=== PATIENT | female | born 1995 | race Caucasian/White ===

== ENCOUNTER 2017-09-14 10:58 | Emergency (ER) | payer MEDICAID ==
[~2017-09-14] VITALS: Ht 170.2 cm; Wt 99.8 kg
[~2017-09-14 10:58] MED LIST: ADHD MED; ANTIBIOTIC FOR UTI; BIPOLAR MED; BUPR150T6; BUPR300T; CEPH-38 PO; DEPO PROVERA; LORA10TA2; LRT10T; MELA1TAB11; NAPR-243 PO; PALI6TAB2; ZPR80C
--- OUTSIDE RECORDS SUMMARY | 2017-09-14 11:06 | XMS REPORT ---
Author Author KIERSTEN Pinto [facility] Address [address] [place] [address] Care Team Providers Care Etl Application Developer Name Role Phone KIERSTEN Pinto Unavailable PROBLEMS Type Condition ICD9-CM Code HGH16-QG Code Onset Dates Condition Status SNOMED Code Problem Borderline personality disorder F60.3 Active 72351620 Problem Acute nasopharyngitis J00 Active 57191170 Problem Post traumatic stress disorder (PTSD) F43.10 Active 32249848 Problem Positive test Z32.01 Active 167000313 Problem Unspecified mood [affective] disorder F39 Active 589077363 Problem Cigarette nicotine dependence without complication F17.210 Active 50391067 Problem Dysuria R30.0 Active 51739453 Problem Gynecologic exam normal Z01.419 Active 696729888 ALLERGIES Substance Reaction Event Type Date Status Codeine Sulfate anger Drug Allergy Mar, Active Latex Unknown Non Drug Allergy Mar, Active ENCOUNTERS Encounter Location Date Diagnosis [address] [id number], [place] [id number] 15 Apr, 2017 Dental examination Z01.20 [facility] [address] [facility] [id number] [place] [address] 14 Apr, 2017 Borderline personality disorder F60.3 ; Unspecified mood [ affective] disorder F39 and Post traumatic stress disorder (PTSD) F43.10 [facility] [address] [facility] [id number], [place] [id number] Mar, Dental caries K02.9 [facility] [address] [facility] [id number] [place] [address] 10 Feb, 2017 Borderline personality disorder F60.3 ; Unspecified mood [ affective] disorder F39 and Post traumatic stress disorder (PTSD) F43.[address] [id number], [place] [id number] Feb, Dental examination Z01.20 [facility] [address] [facility] [id number] [place] [address]1492313[address] Feb, [facility] [address] [facility] [id number] [place] 62384618[place] [address] Jan, Borderline personality disorder F60.[address] [facility] [id number], [place] [id number] Jan, [facility] [address] [id number], [place] [phone] Jan, [facility] [address] [facility] [id number] [place] 27632115- [address] Jan, [facility] [address] [facility] [id number] [place] [address] Dec, Borderline personality disorder F60.3 and Unspecified mood [ affective] disorder F39 [facility] [place] [address] [id number], [place] [id number] Dec, [facility] [place] [id number] [place] [address] [id number] Dec, [facility] [place] [id number] [place] [address] [phone] Dec, [facility] [place] [address] [id number], [place] [id number] Nov, [facility] [place] [address] [id number], [place] [phone] Nov, [facility] [place] [address] [id number], [place] [phone] Nov, [facility] [place] [address] [id number], [place] [id number] Nov, [facility] [place] [address] [id number], [place] [phone] Nov, [facility] [address] [facility] [id number] [place] 89727174- [address] Nov, [facility] [place] [address] [id number] [place] [id number] Nov, [facility] [place] [address] [id number] [place] [phone] Nov, [facility] [place] [address] [id number] [place] [id number] Nov, [facility] [place] [address] [id number] [place] [phone] Nov, [facility] [place] [address] [id number] [place] [id number] Nov, [facility] [place] [address] [id number] [place] [phone] Oct, [facility] [place] [address] [id number] [place] [phone] Oct, [facility] [place] [address] [id number] [place] [phone] Oct, [facility] [place] [address] [id number] [place] [phone] Oct, [facility] [place] [address] [id number] [place] [id number] Oct, [facility] [place] [address] [id number] [place] [phone] Oct, [facility] [place] [address] [id number] [place] [phone] Oct, [facility] [place] [address] [id number] [place] [id number] Oct, [facility] [place] [address] [id number] [place] [id number] Sep, [facility] [place] [address] [id number] [place] [id number] Sep, [facility] [place] [address] [id number] [place] [id number] Sep, [facility] [address] [id number] [id number] Sep, Dental examination Z01.20 [facility] [place] [address] [id number] [place] [id number] Sep, [facility] [place] [address] [id number], [place] [id number] Sep, [facility] [place] [address] [id number], [place] [id number] Sep, [facility] [place] [address] [id number], [place] [phone] Sep, [facility] [place] [address] [id number], [place] [phone] Sep, [facility] [place] [address] [id number], [place] [phone] Sep, [facility] [place] [address] [id number], [place] [phone] Sep, [facility] [address] [id number], [place] [id number] Sep, Dental examination Z01.20 [facility] [id number], [place] [id number] Aug, [facility] [address] [id number], [place] [phone] Apr, Positive test Z32.01 [place] [id number] [place] [address]- [address] Apr, Dysuria R30.0 [facility] [address] [id number], [place] [id number] Apr, [facility] [address] [id number], [place] [id number] Apr, [facility] [address] [id number], [place] [id number] Apr, [facility] [address] [id number], [place] [id number] Mar, Gynecologic exam normal Z01.419 [place] [id number] [place] [address]- 6[address] Mar, Borderline personality disorder F60.3 ; Unspecified mood [ affective] disorder F39 and Cigarette nicotine dependence without complication F17.210 [place] [id number] [place] [address]73- 6120 Feb, Borderline personality disorder F60.3 ; Unspecified mood [ affective] disorder F39 and Cigarette nicotine dependence without complication F17.210 [facility] [address]65100[place] [address] Jan, Borderline personality disorder F60.[address] [id number], [place] [id number] Jan, Strep throat J02.0 and Sore throat J02.[address] [id number], [place] [phone] Oct, Acute nasopharyngitis J00 [facility] [address] [place] [address] 17806- 4383 Aug, [facility] [address] [place] [address] 70081- 4972 Jul, [facility] [id number] [place] [address] 37214- 4265 Jul, [facility] [address] [place] [address] 16119- 6184 Nov, Mood disorder F39 [facility] [address] [place] [address] 36410- 8363 Jul, Mood disorder 296.90 [facility] [id number], [place] [id number] June, Bipolar 1 disorder, depressed 296.50 and Attention deficit disorder 314.00 [facility] [address] [address] Jan, [facility] [id number] [place] [address] 06112- 7302 Nov, [facility] [address] [address] Aug, IMMUNIZATIONS No Known Immunizations SOCIAL HISTORY Never Assessed REASON FOR VISIT TE PLAN OF CARE Activity Details Follow Up prn Reason:restorative 1 hour VITAL SIGNS Height 67.50 in 2017-03-25 Blood pressure systolic 113 mmHg 2017-03-25 Blood pressure diastolic 54 mmHg 2017-03-25 MEDICATIONS Medication Instructions Dosage Frequency Start Date End Date Duration Status Not-Taking Nicoderm CQ 7 MG/24HR Transdermal Once a day 1 patch to skin 24h Not-Taking Folic Acid Not-Taking Clindamycin HCl 150 MG Orally every 8 hrs 2 capsules 8h 5 day(s) Not -Taking Lamotrigine 25 MG Orally Twice a day 1 tablet 12h Active Bactrim Active Zoloft 50 mg Orally Once a day 1 tablet 24h 27 Jan, 2017 30 days Not- Taking Motrin IB 800 Orally every 6 hrs 1 tablet as needed 6h 5 days Not- Taking Latuda 40 mg Orally Once a day 1 tablet with food 24h Not-Taking RESULTS No Results PROCEDURES Procedure Date Ordered Result Body Site INTRAORL-PERIAPICAL 1 FILM 60754 Mar 25, 2017 EXTRAC ERUPTED TOOTH/EXPOSED ROOT Mar 25, 2017 INSTRUCTIONS MEDICATIONS ADMINISTERED No Known Medications MEDICAL (GENERAL) HISTORY Type Description Date Medical History attention deficit hyperactivity disorder Medical History bipolar disorder Medical History Tourette's syndrome Medical History personality disorder Surgical History tonsillectomy Surgical History wisdom teeth extraction Surgical History Tubal ligation 02/2017 Hospitalization History Voluntary in patient behavior health admission [facility] Hospitalization History childbirth for three days 12/2016
--- OUTSIDE RECORDS SUMMARY | 2017-09-14 11:06 | XMS REPORT ---
Author Author JHONY PARRA Organization [facility] [address] Address [address] [place] [address] Care Team Providers Care Bracelet And Brooch Maker Name Role Phone JHONY PARRA Unavailable PROBLEMS Type Condition ICD9-CM Code [id number] Code Onset Dates Condition Status SNOMED Code Problem Borderline personality disorder F60.3 Active 20574080 Problem Acute nasopharyngitis J00 Active 70742620 Problem Post traumatic stress disorder (PTSD) F43.10 Active 68190840 Problem Positive test Z32.01 Active 593475113 Problem Unspecified mood [affective] disorder F39 Active 830908069 Problem Cigarette nicotine dependence without complication F17.210 Active 37285986 Problem Dysuria R30.0 Active 33930453 Problem Gynecologic exam normal Z01.419 Active 233604135 ALLERGIES Substance Reaction Event Type Date Status Codeine Sulfate anger Drug Allergy Apr, Active Latex Unknown Non Drug Allergy Apr, Active ENCOUNTERS Encounter Location Date Diagnosis [address] [id number], [place] [id number] 15 Apr, 2017 Dental examination Z01.20 [facility] [address] [id number] [address] 14 Apr, 2017 Borderline personality disorder F60.3 ; Unspecified mood [ affective] disorder F39 and Post traumatic stress disorder (PTSD) F43.[address] [id number], [place] [id number] 07 Mar, 2017 Dental caries K02.9 [facility] [address] [facility] [id number], [place] [address] 10 Feb, 2017 Borderline personality disorder F60.3 ; Unspecified mood [ affective] disorder F39 and Post traumatic stress disorder (PTSD) F43.10 [place] [address] [id number], [place] [id number] Feb, Dental examination Z01.20 [facility] [address] [facility] [id number], [place] 03627845- [address] Feb, [facility] [address] [facility] [id number], [place] 765031- [address] Jan, Borderline personality disorder F60.[address] [facility] [address] [id number], [place] [id number] Jan, [facility] [address] [id number], [place] [phone] Jan, [facility] [address]65100[place], [place] 37865548- [address] Jan, [facility] [address] [id number], [place] [address]- [address]90 Dec, Borderline personality disorder F60.3 and Unspecified mood [ affective] disorder F39 [facility] [place] [address] [id number], [place] [phone] Dec, [facility] [place] [address] [id number] [place] [address] [id number] Dec, [facility] [place] [address] [id number] [place] [address] [id number] Dec, [facility] [place] [address] [id number] [place] [address] [id number] Nov, [facility] [place] [address] [id number] [place] [address] [phone] Nov, [facility] [place] [address] [id number] [place] [address] [phone] Nov, [facility] [place] [address] [id number] [place] [address] [id number] Nov, [facility] [place] [address] [id number] [place] [address] [phone] Nov, [facility] [address] [facility] [id number], [place] 54358763- [address] Nov, [facility] [place] [address] [id number] [place] [address] [id number] Nov, [facility] [place] [address] [id number] [place] [phone] Nov, [facility] [place] [address] [id number] [place] [phone] Nov, [facility] [place] [address] [id number] [place] [phone] Nov, [facility] [place] [address] [id number] [place] [id number] Nov, [facility] [place] [address] [id number] [place] [id number] Oct, [facility] [place] [address] [id number] [place] [phone] Oct, [facility] [place] [address] [id number] [place] [id number] Oct, [facility] [place] [address] [id number] [place] [id number] Oct, [facility] [place] [address] [id number] [place] [id number] Oct, [facility] [place] [address] [id number] [place] [id number] Oct, [facility] [place] [address] [id number] [place] [id number] Oct, [facility] [place] [address] [id number] [place] [id number] Oct, [facility] [place] [address] [id number] [place] [id number] Sep, [facility] [place] [address] [id number] [place] [id number] Sep, [facility] [place] [address] [id number] [place] [id number] Sep, [facility] [id number] [facility] [place] [id number] Sep, Dental examination Z01.20 [facility] [place] [address] [id number] [place] [id number] Sep, [facility] [place] [address] [id number] [place] [phone] Sep, [facility] [place] [address] [id number], [place] [phone] Sep, [facility] [place] [address] [id number], [place] [id number] Sep, [facility] [place] [address] [id number], [place] [phone] Sep, [facility] [place] [address] [facility] [id number], [place] [phone] Sep, [facility] [place] [address] [id number], [place] [phone] Sep, [facility] [address] [id number], [place] [phone] Sep, Dental examination Z01.20 [facility] [place] [address] [id number], [place] [phone] Aug, [facility] [address] [id number], [place] [id number] Apr, Positive test Z32.01 [place] [address] [place] [address] 69705- 2919 Apr, Dysuria R30.0 [facility] [address] [id number], [place] [id number] Apr, [facility] [address] [id number], [place] [phone] Apr, [facility] [address] [id number], [place] [phone] Apr, [facility] [address] [id number], [place] [id number] Mar, Gynecologic exam normal Z01.419 [place] [address] [address]- [address] Mar, Borderline personality disorder F60.3 ; Unspecified mood [ affective] disorder F39 and Cigarette nicotine dependence without complication F17.210 [place] [id number] [place] [address] 30197- 6304 Feb, Borderline personality disorder F60.3 ; Unspecified mood [ affective] disorder F39 and Cigarette nicotine dependence without complication F17.210 [facility] [address] [place] [address] 91216- 5317 Jan, Borderline personality disorder F60.[address] [id number], [place] [id number] Jan, Strep throat J02.0 and Sore throat J02.[address] [id number], [place] [phone] Oct, Acute nasopharyngitis J00 [place] [id number] [place] [address] 38108- 7535 Aug, [facility] [id number] [place] [address] 42301- 9073 Jul, [facility] [id number] [place] [address] 20326- 8318 Jul, [facility] [address] [place] [address] 18957- 3914 Nov, Mood disorder F39 [facility] [id number] [place] [address] 02907- 8415 Jul, Mood disorder 296.90 [facility] [id number], [place] 024397529 June, Bipolar 1 disorder, depressed 296.50 and Attention deficit disorder 314.00 [facility] [address]00565100[place], [place] [address]- 1697 Jan, [facility] [id number] [place] [address] 41342- 6636 Nov, [facility] [id number] [place] [address] 89199- 5070 Aug, IMMUNIZATIONS No Known Immunizations SOCIAL HISTORY Never Assessed REASON FOR VISIT f/u PLAN OF CARE Activity Details Follow Up 2 Months Reason: VITAL SIGNS Height 67.50 in 2017-04-29 Weight 207.5 lbs 2017-04-29 Heart Rate 72 bpm 2017-04-29 Respiratory Rate 20 2017-04-29 BMI 32.02 kg/m2 2017-04-29 Blood pressure systolic 112 mmHg 2017-04-29 Blood pressure diastolic 74 mmHg 2017-04-29 MEDICATIONS Medication Instructions Dosage Frequency Start Date End Date Duration Status Folic Acid Not-Taking Nicoderm CQ 7 MG/24HR Transdermal Once a day 1 patch to skin 24h Not-Taking Bactrim Not-Taking Clindamycin HCl 150 MG Orally every 8 hrs 2 capsules 8h 5 day(s) Not -Taking Abilify 5 mg Orally Once a day 1 tablet 24h Apr, 30 day(s) Active Sertraline HCl 25 MG Orally Once a day 1 tablet 24h Active Zoloft 100 MG Orally Once a day 1 tablet 24h 30 days Active Latuda 40 mg Orally Once a day 1 tablet with food 24h Not-Taking Lamotrigine 25 MG Orally Twice a day 1 tablet 12h Not-Taking Not-Taking Motrin IB 800 Orally every 6 hrs 1 tablet as needed 6h 5 days Not- Taking RESULTS No Results PROCEDURES No Known procedures INSTRUCTIONS MEDICATIONS ADMINISTERED No Known Medications MEDICAL (GENERAL) HISTORY Type Description Date Medical History attention deficit hyperactivity disorder Medical History bipolar disorder Medical History Tourette's syndrome Medical History personality disorder Surgical History tonsillectomy Surgical History wisdom teeth extraction Surgical History Tubal ligation 02/2017 Hospitalization History Voluntary in patient behavior health admission [facility] unit Hospitalization History childbirth for three days 12/2016
--- OUTSIDE RECORDS SUMMARY | 2017-09-14 11:06 | XMS REPORT ---
Author Author YUSEF NORWOOD [facility] Address [address] [place] [address] Care Team Providers Care Ticker Wirer Name Role Phone OZIEL NORWOODO Unavailable PROBLEMS Type Condition ICD9-CM Code [id number] Code Onset Dates Condition Status SNOMED Code Problem Borderline personality disorder F60.3 Active 81433067 Problem Acute nasopharyngitis J00 Active 49589057 Problem Post traumatic stress disorder (PTSD) F43.10 Active 82478689 Problem Positive test Z32.01 Active 907730549 Problem Unspecified mood [affective] disorder F39 Active 656384069 Problem Cigarette nicotine dependence without complication F17.210 Active 61908563 Problem Dysuria R30.0 Active 29255666 Problem Gynecologic exam normal Z01.419 Active 777523263 ALLERGIES No Information ENCOUNTERS Encounter Location Date Diagnosis [address] [id number][place] [id number] 14 Jul, 2017 [address] [id number] [address] 30 Jun, [address] [id number][place] [id number] 15 Apr, 2017 Dental examination Z01.20 [address] [place] [address]24- [address]578 14 Apr, 2017 Borderline personality disorder F60.3 ; Unspecified mood [ affective] disorder F39 and Post traumatic stress disorder (PTSD) F43.[address] [id number][place] [id number] 07 Mar, 2017 Dental caries K02.9 [address] [place] [address] [facility] [id number] [place] [address] 24834- 1706 10 Feb, 2017 Borderline personality disorder F60.3 ; Unspecified mood [ affective] disorder F39 and Post traumatic stress disorder (PTSD) F43.10 [facility] [address] [id number], [place] [id number] Feb, Dental examination Z01.20 [facility] [address] [facility] [id number] [place] [address] Feb, [facility] [address] [id number] [address] Jan, Borderline personality disorder F60.3 [facility] [address] [id number], [place] [id number] Jan, [facility] [place] [address] [facility] [address] [id number], [place] [id number] Jan, [facility] [address]100[place] [address] Jan, [facility] [address] [address] Dec, Borderline personality disorder F60.3 and Unspecified mood [ affective] disorder F39 [facility] [place] [id number] [place] [address] [id number] Dec, [facility] [place] [address] [id number] [place] [address] [id number] Dec, [facility] [place] [address] [id number] [place] [address] [id number] Dec, [facility] [place] [id number] [place] [address] [id number] Nov, [facility] [place] [address] [id number], [place] 1716900[place] Nov, [facility] [place] [address] [id number] [place] [address] [id number] Nov, [facility] [place] [address] [id number] [place] [address] [id number] Nov, [facility] [place] [address] [id number] [place] [address] [phone] Nov, [facility] [address] [facility] [id number] [place] [address] Nov, [facility] [place] [address] [id number] [place] [id number] Nov, [facility] [place] [address] [id number] [id number] Nov, [facility] [place] [address] [id number] [place] [phone] Nov, [facility] [place] [address] [id number] [place] [id number] Nov, [facility] [place] [address] [id number] [place] [id number] Nov, [facility] [place] [address] [id number] [place] [phone] Oct, [facility] [place] [address] [id number] [place] [id number] Oct, [facility] [place] [address] [id number] [place] [id number] Oct, [facility] [place] [address] [id number] [place] [id number] Oct, [facility] [place] [address] [id number] [place] [phone] Oct, [facility] [place] [address] [id number] [place] [id number] Oct, [facility] [place] [address] [id number] [place] [id number] Oct, [facility] [place] [address] [id number] [place] [phone] Oct, [facility] [place] [address] [id number] [place] [id number] Sep, [facility] [place] [address] [id number] [place] [id number] Sep, [facility] [place] [address] [id number] [place] [id number] Sep, [facility] [place] [address] [facility] [id number] [facility] [place] [id number] Sep, Dental examination Z01.20 [facility] [place] [address] [id number], [place] [id number] Sep, [facility] [place] [address] [id number], [place] [id number] Sep, [facility] [place] [address] [id number], [place] [phone] Sep, [facility] [place] [address] [id number], [place] [id number] Sep, [facility] [place] [address] [id number], [place] [id number] Sep, [facility] [place] [address] [id number], [place] [id number] Sep, [facility] [place] [address] [id number], [place] [phone] Sep, [facility] [address] [id number], [place] [address]83[address] Sep, Dental examination Z01.20 [facility] [place] [address] [id number], [place] [phone] Aug, [facility] [address] [id number], [place] [id number] Apr, Positive test Z32.01 [facility] [address] [address] Apr, Dysuria R30.0 [facility] [address] [id number], [place] [id number] Apr, [facility] [address] [id number], [place] [id number] Apr, [facility] [address] [id number], [place] [id number] Apr, [facility] [address] [id number], [place] [id number] Mar, Gynecologic exam normal Z01.419 [facility] [id number] [place] [address] 928885- 8414 Mar, Borderline personality disorder F60.3 ; Unspecified mood [ affective] disorder F39 and Cigarette nicotine dependence without complication F17.210 [facility] [address] [place] [address] 95769- 0684 20 Feb, 2017 Borderline personality disorder F60.3 ; Unspecified mood [ affective] disorder F39 and Cigarette nicotine dependence without complication F17.210 [facility] [address]100[place] [address] 23 Jan, 2016 Borderline personality disorder F60.3 [address]100[place] [id number] 08 Jan, 2016 Strep throat J02.0 and Sore throat J02.[address] [place] [address] [id number] Oct, Acute nasopharyngitis J00 [facility] [id number] [place] [address] 23628- 5011 Aug, [facility] [id number] [place] [address] 70038- 8113 Jul, [facility] [address] [place] [address] 72920- 1830 Jul, [facility] [address] [place] [address] 37160- 7370 Nov, Mood disorder F39 [facility] [address] [place] [address] 58169- 1403 Jul, Mood disorder 296.90 [facility] [id number], [place] 460268164 June, Bipolar 1 disorder, depressed 296.50 and Attention deficit disorder 314.00 [facility] [id number] [place] [address] 30518- 1277 Jan, [facility] [id number] [place] [address] 85308- 2564 Nov, [facility] [id number] [place] [address] 84268- 4425 Aug, IMMUNIZATIONS No Known Immunizations SOCIAL HISTORY Never Assessed REASON FOR VISIT appt PLAN OF CARE VITAL SIGNS MEDICATIONS Unknown Medications RESULTS No Results PROCEDURES No Known procedures INSTRUCTIONS MEDICATIONS ADMINISTERED No Known Medications MEDICAL (GENERAL) HISTORY Type Description Date Medical History attention deficit hyperactivity disorder Medical History bipolar disorder Medical History Tourette's syndrome Medical History personality disorder Surgical History tonsillectomy Surgical History wisdom teeth extraction Surgical History Tubal ligation 02/2017 Hospitalization History Voluntary in patient [facility] health admission [facility] unit Hospitalization History childbirth for three days 12/2016
--- OUTSIDE RECORDS SUMMARY | 2017-09-14 11:06 | XMS REPORT ---
Author Author STAR LARA [facility] Address [address] [place] [address] Care Team Providers Care Map Plotter Name Role Phone STAR LARA Unavailable PROBLEMS Type Condition ICD9-CM Code IZF84-GA Code Onset Dates Condition Status SNOMED Code Problem Borderline personality disorder F60.3 Active 24824745 Problem Acute nasopharyngitis J00 Active 95738344 Problem Post traumatic stress disorder (PTSD) F43.10 Active 61512483 Problem Positive test Z32.01 Active 210920037 Problem Unspecified mood [affective] disorder F39 Active 146738292 Problem Cigarette nicotine dependence without complication F17.210 Active 19051404 Problem Dysuria R30.0 Active 80452616 Problem Gynecologic exam normal Z01.419 Active 994713931 ALLERGIES No Information ENCOUNTERS Encounter Location Date Diagnosis [address] [id number] [place] [id number] 14 Jul, 2017 [address] [id number] [address] 30 Jun, [address] [id number] [place] [id number] 15 Apr, 2017 Dental examination Z01.20 [id number] [place] [address] 75743- [address] 14 Apr, 2017 Borderline personality disorder F60.3 ; Unspecified mood [ affective] disorder F39 and Post traumatic stress disorder (PTSD) F43.[address] [id number] [place] [id number] 07 Mar, 2017 Dental caries K02.9 [address] [id number] [address]- 17[address] 10 Feb, 2017 Borderline personality disorder F60.3 ; Unspecified mood [ affective] disorder F39 and Post traumatic stress disorder (PTSD) F43.10 [facility] [address] [id number] [place] [id number] Feb, Dental examination Z01.20 [facility] [address] [facility] [id number], [place] 92630081- [address]262 Feb, [facility] [address] [facility] [id number], [place] 80434725- 6679 Jan, Borderline personality disorder F60.3 [facility] [address] [id number] [place] [id number] Jan, [facility] [address] [id number] [place] [id number] Jan, [facility] [address]00565100[place], [place] [address]- 0259 Jan, [facility] [address]00565100[place], [place] [address]- 7362 Dec, Borderline personality disorder F60.3 and Unspecified mood [ affective] disorder F39 [facility] [place] [address] [id number] [place] [id number] Dec, [facility] [place] [address] [id number] [place] [id number] Dec, [facility] [place] [address] [id number] [place] [id number] Dec, [facility] [place] [id number] [place] [address] [id number] Nov, [facility] [place] [address] [id number] [place] 266634007 Nov, [facility] [place] [address] [id number] [place] [address] [id number] Nov, [facility] [place] [address] [id number] [place] [id number] Nov, [facility] [place] [address] [id number] [place], [place] [id number] Nov, [facility] [address] [id number] [address]- 1693 Nov, [facility] [place] [address] [id number] [place] [id number] Nov, [facility] [place] [address] [id number] [place] [id number] Nov, [facility] [place] [address] [id number] [place] [id number] Nov, [facility] [place] [address] [id number] [place] [id number] Nov, [facility] [place] [address] [id number] [place] [id number] Nov, [facility] [place] [address] [id number] [place] [id number] Oct, [facility] [place] [address] [id number] [place] [id number] Oct, [facility] [place] [address] [id number] [place] [id number] Oct, [facility] [place] [address] [id number] [place] [id number] Oct, [facility] [place] [address] [id number] [place] [phone] Oct, [facility] [place] [address] [id number] [place] [phone] Oct, [facility] [place] [address] [id number] [place] [id number] Oct, [facility] [place] [address] [id number] [place] [id number] Oct, [facility] [place] [address] [id number] [place] [phone] Sep, [facility] [place] [address] [id number] [place] [id number] Sep, [facility] [place] [address] [id number] [place] [phone] Sep, [facility] [place] [address] [facility] [address] [id number] [id number] Sep, Dental examination Z01.20 [facility] [place] [address] [id number] [place] 725113551 Sep, [facility] [place] [address] [id number] [place] [id number] Sep, [facility] [place] [address] [id number] [place] 635179022 Sep, [facility] [place] [address] [id number] [place] 803120600 Sep, [facility] [place] [address] [id number] [place] [id number] Sep, [facility] [place] [address] [id number] [place] 684327517 Sep, [facility] [place] [address] [id number] [place], [place] [id number] Sep, [facility] [address] [id number] [place] 489411279 Sep, Dental examination Z01.20 [facility] [place] [address] [id number] [place], [place] [id number] Aug, [facility] [address] [id number] [place] [id number] Apr, Positive test Z32.01 [facility] [address]005[address]100[place], [place] [address]- 63[address] Apr, Dysuria R30.0 [facility] [address] [id number] [place] [id number] Apr, [facility] [address] [id number] [place] [id number] Apr, [facility] [address] [id number] [place] [id number] Apr, [facility] [address] [id number] [place] [id number] Mar, Gynecologic exam normal Z01.419 [facility] [address]- 7[address] Mar, Borderline personality disorder F60.3 ; Unspecified mood [ affective] disorder F39 and Cigarette nicotine dependence without complication F17.210 [facility] [address], [place] [address]- 9363 20 Feb, 2017 Borderline personality disorder F60.3 ; Unspecified mood [ affective] disorder F39 and Cigarette nicotine dependence without complication F17.210 [facility] [address] [address]- 5038 23 Jan, 2016 Borderline personality disorder F60.[address] [id number] [place] [id number] 08 Jan, 2016 Strep throat J02.0 and Sore throat J02.[address] [id number] [place] [id number] 07 Oct, 2015 Acute nasopharyngitis J00 [facility] [address]00565100[place], [place] [address]- 05[address] Aug, [facility] [address] [place] [address] 27532- 0732 Jul, [facility] [address]00565100[place], [place] [address]- 3344 Jul, [facility] [address] [place] [address] 27742- 5895 Nov, Mood disorder F39 [facility] [address]005[address], [place] [address]- 3852 Jul, Mood disorder 296.90 [facility] [id number] [place], [place] [id number] June, Bipolar 1 disorder, depressed 296.50 and Attention deficit disorder 314.00 [facility] [address]00565[address] 7790[place]- 2815 Jan, [facility] [address], [place] 43093182- 6018 Nov, [facility] [address]100[place], [place] [address]- 6804 Aug, IMMUNIZATIONS No Known Immunizations SOCIAL HISTORY Never Assessed REASON FOR VISIT PLAN OF CARE VITAL SIGNS MEDICATIONS Unknown [...] History Voluntary in patient behavior health admission [facility] unit Hospitalization History childbirth for three days 12/2016
--- OUTSIDE RECORDS SUMMARY | 2017-09-14 11:07 | XMS REPORT ---
Author Author STAR LARA [facility] Address [address] [place] [address] Care Team Providers Care Lung Splitter Name Role Phone STAR LARA Unavailable PROBLEMS Type Condition ICD9-CM Code KKN05-NH Code Onset Dates Condition Status SNOMED Code Problem Borderline personality disorder F60.3 Active 67502292 Problem Acute nasopharyngitis J00 Active 44693658 Problem Post traumatic stress disorder (PTSD) F43.10 Active 83046678 Problem Positive test Z32.01 Active 261045355 Problem Unspecified mood [affective] disorder F39 Active 029148677 Problem Cigarette nicotine dependence without complication F17.210 Active 75624108 Problem Dysuria R30.0 Active 58238525 Problem Gynecologic exam normal Z01.419 Active 457638028 ALLERGIES No Information ENCOUNTERS Encounter Location Date Diagnosis [address] [id number], [place] [id number] 14 Jul, 2017 [address] [id number] [address] 30 Jun, [address] [id number], [place] 750738508 15 Apr, 2017 Dental examination Z01.20 [id number] [place] [address]- [address] 14 Apr, 2017 Borderline personality disorder F60.3 ; Unspecified mood [ affective] disorder F39 and Post traumatic stress disorder (PTSD) F43.[address] [id number], [place] [address]85742844 07 Mar, 2017 Dental caries K02.9 [address] [id number] [address] 10 Feb, 2017 Borderline personality disorder F60.3 ; Unspecified mood [ affective] disorder F39 and Post traumatic stress disorder (PTSD) F43.10 [facility] [address] [id number], [place] [address] Feb, Dental examination Z01.20 [facility] [address] [facility] [id number] [place] 002268[place] [address] Feb, [facility] [address] [facility] [id number] [place] 2946[address] [address] Jan, Borderline personality disorder F60.3 [facility] [address] [id number], [place] [address]14074154 Jan, [facility] [address] [id number], [place] [id number] Jan, [facility] [address]005[address] [address] Jan, [facility] [address] [address] Dec, Borderline personality disorder F60.3 and Unspecified mood [ affective] disorder F39 [facility] [place] [address] [id number], [place] [id number] Dec, [facility] [place] [address] [id number], [place] [id number] Dec, [facility] [place] [address] [id number], [place] 953773616 Dec, [facility] [place] [address] [id number] [place] [address] [id number] Nov, [facility] [place] [address] [id number], [place] [id number] Nov, [facility] [place] [address] [id number] [place] [address] [id number] Nov, [facility] [place] [address] [id number], [place] [id number] Nov, [facility] [place] [address] [id number], [place] 478069453 Nov, [facility] [address] [id number] [address]- [address] Nov, [facility] [place] [address] [id number] [place] [id number] Nov, [facility] [place] [address] [id number] [place] [id number] Nov, [facility] [place] [address] [id number] [place] 412735755 Nov, [facility] [place] [address] [id number] [place] 071107186 Nov, [facility] [place] [address] [id number] [place] 847341483 Nov, [facility] [place] [address] [id number] [place] [id number] Oct, [facility] [place] [address] [id number] [place] [id number] Oct, [facility] [place] [address] [id number] [place] [id number] Oct, [facility] [place] [address] [id number] [place] [phone] Oct, [facility] [place] [address] [id number] [place] 822149726 Oct, [facility] [place] [address] [id number] [place] 7176[place]697 Oct, [facility] [place] [address] [id number] [place] [phone] Oct, [facility] [place] [address] [id number] [place] 437296785 Oct, [facility] [place] [address] [id number] [place] [id number] Sep, [facility] [place] [address] [id number] [place] [id number] Sep, [facility] [place] [address] [id number] [place] 1570[place] Sep, [facility] [address] [facility] [address] [id number] [facility] [place] [address] Sep, Dental examination Z01.20 [facility] [place] [address] [id number], [place] 188532047 Sep, [facility] [place] [address] [id number] [place] [id number] Sep, [facility] [place] [address] [id number] [place] 696587770 Sep, [facility] [place] [address] [id number], [place] 368715215 Sep, [facility] [place] [address] [id number], [place] 951437605 Sep, [facility] [place] [address] [id number], [place] 100202627 Sep, [facility] [place] [address] [id number], [place] 858890260 Sep, [facility] [address] [id number], [place] 660977262 Sep, Dental examination Z01.20 [facility] [place] [address] [id number], [place] 322942336 Aug, [facility] [address] [id number], [place] 464888884 Apr, Positive test Z32.01 [facility] [address]00565100[place] [address]- 8[address] Apr, Dysuria R30.0 [facility] [address] [id number], [place] [phone] Apr, [facility] [address] [id number], [place] 532187985 Apr, [facility] [address] [id number], [place] [id number] Apr, [facility] [address] [id number], [place] 789619760 Mar, Gynecologic exam normal Z01.419 [facility] [address]00565100[place] [address] Mar, Borderline personality disorder F60.3 ; Unspecified mood [ affective] disorder F39 and Cigarette nicotine dependence without complication F17.210 [facility] [address]65100[place] [address]- [address] 20 Feb, 2017 Borderline personality disorder F60.3 ; Unspecified mood [ affective] disorder F39 and Cigarette nicotine dependence without complication F17.210 [facility] [address]00565100[place] [address] 23 Jan, 2016 Borderline personality disorder F60.[address] [id number], [place] 9200[address]152 08 Jan, 2016 Strep throat J02.0 and Sore throat J02.[address] [id number], [place] 444661815 07 Oct, 2015 Acute nasopharyngitis J00 [facility] [address]00565100[place] [address]- 34[address] Aug, [facility] [address] [place] [address]80- 5090 Jul, [facility] [address]00565100[place] [address]- 56[address] Jul, [facility] [address] [place] [address] 57[address]- 5719 Nov, Mood disorder F39 [facility] [address]00565100[place] [address]- [address] Jul, Mood disorder 296.90 [facility] [id number], [place] 288521427 June, Bipolar 1 disorder, depressed 296.50 and Attention deficit disorder 314.00 [facility] [address]65100[place] 487[place]- 15[address] Jan, [facility] [address]65100[place] 29452930- 1193 Nov, [facility] [address]65100[place] [address]- [address] Aug, IMMUNIZATIONS No Known Immunizations SOCIAL HISTORY [...] History Voluntary in patient behavior health admission [facility] unit Hospitalization History childbirth for three days 12/2016
--- OUTSIDE RECORDS SUMMARY | 2017-09-14 11:07 | XMS REPORT ---
Author Author STAR LARA [facility] Address [address] [place] [address] Care Team Providers Care Dietetic Tech Name Role Phone STAR LARA Unavailable PROBLEMS Type Condition ICD9-CM Code BHW78-KS Code Onset Dates Condition Status SNOMED Code Problem Borderline personality disorder F60.3 Active 47336784 Problem Acute nasopharyngitis J00 Active 19126049 Problem Post traumatic stress disorder (PTSD) F43.10 Active 70447138 Problem Positive test Z32.01 Active 331530102 Problem Unspecified mood [affective] disorder F39 Active 193357017 Problem Cigarette nicotine dependence without complication F17.210 Active 27163102 Problem Dysuria R30.0 Active 28265287 Problem Gynecologic exam normal Z01.419 Active 448764903 ALLERGIES No Information ENCOUNTERS Encounter Location Date Diagnosis [address] [id number] [place] [id number] 14 Jul, 2017 [address] [id number] [address]- [address] 30 Jun, [address] [id number] [place] 662751046 15 Apr, 2017 Dental examination Z01.20 [address] [id number] [place] [address]25- [address]60 14 Apr, 2017 Borderline personality disorder F60.3 ; Unspecified mood [ affective] disorder F39 and Post traumatic stress disorder (PTSD) F43.[address] [id number] POINT[place] 483992314 07 Mar, 2017 Dental caries K02.9 [address] [id number] [address]- [address]243 10 Feb, 2017 Borderline personality disorder F60.3 ; Unspecified mood [ affective] disorder F39 and Post traumatic stress disorder (PTSD) F43.10 [facility] [address] [id number] POINT, [place] 053621741 Feb, Dental examination Z01.20 [facility] [address] [facility] [id number], [place] 75436777- 8890 Feb, [facility] [address] [facility] [id number], [place] 10721016- 4975 Jan, Borderline personality disorder F60.3 [facility] [address] [id number] [place] 948660891 Jan, [facility] [address] [id number] [place]INT[place] 957856966 Jan, [facility] [address]00565100[place], [place] [address]- [address] Jan, [facility] [address]00565100[place] [address]- 7349 Dec, Borderline personality disorder F60.3 and Unspecified mood [ affective] disorder F39 [facility] [place] [address] [id number] [place], [place] [id number] Dec, [facility] [place] [address] [id number] [place], [place] [id number] Dec, [facility] [place] [address] [id number] [place] 956273066 Dec, [facility] [place] [address] [id number] [place] [address] [id number] Nov, [facility] [place] [address] [id number] [place] 111795853 Nov, [facility] [place] [address] [id number] [place] [address] [id number] Nov, [facility] [place] [address] [id number] [place], [place] 345189380 Nov, [facility] [place] [address] [id number] [place], [place] 418418123 Nov, [facility] [address] [id number] [address]- 0208 Nov, [facility] [place] [address] [id number] [place] 718577530 Nov, [facility] [place] [address] [id number] [place] 664736320 Nov, [facility] [place] [address] [id number] [place] 470456465 Nov, [facility] [place] [address] [id number] [place] 337869794 Nov, [facility] [place] [address] [id number] [place] 882366704 Nov, [facility] [place] [address] [id number] [place] [id number] Oct, [facility] [place] [address] [id number] [place] 813509936 Oct, [facility] [place] [address] [id number] [place] 090739532 Oct, [facility] [place] [address] [id number] [place] 610810160 Oct, [facility] [place] [address] [id number] [place] [id number] Oct, [facility] [place] [address] [id number] [place] 9[place]20[address] Oct, [facility] [place] [address] [id number] [place] 693574933 Oct, [facility] [place] [address] [id number] [place] 492878502 Oct, [facility] [place] [address] [id number] [place] 150468445 Sep, [facility] [place] [address] [id number] [place] 071020185 Sep, [facility] [place] [address] [id number] [place] 448408887 Sep, [facility] [place] [facility] [address] [id number] [facility] 142513380 Sep, Dental examination Z01.20 [facility] [place] [address] [id number] CITY, [place] 492905914 Sep, [facility] [place] [address] [id number] [place] 333566997 Sep, [facility] [place] [address] [id number] [place] 049674006 Sep, [facility] [place] [address] [id number] [place], [place] 258240498 Sep, [facility] [place] [address] [id number] [place], [place] 687011346 Sep, [facility] [place] [address] [id number] [place], [place] 462362616 Sep, [facility] [place] [address] [id number] [place], [place] [id number] Sep, [facility] [address] [id number] [place] 181103914 Sep, Dental examination Z01.20 [facility] [place] [address] [id number] [place], [place] [id number] Aug, [facility] [address] [id number] [place]INT, [place] 933786625 Apr, Positive test Z32.01 [facility] [address]00565100[place] [address]- 1148 Apr, Dysuria R30.0 [facility] [address] [id number] [place] 317952964 Apr, [facility] [address] [id number] [place], [place] 662152406 Apr, [facility] [address] [id number] [place], [place] 123497743 Apr, [facility] [address] [id number] [place]INT, [place] [id number] Mar, Gynecologic exam normal Z01.419 [facility] [address]00565100[place] [address]235[place]- 3675 Mar, Borderline personality disorder F60.3 ; Unspecified mood [ affective] disorder F39 and Cigarette nicotine dependence without complication F17.210 [facility] [address]00565100[place] [address]- 6219 20 Feb, 2017 Borderline personality disorder F60.3 ; Unspecified mood [ affective] disorder F39 and Cigarette nicotine dependence without complication F17.210 [facility] [address]00565100[place] 4810[place]- [address] 23 Jan, 2016 Borderline personality disorder F60.[address] [id number] [place] 625243598 08 Jan, 2016 Strep throat J02.0 and Sore throat J02.[address] [id number] [place]INT[place] 425266075 07 Oct, 2015 Acute nasopharyngitis J00 [facility] [address]00565100[place], [place] [address]- 5749 Aug, [facility] [address] [place] [address] 15794- 7705 Jul, [facility] [address]00565100[place] [address]- 6707 Jul, [facility] [address] [place] [address] 78708- 2565 Nov, Mood disorder F39 [facility] [address]00565100[place] [address]- 0873 Jul, Mood disorder 296.90 [facility] [id number] [place], [place] 493926787 June, Bipolar 1 disorder, depressed 296.50 and Attention deficit disorder 314.00 [facility] [address]00565100[place] 6105[place]- 8238 Jan, [facility] [address]00565100[place], [place] 95572815- 9038 Nov, [facility] [address]00565100[place], [place] [address]- 2216 Aug, IMMUNIZATIONS No Known Immunizations SOCIAL HISTORY [...] History Voluntary in patient behavior health admission [facility] unit Hospitalization History childbirth for three days 12/2016
--- OUTSIDE RECORDS SUMMARY | 2017-09-14 11:07 | XMS REPORT ---
Author Author STAR LARA [facility] Address [address] [place] [address] Care Team Providers Care Assistant Community Director Name Role Phone STAR LARA Unavailable PROBLEMS Type Condition ICD9-CM Code KXX39-EX Code Onset Dates Condition Status SNOMED Code Problem Borderline personality disorder F60.3 Active 80304959 Problem Acute nasopharyngitis J00 Active 91935936 Problem Post traumatic stress disorder (PTSD) F43.10 Active 38693864 Problem Positive test Z32.01 Active 191628022 Problem Unspecified mood [affective] disorder F39 Active 679277863 Problem Cigarette nicotine dependence without complication F17.210 Active 31772134 Problem Dysuria R30.0 Active 15628863 Problem Gynecologic exam normal Z01.419 Active 035910902 ALLERGIES No Information ENCOUNTERS Encounter Location Date Diagnosis [address] [id number], [place] 909227755 14 Jul, 2017 [address] [id number], [place] [address]- [address] 30 Jun, [address] [id number], [place] 492790864 15 Apr, 2017 Dental examination Z01.20 [address] [id number] [place] [address] 66525- 2340 14 Apr, 2017 Borderline personality disorder F60.3 ; Unspecified mood [ affective] disorder F39 and Post traumatic stress disorder (PTSD) F43.[address] [id number], [place] 935590422 07 Mar, 2017 Dental caries K02.9 [address] [id number] [address]- 4636 10 Feb, 2017 Borderline personality disorder F60.3 ; Unspecified mood [ affective] disorder F39 and Post traumatic stress disorder (PTSD) F43.10 [facility] [address] [id number], [place] 988032552 Feb, Dental examination Z01.20 [facility] [address] [facility] [id number], [place] 61359081- 6319 Feb, [facility] [address] [facility] [id number], [place] 34799715- 5227 Jan, Borderline personality disorder F60.3 [facility] [address] [id number], [place] 326165903 Jan, [facility] [address] [id number], [place] 082703849 Jan, [facility] [address]00565100[place], [place] [address]- 7360 Jan, [facility] [address]00565100[place], [place] [address]- 9451 Dec, Borderline personality disorder F60.3 and Unspecified mood [ affective] disorder F39 [facility] [place] [address] [id number], [place] 335097217 Dec, [facility] [place] [address] [id number], [place] 750391419 Dec, [facility] [place] [address] [id number], [place] 668176902 Dec, [facility] [place] [id number] [place] [address] [id number] Nov, [facility] [place] [address] [id number], [place] 483554363 Nov, [facility] [place] [address] [id number] [place] [address] [id number] Nov, [facility] [place] [address] [id number], [place] 511172815 Nov, [facility] [place] [address] [id number], [place] 349645791 Nov, [facility] [address] [id number] [address]- 3921 Nov, [facility] [place] [address] [id number] [place] 523479905 Nov, [facility] [place] [address] [id number] [place] 312055369 Nov, [facility] [place] [address] [id number] [place] 888743131 Nov, [facility] [place] [address] [id number] [place] [id number] Nov, [facility] [place] [address] [id number] [place] 679054156 Nov, [facility] [place] [address] [id number] [place] 936643525 Oct, [facility] [place] [address] [id number] [place] [id number] Oct, [facility] [place] [address] [id number] [place] 769806550 Oct, [facility] [place] [address] [id number] [place] 747246163 Oct, [facility] [place] [address] [id number] [place] 625779137 Oct, [facility] [place] [address] [id number] [place] 633465579 Oct, [facility] [place] [address] [id number] [place] 849326842 Oct, [facility] [place] [address] [id number] [place] 087914223 Oct, [facility] [place] [address] [id number] [place] 621085531 Sep, [facility] [place] [address] [id number] [place] [id number] Sep, [facility] [place] [address] [id number] [place] 918402355 Sep, [facility] [place] [address] [facility] [address] [id number] [id number] Sep, Dental examination Z01.20 [facility] [place] [address] [id number], [place] 323735861 Sep, [facility] [place] [address] [id number] [place] 972971062 Sep, [facility] [address] [id number] [place] 868383093 Sep, [facility] [place] [address] [id number], [place] 122100591 Sep, [facility] [place] [address] [id number], [place] 772899663 Sep, [facility] [place] [address] [id number], [place] 768028372 Sep, [facility] [place] [address] [id number], [place] 625947454 Sep, [facility] [address] [id number], [place] 795200015 Sep, Dental examination Z01.20 [facility] [place] [address] [id number], [place] 284047888 Aug, [facility] [address] [id number], [place] [id number] Apr, Positive test Z32.01 [facility] [address]00565100[place], [place] [address]- 4714 Apr, Dysuria R30.0 [facility] [address] [id number], [place] [id number] Apr, [facility] [address] [id number][place] [id number] Apr, [facility] [address] [id number][place] [id number] Apr, [facility] [address] [id number][place] [id number] Mar, Gynecologic exam normal Z01.419 [facility] [address] [address] Mar, Borderline personality disorder F60.3 ; Unspecified mood [ affective] disorder F39 and Cigarette nicotine dependence without complication F17.210 [facility] [address], [place] [address] 20 Feb, 2017 Borderline personality disorder F60.3 ; Unspecified mood [ affective] disorder F39 and Cigarette nicotine dependence without complication F17.210 [facility] [address] [address] 23 Jan, 2016 Borderline personality disorder F60.[address] [id number] [id number] 08 Jan, 2016 Strep throat J02.0 and Sore throat J02.[address] [id number][place] [id number] 07 Oct, 2015 Acute nasopharyngitis J00 [facility] [address], [place] [address] Aug, [facility] [id number] [place] [address] Jul, [facility] [address], [place] [address] Jul, [facility] [id number] [place] [address] Nov, Mood disorder F39 [facility] [address], [place] [address] Jul, Mood disorder 296.90 [facility] [id number] [id number] June, Bipolar 1 disorder, depressed 296.50 and Attention deficit disorder 314.00 [facility] [address] [address] Jan, [facility] [address] [id number] Nov, [facility] [address], [place] [address] Aug, IMMUNIZATIONS No Known Immunizations SOCIAL HISTORY [...] History Voluntary in patient behavior health admission [facility] unit Hospitalization History childbirth for three days 12/2016
--- OUTSIDE RECORDS SUMMARY | 2017-09-14 11:07 | XMS REPORT ---
Author Author STAR LARA [facility] Address [address] [place] [address] Care Team Providers Care Correctional Corporal Name Role Phone JANE STAR Unavailable PROBLEMS Type Condition ICD9-CM Code [id number] Code Onset Dates Condition Status SNOMED Code Problem Borderline personality disorder F60.3 Active 64961810 Problem Acute nasopharyngitis J00 Active 25718220 Problem Post traumatic stress disorder (PTSD) F43.10 Active 19267820 Problem Positive test Z32.01 Active 265353169 Problem Unspecified mood [affective] disorder F39 Active 823582284 Problem Cigarette nicotine dependence without complication F17.210 Active 65493953 Problem Dysuria R30.0 Active 39033601 Problem Gynecologic exam normal Z01.419 Active 286019476 ALLERGIES No Information ENCOUNTERS Encounter Location Date Diagnosis [address] [id number], [place] [address] 16 Jun, [address] [id number], [place] [id number] 15 Apr, 2017 Dental examination Z01.20 [address] [id number], [place] [address] 14 Apr, 2017 Borderline personality disorder F60.3 ; Unspecified mood [ affective] disorder F39 and Post traumatic stress disorder (PTSD) F43.10 [facility] [address] [id number], [place] [id number] 07 Mar, 2017 Dental caries K02.9 [id number], [place] [address] 10 Feb, 2017 Borderline personality disorder F60.3 ; Unspecified mood [ affective] disorder F39 and Post traumatic stress disorder (PTSD) F43.[address] [facility] [id number], [place] [id number] Feb, Dental examination Z01.20 [facility] [address] [facility] [id number], [place] [address]27- [address] Feb, [facility] [address] [facility] [id number], [place] 52068339[address] Jan, Borderline personality disorder F60.[address] [facility] [address] [id number], [place] 608[address] Jan, [facility] [address] [id number], [place] 680773873 Jan, [facility] [address] [facility] [id number], [place] [address] Jan, [facility] [address] [facility] [id number], [place] [address] Dec, Borderline personality disorder F60.3 and Unspecified mood [ affective] disorder F39 [facility] [place] [address] [id number] [place] [id number] Dec, [facility] [place] [address] [id number] [place] [address] [id number] Dec, [facility] [place] [address] [id number] [place] [address] [id number] Dec, [facility] [place] [address] [id number] [place] [phone] Nov, [facility] [place] [address] [id number] [place] [phone] Nov, [facility] [place] [address] [id number] [place] 876704839 Nov, [facility] [place] [address] [id number] [place] [id number] Nov, [facility] [place] [address] [id number] [place] [address] [id number] Nov, [facility] [address] [facility] [id number], [place] [address]7445[address] Nov, [facility] [place] [address] [id number] [place] [phone] Nov, [facility] [place] [address] [id number] [place] [id number] Nov, [facility] [place] [address] [id number] [place] [id number] Nov, [facility] [place] [address] [id number] [place] [id number] Nov, [facility] [place] [address] [id number] [place] [id number] Nov, [facility] [place] [address] [id number] [place] [id number] Oct, [facility] [place] [address] [id number] [place] [id number] Oct, [facility] [place] [address] [id number] [place] [id number] Oct, [facility] [place] [address] [id number] [place] [id number] Oct, [facility] [place] [address] [id number] [place] [phone] Oct, [facility] [place] [address] [id number] [place] [phone] Oct, [facility] [place] [address] [id number] [place] [id number] Oct, [facility] [place] [address] [id number] [place] [phone] Oct, [facility] [place] [address] [id number] [place] [id number] Sep, [facility] [place] [address] [id number] [place] [phone] Sep, [facility] [place] [address] [id number] [place] [phone] Sep, [facility] [address] [facility] [address] [id number] [place] [phone] Sep, Dental examination Z01.20 [facility] [place] [address] [id number] [place] [phone] Sep, [facility] [place] [address] [id number] [place] [phone] Sep, [facility] [place] [address] [id number] [place] 189027892 Sep, [facility] [place] [address] [id number] [place] [id number] Sep, [facility] [place] [address] [id number] [place] [phone] Sep, [facility] [place] [address] [id number] [place] [phone] Sep, [facility] [place] [address] [id number] [place] [phone] Sep, [facility] [address] [id number], [place] [phone] Sep, Dental examination Z01.20 [facility] [address] [id number] [place] [phone] Aug, [facility] [address] [id number], [place] [id number] Apr, Positive test Z32.01 [address] [address], [place] [address] Apr, Dysuria R30.[address] [facility] [address] [id number], [place] [id number] Apr, [facility] [address] [id number], [place] [phone] Apr, [facility] [address] [id number], [place] [id number] Apr, [facility] [address] [id number], [place] [id number] Mar, Gynecologic exam normal Z01.419 [id number] [place] [address] Mar, Borderline personality disorder F60.3 ; Unspecified mood [ affective] disorder F39 and Cigarette nicotine dependence without complication F17.210 [address] [id number] [place] [address] Feb, Borderline personality disorder F60.3 ; Unspecified mood [ affective] disorder F39 and Cigarette nicotine dependence without complication F17.210 [facility] [place] [address], [place] [address] Jan, Borderline personality disorder F60.[address] [id number], [place] [id number] Jan, Strep throat J02.0 and Sore throat J02.[address] [id number], [place] [id number] Oct, Acute nasopharyngitis J00 [facility] [place] [address], [place] [address] Aug, [facility] [place] [address] [place] [address] Jul, [facility] [place] [address] [place] [address] Jul, [facility] [place] [address], [place] [address] Nov, Mood disorder F39 [facility] [place] [address] [place] [address]- [address]99 Jul, Mood disorder 296.90 [facility] [id number] [place] 925[address] June, Bipolar 1 disorder, depressed 296.50 and Attention deficit disorder 314.00 [facility] [place] [address], [place] [address] Jan, [facility] [place] [address] [place] [address]- [address] Nov, [facility] [place] [address], [place] [address] Aug, IMMUNIZATIONS No Known Immunizations SOCIAL HISTORY [...] ligation 02/2017 Hospitalization History Voluntary in patient [facility] health admission [facility] unit Hospitalization History childbirth for three days 12/2016
--- OUTSIDE RECORDS SUMMARY | 2017-09-14 11:07 | XMS REPORT ---
Author Author YUSEF NORWOOD [facility] Address [address] [place] [address] Care Team Providers Care Cone Examiner Name Role Phone OZIEL NORWOODO Unavailable PROBLEMS Type Condition ICD9-CM Code [id number] Code Onset Dates Condition Status SNOMED Code Problem Borderline personality disorder F60.3 Active 67922779 Problem Acute nasopharyngitis J00 Active 48684030 Problem Post traumatic stress disorder (PTSD) F43.10 Active 38142902 Problem Positive test Z32.01 Active 957785880 Problem Unspecified mood [affective] disorder F39 Active 417663313 Problem Cigarette nicotine dependence without complication F17.210 Active 46534820 Problem Dysuria R30.0 Active 04336912 Problem Gynecologic exam normal Z01.419 Active 187060242 ALLERGIES No Information ENCOUNTERS Encounter Location Date Diagnosis [address] [id number], [place] [id number] 15 Apr, 2017 Dental examination Z01.20 [facility] [address] [id number], [place] [address] 14 Apr, 2017 Borderline personality disorder F60.3 ; Unspecified mood [ affective] disorder F39 and Post traumatic stress disorder (PTSD) F43.[address] [id number], [place] [id number] 07 Mar, 2017 Dental caries K02.9 [facility] [id number] [place] [address] 10 Feb, 2017 Borderline personality disorder F60.3 ; Unspecified mood [ affective] disorder F39 and Post traumatic stress disorder (PTSD) F43.[address] [id number], [place] [id number] 09 Feb, 2017 Dental examination Z01.20 [facility] [address] [facility] [id number], [place] [address] Feb, [facility] [address] [facility] [id number], [place] [address] Jan, Borderline personality disorder F60.[address] [facility] [address] [id number], [place] [id number] Jan, [facility] [address] [id number], [place] [id number] Jan, [facility] [address] [facility] [id number], [place] [address] Jan, [facility] [address] [facility] [id number], [place] [address] Dec, Borderline personality disorder F60.3 and Unspecified mood [ affective] disorder F39 [facility] [place] [id number] [place] [address] [id number] Dec, [facility] [place] [address] [id number] [place] [address] [id number] Dec, [facility] [place] [address] [id number] [place] [address] [id number] Dec, [facility] [place] [id number] [place] [address] [id number] Nov, [facility] [place] [address] [id number] [place] [address] [id number] Nov, [facility] [address] [id number] [place] [address] [id number] Nov, [facility] [place] [address] [id number], [place] [id number] Nov, [facility] [place] [address] [id number] [place] [address] [id number] Nov, [facility] [place] [address] [facility] [id number], [place] 07304931- [address] Nov, [facility] [place] [address] [id number], [place] [id number] Nov, [facility] [place] [address] [id number] [place] [id number] Nov, [facility] [place] [address] [id number] [place] [id number] Nov, [facility] [place] [address] [id number] [place] [id number] Nov, [facility] [place] [address] [id number] [place] [id number] Nov, [facility] [place] [address] [id number] [place] [id number] Oct, [facility] [place] [address] [id number] [place] [id number] Oct, [facility] [place] [address] [id number] [place] [id number] Oct, [facility] [place] [address] [id number] [place] [id number] Oct, [facility] [place] [address] [id number] [place] 13756[address] Oct, [facility] [place] [address] [id number] [place] [phone] Oct, [facility] [place] [address] [id number] [place] [id number] Oct, [facility] [place] [address] [id number] [place] [phone] Oct, [facility] [place] [address] [id number] [place] [phone] Sep, [facility] [place] [address] [id number] [place] [id number] Sep, [facility] [place] [address] [id number] [place] [phone] Sep, [facility] [address] [facility] [id number]. [facility] [place] [id number] Sep, Dental examination Z01.20 [facility] [place] [address] [id number] [place] [phone] Sep, [facility] [place] [address] [id number] [place] [phone] Sep, [facility] [place] [address] [id number], [place] [phone] Sep, [facility] [place] [address] [id number], [place] [id number] Sep, [facility] [place] [address] [id number], [place] [phone] Sep, [facility] [place] [address] [id number], [place] [id number] Sep, [facility] [place] [address] [id number], [place] 055843951 Sep, [facility] [id number], [place] [id number] Sep, Dental examination Z01.20 [facility] [place] [address] [id number], [place] [phone] Aug, [facility] [id number], [place] [phone] Apr, Positive test Z32.01 [facility] [address]00565100[place], [place] [address] Apr, Dysuria R30.0 [facility] [address] [id number], [place] [phone] Apr, [facility] [address] [id number], [place] [id number] Apr, [facility] [address] [id number], [place] [id number] Apr, [facility] [address] [id number], [place] [id number] Mar, Gynecologic exam normal Z01.419 [facility] [address]00565100[place], [place] [address] Mar, Borderline personality disorder F60.3 ; Unspecified mood [ affective] disorder F39 and Cigarette nicotine dependence without complication F17.210 [facility] [address], [place] [address] Feb, Borderline personality disorder F60.3 ; Unspecified mood [ affective] disorder F39 and Cigarette nicotine dependence without complication F17.210 [facility] [address]100[place], [place] [address]- [address] Jan, Borderline personality disorder F60.[address] [facility] [address] [facility] [address] [id number], [place] [id number] Jan, Strep throat J02.0 and Sore throat J02.9 [facility] [address] [place], [place] [address] [id number], [place] [id number] Oct, Acute nasopharyngitis J00 [facility] [address]005[address]100[place], [place] [address]- [address] Aug, [facility] [address] [place] [address]- [address]267 Jul, [facility] [address] [place] [address] 37289- 2945 Jul, [facility] [address] [place] [address] 16870- 9026 Nov, Mood disorder F39 [facility] [address]00565100[place], [place] [address]- 9890 Jul, Mood disorder 296.90 [facility] [id number], [place] [address]164 June, Bipolar 1 disorder, depressed 296.50 and Attention deficit disorder 314.00 [facility] [address]00565100[place], [place] [address]- [address] Jan, [facility] [address]00565100[place], [place] [address]- [address] Nov, [facility] [address]65100[place], [place] [address]- [address] Aug, IMMUNIZATIONS No Known Immunizations SOCIAL HISTORY Never Assessed REASON FOR VISIT Requests return call PLAN OF CARE VITAL SIGNS MEDICATIONS No Known Medications RESULTS No Results PROCEDURES No Known procedures INSTRUCTIONS MEDICATIONS ADMINISTERED No Known Medications MEDICAL (GENERAL) HISTORY Type Description Date Medical History attention deficit hyperactivity disorder Medical History bipolar disorder Medical History Tourette's syndrome Medical History personality disorder Surgical History tonsillectomy Surgical History wisdom teeth extraction Surgical History Tubal ligation 02/2017 Hospitalization History Voluntary in patient [facility] health admission [facility] unit Hospitalization History childbirth for three days 12/2016
--- OUTSIDE RECORDS SUMMARY | 2017-09-14 11:07 | XMS REPORT ---
Author Author OBIE NISHI Organization [facility] Address [address] [place] [address] Care Team Providers Care Enamel Pulverizer Name Role Phone NISHI RAGLAND Unavailable PROBLEMS Type Condition ICD9-CM Code RSK99-ZO Code Onset Dates Condition Status SNOMED Code Problem Acute nasopharyngitis J00 Active 61338672 Problem Positive test Z32.01 Active 035017421 Problem Dysuria R30.0 Active 47329042 Problem Cigarette nicotine dependence without complication F17.210 Active 50628355 Problem Borderline personality disorder F60.3 Active 64092350 Problem Gynecologic exam normal Z01.419 Active 666238279 Problem Unspecified mood [affective] disorder F39 Active 004079758 ALLERGIES No Information SOCIAL HISTORY Never Assessed PLAN OF CARE VITAL SIGNS MEDICATIONS Medication Instructions Dosage Frequency Start Date End Date Duration Status Macrobid 100 mg Orally every 12 hrs 1 capsule with food 12h Apr, Apr, 7 day(s) Active RESULTS No Results PROCEDURES No Known procedures IMMUNIZATIONS No Known Immunizations MEDICAL (GENERAL) HISTORY Type Description Date Medical History attention deficit hyperactivity disorder Medical History bipolar disorder Medical History Tourette's syndrome Medical History personality disorder Medical History - 7 months- due date 12/2016 Surgical History tonsillectomy Surgical History wisdom teeth extraction Hospitalization History Voluntary in patient behavior health admission [facility]
--- OUTSIDE RECORDS SUMMARY | 2017-09-14 11:08 | XMS REPORT ---
Author Author SHUKRI GARCIA [facility] Address [address] [place] [address] Care Team Providers Care Roofer Helper Name Role Phone SHUKRI GARCIA Unavailable PROBLEMS Type Condition ICD9-CM Code PTF07-DN Code Onset Dates Condition Status SNOMED Code Problem Borderline personality disorder F60.3 Active 42061595 Problem Acute nasopharyngitis J00 Active 37395002 Problem Post traumatic stress disorder (PTSD) F43.10 Active 86181789 Problem Positive test Z32.01 Active 583998537 Problem Unspecified mood [affective] disorder F39 Active 317677068 Problem Cigarette nicotine dependence without complication F17.210 Active 30215546 Problem Dysuria R30.0 Active 78434967 Problem Gynecologic exam normal Z01.419 Active 517476726 ALLERGIES Substance Reaction Event Type Date Status Codeine Sulfate anger Drug Allergy Sep, Active Latex Unknown Non Drug Allergy Sep, Active ENCOUNTERS Encounter Location Date Diagnosis [place] [address] [place] [address]2055- [address]329 16 Jun, [address] [id number][place] [id number] 15 Apr, 2017 Dental examination Z01.20 [place] [address] [place] [id number] [place] [address] 15654- 7476 14 Apr, 2017 Borderline personality disorder F60.3 ; Unspecified mood [ affective] disorder F39 and Post traumatic stress disorder (PTSD) F43.[address] [id number], [place] [id number] 07 Mar, 2017 Dental caries K02.9 [place] [address] [place] [address] 06931- 9810 10 Feb, 2017 Borderline personality disorder F60.3 ; Unspecified mood [ affective] disorder F39 and Post traumatic stress disorder (PTSD) F43.10 [facility] [address] [id number], [place] 154814022 Feb, Dental examination Z01.20 [facility] [address] [facility] [id number], [place] 34805245- [address]659 Feb, [facility] [address] [place] [address] [id number], [place] [address] Jan, Borderline personality disorder F60.3 [facility] [address] [id number], [place] [id number] Jan, [facility] [address] [id number], [place] 750985590 Jan, [facility] [address], [place] [address] Jan, [facility] [address] [place] [address] 21450- 7057 Dec, Borderline personality disorder F60.3 and Unspecified mood [ affective] disorder F39 [facility] [place] [id number] [place] [address] [id number] Dec, [facility] [place] [id number] [place] [address] [phone] Dec, [facility] [place] [address] [id number] [place] [address] [id number] Dec, [facility] [place] [address] [id number] [place] [address] [id number] Nov, [facility] [place] [address] [id number] [place] [address] [id number] Nov, [facility] [place] [address] [id number] [place] [address] [phone] Nov, [facility] [place] [address] [id number] [place] [address] [phone] Nov, [facility] [place] [address] [id number] [place] [address] [phone] Nov, [facility] [address] [place] [id number] [place] [address] 30717- 4515 Nov, [facility] [place] [address] [id number] [place] [phone] Nov, [facility] [place] [address] [id number] [place] [phone] Nov, [facility] [place] [address] [id number] [place] [phone] Nov, [facility] [place] [address] [id number] [place] [phone] Nov, [facility] [place] [address] [id number] [place] [phone] Nov, [facility] [place] [address] [id number] [place] [phone] Oct, [facility] [place] [address] [id number] [place] [phone] Oct, [facility] [place] [address] [id number] [place] [phone] Oct, [facility] [place] [address] [id number] [place] [phone] Oct, [facility] [place] [address] [id number] [place] [phone] Oct, [facility] [place] [address] [id number] [place] [phone] Oct, [facility] [place] [address] [id number] [place] [phone] Oct, [facility] [place] [address] [id number] [place] [phone] Oct, [facility] [place] [address] [id number] [place] [id number] Sep, [facility] [place] [address] [id number] [place] [phone] Sep, [facility] [place] [address] [id number] [place] [phone] Sep, [facility] [place] [address] [facility] [address] [id number] [facility]ARK [facility] [phone] Sep, Dental examination Z01.20 [facility] [place] [address] [id number] [place] [phone] Sep, [facility] [place] [address] [id number] [place] [phone] Sep, [facility] [place] [address] [id number][place] [phone] Sep, [facility] [place] [address] [id number], [place] [phone] Sep, [facility] [place] [address] [id number], [place] [phone] Sep, [facility] [place] [address] [id number][place] [phone] Sep, [facility] [place] [address] [id number], [place] [phone] Sep, [facility] [address] [id number], [place] [phone] Sep, Dental examination Z01.20 [facility] [place] [address] [place] [id number] 115753899 Aug, [facility] [address] [id number], [place] [phone] Apr, Positive test Z32.01 [facility] [address]100[place], [place] [address]9085947- 2733 Apr, Dysuria R30.0 [facility] [address] [id number], [place] [phone] Apr, [facility] [address] [id number], [place] [phone] Apr, [facility] [address] [id number], [place] [phone] Apr, [facility] [address] [id number], [place] [phone] Mar, Gynecologic exam normal Z01.419 [facility] [address]100[place] 213[address]- [address] Mar, Borderline personality disorder F60.3 ; Unspecified mood [ affective] disorder F39 and Cigarette nicotine dependence without complication F17.210 [facility] [address]100[place], [place] [address] 59[address] Feb, 2017 Borderline personality disorder F60.3 ; Unspecified mood [ affective] disorder F39 and Cigarette nicotine dependence without complication F17.210 [facility] [address]100[place] [address]87[address] 23 Jan, 2016 Borderline personality disorder F60.[address] [id number], [place] [id number] 08 Jan, 2016 Strep throat J02.0 and Sore throat J02.[address] [id number], [place] [phone] Oct, Acute nasopharyngitis J00 [facility] [address], [place] [address] 285[address] Aug, [facility] [address] [place] [id number] [place] [address] 38861- 3817 Jul, [facility] [address] [place] [address] 05567- 7022 Jul, [facility] [address] [place] [address] 74206- 9278 Nov, Mood disorder F39 [facility] [address] [place] [address] 77141- 4469 Jul, Mood disorder 296.90 [facility] [id number], [place] [id number] June, Bipolar 1 disorder, depressed 296.50 and Attention deficit disorder 314.00 [facility] [address]100[place], [place] [address]- 7680 Jan, [facility] [address] [place] [address] 64162- 6969 Nov, [facility] [address], [place] [address]- 7449 Aug, IMMUNIZATIONS No Known Immunizations SOCIAL HISTORY Never Assessed REASON FOR VISIT prophy PLAN OF CARE Activity Details Follow Up DONNA Reason: VITAL SIGNS Blood pressure systolic 109 mmHg 2016-10-01 Blood pressure diastolic 68 mmHg 2016-10-01 MEDICATIONS Medication Instructions Dosage Frequency Start Date End Date Duration Status Folic Acid Active Active RESULTS No Results PROCEDURES Procedure Date Ordered Result Body Site BITEWINGS - FOUR FILMS Oct 01, 2016 PROPHYLAXIS - ADULT Oct 01, 2016 INSTRUCTIONS MEDICATIONS ADMINISTERED No Known Medications MEDICAL (GENERAL) HISTORY Type Description Date Medical History attention deficit hyperactivity disorder Medical History bipolar disorder Medical History Tourette's syndrome Medical History personality disorder Surgical History tonsillectomy Surgical History wisdom teeth extraction Surgical History Tubal ligation 02/2017 Hospitalization History Voluntary in patient behavior health admission [place] [facility] Hospitalization History childbirth for three days 12/2016
--- OUTSIDE RECORDS SUMMARY | 2017-09-14 11:08 | XMS REPORT ---
Author Author STAR LARA [facility] Address [address] [place] [address] Care Team Providers Care Customs Port Director Name Role Phone STAR LARA Unavailable PROBLEMS Type Condition ICD9-CM Code [id number] Code Onset Dates Condition Status SNOMED Code Problem Borderline personality disorder F60.3 Active 93928001 Problem Acute nasopharyngitis J00 Active 49196487 Problem Post traumatic stress disorder (PTSD) F43.10 Active 20080707 Problem Positive test Z32.01 Active 441498967 Problem Unspecified mood [affective] disorder F39 Active 091087472 Problem Cigarette nicotine dependence without complication F17.210 Active 16849584 Problem Dysuria R30.0 Active 76322352 Problem Gynecologic exam normal Z01.419 Active 027704871 ALLERGIES No Information ENCOUNTERS Encounter Location Date Diagnosis [address] [id number], [place] [id number] 14 Jul, 2017 [place] [address] [place] [id number], [place] [address] 30 Jun, [address] [id number], [place] [id number] 15 Apr, 2017 Dental examination Z01.20 [place] [address] [place] [id number] [place] [address] 44427- 7624 14 Apr, 2017 Borderline personality disorder F60.3 ; Unspecified mood [ affective] disorder F39 and Post traumatic stress disorder (PTSD) F43.[address] [id number], [place] 408236485 07 Mar, 2017 Dental caries K02.9 [place] [address] [place] [id number] [address]- 6028 10 Feb, 2017 Borderline personality disorder F60.3 ; Unspecified mood [ affective] disorder F39 and Post traumatic stress disorder (PTSD) F43.10 [facility] [address] [id number], [place] [phone] Feb, Dental examination Z01.20 [facility] [address] [facility] [id number], [place] 94331036- 7711 Feb, [facility] [address] [facility] [id number], [place] 41658798- 3626 Jan, Borderline personality disorder F60.3 [facility] [address] [id number], [place] [phone] Jan, [facility] [address] [id number], [place] [phone] Jan, [facility] [place] [address]00565100[place], [place] [address]- 2680 Jan, [facility] [place] [address]00565100[place], [place] [address]- 1672 Dec, Borderline personality disorder F60.3 and Unspecified mood [ affective] disorder F39 [facility] [place] [address] [id number] [place] [phone] Dec, [facility] [place] [address] [id number] [place] [phone] Dec, [facility] [place] [address] [id number] [place] [phone] Dec, [facility] [place] [id number] [place] [address] [id number] Nov, [facility] [place] [address] [id number] [place] [phone] Nov, [facility] [place] [address] [id number] [place] [address] [id number] Nov, [facility] [place] [address] [id number] [place] [phone] Nov, [facility] [place] [address] [id number] [place] 112346581 Nov, [facility] [place] [address] [place] [id number] [address]- 7645 Nov, [facility] [place] [address] [id number] [place] [phone] Nov, [facility] [place] [address] [id number] [place] [phone] Nov, [facility] [place] [address] [id number] [place] 118841381 Nov, [facility] [place] [address] [id number] [place] [phone] Nov, [facility] [place] [address] [id number] [place] [phone] Nov, [facility] [place] [address] [id number] [place] 868354062 Oct, [facility] [place] [address] [id number] [place] [id number] Oct, [facility] [place] [address] [id number] [place] 409497074 Oct, [facility] [place] [address] [id number] [place] [id number] Oct, [facility] [place] [address] [id number] [place] [id number] Oct, [facility] [place] [address] [id number] [place] [phone] Oct, [facility] [place] [address] [id number] [place] [id number] Oct, [facility] [place] [address] [id number] [place] [phone] Oct, [facility] [place] [address] [id number] [place] 788308762 Sep, [facility] [place] [address] [id number] [place] [id number] Sep, [facility] [place] [address] [id number] [place] [phone] Sep, [facility] [place] [address] [facility] [id number] [facility] [address]265 Sep, Dental examination Z01.20 [facility] [place] [address] [id number] [place] 439577320 Sep, [facility] [place] [address] [id number] [place] 38[address] Sep, [facility] [place] [address] [id number] [place] 885957733 Sep, [facility] [place] [address] [id number] [place] [phone] Sep, [facility] [place] [address] [id number] [place] 509068054 Sep, [facility] [place] [address] [id number] [place] [phone] Sep, [facility] [place] [address] [id number] [place] [phone] Sep, [facility] [address] [id number], [place] [id number] Sep, Dental examination Z01.20 [facility] [place] [address] [id number] [place] [phone] Aug, [facility] [address] [id number], [place] [phone] Apr, Positive test Z32.01 [facility] [address]100[place], [place] [address]- 3746 Apr, Dysuria R30.0 [facility] [address] [id number], [place] [id number] Apr, [facility] [address] [id number], [place] 788435080 Apr, [facility] [address] [id number], [place] [id number] Apr, [facility] [address] [id number], [place] [phone] Mar, Gynecologic exam normal Z01.419 [facility] [address]100[place], [place] [address]- 6136 Mar, Borderline personality disorder F60.3 ; Unspecified mood [ affective] disorder F39 and Cigarette nicotine dependence without complication F17.210 [facility] [address]00565100[place], [place] [address]- 5053 20 Feb, 2017 Borderline personality disorder F60.3 ; Unspecified mood [ affective] disorder F39 and Cigarette nicotine dependence without complication F17.210 [facility] [address]00565100[place], [place] 7980[place]- 8423 23 Jan, 2016 Borderline personality disorder F60.[address] [id number], [place] [id number] 08 Jan, 2016 Strep throat J02.0 and Sore throat J02.[address] [id number], [place] [id number] 07 Oct, 2015 Acute nasopharyngitis J00 [facility] [address]00565100[place], [place] [address]- 0790 Aug, [facility] [address] [place] [address] 41436- 8797 Jul, [facility] [address]100[place], [place] [address]- 9040 Jul, [facility] [address] [place] [address] 31897- 3462 Nov, Mood disorder F39 [facility] [address]100[place], [place] [address]- 5650 Jul, Mood disorder 296.90 [facility] [id number] [place] 798643434 June, Bipolar 1 disorder, depressed 296.50 and Attention deficit disorder 314.00 [facility] [address]100[place] 3387[place]- 5260 Jan, [facility] [address]00565100[place], [place] 90276442- 5689 Nov, [facility] [address]100[place], [place] [address]- 8550 Aug, IMMUNIZATIONS No Known Immunizations SOCIAL HISTORY [...] History Voluntary in patient behavior health admission [facility] unit Hospitalization History childbirth for three days 12/2016
--- OUTSIDE RECORDS SUMMARY | 2017-09-14 11:08 | XMS REPORT ---
Author Author [facility] [place] Address [address] [place] [address] Care Team Providers Care Office Specialist Name Role Phone RITU MARR Unavailable PROBLEMS Type Condition ICD9-CM Code OQW70-ND Code Onset Dates Condition Status SNOMED Code Problem Acute nasopharyngitis J00 Active 90540534 Problem Positive test Z32.01 Active 831235431 Problem Dysuria R30.0 Active 93608942 Problem Cigarette nicotine dependence without complication F17.210 Active 97982662 Problem Borderline personality disorder F60.3 Active 64539168 Problem Gynecologic exam normal Z01.419 Active 087599016 Problem Unspecified mood [affective] disorder F39 Active 446690143 ALLERGIES No Information SOCIAL HISTORY Never Assessed PLAN OF CARE VITAL SIGNS MEDICATIONS Unknown Medications RESULTS Name Result Date Reference Range TEST, URINE (IN HOUSE) 2016-04-26 RESULTS positive Lot # [id number] Control + Exp date 06/2017 PROCEDURES Procedure Date Ordered Result Body Site URINE TEST April 26, 2016 IMMUNIZATIONS No Known Immunizations MEDICAL (GENERAL) HISTORY Type Description Date Medical History attention deficit hyperactivity disorder Medical History bipolar disorder Medical History Tourette's syndrome Medical History personality disorder Medical History - 7 months- due date 12/2016 Surgical History tonsillectomy Surgical History wisdom teeth extraction Hospitalization History Voluntary in patient behavior health admission [place] [facility]
--- OUTSIDE RECORDS SUMMARY | 2017-09-14 11:08 | XMS REPORT ---
Author Author NISHI RAGLAND [facility] Address [address] [place] [address] Care Team Providers Care Animal Ecologist Name Role Phone NISHI RAGLAND Unavailable PROBLEMS Type Condition ICD9-CM Code IJN09-MI Code Onset Dates Condition Status SNOMED Code Problem Borderline personality disorder F60.3 Active 28527152 Problem Acute nasopharyngitis J00 Active 52626633 Problem Post traumatic stress disorder (PTSD) F43.10 Active 42047276 Problem Positive test Z32.01 Active 367352808 Problem Unspecified mood [affective] disorder F39 Active 366931420 Problem Cigarette nicotine dependence without complication F17.210 Active 05588167 Problem Dysuria R30.0 Active 41506521 Problem Gynecologic exam normal Z01.419 Active 549318072 ALLERGIES No Information ENCOUNTERS Encounter Location Date Diagnosis [address] [id number], [place] [id number] 14 Jul, [address] [id number], [place] 626900041 15 Apr, 2017 Dental examination Z01.20 [facility] [address] [facility] [id number], [place] [address] 14 Apr, 2017 Borderline personality disorder F60.3 ; Unspecified mood [ affective] disorder F39 and Post traumatic stress disorder (PTSD) F43.[address] [id number], [place] [id number] 07 Mar, 2017 Dental caries K02.9 [facility] [address] [facility] [id number], [place] [address] 10 Feb, 2017 Borderline personality disorder F60.3 ; Unspecified mood [ affective] disorder F39 and Post traumatic stress disorder (PTSD) F43.[address] [id number], [place] [id number] Feb, Dental examination Z01.20 [facility] [address] [facility] [id number], [place] 13615170[address] Feb, [facility] [address] [facility] [id number], [place] 93622170[place] 2013 Jan, Borderline personality disorder F60.[address] [facility] [address] [id number], [place] [id number] Jan, [facility] [address] [id number], [place] 706109875 Jan, [facility] [address] [facility] [id number], [place] [address] Jan, [facility] [address] [facility] [id number], [place] [address] Dec, Borderline personality disorder F60.3 and Unspecified mood [ affective] disorder F39 [facility] [place] [address] [id number] [place] [id number] Dec, [facility] [place] [id number] [place] [address] [id number] Dec, [facility] [place] [address] [id number] [place] [address] [id number] Dec, [facility] [place] [address] [id number] [place] [id number] Nov, [facility] [place] [address] [id number] [place] [id number] Nov, [facility] [place] [address] [id number] [place] 495868636 Nov, [facility] [place] [address] [id number] [place] [phone] Nov, [facility] [place] [address] [id number] [place] [address] [id number] Nov, [facility] [address] [facility] [id number], [place] 43814451- [address] Nov, [facility] [place] [address] [id number] [place] 670981534 Nov, [facility] [place] [address] [id number] [place] [id number] Nov, [facility] [place] [address] [id number] [place] [id number] Nov, [facility] [place] [address] [id number] [place] [id number] Nov, [facility] [place] [address] [id number] [place] [id number] Nov, [facility] [place] [address] [id number] [place] [id number] Oct, [facility] [place] [address] [id number] [place] 610174882 Oct, [facility] [place] [address] [id number] [place] [id number] Oct, [facility] [place] [address] [id number] [place] [id number] Oct, [facility] [place] [address] [id number] [place] [id number] Oct, [facility] [place] [address] [id number] [place] 408078929 Oct, [facility] [place] [address] [id number] [place] [id number] Oct, [facility] [place] [address] [id number] [place] [phone] Oct, [facility] [place] [address] [id number] [place] [id number] Sep, [facility] [place] [address] [id number] [place] [id number] Sep, [facility] [place] [address] [id number] [place] [id number] Sep, [facility] [address] [facility] [address] [id number] [place] [id number] Sep, Dental examination Z01.20 [facility] [place] [address] [id number] [place] [id number] Sep, [facility] [place] [address] [id number] [place] 195985788 Sep, [facility] [place] [address] [id number] [place] [phone] Sep, [facility] [place] [address] [id number] [place] [phone] Sep, [facility] [place] [address] [id number] [place] [id number] Sep, [facility] [place] [address] [id number] [place] [phone] Sep, [facility] [address] [id number], [place] 857019519 Sep, Dental examination Z01.20 [facility] [place] [address] [id number] [place] [id number] Sep, [facility] [place] [id number] [place] [phone] Aug, [facility] [address] [id number], [place] [id number] Apr, Positive test Z32.01 [place] [address] [place] [address] Apr, Dysuria R30.0 [facility] [address] [id number], [place] [phone] Apr, [facility] [address] [id number], [place] [id number] Apr, [facility] [address] [id number], [place] 200660284 Apr, [facility] [address] [id number], [place] [id number] Mar, Gynecologic exam normal Z01.419 [place] [address] [place] [id number] [place] [address] Mar, Borderline personality disorder F60.3 ; Unspecified mood [ affective] disorder F39 and Cigarette nicotine dependence without complication F17.210 [place] [address] [place] [id number] [place] [address] 2965 Feb, Borderline personality disorder F60.3 ; Unspecified mood [ affective] disorder F39 and Cigarette nicotine dependence without complication F17.210 [facility] [address]00565100[place] [address] Jan, Borderline personality disorder F60.[address] [id number], [place] [phone] Jan, Strep throat J02.0 and Sore throat J02.[address] [id number], [place] 175857022 Oct, Acute nasopharyngitis J00 [facility] [address]00565100[place], [place] [address] Aug, [facility] [address] [place] [address]- 0847 Jul, [facility] [address] [place] [address]- 9137 Jul, [facility] [address]00565100[place], [place] [address] Nov, Mood disorder F39 [facility] [address] [place] [address]- 1163 Jul, Mood disorder 296.90 [facility] [id number] [place] 4337[address]472 June, Bipolar 1 disorder, depressed 296.50 and Attention deficit disorder 314.00 [facility] [address]00565100[place], [place] [address] Jan, [facility] [address] [place] [address]- [address] Nov, [facility] [address]00565100[place], [place] [address] Aug, IMMUNIZATIONS No Known Immunizations SOCIAL HISTORY Never Assessed REASON FOR VISIT After Hours Clinical Advice PLAN OF CARE VITAL SIGNS MEDICATIONS Unknown Medications RESULTS No Results PROCEDURES No Known procedures INSTRUCTIONS MEDICATIONS ADMINISTERED No Known Medications MEDICAL (GENERAL) HISTORY Type Description Date Medical History attention deficit hyperactivity disorder Medical History bipolar disorder Medical History Tourette's syndrome Medical History personality disorder Surgical History tonsillectomy Surgical History wisdom teeth extraction Surgical History Tubal ligation 02/2017 Hospitalization History Voluntary in patient [facility] unit Hospitalization History childbirth for three days 12/2016
--- OUTSIDE RECORDS SUMMARY | 2017-09-14 11:08 | XMS REPORT ---
Author Author JHONY PARRA Organization [facility] Address [address] [place] [address] Care Team Providers Care Air Bag Builder Name Role Phone JHONY PARRA Unavailable PROBLEMS Type Condition ICD9-CM Code [id number] Code Onset Dates Condition Status SNOMED Code Problem Acute nasopharyngitis J00 Active 23180776 Problem Positive test Z32.01 Active 200618203 Problem Dysuria R30.0 Active 20441811 Problem Cigarette nicotine dependence without complication F17.210 Active 44614648 Problem Borderline personality disorder F60.3 Active 66115955 Problem Gynecologic exam normal Z01.419 Active 225366643 Problem Unspecified mood [affective] disorder F39 Active 784084048 ALLERGIES Unknown Allergies SOCIAL HISTORY No smoking Hx information available PLAN OF CARE Activity Details Follow Up 4 Weeks Reason: VITAL SIGNS Height 67.50 in 2016-03-07 Weight 222 lbs 2016-03-07 Heart Rate 78 bpm 2016-03-07 Respiratory Rate 18 2016-03-07 BMI 34.25 kg/m2 2016-03-07 Blood pressure systolic 120 mmHg 2016-03-07 Blood pressure diastolic 60 mmHg 2016-03-07 MEDICATIONS Medication Instructions Dosage Frequency Start Date End Date Duration Status Lamotrigine 25 MG Orally Twice a day 1 tablet 12h Active Nicoderm CQ 7 MG/24HR Transdermal Once a day 1 patch to skin 24h Feb, Active Latuda 40 mg Orally Once a day 1 tablet with food 24h Active RESULTS Name Result Date Reference Range TEST, URINE (IN HOUSE) 2016-03-07 RESULTS Negative Lot # [id number] Control + Exp date 05/2017 PROCEDURES Procedure Date Ordered Related Diagnosis Body Site URINE TEST Mar 07, 2016 Office Visit, Est Pt., Level 2 Mar 07, 2016 IMMUNIZATIONS No Known Immunizations
--- OUTSIDE RECORDS SUMMARY | 2017-09-14 11:08 | XMS REPORT ---
Author Author STAR LARA [facility] Address [address] [place] [address] Care Team Providers Care Sap Sd Analyst Name Role Phone STAR LARA Unavailable PROBLEMS Type Condition ICD9-CM Code WLM97-DI Code Onset Dates Condition Status SNOMED Code Problem Borderline personality disorder F60.3 Active 44829341 Problem Acute nasopharyngitis J00 Active 03967256 Problem Post traumatic stress disorder (PTSD) F43.10 Active 33243972 Problem Positive test Z32.01 Active 002195131 Problem Unspecified mood [affective] disorder F39 Active 667069231 Problem Cigarette nicotine dependence without complication F17.210 Active 36260220 Problem Dysuria R30.0 Active 07217124 Problem Gynecologic exam normal Z01.419 Active 056551103 ALLERGIES No Information ENCOUNTERS Encounter Location Date Diagnosis [address] [id number], [place] [id number] 14 Jul, 2017 [place] [address] [id number] [address] 30 Jun, [address] [id number], [place] 869761813 15 Apr, 2017 Dental examination Z01.20 [place] [id number] [place] [address]- [address]68 14 Apr, 2017 Borderline personality disorder F60.3 ; Unspecified mood [ affective] disorder F39 and Post traumatic stress disorder (PTSD) F43.[address] [id number], [place] 598388034 07 Mar, 2017 Dental caries K02.9 [place] [address] [id number] [address] 10 Feb, 2017 Borderline personality disorder F60.3 ; Unspecified mood [ affective] disorder F39 and Post traumatic stress disorder (PTSD) F43.10 [facility] [address] [id number], [place] 609374835 Feb, Dental examination Z01.20 [facility] [address] [facility] [id number] [place] 02051653- [address] Feb, [facility] [address] [facility] [id number] [place] 23958193- [address] Jan, Borderline personality disorder F60.3 [facility] [address] [id number], [place] [id number] Jan, [facility] [address] [id number], [place] [id number] Jan, [facility] [address]00565100[place] [address]- [address] Jan, [facility] [address]00565100[place] [address]- [address] Dec, Borderline personality disorder F60.3 and Unspecified mood [ affective] disorder F39 [facility] [place] [address] [id number], [place] [id number] Dec, [facility] [place] [address] [id number], [place] [id number] Dec, [facility] [place] [address] [id number], [place] 536372482 Dec, [facility] [place] [id number] [place] [address] [id number] Nov, [facility] [place] [address] [id number], [place] 602777013 Nov, [facility] [place] [address] [id number] [place] [address] [id number] Nov, [facility] [place] [address] [id number], [place] [phone] Nov, [facility] [place] [address] [id number], [place] [id number] Nov, [facility] [address] [place] [id number] [place] [address]- [address] Nov, [facility] [place] [address] [id number] [place] [id number] Nov, [facility] [place] [address] [id number] [place] [id number] Nov, [facility] [place] [address] [id number] [place] [phone] Nov, [facility] [place] [address] [id number] [place] [id number] Nov, [facility] [place] [address] [id number] [place] 101451198 Nov, [facility] [place] [address] [id number] [place] 906608948 Oct, [facility] [place] [address] [id number] [place] [id number] Oct, [facility] [place] [address] [id number] [place] [id number] Oct, [facility] [place] [address] [id number] [place] [id number] Oct, [facility] [place] [address] [id number] [place] 857069375 Oct, [facility] [place] [address] [id number] [place] 424944199 Oct, [facility] [place] [address] [id number] [place] 812430084 Oct, [facility] [place] [address] [id number] [place] [id number] Oct, [facility] [place] [address] [id number] [place] 224341422 Sep, [facility] [place] [address] [id number] [place] [id number] Sep, [facility] [place] [address] [id number] [place] [id number] Sep, [facility] [address] [facility] [address] [id number] [facility] [place] [id number] Sep, Dental examination Z01.20 [facility] [place] [address] [id number], [place] 584170359 Sep, [facility] [place] [address] [id number] [place] 483004227 Sep, [facility] [place] [address] [id number] [place] [id number] Sep, [facility] [place] [address] [id number], [place] [phone] Sep, [facility] [place] [address] [id number], [place] 985403376 Sep, [facility] [place] [address] [id number], [place] [id number] Sep, [facility] [place] [address] [id number], [place] 610761416 Sep, [facility] [address] [id number], [place] [id number] Sep, Dental examination Z01.20 [facility] [place] [address] [id number], [place] [id number] Aug, [facility] [address] [id number], [place] 132870522 Apr, Positive test Z32.01 [facility] [address]00565100[place] [address]- [address] Apr, Dysuria R30.0 [facility] [address] [id number], [place] [id number] Apr, [facility] [address] [id number], [place] [id number] Apr, [facility] [address] [id number], [place] 438672488 Apr, [facility] [address] [id number], [place] 335429868 Mar, Gynecologic exam normal Z01.419 [facility] [address]00565100[place] 513[place]- [address] Mar, Borderline personality disorder F60.3 ; Unspecified mood [ affective] disorder F39 and Cigarette nicotine dependence without complication F17.210 [facility] [address]00565100[place] [address]- [address] 20 Feb, 2017 Borderline personality disorder F60.3 ; Unspecified mood [ affective] disorder F39 and Cigarette nicotine dependence without complication F17.210 [facility] [address]00565100[place] [address]259[place]- [address] 23 Jan, 2016 Borderline personality disorder F60.[address] [id number], [place] [id number] 08 Jan, 2016 Strep throat J02.0 and Sore throat J02.[address] [id number], [place] [id number] 07 Oct, 2015 Acute nasopharyngitis J00 [facility] [address]00565100[place] [address]- [address] Aug, [facility] [address] [place] [address] 28789- 1586 Jul, [facility] [address]00565100[place] [address]- 0711 Jul, [facility] [address] [place] [address] 15301- 1802 Nov, Mood disorder F39 [facility] [address]00565100[place] [address]- 8132 Jul, Mood disorder 296.90 [facility] [id number], [place] 402505168 June, Bipolar 1 disorder, depressed 296.50 and Attention deficit disorder 314.00 [facility] [address]00565100[place] 1027[place]- 8[address] Jan, [facility] [address]00565100[place], [place] 53897272- 9048 Nov, [facility] [address]00565100[place] [address]- 0935 Aug, IMMUNIZATIONS No Known Immunizations SOCIAL HISTORY [...] History Voluntary in patient behavior health admission [facility] unit Hospitalization History childbirth for three days 12/2016
--- OUTSIDE RECORDS SUMMARY | 2017-09-14 11:08 | XMS REPORT ---
Author Author STAR LARA [facility] Address [address] [place] [address] Care Team Providers Care Naphthalene Operator Helper Name Role Phone JANE STAR Unavailable PROBLEMS Type Condition ICD9-CM Code [id number] Code Onset Dates Condition Status SNOMED Code Problem Borderline personality disorder F60.3 Active 49744635 Problem Acute nasopharyngitis J00 Active 36796081 Problem Post traumatic stress disorder (PTSD) F43.10 Active 09626158 Problem Positive test Z32.01 Active 845242434 Problem Unspecified mood [affective] disorder F39 Active 002661962 Problem Cigarette nicotine dependence without complication F17.210 Active 10338568 Problem Dysuria R30.0 Active 92586195 Problem Gynecologic exam normal Z01.419 Active 066568700 ALLERGIES No Information ENCOUNTERS Encounter Location Date Diagnosis [address] [id number] [address] 16 Jun, [address] [id number] [place] [id number] 15 Apr, 2017 Dental examination Z01.20 [id number] [place] [address]58 14 Apr, 2017 Borderline personality disorder F60.3 ; Unspecified mood [ affective] disorder F39 and Post traumatic stress disorder (PTSD) F43.[address] [id number] [place] [address] 07 Mar, 2017 Dental caries K02.9 [address] [id number] [address] 10 Feb, 2017 Borderline personality disorder F60.3 ; Unspecified mood [ affective] disorder F39 and Post traumatic stress disorder (PTSD) F43.[address] [facility] [address] [id number] [place] [id number] Feb, Dental examination Z01.20 [facility] [address] [facility] [id number] [place] [address] Feb, [facility] [address] [facility] [id number] [place] [address] Jan, Borderline personality disorder F60.[address] [facility] [address] [id number] [place] [id number] Jan, [facility] [address] [id number] RUN[place] 132968534 Jan, [facility] [address] [facility] [id number] [address] Jan, [facility] [address] [facility] [id number] [address] Dec, Borderline personality disorder F60.3 and Unspecified mood [ affective] disorder F39 [facility] [place] [address] [id number] [id number] Dec, [facility] [place] [address] [id number] [place] [id number] Dec, [facility] [place] [address] [id number] [place] [address] [id number] Dec, [facility] [place] [address] [id number], [place] 035796808 Nov, [facility] [place] [address] [id number], [place] [id number] Nov, [facility] [place] [address] [id number], [place] [id number] Nov, [facility] [place] [address] [id number], [place] 544865843 Nov, [facility] [place] [address] [id number] [place] [address] [id number] Nov, [facility] [address] [facility] [id number] [place] [address] Nov, [facility] [place] [address] [id number] [place] [id number] Nov, [facility] [place] [address] [id number] [place] [id number] Nov, [facility] [place] [address] [id number] [place] [id number] Nov, [facility] [place] [address] [id number] [place] [id number] Nov, [facility] [place] [address] [id number] [place] 820[address]2339 Nov, [facility] [place] [address] [id number] [place] [id number] Oct, [facility] [place] [address] [id number] [place] [id number] Oct, [facility] [place] [address] [id number] [place] [id number] Oct, [facility] [place] [address] [id number] [place] [id number] Oct, [facility] [place] [address] [id number] [place] [id number] Oct, [facility] [place] [address] [id number] [place] [id number] Oct, [facility] [place] [address] [id number] [place] [id number] Oct, [facility] [place] [address] [id number] [place] [id number] Oct, [facility] [place] [address] [id number] [place] [id number] Sep, [facility] [place] [address] [id number] [place] [id number] Sep, [facility] [place] [address] [id number] [place] [id number] Sep, [facility] [address] [facility] [address] [id number]/[facility] [id number] Sep, Dental examination Z01.20 [facility] [place] [address] [id number] [place] [id number] Sep, [facility] [place] [address] [id number], [place] [id number] Sep, [facility] [place] [address] [id number], [place] [id number] Sep, [facility] [place] [address] [id number], [place] [id number] Sep, [facility] [place] [address] [id number], [place] [phone] Sep, [facility] [place] [address] [id number], [place] [id number] Sep, [facility] [address] [id number] [place] [id number] Sep, Dental examination Z01.20 [facility] [place] [address] [id number], [place] [id number] Sep, [facility] [place] [id number], [place] 639[address] Aug, [facility] [address] [id number] RUN[place] [id number] Apr, Positive test Z32.01 [address] [place] [address] Apr, Dysuria R30.0 [facility] [address] [id number] [place] [id number] Apr, [facility] [address] [id number] [place], [place] [id number] Apr, [facility] [address] [id number] [place], [place] 807887711 Apr, [facility] [address] [id number] [place], [place] 510542570 Mar, Gynecologic exam normal Z01.419 [id number] [place] [address]- [address] Mar, Borderline personality disorder F60.3 ; Unspecified mood [ affective] disorder F39 and Cigarette nicotine dependence without complication F17.210 [id number] [place] [address] Feb, Borderline personality disorder F60.3 ; Unspecified mood [ affective] disorder F39 and Cigarette nicotine dependence without complication F17.210 [facility] [address]00565100[place] [address] Jan, Borderline personality disorder F60.[address] [id number] RUN, [place] 74[address] Jan, Strep throat J02.0 and Sore throat J02.[address] [id number] RUN, [place] 035403550 Oct, Acute nasopharyngitis J00 [facility] [address]00565100[place] [address] Aug, [facility] [address] [place] [address] Jul, [facility] [address] [place] [address] Jul, [facility] [address]00565100[place] [address] Nov, Mood disorder F39 [facility] [address] [place] [address]- [address] Jul, Mood disorder 296.90 [facility] [id number], [place] [id number] June, Bipolar 1 disorder, depressed 296.50 and Attention deficit disorder 314.00 [facility] [address]00565100[place] [address] Jan, [facility] [address] [place] [address] Nov, [facility] [address]100[place] [address] Aug, IMMUNIZATIONS No Known Immunizations SOCIAL HISTORY [...] ligation 02/2017 Hospitalization History Voluntary in patient [facility] health admission [facility] Hospitalization History childbirth for three days 12/2016
--- OUTSIDE RECORDS SUMMARY | 2017-09-14 11:09 | XMS REPORT ---
Author Author OBIE NISHI [facility] Address [address] [place] [address] Care Team Providers Care Brazing Machine Operator Name Role Phone NISHI RAGLAND Unavailable PROBLEMS Type Condition ICD9-CM Code [id number] Code Onset Dates Condition Status SNOMED Code Problem Acute nasopharyngitis J00 Active 06365704 Assessment Acute nasopharyngitis J00 Oct, Active 69373995 ALLERGIES Substance Reaction Event Type Date Status Codeine Sulfate anger Drug Allergy Oct, Active SOCIAL HISTORY No smoking Hx information available PLAN OF CARE VITAL SIGNS Height 67.50 in 2015-10-24 Weight 224.0 lbs 2015-10-24 Heart Rate 89 bpm 2015-10-24 Respiratory Rate 17 2015-10-24 Oximetry 98 % 2015-10-24 BMI 34.56 kg/m2 2015-10-24 Blood pressure systolic 112 mmHg 2015-10-24 Blood pressure diastolic 78 mmHg 2015-10-24 MEDICATIONS Medication Instructions Dosage Frequency Start Date End Date Duration Status NyQuil Cold & Flu Active Cheratussin AC 100-10 MG/5ML Orally every 4-6 hrs for cough 5-10 mls ml Oct, Active RESULTS No Results PROCEDURES Procedure Date Ordered Related Diagnosis Body Site MEASURE BLOOD OXYGEN LEVEL Oct 24, 2015 Office Visit, Est Pt., Level 3 Oct 24, 2015 IMMUNIZATIONS No Known Immunizations
--- OUTSIDE RECORDS SUMMARY | 2017-09-14 11:09 | XMS REPORT ---
Author Author CARMEN JOEL Organization [employer] Address Unknown Phone Unavailable Care Team Providers Care Warehouse Packaging Supervisor Name Role Phone CARMEN JOEL CP Unavailable Allergies No Known Allergies Problems No Known Problems Medications No Known Medications Results No Known Results Summary Purpose [employer] Submission
--- OUTSIDE RECORDS SUMMARY | 2017-09-14 11:09 | XMS REPORT ---
Author Author STAR LARA [facility] Address [address] [place] [address] Care Team Providers Care Nuclear Physics Professor Name Role Phone STAR LARA Unavailable PROBLEMS Type Condition ICD9-CM Code RXL15-YR Code Onset Dates Condition Status SNOMED Code Problem Borderline personality disorder F60.3 Active 69341488 Problem Acute nasopharyngitis J00 Active 82748951 Problem Post traumatic stress disorder (PTSD) F43.10 Active 89112583 Problem Positive test Z32.01 Active 127352349 Problem Unspecified mood [affective] disorder F39 Active 355589822 Problem Cigarette nicotine dependence without complication F17.210 Active 13331409 Problem Dysuria R30.0 Active 70922349 Problem Gynecologic exam normal Z01.419 Active 581301507 ALLERGIES No Information ENCOUNTERS Encounter Location Date Diagnosis [address] [id number] [id number] 14 Jul, 2017 [address] [id number] [address] 30 Jun, [address] [id number][place] [id number] 15 Apr, 2017 Dental examination Z01.20 [id number] [place] [address]- [address] 14 Apr, 2017 Borderline personality disorder F60.3 ; Unspecified mood [ affective] disorder F39 and Post traumatic stress disorder (PTSD) F43.[address] [id number], [place] [id number] 07 Mar, 2017 Dental caries K02.9 [place] [id number] [address] 10 Feb, 2017 Borderline personality disorder F60.3 ; Unspecified mood [ affective] disorder F39 and Post traumatic stress disorder (PTSD) F43.10 [facility] [address] [id number], [place] [id number] Feb, Dental examination Z01.20 [facility] [place] [address] [facility] [id number], [place] [address]8723874[address] [address] Feb, [facility] [address] [facility] [id number], [place] 24565133- [address] Jan, Borderline personality disorder F60.3 [facility] [address] [id number], [place] [id number] Jan, [facility] [address] [id number], [place] [address] Jan, [facility] [address]00565100[place], [place] [address] Jan, [facility] [address]00565100[place], [place] [address] Dec, Borderline personality disorder F60.3 and Unspecified mood [ affective] disorder F39 [facility] [place] [address] [id number], [place] [id number] Dec, [facility] [place] [address] [id number], [place] [address]18759787 Dec, [facility] [place] [address] [id number], [place] 77[address] Dec, [facility] [place] [id number] [place] [id number] Nov, [facility] [place] [address] [id number], [place] [id number] Nov, [facility] [place] [address] [id number] [place] [address] [id number] Nov, [facility] [place] [address] [id number], [place] [id number] Nov, [facility] [place] [address] [id number], [place] [id number] Nov, [facility] [address] [id number] [address] Nov, [facility] [place] [address] [id number] [place] 645578949 Nov, [facility] [place] [address] [id number] [place] [id number] Nov, [facility] [place] [address] [id number] [place] [id number] Nov, [facility] [place] [address] [id number] [place] [id number] Nov, [facility] [place] [address] [id number] [place] [id number] Nov, [facility] [place] [address] [id number] [place] [id number] Oct, [facility] [place] [address] [id number] [place] [id number] Oct, [facility] [place] [address] [id number] [place] [id number] Oct, [facility] [place] [address] [id number] [place] [id number] Oct, [facility] [place] [address] [id number] [place] [id number] Oct, [facility] [place] [address] [id number] [place] [id number] Oct, [facility] [place] [address] [id number] [place] 895957049 Oct, [facility] [place] [address] [id number] [place] [id number] Oct, [facility] [place] [address] [id number] [place] [id number] Sep, [facility] [place] [address] [id number] [place] [id number] Sep, [facility] [place] [address] [id number] [place] [id number] Sep, [facility] [address] [facility] [address] [id number][facility] [address] Sep, Dental examination Z01.20 [facility] [place] [address] [id number], [place] [id number] Sep, [facility] [place] [address] [id number] [place] [address]23874037 Sep, [facility] [place] [address] [id number] [place] [address]6969 Sep, [facility] [place] [address] [id number], [place] 484752376 Sep, [facility] [place] [address] [id number], [place] [id number] Sep, [facility] [place] [address] [id number], [place] 780232303 Sep, [facility] [place] [address] [id number], [place] 460882190 Sep, [facility] [address] [id number], [place] [id number] Sep, Dental examination Z01.20 [facility] [place] [address] [id number], [place] [address]39[address]26[address] Aug, [facility] [address] [id number], [place] [address] Apr, Positive test Z32.01 [facility] [address]00565100[place], [place] [address] Apr, Dysuria R30.0 [facility] [address] [id number], [place] [id number] Apr, [facility] [address] [id number], [place] [id number] Apr, [facility] [address] [id number], [place] [id number] Apr, [facility] [address] [id number], [place] 527[address]54 Mar, Gynecologic exam normal Z01.419 [facility] [address]005[address]100[place], [place] [address]- [address] Mar, Borderline personality disorder F60.3 ; Unspecified mood [ affective] disorder F39 and Cigarette nicotine dependence without complication F17.210 [facility] [address]00565100[place], [place] [address] 20 Feb, 2017 Borderline personality disorder F60.3 ; Unspecified mood [ affective] disorder F39 and Cigarette nicotine dependence without complication F17.210 [facility] [address]00565100[place] 1601[place]- [address] 23 Jan, 2016 Borderline personality disorder F60.[address] [id number], [place] [id number] 08 Jan, 2016 Strep throat J02.0 and Sore throat J02.[address] [id number], [place] [address] 07 Oct, 2015 Acute nasopharyngitis J00 [facility] [address]00565100[place], [place] [address]- [address] Aug, [facility] [address] [place] [address]- [address]397 Jul, [facility] [address]00565100[place], [place] [address]- 8760 Jul, [facility] [address] [place] [address]- 2003 Nov, Mood disorder F39 [facility] [address]00565100[place], [place] [address]- [address] Jul, Mood disorder 296.90 [facility] [id number], [place] [id number] June, Bipolar 1 disorder, depressed 296.50 and Attention deficit disorder 314.00 [facility] [address]00565100[place], [place] 8239[place]- [address] Jan, [facility] [address]00565100[place], [place] 36265815- [address] Nov, [facility] [address]00565100[place], [place] [address]- [address] Aug, IMMUNIZATIONS No Known Immunizations SOCIAL HISTORY [...] History Voluntary in patient behavior health admission [facility] unit Hospitalization History childbirth for three days 12/2016
--- OUTSIDE RECORDS SUMMARY | 2017-09-14 11:09 | XMS REPORT ---
Author Author DARRELL TREVINO Organization [employer] Address Unknown Phone Unavailable Care Team Providers Care Dimension Mill Worker Name Role Phone DARRELL TREVINO CP Unavailable Allergies, Adverse Reactions, Alerts Substance Reaction Event Type Codeine Sulfate anger Drug Allergy Problems Problem Type Condition Code Onset Dates Condition Status Assessment Mood disorder F39 Active Medications Medication Code System Code Instructions Start Date End Date Status Dosage Latuda [facility] [address]-96 80 MG Orally Once a day 0.5 tablet with food Lamotrigine [facility] [address]-52 200 MG Orally Once a day 1 tablet Zoloft [facility] [address]-94 100 MG Orally Once a day - take 1/2 tab at bedtime X 7 days, then increase to 1 tab at bedtime July 27, 2014 1 tablet Amitriptyline HCl [facility] [address]-47 10 MG Orally Once a day Dec 14, 2014 1 tablet Procedures Procedure Coding System Code Date Office Visit, Est Pt., Level 3 CPT-4 53489 Dec 14, 2014 Vital Signs Date/Time: Dec 14, 2014 Cardiac Monitoring Heart Rate 80 bpm Weight 220.0 lbs Height 67.50 in Wt Percentile 98.64 % BMI 33.94 Index Blood Pressure Diastolic 80 mmHg Blood Pressure Systolic 110 mmHg BMIPercentile 96.57 % Results No Known Results Summary Purpose eClinicalWorks Submission
--- OUTSIDE RECORDS SUMMARY | 2017-09-14 11:09 | XMS REPORT ---
Author Author STAR LARA [facility] Address [address] [place] [address] Care Team Providers Care Industrial Nurse Name Role Phone JANE STAR Unavailable PROBLEMS Type Condition ICD9-CM Code [id number] Code Onset Dates Condition Status SNOMED Code Problem Borderline personality disorder F60.3 Active 51803838 Problem Acute nasopharyngitis J00 Active 69402635 Problem Post traumatic stress disorder (PTSD) F43.10 Active 38678456 Problem Positive test Z32.01 Active 267866905 Problem Unspecified mood [affective] disorder F39 Active 814487980 Problem Cigarette nicotine dependence without complication F17.210 Active 94973543 Problem Dysuria R30.0 Active 34384145 Problem Gynecologic exam normal Z01.419 Active 707041784 ALLERGIES No Information ENCOUNTERS Encounter Location Date Diagnosis [address] [address] [id number] [address] 16 Jun, [address] [id number], [place] 614546501 15 Apr, 2017 Dental examination Z01.20 [place] [address] [address] [id number] [address] 14 Apr, 2017 Borderline personality disorder F60.3 ; Unspecified mood [ affective] disorder F39 and Post traumatic stress disorder (PTSD) F43.[address] [facility] [address] [id number], [place] 914832763 07 Mar, 2017 Dental caries K02.9 [place] [address] [id number] [address] 10 Feb, 2017 Borderline personality disorder F60.3 ; Unspecified mood [ affective] disorder F39 and Post traumatic stress disorder (PTSD) F43.[address] [facility] [address] [id number], [place] 452832934 Feb, Dental examination Z01.20 [facility] [address] [facility] [id number] LAKE[place] 70328043- [address] Feb, [facility] [address] [facility] [id number] LAKE[place] 87518408- [address]82 Jan, Borderline personality disorder F60.[address] [facility] [address] [id number], [place] 820095746 Jan, [facility] [address] [id number], [place] 812697120 Jan, [facility] [address] [facility] [id number] [address]- [address] Jan, [facility] [address] [facility] [id number] [place] [address]- 2011 Dec, Borderline personality disorder F60.3 and Unspecified mood [ affective] disorder F39 [facility] [place] [address] [id number], [place] [id number] Dec, [facility] [place] [id number] [place] [address] [id number] Dec, [facility] [place] [address] [id number] [place] [address] [id number] Dec, [facility] [place] [address] [id number], [place] 560724823 Nov, [facility] [place] [address] [id number], [place] 585149133 Nov, [facility] [place] [address] [id number], [place] 746871595 Nov, [facility] [place] [address] [id number], [place] 688507626 Nov, [facility] [place] [address] [id number] [place] [address] [id number] Nov, [facility] [address] [facility] [id number] LAKE, [place] 21286856- 7586 Nov, [facility] [place] [address] [id number] [place] 464985349 Nov, [facility] [place] [address] [id number] [place] 828713941 Nov, [facility] [place] [address] [id number] [place] 686507480 Nov, [facility] [place] [address] [id number] [place] 916288575 Nov, [facility] [place] [address] [id number] [place] 649291557 Nov, [facility] [place] [address] [id number] [place] 048293422 Oct, [facility] [place] [address] [id number] [place] [id number] Oct, [facility] [place] [address] [id number] [place] [id number] Oct, [facility] [place] [address] [id number] [place] [id number] Oct, [facility] [place] [address] [id number] [place] [id number] Oct, [facility] [place] [address] [id number] [place] 280578411 Oct, [facility] [place] [address] [id number] [place] [phone] Oct, [facility] [place] [address] [id number] [place] [id number] Oct, [facility] [place] [address] [id number] [place] 087661536 Sep, [facility] [place] [address] [id number] [place] 614448883 Sep, [facility] [place] [address] [id number] [place] 717043168 Sep, [facility] [address] [facility] [address] [id number] 5300[address]690 Sep, Dental examination Z01.20 [facility] [place] [address] [id number] [place] [id number] Sep, [facility] [place] [address] [id number], [place] 235061071 Sep, [facility] [place] [address] [id number], [place] 505782421 Sep, [facility] [place] [address] [id number], [place] [phone] Sep, [facility] [place] [address] [id number], [place] 333914794 Sep, [facility] [place] [address] [id number], [place] [id number] Sep, [facility] [place] [address] [id number], [place] 027545142 Sep, [facility] [address] [id number], [place] 537452288 Sep, Dental examination Z01.20 [facility] [address] [id number], [place] [phone] Aug, [facility] [address] [id number], [place] [id number] Apr, Positive test Z32.01 [place] [address] [address]00565100[place] [address] Apr, [facility]30.[address] [facility] [address] [id number], [place] [phone] Apr, [facility] [address] [id number], [place] [id number] Apr, [facility] [address] [id number], [place] [phone] Apr, [facility] [address] [id number], [place] 135991726 Mar, Gynecologic exam normal Z01.419 [place] [address] [id number] [place] [address]- 2116 Mar, Borderline personality disorder F60.3 ; Unspecified mood [ affective] disorder F39 and Cigarette nicotine dependence without complication F17.210 [place] [id number] [place] [address]- [address] Feb, Borderline personality disorder F60.3 ; Unspecified mood [ affective] disorder F39 and Cigarette nicotine dependence without complication F17.210 [facility] [address]00565100[place] [address] Jan, Borderline personality disorder F60.[address] [id number], [place] 165968264 Jan, Strep throat J02.0 and Sore throat J02.[address] [id number], [place] 803802821 Oct, Acute nasopharyngitis J00 [facility] [address]00565100[place] [address]- [address] Aug, [facility] [address] [place] [address]- 4099 Jul, [facility] [address] [place] [address]95- 9484 Jul, [facility] [address]00565100[place] [address]- 8[address] Nov, Mood disorder F39 [facility] [address] [place] [address] 65792- 8150 Jul, Mood disorder 296.90 [facility] [id number], [place] 729470925 June, Bipolar 1 disorder, depressed 296.50 and Attention deficit disorder 314.00 [facility] [address]00565100[place] [address]- 8[address] Jan, [facility] [address] [place] [address] 79595- 6056 Nov, [facility] [address]00565100[place] [address] Aug, IMMUNIZATIONS No Known Immunizations SOCIAL HISTORY [...] ligation 02/2017 Hospitalization History Voluntary in patient [facility] health admission [facility] unit Hospitalization History childbirth for three days 12/2016
--- OUTSIDE RECORDS SUMMARY | 2017-09-14 11:09 | XMS REPORT ---
Author Author STAR LARA [facility] Address [address] [place] [address] Care Team Providers Care Telephone Lineworker Name Role Phone JANE STAR Unavailable PROBLEMS Type Condition ICD9-CM Code TMO59-QU Code Onset Dates Condition Status SNOMED Code Problem Borderline personality disorder F60.3 Active 64159835 Problem Acute nasopharyngitis J00 Active 79265458 Problem Post traumatic stress disorder (PTSD) F43.10 Active 21855672 Problem Positive test Z32.01 Active 122341591 Problem Unspecified mood [affective] disorder F39 Active 480217778 Problem Cigarette nicotine dependence without complication F17.210 Active 49837852 Problem Dysuria R30.0 Active 41257574 Problem Gynecologic exam normal Z01.419 Active 729616658 ALLERGIES No Information ENCOUNTERS Encounter Location Date Diagnosis [place] [address] [id number] [address] 16 Jun, [address] [id number], [place] [id number] 15 Apr, 2017 Dental examination Z01.20 [place] [address] [id number] [place] [address]9909- 3867 14 Apr, 2017 Borderline personality disorder F60.3 ; Unspecified mood [ affective] disorder F39 and Post traumatic stress disorder (PTSD) F43.[address] [id number] 917731417 07 Mar, 2017 Dental caries K02.9 [place] [address] [id number] [address]- 92[address] 10 Feb, 2017 Borderline personality disorder F60.3 ; Unspecified mood [ affective] disorder F39 and Post traumatic stress disorder (PTSD) F43.[address] [facility] [address] [id number], [place] 574254299 Feb, Dental examination Z01.20 [facility] [address] [facility] [id number] [place] 08123309- 8992 Feb, [facility] [address] [facility] [id number] [place] 55918969- 0525 Jan, Borderline personality disorder F60.[address] [facility] [address] [id number], [place] 452406233 Jan, [facility] [address] [id number], [place] 957517124 Jan, [facility] [address] [facility] [id number] [address]- 7728 Jan, [facility] [address] [facility] [id number] [place] [address]- 3995 Dec, Borderline personality disorder F60.3 and Unspecified mood [ affective] disorder F39 [facility] [place] [address] [id number], [place] 840632993 Dec, [facility] [place] [address] [id number] [place] [address] [id number] Dec, [facility] [place] [address] [id number] [place] [address] [id number] Dec, [facility] [place] [address] [id number], [place] [id number] Nov, [facility] [place] [address] [id number], [place] 297937894 Nov, [facility] [place] [address] [id number], [place] [id number] Nov, [facility] [place] [address] [id number], [place] 175305515 Nov, [facility] [place] [address] [id number] [place] [address] [id number] Nov, [facility] [address] [facility] [id number] [place] 64627608- 7500 Nov, [facility] [place] [address] [id number] [place] 107686965 Nov, [facility] [place] [address] [id number] [place] [id number] Nov, [facility] [place] [address] [id number] [place] 306133643 Nov, [facility] [place] [address] [id number] [place] [id number] Nov, [facility] [place] [address] [id number] [place] 587946346 Nov, [facility] [place] [address] [id number] [place] [id number] Oct, [facility] [place] [address] [id number] [place] 238265613 Oct, [facility] [place] [address] [id number] [place] 2471365[place] Oct, [facility] [place] [address] [id number] [place] [id number] Oct, [facility] [place] [address] [id number] [place] [id number] Oct, [facility] [place] [address] [id number] [place] 405643722 Oct, [facility] [place] [address] [id number] [place] 013235161 Oct, [facility] [place] [address] [id number] [place] 697458423 Oct, [facility] [place] [address] [id number] [place] [id number] Sep, [facility] [place] [address] [id number] [place] 127857697 Sep, [facility] [place] [address] [id number] [place] 808402835 Sep, [facility] [address] [facility] [address] [id number] [facility] [address]78691451 Sep, Dental examination Z01.20 [facility] [place] [address] [id number] [place] 478884192 Sep, [facility] [place] [address] [id number], [place] 338918481 Sep, [facility] [place] [address] [id number], [place] 226392462 Sep, [facility] [place] [address] [id number], [place] 109951886 Sep, [facility] [place] [address] [id number], [place] 426495695 Sep, [facility] [place] [address] [id number], [place] 159537723 Sep, [facility] [place] [address] [id number], [place] 965343369 Sep, [facility] [address] [id number], [place] 800348286 Sep, Dental examination Z01.20 [facility] [address] [id number], [place] 496420236 Aug, [facility] [address] [id number], [place] 111340291 Apr, Positive test Z32.01 [place] [address]00565100[place] [address]- 9[address] Apr, Dysuria R30.0 [facility] [address] [id number], [place] 732812316 Apr, [facility] [address] [id number], [place] [id number] Apr, [facility] [address] [id number], [place] 635209773 Apr, [facility] [address] [id number], [place] 489409142 Mar, Gynecologic exam normal Z01.419 [place] [id number] [place] [address] 70349- 5448 Mar, Borderline personality disorder F60.3 ; Unspecified mood [ affective] disorder F39 and Cigarette nicotine dependence without complication F17.210 [place] [id number] [place] [address] 39343- 0148 Feb, Borderline personality disorder F60.3 ; Unspecified mood [ affective] disorder F39 and Cigarette nicotine dependence without complication F17.210 [facility] [address]00565100[place] [address]- 8591 Jan, Borderline personality disorder F60.[address] [id number], [place] 201349120 Jan, Strep throat J02.0 and Sore throat J02.[address] [id number], [place] 733978201 Oct, Acute nasopharyngitis J00 [facility] [address]00565100[place] [address]- 1191 Aug, [facility] [address] [place] [address] 25901- 9647 Jul, [facility] [address] [place] [address] 71981- 4030 Jul, [facility] [address]00565100[place] [address]- 2044 Nov, Mood disorder F39 [facility] [address] [place] [address] 25261- 3705 Jul, Mood disorder 296.90 [facility] [id number], [place] 585076917 June, Bipolar 1 disorder, depressed 296.50 and Attention deficit disorder 314.00 [facility] [address]00565100[place] [address]- 7583 Jan, [facility] [address] [place] [address] 61721- 9669 Nov, [facility] [address]00565100[place] [address]- 8448 Aug, IMMUNIZATIONS No Known Immunizations SOCIAL HISTORY [...] ligation 02/2017 Hospitalization History Voluntary in patient [facility] health admission [facility] unit Hospitalization History childbirth for three days 12/2016
--- OUTSIDE RECORDS SUMMARY | 2017-09-14 11:09 | XMS REPORT ---
Author Author STAR LARA [facility] Address [address] [place] [address] Care Team Providers Care Commission Specialist Name Role Phone STAR LARA Unavailable PROBLEMS Type Condition ICD9-CM Code USV45-KH Code Onset Dates Condition Status SNOMED Code Problem Borderline personality disorder F60.3 Active 44309141 Problem Acute nasopharyngitis J00 Active 83383643 Problem Post traumatic stress disorder (PTSD) F43.10 Active 79511708 Problem Positive test Z32.01 Active 982199644 Problem Unspecified mood [affective] disorder F39 Active 425388404 Problem Cigarette nicotine dependence without complication F17.210 Active 44407505 Problem Dysuria R30.0 Active 10380885 Problem Gynecologic exam normal Z01.419 Active 624622335 ALLERGIES No Information ENCOUNTERS Encounter Location Date Diagnosis [address] [id number], [place] 086841918 14 Jul, 2017 [address] [id number] [address]- [address] 30 Jun, [address] [id number], [place] 418402536 15 Apr, 2017 Dental examination Z01.20 [id number] [place] [address] 12665- 6912 14 Apr, 2017 Borderline personality disorder F60.3 ; Unspecified mood [ affective] disorder F39 and Post traumatic stress disorder (PTSD) F43.[address] [id number], [place] 924014982 07 Mar, 2017 Dental caries K02.9 [address] [id number] [address]- 2661 10 Feb, 2017 Borderline personality disorder F60.3 ; Unspecified mood [ affective] disorder F39 and Post traumatic stress disorder (PTSD) F43.10 [facility] [address] [id number], [place] 684886529 Feb, Dental examination Z01.20 [facility] [address] [facility] [id number] [place], [place] 85040815- 5939 Feb, [facility] [address] [facility] [id number] [place] 97871947- 2005 Jan, Borderline personality disorder F60.3 [facility] [address] [id number], [place] 629659344 Jan, [facility] [address] [id number], [place] 922464321 Jan, [facility] [address]00565100[place] [address]- 1041 Jan, [facility] [address]00565100[place] [address]- 8850 Dec, Borderline personality disorder F60.3 and Unspecified mood [ affective] disorder F39 [facility] [place] [address] [id number], [place] 062641879 Dec, [facility] [place] [address] [id number], [place] [id number] Dec, [facility] [place] [address] [id number], [place] 680859817 Dec, [facility] [place] [address] [id number] [place] [address] [id number] Nov, [facility] [place] [address] [id number], [place] 702927496 Nov, [facility] [place] [address] [id number] [place] [address] [id number] Nov, [facility] [place] [address] [id number], [place] 918124148 Nov, [facility] [place] [address] [id number], [place] 444407341 Nov, [facility] [address] [id number] [address]- 9100 Nov, [facility] [place] [address] [id number] [place] [id number] Nov, [facility] [place] [address] [id number] [place] 850320087 Nov, [facility] [place] [address] [id number] [place] 097709562 Nov, [facility] [place] [address] [id number] [place] 514138424 Nov, [facility] [place] [address] [id number] [place] 575545830 Nov, [facility] [place] [address] [id number] [place] 843179738 Oct, [facility] [place] [address] [id number] [place] [id number] Oct, [facility] [place] [address] [id number] [place] 627627498 Oct, [facility] [place] [address] [id number] [place] 615570601 Oct, [facility] [place] [address] [id number] [place] 430534201 Oct, [facility] [place] [address] [id number] [place] [id number] Oct, [facility] [place] [address] [id number] [place] [id number] Oct, [facility] [place] [address] [id number] [place] [id number] Oct, [facility] [place] [address] [id number] [place] 830538850 Sep, [facility] [place] [address] [id number] [place] [id number] Sep, [facility] [place] [address] [id number] [place] 746198598 Sep, [facility] [address] [facility] [address] [id number] [facility] 838263643 Sep, Dental examination Z01.20 [facility] [place] [address] [id number], [place] 680951286 Sep, [facility] [place] [address] [id number] [place] 714462863 Sep, [facility] [place] [address] [id number] [place] 562719367 Sep, [facility] [place] [address] [id number], [place] 206658641 Sep, [facility] [place] [address] [id number], [place] 920427859 Sep, [facility] [place] [address] [id number], [place] 792741755 Sep, [facility] [place] [address] [id number], [place] [id number] Sep, [facility] [address] [id number], [place] 797651523 Sep, Dental examination Z01.20 [facility] [place] [address] [id number], [place] 807726328 Aug, [facility] [address] [id number], [place] 035571759 Apr, Positive test Z32.01 [facility] [address]00565100[place] [address]- 4287 Apr, Dysuria R30.0 [facility] [address] [id number][place] [id number] Apr, [facility] [address] [id number] [id number] Apr, [facility] [address] [id number][place] [id number] Apr, [facility] [address] [id number][place] [id number] Mar, Gynecologic exam normal Z01.419 [facility] [address] [address] Mar, Borderline personality disorder F60.3 ; Unspecified mood [ affective] disorder F39 and Cigarette nicotine dependence without complication F17.210 [facility] [address] [address] 20 Feb, 2017 Borderline personality disorder F60.3 ; Unspecified mood [ affective] disorder F39 and Cigarette nicotine dependence without complication F17.210 [facility] [address] [address] 23 Jan, 2016 Borderline personality disorder F60.[address] [id number][place] [id number] 08 Jan, 2016 Strep throat J02.0 and Sore throat J02.[address] [id number][place] [id number] 07 Oct, 2015 Acute nasopharyngitis J00 [facility] [address] [address] Aug, [facility] [id number] [place] [address] Jul, [facility] [address] [address] Jul, [facility] [address] [place] [address] Nov, Mood disorder F39 [facility] [address] [address] Jul, Mood disorder 296.90 [facility] [id number] [id number] June, Bipolar 1 disorder, depressed 296.50 and Attention deficit disorder 314.00 [facility] [address] [address] Jan, [facility] [address] [id number] Nov, [facility] [address] [address] Aug, IMMUNIZATIONS No Known Immunizations SOCIAL HISTORY [...] History Voluntary in patient behavior health admission [facility] unit Hospitalization History childbirth for three days 12/2016
--- OUTSIDE RECORDS SUMMARY | 2017-09-14 11:09 | XMS REPORT ---
Author Author JHONY PARRA [facility] Address [address] [place] [address] Care Team Providers Care Costume Specialist Name Role Phone STEVE PARRAELVIE Unavailable PROBLEMS Type Condition ICD9-CM Code ULL49-XD Code Onset Dates Condition Status SNOMED Code Problem Borderline personality disorder F60.3 Active 51479908 Problem Acute nasopharyngitis J00 Active 77730638 Problem Post traumatic stress disorder (PTSD) F43.10 Active 12105605 Problem Positive test Z32.01 Active 924767322 Problem Unspecified mood [affective] disorder F39 Active 077552746 Problem Cigarette nicotine dependence without complication F17.210 Active 79314205 Problem Dysuria R30.0 Active 80185303 Problem Gynecologic exam normal Z01.419 Active 633501191 ALLERGIES No Information ENCOUNTERS Encounter Location Date Diagnosis [facility] [employer] [facility] [id number] [id number] 14 Jul, [address] [id number], [place] [id number] 15 Apr, 2017 Dental examination Z01.20 [facility] [address] [facility] [id number] [address] 14 Apr, 2017 Borderline personality disorder F60.3 ; Unspecified mood [ affective] disorder F39 and Post traumatic stress disorder (PTSD) F43.[address] [id number], [place] [id number] 07 Mar, 2017 Dental caries K02.9 [facility] [address] [facility] [id number], [place] [address] 10 Feb, 2017 Borderline personality disorder F60.3 ; Unspecified mood [ affective] disorder F39 and Post traumatic stress disorder (PTSD) F43.[address] [id number][place] [id number] Feb, Dental examination Z01.20 [facility] [address] [facility] [id number][place] [address] Feb, [facility] [address] [facility] [id number][place] [address]26[address]76[address] Jan, Borderline personality disorder F60.[address] [facility] [address] [id number], [place] [id number] Jan, [facility] [address] [id number], [place] [id number] Jan, [facility] [address]00565100[place], [place] [address] Jan, [facility] [address] [id number], [place] [address] Dec, Borderline personality disorder F60.3 and Unspecified mood [ affective] disorder F39 [facility] [place] [address] [id number] [place] [id number] Dec, [facility] [place] [address] [id number] [place] [address] [id number] Dec, [facility] [place] [address] [id number] [place] [address] [id number] Dec, [facility] [place] [address] [id number] [place] [address] [id number] Nov, [facility] [place] [address] [id number] [place] [address] [phone] Nov, [facility] [place] [address] [id number] [place] [id number] Nov, [facility] [place] [address] [id number] [place] [address] [id number] Nov, [facility] [place] [address] [id number] [place] [address] [id number] Nov, [facility] [address] [facility] [id number][place] [address] Nov, [facility] [place] [address] [id number] [place] [id number] Nov, [facility] [place] [address] [id number] [place] [id number] Nov, [facility] [place] [address] [id number] [place] [id number] Nov, [facility] [place] [address] [id number] [place] [id number] Nov, [facility] [place] [address] [id number] [place] [id number] Nov, [facility] [place] [address] [id number] [place] [id number] Oct, [facility] [place] [address] [id number] [place] [id number] Oct, [facility] [place] [address] [id number] [place] [id number] Oct, [facility] [place] [address] [id number] [place] [phone] Oct, [facility] [place] [address] [id number] [place] [phone] Oct, [facility] [place] [address] [id number] [place] [phone] Oct, [facility] [place] [address] [id number] [place] [id number] Oct, [facility] [place] [address] [id number] [place] [phone] Oct, [facility] [place] [address] [id number] [place] [phone] Sep, [facility] [place] [address] [id number] [place] [phone] Sep, [facility] [place] [address] [id number] [place] [phone] Sep, [facility] [address] [id number] [place] [phone] Sep, Dental examination Z01.20 [facility] [place] [address] [id number] [place] [phone] Sep, [facility] [place] [address] [id number] [place] [phone] Sep, [facility] [place] [address] [id number] [place] [id number] Sep, [facility] [place] [address] [id number] [place] [phone] Sep, [facility] [place] [address] [id number] [place] [id number] Sep, [facility] [place] [address] [id number] [place] [phone] Sep, [facility] [place] [address] [id number] [place] [id number] Sep, [facility] [address] [id number], [place] [phone] Sep, Dental examination Z01.20 [facility] [place] [address] [id number] [place] [id number] Aug, [facility] [address] [id number], [place] [id number] Apr, Positive test Z32.01 [place] [address]00565100[place], [place] [address] Apr, Dysuria R30.0 [facility] [address] [id number], [place] [id number] Apr, [facility] [address] [id number], [place] [id number] Apr, [facility] [address] [id number], [place] [id number] Apr, [facility] [address] [id number], [place] [id number] Mar, Gynecologic exam normal Z01.419 [place] [id number] [place] [address] Mar, Borderline personality disorder F60.3 ; Unspecified mood [ affective] disorder F39 and Cigarette nicotine dependence without complication F17.210 [place] [address] [address] Feb, Borderline personality disorder F60.3 ; Unspecified mood [ affective] disorder F39 and Cigarette nicotine dependence without complication F17.210 [facility] [address]00565100[place], [place] [address] Jan, Borderline personality disorder F60.3 [address]00565100[place] [id number] Jan, Strep throat J02.0 and Sore throat J02.[address] [id number], [place] [id number] Oct, Acute nasopharyngitis J00 [facility] [id number] [place] [address] Aug, [facility] [id number] [place] [address] 68[address]- 9181 Jul, [facility] [id number] [place] [address]- 8412 Jul, [facility] [address] [place] [address]- 0052 Nov, Mood disorder F39 [facility] [address] [place] [address]- 0234 Jul, Mood disorder 296.90 [facility] [id number] [place] [id number] June, Bipolar 1 disorder, depressed 296.50 and Attention deficit disorder 314.00 [facility] [address]00565100[place], [place] [address] Jan, [facility] [id number] [place] [address] 85[address] Nov, [facility] [address]00565100[place], [place] [address] Aug, IMMUNIZATIONS No Known Immunizations SOCIAL HISTORY Never Assessed REASON FOR VISIT depression PLAN OF CARE VITAL SIGNS MEDICATIONS Unknown Medications RESULTS No Results PROCEDURES No Known procedures INSTRUCTIONS MEDICATIONS ADMINISTERED No Known Medications MEDICAL (GENERAL) HISTORY Type Description Date Medical History attention deficit hyperactivity disorder Medical History bipolar disorder Medical History Tourette's syndrome Medical History personality disorder Surgical History tonsillectomy Surgical History wisdom teeth extraction Surgical History Tubal ligation 02/2017 Hospitalization History Voluntary in patient [facility] health admission [facility] Hospitalization History childbirth for three days 12/2016
--- OUTSIDE RECORDS SUMMARY | 2017-09-14 11:10 | XMS REPORT ---
Author Author JHONY PARRA [facility] Address [address] [place] [address] Care Team Providers Care Manager Strategy & Account Name Role Phone AIDA, DAWELVIE Unavailable PROBLEMS Type Condition ICD9-CM Code RTT73-DM Code Onset Dates Condition Status SNOMED Code Problem Borderline personality disorder F60.3 Active 65083682 Problem Acute nasopharyngitis J00 Active 48867637 Problem Post traumatic stress disorder (PTSD) F43.10 Active 37355293 Problem Positive test Z32.01 Active 567463598 Problem Unspecified mood [affective] disorder F39 Active 052639358 Problem Cigarette nicotine dependence without complication F17.210 Active 01461381 Problem Dysuria R30.0 Active 93195446 Problem Gynecologic exam normal Z01.419 Active 605502365 ALLERGIES No Information ENCOUNTERS Encounter Location Date Diagnosis [address] [id number], [place] [id number] 15 Apr, 2017 Dental examination Z01.20 [place] [address] 14 Apr, 2017 Borderline personality disorder F60.3 ; Unspecified mood [ affective] disorder F39 and Post traumatic stress disorder (PTSD) F43.[address] [id number], [place] [id number] 07 Mar, 2017 Dental caries K02.9 [id number] [place] [address]- [address] 10 Feb, 2017 Borderline personality disorder F60.3 ; Unspecified mood [ affective] disorder F39 and Post traumatic stress disorder (PTSD) F43.[address] [id number], [place] [id number] 09 Feb, 2017 Dental examination Z01.20 [place] [address] [facility] [id number] [address] Feb, [facility] [address] [facility] [id number] [address] Jan, Borderline personality disorder F60.[address] [facility] [address] [id number], [place] [id number] Jan, [facility] [address] [id number], [place] [id number] Jan, [facility] [address] [facility] [id number], [place] [address] Jan, [facility] [address] [facility] [id number] [address] Dec, Borderline personality disorder F60.3 and Unspecified mood [ affective] disorder F39 [facility] [address] [id number], [place] [id number] Dec, [facility] [address] [id number], [place] [id number] Dec, [facility] [address] [id number], [place] [id number] Dec, [facility] [place] [id number] [address] [id number] Nov, [facility] [place] [address] [id number], [place] [id number] Nov, [facility] [place] [address] [id number], [place] [id number] Nov, [facility] [place] [address] [id number], [place] [id number] Nov, [facility] [place] [address] [id number], [place] [id number] Nov, [facility] [address] [facility] [id number], [place] 79[address]3470- [address] Nov, [facility] [place] [address] [id number], [place] [id number] Nov, [facility] [place] [address] [id number], [place] 085186447 Nov, [facility] [place] [address] [id number] [place] 807696682 Nov, [facility] [place] [address] [id number] [place] [id number] Nov, [facility] [place] [address] [id number] [place] 047677443 Nov, [facility] [place] [address] [id number] [place] 515427010 Oct, [facility] [place] [address] [id number] [place] [id number] Oct, [facility] [place] [address] [id number] [place] 079360077 Oct, [facility] [place] [address] [id number] [place] [id number] Oct, [facility] [place] [address] [id number] [place] [id number] Oct, [facility] [place] [address] [id number] [place] [id number] Oct, [facility] [place] [address] [id number] [place] [id number] Oct, [facility] [place] [address] [id number] [place] [id number] Oct, [facility] [place] [address] [id number] [place] [id number] Sep, [facility] [place] [address] [id number] [place] [id number] Sep, [facility] [place] [address] [id number] [place] 412063723 Sep, [facility] [facility] [address] [id number] [facility] [id number] Sep, Dental examination Z01.20 [facility] [place] [address] [id number] [place] [id number] Sep, [facility] [place] [address] [id number] [place] [id number] Sep, [facility] [place] [address] [id number] [place] [id number] Sep, [facility] [place] [address] [id number], [place] 530652885 Sep, [facility] [place] [address] [id number], [place] [id number] Sep, [facility] [place] [address] [id number], [place] [id number] Sep, [facility] [place] [address] [id number], [place] 143225140 Sep, [facility] [address] [id number], [place] [id number] Sep, Dental examination Z01.20 [facility] [place] [address] [id number], [place] [id number] Aug, [facility] [address] [address] [id number], [place] [id number] Apr, Positive test Z32.01 [place] [address] [place] [address]- 5023 Apr, Dysuria R30.0 [facility] [address] [id number], [place] [id number] Apr, [facility] [address] [id number], [place] [id number] Apr, [facility] [address] [id number], [place] [id number] Apr, [facility] [address] [id number], [place] [id number] Mar, Gynecologic exam normal Z01.419 [place] [address] [place] [address]66- 0692 Mar, Borderline personality disorder F60.3 ; Unspecified mood [ affective] disorder F39 and Cigarette nicotine dependence without complication F17.210 [facility] [address]65100[place] [address]- [address] Feb, Borderline personality disorder F60.3 ; Unspecified mood [ affective] disorder F39 and Cigarette nicotine dependence without complication F17.210 [facility] [address]100[place], [place] 11737651- 4702 Jan, Borderline personality disorder F60.3 [facility] [address] [facility] [address] [id number], [place] [id number] Jan, Strep throat J02.0 and Sore throat J02.9 [facility] [address] [facility] [address] [id number], [place] 939484850 Oct, Acute nasopharyngitis J00 [facility] [address]00565100[place] [address] Aug, [facility] [id number] [place] [address] 19015- 1810 Jul, [place] [address] [place] [address] 42667- 4148 Jul, [facility] [address] [place] [address] 90364- 4826 Nov, Mood disorder F39 [facility] [address] [place] [address] 98539- 7909 Jul, Mood disorder 296.90 [facility] [id number], [place] [id number] June, Bipolar 1 disorder, depressed 296.50 and Attention deficit disorder 314.00 [facility] [address]00565100[place] [address]- [address] Jan, [facility] [address]00565100[place], [place] [address]- 0658 Nov, [place] [address] [place] [address]85- 8771 Aug, IMMUNIZATIONS No Known Immunizations SOCIAL HISTORY Never Assessed REASON FOR VISIT requesting return call PLAN OF CARE VITAL SIGNS MEDICATIONS Medication Instructions Dosage Frequency Start Date End Date Duration Status Zoloft 50 MG Orally Once a day 1 tablet 24h Jan, 30 day(s) Active Latuda 40 mg Orally Once a day 1 tablet with food 24h Active RESULTS No Results PROCEDURES No Known procedures INSTRUCTIONS MEDICATIONS ADMINISTERED No Known Medications MEDICAL (GENERAL) HISTORY Type Description Date Medical History attention deficit hyperactivity disorder Medical History bipolar disorder Medical History Tourette's syndrome Medical History personality disorder Surgical History tonsillectomy Surgical History wisdom teeth extraction Surgical History Tubal ligation 02/2017 Hospitalization History Voluntary in patient behavior health admission [facility] Hospitalization History childbirth for three days 12/2016
--- OUTSIDE RECORDS SUMMARY | 2017-09-14 11:10 | XMS REPORT ---
Author Author STAR LARA [facility] Address [address] [place] [address] Care Team Providers Care Bunghole Borer Name Role Phone JANE STAR Unavailable PROBLEMS Type Condition ICD9-CM Code KFP99-LF Code Onset Dates Condition Status SNOMED Code Problem Borderline personality disorder F60.3 Active 86586180 Problem Acute nasopharyngitis J00 Active 88177619 Problem Post traumatic stress disorder (PTSD) F43.10 Active 28877400 Problem Positive test Z32.01 Active 159050121 Problem Unspecified mood [affective] disorder F39 Active 691832368 Problem Cigarette nicotine dependence without complication F17.210 Active 95900865 Problem Dysuria R30.0 Active 89150173 Problem Gynecologic exam normal Z01.419 Active 344029547 ALLERGIES No Information ENCOUNTERS Encounter Location Date Diagnosis [place] [address] [id number] [address] 16 Jun, [address] [id number], [place] [id number] 15 Apr, 2017 Dental examination Z01.20 [place] [id number] [place] [address] 14 Apr, 2017 Borderline personality disorder F60.3 ; Unspecified mood [ affective] disorder F39 and Post traumatic stress disorder (PTSD) F43.[address] [id number], [place] [id number] 07 Mar, 2017 Dental caries K02.9 [place] [address] [id number] [address] 10 Feb, 2017 Borderline personality disorder F60.3 ; Unspecified mood [ affective] disorder F39 and Post traumatic stress disorder (PTSD) F43.[address] [facility] [address] [id number], [place] [id number] Feb, Dental examination Z01.20 [facility] [address] [facility] [id number], [place] 48410884- [address] Feb, [facility] [address] [facility] [id number], [place] 21938539- [address] Jan, Borderline personality disorder F60.[address] [facility] [address] [id number], [place] [id number] Jan, [facility] [address] [id number], [place] [id number] Jan, [facility] [address] [facility] [id number], [place] [address] Jan, [facility] [address] [facility] [id number], [place] [address] Dec, Borderline personality disorder F60.3 and Unspecified mood [ affective] disorder F39 [facility] [place] [address] [id number], [place] [id number] Dec, [facility] [place] [id number] [place] [address] [id number] Dec, [facility] [place] [address] [id number] [place] [address] [id number] Dec, [facility] [place] [address] [id number], [place] [id number] Nov, [facility] [place] [address] [id number], [place] [id number] Nov, [facility] [place] [address] [id number], [place] [id number] Nov, [facility] [place] [address] [id number], [place] [id number] Nov, [facility] [place] [id number] [place] [address] [id number] Nov, [facility] [address] [facility] [id number], [place] 65872501- [address] Nov, [facility] [place] [address] [id number] [place] [id number] Nov, [facility] [place] [address] [id number] [place] [id number] Nov, [facility] [place] [address] [id number] [place] [phone] Nov, [facility] [place] [address] [id number] [place] [id number] Nov, [facility] [place] [address] [id number] [place] [id number] Nov, [facility] [place] [address] [id number] [place] [id number] Oct, [facility] [place] [address] [id number] [place] [id number] Oct, [facility] [place] [address] [id number] [place] [id number] Oct, [facility] [place] [address] [id number] [place] [phone] Oct, [facility] [place] [address] [id number] [place] [id number] Oct, [facility] [place] [address] [id number] [place] [phone] Oct, [facility] [place] [address] [id number] [place] [id number] Oct, [facility] [place] [address] [id number] [place] [id number] Oct, [facility] [place] [address] [id number] [place] [phone] Sep, [facility] [place] [address] [id number] [place] [id number] Sep, [facility] [place] [address] [id number] [place] [id number] Sep, [facility] [address] [facility] [address] [id number] [place] [id number] Sep, Dental examination Z01.20 [facility] [place] [address] [id number] [place] [id number] Sep, [facility] [place] [address] [id number], [place] [id number] Sep, [facility] [place] [address] [id number], [place] [phone] Sep, [facility] [place] [address] [id number], [place] [phone] Sep, [facility] [place] [address] [id number], [place] [phone] Sep, [facility] [place] [address] [id number], [place] [phone] Sep, [facility] [place] [address] [id number], [place] [id number] Sep, [facility] [address] [id number], [place] [id number] Sep, Dental examination Z01.20 [facility] [address] [id number], [place] [id number] Aug, [facility] [address] [id number], [place] [id number] Apr, Positive test Z32.01 [place] [address], [place] [address] Apr, Dysuria R30.0 [facility] [address] [id number], [place] [id number] Apr, [facility] [address] [id number], [place] [id number] Apr, [facility] [address] [id number], [place] [id number] Apr, [facility] [address] [id number], [place] [phone] Mar, Gynecologic exam normal Z01.419 [place] [id number] [place] [address] Mar, Borderline personality disorder F60.3 ; Unspecified mood [ affective] disorder F39 and Cigarette nicotine dependence without complication F17.210 [place] [id number] [place] [address]- [address] Feb, Borderline personality disorder F60.3 ; Unspecified mood [ affective] disorder F39 and Cigarette nicotine dependence without complication F17.210 [facility] [address], [place] [address] Jan, Borderline personality disorder F60.[address] [id number], [place] [id number] Jan, Strep throat J02.0 and Sore throat J02.[address] [id number], [place] [id number] Oct, Acute nasopharyngitis J00 [facility] [address], [place] [address] Aug, [facility] [address] [place] [address]- 7681 Jul, [facility] [address] [place] [address]- 5[address] Jul, [facility] [address], [place] [address] Nov, Mood disorder F39 [facility] [address] [place] [address] 97542- 3671 Jul, Mood disorder 296.90 [facility] [id number], [place] 837466979 June, Bipolar 1 disorder, depressed 296.50 and Attention deficit disorder 314.00 [facility] [address], [place] [address] Jan, [facility] [address] [place] [address] 10851- 6003 Nov, [facility] [address], [place] [address] Aug, IMMUNIZATIONS No Known Immunizations SOCIAL HISTORY [...] ligation 02/2017 Hospitalization History Voluntary in patient [facility] health admission [facility] unit Hospitalization History childbirth for three days 12/2016
--- OUTSIDE RECORDS SUMMARY | 2017-09-14 11:10 | XMS REPORT ---
Author Author JHONY PARRA [facility] Address [address] [place] [address] Care Team Providers Care Floral Arranger Name Role Phone STEVE PARRAELVIE Unavailable PROBLEMS Type Condition ICD9-CM Code NJS00-HO Code Onset Dates Condition Status SNOMED Code Problem Borderline personality disorder F60.3 Active 24688184 Problem Acute nasopharyngitis J00 Active 51823248 Problem Post traumatic stress disorder (PTSD) F43.10 Active 39113931 Problem Positive test Z32.01 Active 582943117 Problem Unspecified mood [affective] disorder F39 Active 073557450 Problem Cigarette nicotine dependence without complication F17.210 Active 04004953 Problem Dysuria R30.0 Active 37709036 Problem Gynecologic exam normal Z01.419 Active 348524770 ALLERGIES Substance Reaction Event Type Date Status Codeine Sulfate anger Drug Allergy Dec, Active Latex Unknown Non Drug Allergy Dec, Active ENCOUNTERS Encounter Location Date Diagnosis [facility] [address] [facility] [id number][place] [id number] 14 Jul, [address] [id number], [place] [id number] 15 Apr, 2017 Dental examination Z01.20 [facility] [address] [id number] [address] 14 Apr, 2017 Borderline personality disorder F60.3 ; Unspecified mood [ affective] disorder F39 and Post traumatic stress disorder (PTSD) F43.10 [place] [address] [employer] [facility] [id number] [place] [address] [id number] 07 Mar, 2017 Dental caries K02.9 [facility] [address] [facility] [id number] [address] 10 Feb, 2017 Borderline personality disorder F60.3 ; Unspecified mood [ affective] disorder F39 and Post traumatic stress disorder (PTSD) F43.10 [facility] [address] [id number], [place] [phone] Feb, Dental examination Z01.20 [facility] [address] [facility] [id number] [place] [address]9070[address] Feb, [facility] [address] [facility] [id number] [address]- 7[address] Jan, Borderline personality disorder F60.3 [facility] [address] [id number], [place] [id number] Jan, [facility] [address] [id number], [place] [phone] Jan, [facility] [address] 28234[address]- [address] Jan, [facility] [address]65[address] [address]- 8[address] Dec, Borderline personality disorder F60.3 and Unspecified mood [ affective] disorder F39 [facility] [place] [id number] [place] [address] [id number] Dec, [facility] [place] [id number] [place] [address] [id number] Dec, [facility] [place] [address] [id number] [place] [address] [id number] Dec, [facility] [place] [address] [id number] [place] [address] [id number] Nov, [facility] [place] [address] [id number] [place] [id number] Nov, [facility] [place] [id number] [place] [address] [id number] Nov, [facility] [place] [address] [id number] [place] [address] [id number] Nov, [facility] [place] [address] [id number] [place] [id number] Nov, [facility] [address] [place] [address]- 8416 Nov, [facility] [place] [address] [id number] [place] [phone] Nov, [facility] [place] [address] [id number] [place] [id number] Nov, [facility] [place] [address] [id number] [place] [id number] Nov, [facility] [place] [address] [id number] [place] [id number] Nov, [facility] [place] [address] [id number] [place] [phone] Nov, [facility] [place] [address] [id number] [place] [phone] Oct, [facility] [place] [address] [id number] [place] [id number] Oct, [facility] [place] [address] [id number] [place] [id number] Oct, [facility] [place] [address] [id number] [place] [id number] Oct, [facility] [place] [address] [id number] [place] [id number] Oct, [facility] [place] [address] [id number] [place] [id number] Oct, [facility] [place] [address] [id number] [place] [id number] Oct, [facility] [place] [address] [id number] [place] [id number] Oct, [facility] [place] [address] [id number] [place] [id number] Sep, [facility] [place] [address] [id number] [place] [id number] Sep, [facility] [place] [address] [id number] [place] [id number] Sep, [facility] [address] [facility] [address] [id number]. [facility] [id number] Sep, Dental examination Z01.20 [facility] [place] [address] [id number] [place] [id number] Sep, [facility] [place] [address] [id number] [place] [id number] Sep, [facility] [place] [address] [id number] [place] [id number] Sep, [facility] [place] [address] [id number] [place] [id number] Sep, [facility] [place] [address] [id number] [place] [id number] Sep, [facility] [place] [address] [id number] [place] [id number] Sep, [facility] [place] [address] [id number] [place] [id number] Sep, [facility] [address] [id number], [place] [phone] Sep, Dental examination Z01.20 [facility] [place] [address] [id number] [place] [id number] Aug, [facility] [address] [id number], [place] [id number] Apr, Positive test Z32.01 [facility] [address] [address]326[address]- [address] Apr, Dysuria R30.0 [facility] [address] [id number], [place] [id number] Apr, [facility] [address] [id number], [place] [id number] Apr, [facility] [address] [id number], [place] [id number] Apr, [facility] [address] [id number], [place] [id number] Mar, Gynecologic exam normal Z01.419 [facility] [address] Mar, Borderline personality disorder F60.3 ; Unspecified mood [ affective] disorder F39 and Cigarette nicotine dependence without complication F17.210 [facility] [address] [address]- 4[address] Feb, 2017 Borderline personality disorder F60.3 ; Unspecified mood [ affective] disorder F39 and Cigarette nicotine dependence without complication F17.210 [facility] [address]250[place]- [address] 23 Jan, 2016 Borderline personality disorder F60.[address] [id number], [place] [id number] 08 Jan, 2016 Strep throat J02.0 and Sore throat J02.[address] [id number], [place] 268101582 Oct, Acute nasopharyngitis J00 [facility] [address] [address]- 9596 Aug, [facility] [address] [place] [address] 48143- 4734 Jul, [facility] [address] [place] [address] 18021- 1557 Jul, [facility] [address] [place] [address] 68310- 9884 Nov, Mood disorder F39 [facility] [address] [address]- 3546 Jul, Mood disorder 296.90 [facility] [id number] [place] [phone] June, Bipolar 1 disorder, depressed 296.50 and Attention deficit disorder 314.00 [facility] [address]100[place] [address]- 0687 Jan, [facility] [address] [address]- 8927 Nov, [facility] [address] [id number] [address]- 2721 Aug, IMMUNIZATIONS No Known Immunizations SOCIAL HISTORY Never Assessed REASON FOR VISIT f/u--Franko Reeves MA PLAN OF CARE Activity Details Follow Up 4 Weeks Reason: VITAL SIGNS Height 67.50 in 2017-01-14 Weight 209.8 lbs 2017-01-14 Heart Rate 88 bpm 2017-01-14 Respiratory Rate 20 2017-01-14 BMI 32.37 kg/m2 2017-01-14 Blood pressure systolic 116 mmHg 2017-01-14 Blood pressure diastolic 86 mmHg 2017-01-14 MEDICATIONS Medication Instructions Dosage Frequency Start Date End Date Duration Status Folic Acid Not-Taking Active Prozac 20 mg Orally Once a day 1 capsule in the morning 24h Dec, 30 day(s) Active Latuda 40 mg Orally Once a day 1 tablet with food 24h Not-Taking Lamotrigine 25 MG Orally Twice a day 1 tablet 12h Not-Taking Nicoderm CQ 7 MG/24HR Transdermal Once a day 1 patch to skin 24h Not-Taking RESULTS No Results PROCEDURES No Known procedures INSTRUCTIONS MEDICATIONS ADMINISTERED No Known Medications MEDICAL (GENERAL) HISTORY Type Description Date Medical History attention deficit hyperactivity disorder Medical History bipolar disorder Medical History Tourette's syndrome Medical History personality disorder Surgical History tonsillectomy Surgical History wisdom teeth extraction Surgical History Tubal ligation 02/2017 Hospitalization History Voluntary in patient behavior health admission [facility] Hospitalization History childbirth for three days 12/2016
--- OUTSIDE RECORDS SUMMARY | 2017-09-14 11:10 | XMS REPORT ---
Author Author NISHI RAGLAND Organization [facility] Address [address] [place] [address] Care Team Providers Care Director Product Safety Name Role Phone NISHI RAGLAND Unavailable PROBLEMS Type Condition ICD9-CM Code WTO42-ML Code Onset Dates Condition Status SNOMED Code Problem Acute nasopharyngitis J00 Active 49136302 Problem Positive test Z32.01 Active 490665006 Problem Dysuria R30.0 Active 24524007 Problem Cigarette nicotine dependence without complication F17.210 Active 85501084 Problem Borderline personality disorder F60.3 Active 88943649 Problem Gynecologic exam normal Z01.419 Active 468198566 Problem Unspecified mood [affective] disorder F39 Active 742555133 ALLERGIES Substance Reaction Event Type Date Status Codeine Sulfate anger Drug Allergy Mar, Active SOCIAL HISTORY Never Assessed PLAN OF CARE Activity Details Follow Up 1 Year Reason:WW exam VITAL SIGNS Height 67.50 in 2016-04-15 Weight 219 lbs 2016-04-15 Temperature 96.7 degrees Fahrenheit 2016-04-15 Heart Rate 76 bpm 2016-04-15 Respiratory Rate 20 2016-04-15 BMI 33.79 kg/m2 2016-04-15 Blood pressure systolic 122 mmHg 2016-04-15 Blood pressure diastolic 72 mmHg 2016-04-15 MEDICATIONS Medication Instructions Dosage Frequency Start Date End Date Duration Status Latuda 40 mg Orally Once a day 1 tablet with food 24h Active RESULTS Name Result Date Reference Range TEST, URINE (IN HOUSE) 2016-04-15 RESULTS negative Lot # [id number] Control + Exp date 06/2017 TRICHOMONAS (IN HOUSE) 2016-04-15 TRICHOMONAS Neg Control + Lot # [id number] Exp date 04/05 BACTERIAL VAGINOSIS (IN HOUSE) 2016-04-15 RESULTS neg Control + Lot # [id number] Exp date 11/04 CULTURE, GENITAL 2016-04-15 Genital Culture, Routine Final report Result 1 GC/CHLAMYDIA (SWAB OR URINE)-RAPID 2016-04-15 Chlamydia trachomatis, YESSICA Negative Negative Neisseria gonorrhoeae, YESSICA Negative Negative PAP TEST, HPV IF ASCUS 2016-04-15 DIAGNOSIS: Specimen adequacy: Clinician provided ICD10: Performed by: Electronically signed by: . . Pathologist provided ICD10: Note: . PDF Report 2016-04-15 PDF Report1 LCLS PROCEDURES Procedure Date Ordered Result Body Site SPECIMEN HANDLING Apr 15, 2016 TRICHOMONAS ASSAY W/OPTIC Apr 15, 2016 CULTURE, BACTERIA, OTHER Apr 15, 2016 URINE TEST Apr 15, 2016 GONAZLEZ VAG, DNA, DIR PROBE Apr 15, 2016 N.GONORRHOEAE, DNA, AMP PROB Apr 15, 2016 CHYLMD TRACH, DNA, AMP PROBE Apr 15, 2016 IMMUNIZATIONS No Known Immunizations MEDICAL (GENERAL) HISTORY Type Description Date Medical History attention deficit hyperactivity disorder Medical History bipolar disorder Medical History Tourette's syndrome Medical History personality disorder Medical History - 7 months- due date 12/2016 Surgical History tonsillectomy Surgical History wisdom teeth extraction Hospitalization History Voluntary [facility] patient [facility] unit
--- OUTSIDE RECORDS SUMMARY | 2017-09-14 11:10 | XMS REPORT ---
Author Author STAR LARA [facility] Address [address] [place] [address] Care Team Providers Care Motor Vehicle Examiner Name Role Phone JANE STAR Unavailable PROBLEMS Type Condition ICD9-CM Code JIU40-OH Code Onset Dates Condition Status SNOMED Code Problem Borderline personality disorder F60.3 Active 01210807 Problem Acute nasopharyngitis J00 Active 03499313 Problem Post traumatic stress disorder (PTSD) F43.10 Active 40372799 Problem Positive test Z32.01 Active 060011810 Problem Unspecified mood [affective] disorder F39 Active 709186048 Problem Cigarette nicotine dependence without complication F17.210 Active 43548830 Problem Dysuria R30.0 Active 26694331 Problem Gynecologic exam normal Z01.419 Active 905676723 ALLERGIES No Information ENCOUNTERS Encounter Location Date Diagnosis [address] [address] [id number], [place] [address] 16 Jun, [address] [id number] [id number] 15 Apr, 2017 Dental examination Z01.20 [place] [id number] [place] [address] 14 Apr, 2017 Borderline personality disorder F60.3 ; Unspecified mood [ affective] disorder F39 and Post traumatic stress disorder (PTSD) F43.[address] [id number][place] [id number] 07 Mar, 2017 Dental caries K02.9 [place] [address] [address] [id number], [place] [address] 10 Feb, 2017 Borderline personality disorder F60.3 ; Unspecified mood [ affective] disorder F39 and Post traumatic stress disorder (PTSD) F43.[address] [facility] [address] [id number], [place] [id number] Feb, Dental examination Z01.20 [facility] [address] [facility] [id number], [place] [address] Feb, [facility] [place] [facility] [address] [facility] [id number], [place]4728[address] Jan, Borderline personality disorder F60.[address] [facility] [address] [id number], [place] [id number] Jan, [facility] [address] [id number], [place] [id number] Jan, [facility] [address] [facility] [id number], [place] [address] Jan, [facility] [address] [facility] [id number], [place] [address] Dec, Borderline personality disorder F60.3 and Unspecified mood [ affective] disorder F39 [facility] [place] [address] [id number], [place] [id number] Dec, [facility] [place] [address] [id number] [place] [address] [id number] Dec, [facility] [place] [address] [id number] [place] [id number] Dec, [facility] [place] [address] [id number], [place] [address] Nov, [facility] [place] [address] [id number], [place] [id number] Nov, [facility] [place] [address] [id number], [place] [id number] Nov, [facility] [place] [address] [id number], [place] [id number] Nov, [facility] [place] [address] [id number] [place] [address] [id number] Nov, [facility] [address] [facility] [id number], [place] 15480335- [address] Nov, [facility] [place] [address] [id number] [place] [id number] Nov, [facility] [place] [address] [id number] [place] 115579918 Nov, [facility] [place] [address] [id number] [place] [id number] Nov, [facility] [place] [address] [id number] [place] [id number] Nov, [facility] [place] [address] [id number] [place] [id number] Nov, [facility] [place] [address] [id number] [place] [id number] Oct, [facility] [place] [address] [id number] [place] [address]220[address] Oct, [facility] [place] [address] [id number] [place] [phone] Oct, [facility] [place] [address] [id number] [place] [id number] Oct, [facility] [place] [address] [id number] [place] [id number] Oct, [facility] [place] [address] [id number] [place] [id number] Oct, [facility] [place] [address] [id number] [place] [id number] Oct, [facility] [place] [address] [id number] [place] [phone] Oct, [facility] [place] [address] [id number] [place] [phone] Sep, [facility] [place] [address] [id number] [place] [id number] Sep, [facility] [place] [address] [id number] [place] [id number] Sep, [facility] [address] [id number] [id number] Sep, Dental examination Z01.20 [facility] [place] [address] [id number] [place] [address] Sep, [facility] [place] [address] [id number], [place] [phone] Sep, [facility] [place] [address] [id number], [place] 836261917 Sep, [facility] [place] [address] [id number], [place] [id number] Sep, [facility] [place] [address] [id number], [place] [id number] Sep, [facility] [place] [address] [id number], [place] [id number] Sep, [facility] [place] [address] [id number], [place] [id number] Sep, [facility] [address] [id number], [place] [address]1217 Sep, Dental examination Z01.20 [facility] [address] [id number], [place] [id number] Aug, [facility] [address] [id number], [place] [id number] Apr, Positive test Z32.01 [place] [address] [address], [place] [address] Apr, Dysuria R30.0 [facility] [address] [id number], [place] [id number] Apr, [facility] [address] [id number], [place] 136895846 Apr, [facility] [address] [id number], [place] [id number] Apr, [facility] [address] [id number], [place] [address]39224[address] Mar, Gynecologic exam normal Z01.419 [id number] [place] [address] Mar, Borderline personality disorder F60.3 ; Unspecified mood [ affective] disorder F39 and Cigarette nicotine dependence without complication F17.210 [place] [id number] [place] [address]- [address] Feb, Borderline personality disorder F60.3 ; Unspecified mood [ affective] disorder F39 and Cigarette nicotine dependence without complication F17.210 [facility] [address], [place] [address] Jan, Borderline personality disorder F60.[address] [id number], [place] [address] Jan, Strep throat J02.0 and Sore throat J02.[address] [id number], [place] [id number] Oct, Acute nasopharyngitis J00 [facility] [address], [place] [address] Aug, [facility] [address] [place] [address]- [address] Jul, [facility] [address] [place] [address]- [address] Jul, [facility] [address]100[place], [place] [address] Nov, Mood disorder F39 [facility] [address] [place] [address]- 4791 Jul, Mood disorder 296.90 [facility] [id number], [place] [address] June, Bipolar 1 disorder, depressed 296.50 and Attention deficit disorder 314.00 [facility] [address], [place] [address] Jan, [facility] [address] [place] [address] 9[address]- 08[address] Nov, [facility] [address], [place] [address] Aug, IMMUNIZATIONS No Known Immunizations SOCIAL HISTORY [...] patient [facility] health admission [facility] unit Hospitalization History childbirth for three days 12/2016
--- OUTSIDE RECORDS SUMMARY | 2017-09-14 11:10 | XMS REPORT ---
Author Author JHONY PARRA [facility] Address [address] [place] [address] Care Team Providers Care Health Record Technician Name Role Phone STEVE PARRAELVIE Unavailable PROBLEMS Type Condition ICD9-CM Code KYN62-YC Code Onset Dates Condition Status SNOMED Code Problem Borderline personality disorder F60.3 Active 48774794 Problem Acute nasopharyngitis J00 Active 22394414 Problem Post traumatic stress disorder (PTSD) F43.10 Active 40839114 Problem Positive test Z32.01 Active 400196754 Problem Unspecified mood [affective] disorder F39 Active 101531339 Problem Cigarette nicotine dependence without complication F17.210 Active 55522167 Problem Dysuria R30.0 Active 21821144 Problem Gynecologic exam normal Z01.419 Active 720834074 ALLERGIES No Information ENCOUNTERS Encounter Location Date Diagnosis [facility] [employer] [facility] [id number] [place] [id number] 14 Jul, [address] [id number] [place] [id number] 15 Apr, 2017 Dental examination Z01.20 [facility] [place] [address] [facility] [id number], [place] [address] 14 Apr, 2017 Borderline personality disorder F60.3 ; Unspecified mood [ affective] disorder F39 and Post traumatic stress disorder (PTSD) F43.[address] [id number] [place] [address] 07 Mar, 2017 Dental caries K02.9 [facility] [place] [address] [facility] [id number], [place] [address] 10 Feb, 2017 Borderline personality disorder F60.3 ; Unspecified mood [ affective] disorder F39 and Post traumatic stress disorder (PTSD) F43.[address] [id number] [place] [id number] Feb, Dental examination Z01.20 [facility] [place] [address] [facility] [id number], [place] [address] Feb, [facility] [place] [address] [facility] [id number], [place] [address]0320434- [address] Jan, Borderline personality disorder F60.[address] [facility] [address] [id number] [place] [id number] Jan, [facility] [address] [id number] [place] 913693932 Jan, [facility] [place] [address]00565100[place], [place] [address] Jan, [facility] [place] [address] [id number], [place] [address]- [address] Dec, Borderline personality disorder F60.3 and Unspecified mood [ affective] disorder F39 [facility] [place] [address] [id number], [place] [id number] Dec, [facility] [place] [id number] [place] [address] [id number] Dec, [facility] [place] [address] [id number] [place] [address] [id number] Dec, [facility] [place] [address] [id number] [place] [address] [id number] Nov, [facility] [place] [address] [id number] [place] [address] [id number] Nov, [facility] [place] [address] [id number][place] [id number] Nov, [facility] [place] [address] [id number] [place] [address] [id number] Nov, [facility] [place] [address] [id number] [place] [address] [id number] Nov, [facility] [place] [address] [facility] [id number], [place] [address]- [address] Nov, [facility] [place] [address] [id number] [place] [address]77[address]40 Nov, [facility] [place] [address] [id number] [place] [phone] Nov, [facility] [place] [address] [id number] [place] [id number] Nov, [facility] [place] [address] [id number] [place] [id number] Nov, [facility] [place] [address] [id number] [place] [id number] Nov, [facility] [place] [address] [id number] [place] [id number] Oct, [facility] [place] [address] [id number] [place] [id number] Oct, [facility] [place] [address] [id number] [place] [id number] Oct, [facility] [place] [address] [id number] [place] [id number] Oct, [facility] [place] [address] [id number] [place] [id number] Oct, [facility] [place] [address] [id number] [place] [id number] Oct, [facility] [place] [address] [id number] [place] [id number] Oct, [facility] [place] [address] [id number] [place] [id number] Oct, [facility] [place] [address] [id number] [place] 8942348[address] Sep, [facility] [place] [address] [id number] [place] [phone] Sep, [facility] [place] [address] [id number] [place] [id number] Sep, [facility] [address] [id number] [id number] Sep, Dental examination Z01.20 [facility] [place] [address] [id number] [place] [id number] Sep, [facility] [place] [address] [id number], [place] [id number] Sep, [facility] [place] [address] [id number], [place] [id number] Sep, [facility] [place] [address] [id number], [place] [phone] Sep, [facility] [place] [address] [id number], [place] [phone] Sep, [facility] [place] [address] [id number], [place] [id number] Sep, [facility] [place] [address] [id number], [place] 793135541 Sep, [facility] [address] [id number] [place] 928782766 Sep, Dental examination Z01.20 [facility] [place] [address] [id number], [place] [id number] Aug, [facility] [address] [id number] [place] [address] Apr, Positive test Z32.01 [address] [address]00565100[place], [place] [address] Apr, Dysuria R30.0 [facility] [address] [id number] [place] [id number] Apr, [facility] [address] [id number] [place] [id number] Apr, [facility] [address] [id number] [place] [id number] Apr, [facility] [address] [id number] [place] [id number] Mar, Gynecologic exam normal Z01.419 [id number] [place] [address]- 4424 Mar, Borderline personality disorder F60.3 ; Unspecified mood [ affective] disorder F39 and Cigarette nicotine dependence without complication F17.210 [address] [address] Feb, Borderline personality disorder F60.3 ; Unspecified mood [ affective] disorder F39 and Cigarette nicotine dependence without complication F17.210 [facility] [place] [address]00565100[place], [place] [address] Jan, Borderline personality disorder F60.3 [place] [address] [id number] [address] Jan, Strep throat J02.0 and Sore throat J02.[address] [id number] [place] [id number] Oct, Acute nasopharyngitis J00 [facility] [place] [id number] [place] [address] 91959- 6616 Aug, [facility] [place] [address] [place] [address] 10924- 0341 Jul, [facility] [place] [id number] [place] [address] 93268- 3045 Jul, [facility] [place] [address] [place] [address] 87850- 3021 Nov, Mood disorder F39 [facility] [place] [address] [place] [address] 04626- 9153 Jul, Mood disorder 296.90 [facility] [id number], [place] [id number] June, Bipolar 1 disorder, depressed 296.50 and Attention deficit disorder 314.00 [facility] [place] [address]00565100[place], [place] [address]- [address]241 Jan, [facility] [place] [address] [place] [address] 08756- 2126 Nov, [facility] [place] [address]00565100[place], [place] [address]- 6[address] Aug, IMMUNIZATIONS No Known Immunizations SOCIAL HISTORY [...] History Voluntary in patient behavior health admission [facility] unit Hospitalization History childbirth for three days 12/2016
--- OUTSIDE RECORDS SUMMARY | 2017-09-14 11:11 | XMS REPORT ---
Author Author NISHI RAGLAND [facility] Address [address] [place] [address] Care Team Providers Care Body Masker Name Role Phone OBIE NISHI Unavailable PROBLEMS Type Condition ICD9-CM Code VMJ49-MX Code Onset Dates Condition Status SNOMED Code Problem Acute nasopharyngitis J00 Active 75281566 Problem Positive test Z32.01 Active 216595052 Problem Dysuria R30.0 Active 09449175 Problem Cigarette nicotine dependence without complication F17.210 Active 42705700 Problem Borderline personality disorder F60.3 Active 74120412 Problem Gynecologic exam normal Z01.419 Active 047164243 Problem Unspecified mood [affective] disorder F39 Active 288807720 ALLERGIES No Information SOCIAL HISTORY Never Assessed [...] teeth extraction Hospitalization History [facility] patient [facility] unit
--- OUTSIDE RECORDS SUMMARY | 2017-09-14 11:11 | XMS REPORT ---
Author Author JHONY PARRA Organization [facility] Address [address] [place] [address] Care Team Providers Care Special Police Officer Name Role Phone AIDA, DAWELVIE Unavailable PROBLEMS Type Condition ICD9-CM Code CNO60-NP Code Onset Dates Condition Status SNOMED Code Problem Acute nasopharyngitis J00 Active 70274290 Problem Positive test Z32.01 Active 473094826 Problem Dysuria R30.0 Active 32313467 Problem Cigarette nicotine dependence without complication F17.210 Active 22728469 Problem Borderline personality disorder F60.3 Active 90376566 Problem Gynecologic exam normal Z01.419 Active 485135576 Problem Unspecified mood [affective] disorder F39 Active 265891098 ALLERGIES Substance Reaction Event Type Date Status Codeine Sulfate anger Drug Allergy Jan, Active SOCIAL HISTORY No smoking Hx information available PLAN OF CARE Activity Details Follow Up 4 Weeks Reason: VITAL SIGNS Height 67.50 in 2016-02-08 Weight 223.2 lbs 2016-02-08 Heart Rate 80 bpm 2016-02-08 Respiratory Rate 20 2016-02-08 BMI 34.44 kg/m2 2016-02-08 Blood pressure systolic 111 mmHg 2016-02-08 Blood pressure diastolic 73 mmHg 2016-02-08 MEDICATIONS Medication Instructions Dosage Frequency Start Date End Date Duration Status Lamotrigine 25 MG Orally Twice a day 1 tablet 12h Active Latuda 40 mg Orally Once a day 1 tablet with food 24h Active RESULTS Name Result Date Reference Range TSH 2016-02-08 TSH 2.080 0.450-4.500 CBC 2016-02-08 WBC 14.8 3.4-10.8 RBC 4.51 3.77-5.28 Hemoglobin 13.5 11.1-15.9 Hematocrit 40.1 34.0-46.6 MCV 89 79-97 MCH 29.9 26.6-33.0 MCHC 33.7 31.5-35.7 RDW 12.9 12.3-15.4 Platelets 332 150-379 Neutrophils 72 Lymphs 19 Monocytes 7 Eos 2 Basos 0 Immature Cells Neutrophils (Absolute) 10.7 1.4-7.0 Lymphs (Absolute) 2.8 0.7-3.1 Monocytes(Absolute) 1.0 0.1-0.9 Eos (Absolute) 0.2 0.0-0.4 Baso (Absolute) 0.0 0.0-0.2 Immature Granulocytes 0 Immature Grans (Abs) 0.0 0.0-0.1 NRBC Hematology Comments: LIPID PANEL 2016-02-08 Cholesterol, Total 160 100-199 Triglycerides 106 0-149 HDL Cholesterol 46 >39 VLDL Cholesterol Raúl 21 5-40 LDL Cholesterol Calc 93 0-99 Comment: CMP 2016-02-08 Glucose, Serum 85 65-99 BUN 13 6-20 Creatinine, Serum 0.74 0.57-1.00 eGFR If NonAfricn Am 117 >59 eGFR If Africn Am 135 >59 BUN/Creatinine Ratio 18 8-20 Sodium, Serum 138 134-144 Potassium, Serum 4.5 3.5-5.2 Chloride, Serum 101 96-106 Carbon Dioxide, Total 26 18-29 Calcium, Serum 9.7 8.7-10.2 Protein, Total, Serum 6.9 6.0-8.5 Albumin, Serum 4.2 3.5-5.5 Globulin, Total 2.7 1.5-4.5 A/G Ratio 1.6 1.1-2.5 Bilirubin, Total 0.2 0.0-1.2 Alkaline Phosphatase, S 83 39-117 AST (SGOT) 15 0-40 ALT (SGPT) 14 0-32 TEST, URINE (IN HOUSE) 2016-02-08 RESULTS Negative Lot # [id number] Control + Exp date 04/2017 URINE DRUG SCREEN (IN HOUSE) 2016-02-08 Lot # [id number] Exp date 08/2017 Control + COCAINE NEGATIVE AMPH NEGATIVE MTD NEGATIVE THC NEGATIVE OPIATE NEGATIVE BENZO NEGATIVE PCP NEGATIVE BAR NEGATIVE OXY NEGATIVE MAMP NEGATIVE TCA BUP NEGATIVE MDMA NEGATIVE PROCEDURES Procedure Date Ordered Related Diagnosis Body Site MH Office Visit, Est Pt., Level 3 Feb 08, 2016 URINE TEST Feb 08, 2016 LAB NOT BILLED BY [facility] Feb 08, 2016 DRUG SCREEN NON TLC DEVICES Feb 08, 2016 VENIPUNCT, ROUTINE* Feb 08, 2016 IMMUNIZATIONS No Known Immunizations
--- OUTSIDE RECORDS SUMMARY | 2017-09-14 11:11 | XMS REPORT ---
Author Author STAR LARA [facility] Address [address] [place] [address] Care Team Providers Care Video Engineer Name Role Phone STAR LARA Unavailable PROBLEMS Type Condition ICD9-CM Code LCR37-TY Code Onset Dates Condition Status SNOMED Code Problem Borderline personality disorder F60.3 Active 21865809 Problem Acute nasopharyngitis J00 Active 68641045 Problem Post traumatic stress disorder (PTSD) F43.10 Active 65629622 Problem Positive test Z32.01 Active 878477225 Problem Unspecified mood [affective] disorder F39 Active 021373357 Problem Cigarette nicotine dependence without complication F17.210 Active 52497067 Problem Dysuria R30.0 Active 30117644 Problem Gynecologic exam normal Z01.419 Active 494975675 ALLERGIES No Information ENCOUNTERS Encounter Location Date Diagnosis [address] [id number][place] [id number] 14 Jul, 2017 [address] [id number] [address] 30 Jun, [address] [id number], [place] [id number] 15 Apr, 2017 Dental examination Z01.20 [id number] [place] [address]327- 5515 14 Apr, 2017 Borderline personality disorder F60.3 ; Unspecified mood [ affective] disorder F39 and Post traumatic stress disorder (PTSD) F43.[address] [id number], [place] 653519705 07 Mar, 2017 Dental caries K02.9 [address] [id number] [address] 10 Feb, 2017 Borderline personality disorder F60.3 ; Unspecified mood [ affective] disorder F39 and Post traumatic stress disorder (PTSD) F43.10 [facility] [address] [id number], [place] 591763601 Feb, Dental examination Z01.20 [facility] [address] [facility] [id number] [place] 34066879- 5254 Feb, [facility] [address] [facility] [id number] [place] 21658841[place] [address]21 Jan, Borderline personality disorder F60.3 [facility] [address] [id number], [place] [id number] Jan, [facility] [address] [id number], [place] [id number] Jan, [facility] [address]00565100[place] [address] Jan, [facility] [address]00565100[place] [address] 9[address] Dec, Borderline personality disorder F60.3 and Unspecified mood [ affective] disorder F39 [facility] [place] [address] [id number], [place] [id number] Dec, [facility] [place] [address] [id number], [place] [id number] Dec, [facility] [place] [address] [id number], [place] [id number] Dec, [facility] [place] [address] [id number] [place] [address] [id number] Nov, [facility] [place] [address] [id number], [place] 019054561 Nov, [facility] [place] [id number] [place] [address] [id number] Nov, [facility] [place] [address] [id number], [place] [id number] Nov, [facility] [place] [address] [id number], [place] [id number] Nov, [facility] [address] [id number] [address] Nov, [facility] [place] [address] [id number] [place] [id number] Nov, [facility] [place] [address] [id number] [place] 755343972 Nov, [facility] [place] [address] [id number] [place] [id number] Nov, [facility] [place] [address] [id number] [place] [id number] Nov, [facility] [place] [address] [id number] [place] [id number] Nov, [facility] [place] [address] [id number] [place] [id number] Oct, [facility] [place] [address] [id number] [place] [id number] Oct, [facility] [place] [address] [id number] [place] [id number] Oct, [facility] [place] [address] [id number] [place] [id number] Oct, [facility] [place] [address] [id number] [place] [id number] Oct, [facility] [place] [address] [id number] [place] [id number] Oct, [facility] [place] [address] [id number] [place] [id number] Oct, [facility] [place] [address] [id number] [place] [id number] Oct, [facility] [place] [address] [id number] [place] [id number] Sep, [facility] [place] [address] [id number] [place] [id number] Sep, [facility] [place] [address] [id number] [place] [id number] Sep, [facility] [place] [facility] [address] [id number] [facility] [id number] Sep, Dental examination Z01.20 [facility] [place] [address] [id number], [place] 928341364 Sep, [facility] [place] [address] [id number] [place] 826554752 Sep, [facility] [place] [address] [id number] [place] [id number] Sep, [facility] [place] [address] [id number], [place] 247756578 Sep, [facility] [place] [address] [id number], [place] [id number] Sep, [facility] [place] [address] [id number], [place] [phone] Sep, [facility] [place] [address] [id number], [place] [id number] Sep, [facility] [address] [id number], [place] [phone] Sep, Dental examination Z01.20 [facility] [place] [address] [id number], [place] 816667341 Aug, [facility] [address] [id number], [place] [id number] Apr, Positive test Z32.01 [facility] [address]00565100[place] [address] Apr, Dysuria R30.0 [facility] [address] [id number], [place] [phone] Apr, [facility] [address] [id number], [place] [id number] Apr, [facility] [address] [id number], [place] [id number] Apr, [facility] [address] [id number], [place] 787113460 Mar, Gynecologic exam normal Z01.419 [facility] [address]00565100[place] [address]2456[address] Mar, Borderline personality disorder F60.3 ; Unspecified mood [ affective] disorder F39 and Cigarette nicotine dependence without complication F17.210 [facility] [address]00565100[place] [address] 20 Feb, 2017 Borderline personality disorder F60.3 ; Unspecified mood [ affective] disorder F39 and Cigarette nicotine dependence without complication F17.210 [facility] [address]00565100[place] 300722- [address] 23 Jan, 2016 Borderline personality disorder F60.[address] [id number], [place] [id number] 08 Jan, 2016 Strep throat J02.0 and Sore throat J02.[address] [id number], [place] [id number] 07 Oct, 2015 Acute nasopharyngitis J00 [facility] [address]00565100[place] [address]- 6[address] Aug, [facility] [address] [place] [address] 87288- 6363 Jul, [facility] [address]00565100[place] [address]- 8585 Jul, [facility] [address] [place] [address] 88744- 9003 Nov, Mood disorder F39 [facility] [address]00565100[place] [address]- 1059 Jul, Mood disorder 296.90 [facility] [id number], [place] 137417739 June, Bipolar 1 disorder, depressed 296.50 and Attention deficit disorder 314.00 [facility] [address]00565100[place] 534[place]- 8142 Jan, [facility] [address]00565100[place] 86610083- 5803 Nov, [facility] [address]00565100[place] [address]- 3409 Aug, IMMUNIZATIONS No Known Immunizations SOCIAL HISTORY [...] History Voluntary in patient behavior health admission [facility] unit Hospitalization History childbirth for three days 12/2016
--- OUTSIDE RECORDS SUMMARY | 2017-09-14 11:11 | XMS REPORT ---
Author Author STAR LARA [facility] Address [address] [place] [address] Care Team Providers Care Engine Boss Name Role Phone JANE STAR Unavailable PROBLEMS Type Condition ICD9-CM Code LGH60-WN Code Onset Dates Condition Status SNOMED Code Problem Borderline personality disorder F60.3 Active 69754845 Problem Acute nasopharyngitis J00 Active 12703516 Problem Post traumatic stress disorder (PTSD) F43.10 Active 48743474 Problem Positive test Z32.01 Active 634044636 Problem Unspecified mood [affective] disorder F39 Active 457787098 Problem Cigarette nicotine dependence without complication F17.210 Active 01766417 Problem Dysuria R30.0 Active 69509761 Problem Gynecologic exam normal Z01.419 Active 874856276 ALLERGIES No Information ENCOUNTERS Encounter Location Date Diagnosis [address] [id number] [address] 16 Jun, [address] [id number] [place] [id number] 15 Apr, 2017 Dental examination Z01.20 [id number] [place] [address] 99463- 5633 14 Apr, 2017 Borderline personality disorder F60.3 ; Unspecified mood [ affective] disorder F39 and Post traumatic stress disorder (PTSD) F43.[address] [id number] [place], [place] 478658495 07 Mar, 2017 Dental caries K02.9 [address] [id number], [place] [address]- [address] 10 Feb, 2017 Borderline personality disorder F60.3 ; Unspecified mood [ affective] disorder F39 and Post traumatic stress disorder (PTSD) F43.[address] [facility] [address] [id number] [place] 863336377 Feb, Dental examination Z01.20 [facility] [address] [facility] [id number], [place] 22737779- 6257 Feb, [facility] [address] [facility] [id number], [place] 42462652- 8207 Jan, Borderline personality disorder F60.[address] [facility] [address] [id number] [place] 858402659 Jan, [facility] [address] [id number] [place] 218429267 Jan, [facility] [address] [facility] [id number][place] [address]- 9265 Jan, [facility] [address] [facility] [id number] [address]- 2737 Dec, Borderline personality disorder F60.3 and Unspecified mood [ affective] disorder F39 [facility] [place] [address] [id number], [place] 955290066 Dec, [facility] [place] [id number] [place] [address] [id number] Dec, [facility] [place] [address] [id number] [place] [address] [id number] Dec, [facility] [place] [address] [id number], [place] [id number] Nov, [facility] [place] [address] [id number], [place] [id number] Nov, [facility] [place] [address] [id number], [place] [id number] Nov, [facility] [place] [address] [id number], [place] [id number] Nov, [facility] [place] [address] [id number] [place] [address] [id number] Nov, [facility] [address] [facility] [id number], [place] 78099371- 2304 Nov, [facility] [place] [address] [id number] [place] [id number] Nov, [facility] [place] [address] [id number] [place] [id number] Nov, [facility] [place] [address] [id number] [place] [id number] Nov, [facility] [place] [address] [id number] [place] 467193301 Nov, [facility] [place] [address] [id number] [place] 925704928 Nov, [facility] [place] [address] [id number] [place] 765153562 Oct, [facility] [place] [address] [id number] [place] [id number] Oct, [facility] [place] [address] [id number] [place] [id number] Oct, [facility] [place] [address] [id number] [place] 575994713 Oct, [facility] [place] [address] [id number] [place] [id number] Oct, [facility] [place] [address] [id number] [place] [id number] Oct, [facility] [place] [address] [id number] [place] [id number] Oct, [facility] [place] [address] [id number] [place] [id number] Oct, [facility] [place] [address] [id number] [place] [id number] Sep, [facility] [place] [address] [id number] [place] [id number] Sep, [facility] [place] [address] [id number] [place] [id number] Sep, [facility] [place] [facility] [address] [id number] [facility] [id number] Sep, Dental examination Z01.20 [facility] [place] [address] [id number] [place] [id number] Sep, [facility] [place] [address] [id number], [place] [id number] Sep, [facility] [place] [address] [id number], [place] [phone] Sep, [facility] [place] [address] [id number], [place] [id number] Sep, [facility] [place] [address] [id number], [place] 510562321 Sep, [facility] [place] [address] [id number], [place] [id number] Sep, [facility] [place] [address] [id number], [place] 790687049 Sep, [facility] [address] [id number] [place], [place] 527421885 Sep, Dental examination Z01.20 [facility] [address] [id number], [place] 396317474 Aug, [facility] [address] [id number] [place] 837129313 Apr, Positive test Z32.01 [address] [address]00565100[place], [place] [address]- [address] Apr, Dysuria R30.0 [facility] [address] [id number] [place] [id number] Apr, [facility] [address] [id number] [place], [place] [id number] Apr, [facility] [address] [id number] [place] 848263476 Apr, [facility] [address] [id number] [place], [place] 439731619 Mar, Gynecologic exam normal Z01.419 [address] [id number] [place] [address] 96543- 0049 Mar, Borderline personality disorder F60.3 ; Unspecified mood [ affective] disorder F39 and Cigarette nicotine dependence without complication F17.210 [place] [id number] [place] [address] 80909- 8535 Feb, Borderline personality disorder F60.3 ; Unspecified mood [ affective] disorder F39 and Cigarette nicotine dependence without complication F17.210 [facility] [address]00565100[place], [place] [address]- 4773 Jan, Borderline personality disorder F60.[address] [id number] [place], [place] 994863268 Jan, Strep throat J02.0 and Sore throat J02.[address] [id number] [place], [place] [id number] Oct, Acute nasopharyngitis J00 [facility] [address]00565100[place], [place] [address]- 36[address] Aug, [facility] [address] [place] [address] 80322- 3107 Jul, [facility] [address] [place] [address] 49698- 7511 Jul, [facility] [address]00565100[place], [place] [address]- 3027 Nov, Mood disorder F39 [facility] [address] [place] [address] 88385- 5489 Jul, Mood disorder 296.90 [facility] [id number], [place] 789502527 June, Bipolar 1 disorder, depressed 296.50 and Attention deficit disorder 314.00 [facility] [address]00565100[place], [place] [address]- 7234 Jan, [facility] [address] [place] [address] 51063- 4718 Nov, [facility] [address]100[place], [place] [address]- 5[address] Aug, IMMUNIZATIONS No Known Immunizations SOCIAL HISTORY [...] ligation 02/2017 Hospitalization History Voluntary in patient [facility] health admission [facility] unit Hospitalization History childbirth for three days 12/2016
--- OUTSIDE RECORDS SUMMARY | 2017-09-14 11:11 | XMS REPORT ---
Author Author STAR LARA [facility] Address [address] [place] [address] Care Team Providers Care Pharmacovigilance Safety Expert Name Role Phone JANE STAR Unavailable PROBLEMS Type Condition ICD9-CM Code OXN09-TV Code Onset Dates Condition Status SNOMED Code Problem Borderline personality disorder F60.3 Active 22603932 Problem Acute nasopharyngitis J00 Active 40407674 Problem Post traumatic stress disorder (PTSD) F43.10 Active 69513122 Problem Positive test Z32.01 Active 695239614 Problem Unspecified mood [affective] disorder F39 Active 865154103 Problem Cigarette nicotine dependence without complication F17.210 Active 78798601 Problem Dysuria R30.0 Active 20310751 Problem Gynecologic exam normal Z01.419 Active 831816629 ALLERGIES No Information ENCOUNTERS Encounter Location Date Diagnosis [address] [id number], [place] [address]- [address] 16 Jun, [address] [id number], [place] 356636170 15 Apr, 2017 Dental examination Z01.20 [address] [id number] [place] [address] 19069- 4814 14 Apr, 2017 Borderline personality disorder F60.3 ; Unspecified mood [ affective] disorder F39 and Post traumatic stress disorder (PTSD) F43.[address] [id number], [place] 161936444 07 Mar, 2017 Dental caries K02.9 [place] [address] [address] [id number], [place] [address]- 8783 10 Feb, 2017 Borderline personality disorder F60.3 ; Unspecified mood [ affective] disorder F39 and Post traumatic stress disorder (PTSD) F43.[address] [facility] [address] [id number], [place] 307041397 Feb, Dental examination Z01.20 [facility] [address] [facility] [address] [id number], [place] 37528452- 6773 Feb, [facility] [address] [facility] [address] [id number], [place] 25054173- 6552 Jan, Borderline personality disorder F60.[address] [facility] [address] [id number], [place] 645854598 Jan, [facility] [address] [id number], [place] 205121386 Jan, [facility] [address] [facility] [address] [id number], [place] [address]- 9342 Jan, [facility] [address] [facility] [address] [id number], [place] [address]- 4831 Dec, Borderline personality disorder F60.3 and Unspecified mood [ affective] disorder F39 [facility] [place] [address] [id number], [place] 758635274 Dec, [facility] [place] [address] [id number] [place] [address] [id number] Dec, [facility] [place] [address] [id number] [place] [address] [id number] Dec, [facility] [place] [address] [id number], [place] 484500620 Nov, [facility] [place] [address] [id number], [place] [id number] Nov, [facility] [place] [address] [id number], [place] [id number] Nov, [facility] [place] [address] [id number], [place] [id number] Nov, [facility] [place] [address] [id number] [place] [address] [id number] Nov, [facility] [address] [facility] [address] [id number], [place] 70630246- 4704 Nov, [facility] [place] [address] [id number] [place] 536548047 Nov, [facility] [place] [address] [id number] [place] [id number] Nov, [facility] [place] [address] [id number] [place] [id number] Nov, [facility] [place] [address] [id number] [place] [id number] Nov, [facility] [place] [address] [id number] [place] [id number] Nov, [facility] [place] [address] [id number] [place] [id number] Oct, [facility] [place] [address] [id number] [place] [id number] Oct, [facility] [place] [address] [id number] [place] [id number] Oct, [facility] [place] [address] [id number] [place] [id number] Oct, [facility] [place] [address] [id number] [place] [id number] Oct, [facility] [place] [address] [id number] [place] [id number] Oct, [facility] [place] [address] [id number] [place] [id number] Oct, [facility] [place] [address] [id number] [place] [id number] Oct, [facility] [place] [address] [id number] [place] [id number] Sep, [facility] [place] [address] [id number] [place] [id number] Sep, [facility] [place] [address] [id number] [place] [id number] Sep, [facility] [address] [facility] [address] [id number]. [facility] [place] [id number] Sep, Dental examination Z01.20 [facility] [place] [address] [id number] [place] [id number] Sep, [facility] [place] [address] [id number], [place] [id number] Sep, [facility] [place] [address] [id number], [place] [id number] Sep, [facility] [place] [address] [id number], [place] [id number] Sep, [facility] [place] [address] [id number], [place] [id number] Sep, [facility] [place] [address] [id number], [place] [id number] Sep, [facility] [place] [address] [id number], [place] [id number] Sep, [facility] [address] [id number], [place] [id number] Sep, Dental examination Z01.20 [facility] [address] [id number][place] [id number] Aug, [facility] [address] [id number][place] [id number] Apr, Positive test Z32.01 [place] [address] [address] Apr, Dysuria R30.0 [facility] [address] [id number], [place] [id number] Apr, [facility] [address] [id number], [place] [id number] Apr, [facility] [address] [id number][place] [id number] Apr, [facility] [address] [id number][place] [id number] Mar, Gynecologic exam normal Z01.419 [place] [id number] [place] [address] Mar, Borderline personality disorder F60.3 ; Unspecified mood [ affective] disorder F39 and Cigarette nicotine dependence without complication F17.210 [place] [id number] [place] [address] Feb, Borderline personality disorder F60.3 ; Unspecified mood [ affective] disorder F39 and Cigarette nicotine dependence without complication F17.210 [facility] [address]65[address] [address] Jan, Borderline personality disorder F60.[address] [id number][place] [id number] Jan, Strep throat J02.0 and Sore throat J02.[address] [id number], [place] [id number] Oct, Acute nasopharyngitis J00 [facility] [id number], [place] [address] Aug, [facility] [id number] [place] [address] Jul, [facility] [id number] [place] [address] Jul, [facility] [id number], [place] [address] Nov, Mood disorder F39 [facility] [id number] [place] [address] Jul, Mood disorder 296.90 [facility] [id number][place] [id number] June, Bipolar 1 disorder, depressed 296.50 and Attention deficit disorder 314.00 [facility] [address], [place] [address] Jan, [facility] [id number] [place] [address] Nov, [facility] [id number], [place] [address] Aug, IMMUNIZATIONS No Known Immunizations SOCIAL HISTORY [...] ligation 02/2017 Hospitalization History Voluntary in patient [facility] health admission [facility] Hospitalization History childbirth for three days 12/2016
--- OUTSIDE RECORDS SUMMARY | 2017-09-14 11:11 | XMS REPORT ---
Author Author JHONY PARRA Organization [facility] Address [address] [place] [address] Care Team Providers Care Catshovel Driver Name Role Phone STEVE PARRAELVIE Unavailable PROBLEMS Type Condition ICD9-CM Code [id number] Code Onset Dates Condition Status SNOMED Code Problem Acute nasopharyngitis J00 Active 94907192 Problem Positive test Z32.01 Active 648849712 Problem Dysuria R30.0 Active 90785156 Problem Cigarette nicotine dependence without complication F17.210 Active 59756137 Problem Borderline personality disorder F60.3 Active 59133300 Problem Gynecologic exam normal Z01.419 Active 843774537 Problem Unspecified mood [affective] disorder F39 Active 019188241 ALLERGIES Substance Reaction Event Type Date Status Codeine Sulfate anger Drug Allergy Mar, Active SOCIAL HISTORY Never Assessed PLAN OF CARE Activity Details Follow Up 4 Weeks Reason: VITAL SIGNS Height 67.50 in 2016-04-08 Weight 218.3 lbs 2016-04-08 Heart Rate 108 bpm 2016-04-08 Respiratory Rate 20 2016-04-08 BMI 33.68 kg/m2 2016-04-08 Blood pressure systolic 128 mmHg 2016-04-08 Blood pressure diastolic 77 mmHg 2016-04-08 MEDICATIONS Medication Instructions Dosage Frequency Start Date End Date Duration Status Latuda 40 mg Orally Once a day 1 tablet with food 24h Active Nicoderm CQ 7 MG/24HR Transdermal Once a day 1 patch to skin 24h Active Lamotrigine 25 MG Orally Twice a day 1 tablet 12h Active RESULTS No Results PROCEDURES No Known procedures IMMUNIZATIONS No Known Immunizations MEDICAL (GENERAL) HISTORY Type Description Date Medical History attention deficit hyperactivity disorder Medical History bipolar disorder Medical History Tourette's syndrome Medical History personality disorder Medical History - 7 months- due date 12/2016 Surgical History tonsillectomy Surgical History wisdom teeth extraction Hospitalization History Voluntary in patient behavior health admission [facility]
--- OUTSIDE RECORDS SUMMARY | 2017-09-14 11:12 | XMS REPORT ---
Author Author STAR LARA [facility] Address [address] [place] [address] Care Team Providers Care Clinical Documentation Developer Name Role Phone JANE STAR Unavailable PROBLEMS Type Condition ICD9-CM Code UAW15-MB Code Onset Dates Condition Status SNOMED Code Problem Borderline personality disorder F60.3 Active 26660855 Problem Acute nasopharyngitis J00 Active 96732729 Problem Post traumatic stress disorder (PTSD) F43.10 Active 43834472 Problem Positive test Z32.01 Active 494441724 Problem Unspecified mood [affective] disorder F39 Active 423950545 Problem Cigarette nicotine dependence without complication F17.210 Active 61756838 Problem Dysuria R30.0 Active 65664204 Problem Gynecologic exam normal Z01.419 Active 467462821 ALLERGIES No Information ENCOUNTERS Encounter Location Date Diagnosis [place] [address] [id number], [place] [address] 16 Jun, [address] [id number] [id number] 15 Apr, 2017 Dental examination Z01.20 [place] [id number] [place] [address] 14 Apr, 2017 Borderline personality disorder F60.3 ; Unspecified mood [ affective] disorder F39 and Post traumatic stress disorder (PTSD) F43.[address] [id number] [address] 07 Mar, 2017 Dental caries K02.9 [place] [address] [id number], [place] [address] 10 Feb, 2017 Borderline personality disorder F60.3 ; Unspecified mood [ affective] disorder F39 and Post traumatic stress disorder (PTSD) F43.[address] [facility] [address] [id number], [place] [id number] Feb, Dental examination Z01.20 [facility] [address] [facility] [id number][place] [address] [address] Feb, [facility] [place] [address] [facility] [id number], [place] [address]3081688[address] Jan, Borderline personality disorder F60.[address] [facility] [address] [id number], [place] [id number] Jan, [facility] [address] [id number], [place] [id number] Jan, [facility] [address] [facility] [id number], [place] [address] Jan, [facility] [address] [facility] [id number], [place] [address] Dec, Borderline personality disorder F60.3 and Unspecified mood [ affective] disorder F39 [facility] [place] [address] [id number] [place] [id number] Dec, [facility] [place] [address] [id number] [place] [address] [id number] Dec, [facility] [place] [address] [id number] [place] [address] [id number] Dec, [facility] [place] [address] [id number] SPRINGS[place] [id number] Nov, [facility] [place] [address] [id number] [place] [id number] Nov, [facility] [place] [address] [id number] [place] [id number] Nov, [facility] [place] [address] [id number] [place] [id number] Nov, [facility] [place] [id number] [place] [address] [id number] Nov, [facility] [address] [facility] [id number], [place] 88[address]368- [address] Nov, [facility] [place] [address] [id number] [place] [id number] Nov, [facility] [place] [address] [id number] [id number] Nov, [facility] [place] [address] [id number] [place] [id number] Nov, [facility] [place] [address] [id number] [place] [id number] Nov, [facility] [place] [address] [id number] [place] [id number] Nov, [facility] [place] [address] [id number] [place] [id number] Oct, [facility] [place] [address] [id number] [place] [id number] Oct, [facility] [place] [address] [id number] [place] [id number] Oct, [facility] [place] [address] [id number] [place] [id number] Oct, [facility] [place] [address] [id number] [place] [id number] Oct, [facility] [place] [address] [id number] [place] [id number] Oct, [facility] [place] [address] [id number] [place] [id number] Oct, [facility] [place] [address] [id number] [place] [id number] Oct, [facility] [place] [address] [id number] [place] [id number] Sep, [facility] [place] [address] [id number] [place] [id number] Sep, [facility] [place] [address] [id number] [place] [id number] Sep, [facility] [address] [facility] [address] [id number] [place] [id number] Sep, Dental examination Z01.20 [facility] [place] [address] [id number] [place] [id number] Sep, [facility] [place] [address] [id number] [place] [id number] Sep, [facility] [place] [address] [id number] [place] [id number] Sep, [facility] [place] [address] [id number] [place] [id number] Sep, [facility] [place] [address] [id number] [place] [id number] Sep, [facility] [place] [address] [id number] [place] [id number] Sep, [facility] [place] [address] [id number] [place] [phone] Sep, [facility] [address] [id number], [place] [id number] Sep, Dental examination Z01.20 [facility] [address] [id number] [place] [phone] Aug, [facility] [address] [id number], [place] [phone] Apr, Positive test Z32.01 [place] [address]100[place], [place] [address] Apr, Dysuria R30.0 [facility] [address] [id number], [place] [id number] Apr, [facility] [address] [id number], [place] [id number] Apr, [facility] [address] [id number], [place] [id number] Apr, [facility] [address] [id number], [place] [id number] Mar, Gynecologic exam normal Z01.419 [place] [id number] [place] [address]- [address] Mar, Borderline personality disorder F60.3 ; Unspecified mood [ affective] disorder F39 and Cigarette nicotine dependence without complication F17.210 [place] [id number] [place] [address]- [address]017 Feb, Borderline personality disorder F60.3 ; Unspecified mood [ affective] disorder F39 and Cigarette nicotine dependence without complication F17.210 [facility] [address]00565100[place], [place] [address] Jan, Borderline personality disorder F60.[address] [id number], [place] [id number] Jan, Strep throat J02.0 and Sore throat J02.[address] [id number], [place] [id number] Oct, Acute nasopharyngitis J00 [facility] [address]00565100[place], [place] [address] Aug, [facility] [address] [place] [address]- 6863 Jul, [facility] [address] [place] [address] 12060- 8612 Jul, [facility] [address]100[place], [place] [address] Nov, Mood disorder F39 [facility] [address] [place] [address]- 2234 Jul, Mood disorder 296.90 [facility] [id number] [place] [address] June, Bipolar 1 disorder, depressed 296.50 and Attention deficit disorder 314.00 [facility] [address]100[place], [place] [address] Jan, [facility] [address] [place] [address] 9[address]- 4019 Nov, [facility] [address], [place] [address] Aug, IMMUNIZATIONS No Known Immunizations SOCIAL HISTORY [...] ligation 02/2017 Hospitalization History Voluntary in patient [facility] health admission [facility] unit Hospitalization History childbirth for three days 12/2016
--- OUTSIDE RECORDS SUMMARY | 2017-09-14 11:12 | XMS REPORT ---
Author Author [facility]AR LARA [facility] Address [address] [place] [address] Care Team Providers Care Lease Attendant Name Role Phone JANE STAR Unavailable PROBLEMS Type Condition ICD9-CM Code AZF19-MO Code Onset Dates Condition Status SNOMED Code Problem Borderline personality disorder F60.3 Active 39770782 Problem Acute nasopharyngitis J00 Active 14829580 Problem Post traumatic stress disorder (PTSD) F43.10 Active 59399542 Problem Positive test Z32.01 Active 730746968 Problem Unspecified mood [affective] disorder F39 Active 084569918 Problem Cigarette nicotine dependence without complication F17.210 Active 62258711 Problem Dysuria R30.0 Active 83287845 Problem Gynecologic exam normal Z01.419 Active 239452169 ALLERGIES No Information ENCOUNTERS Encounter Location Date Diagnosis [place] [id number], [place] [address] 16 Jun, [address] [id number], [place] [id number] 15 Apr, 2017 Dental examination Z01.20 [place] [id number] [place] [address]- 5463 14 Apr, 2017 Borderline personality disorder F60.3 ; Unspecified mood [ affective] disorder F39 and Post traumatic stress disorder (PTSD) F43.[address] [id number][place] 8754325[place] 07 Mar, 2017 Dental caries K02.9 [place] [id number], [place] [address] 10 Feb, 2017 Borderline personality disorder F60.3 ; Unspecified mood [ affective] disorder F39 and Post traumatic stress disorder (PTSD) F43.[address] [facility] [address] [id number], [place] 984623004 Feb, Dental examination Z01.20 [facility] [address] [facility] [id number], [place] [address]99[address] Feb, [facility] [address] [facility] [id number][place] [address] Jan, Borderline personality disorder F60.[address] [facility] [address] [id number], [place] [id number] Jan, [facility] [address] [id number], [place] [id number] Jan, [facility] [address] [facility] [id number], [place] [address] Jan, [facility] [address] [facility] [id number], [place] [address] Dec, Borderline personality disorder F60.3 and Unspecified mood [ affective] disorder F39 [facility] [place] [address] [id number], [place] [id number] Dec, [facility] [place] [id number] [place] [address] [id number] Dec, [facility] [place] [address] [id number] [place] [address] [id number] Dec, [facility] [place] [address] [id number], [place] [id number] Nov, [facility] [place] [address] [id number], [place] [id number] Nov, [facility] [place] [address] [id number], [place] [id number] Nov, [facility] [place] [address] [id number], [place] [id number] Nov, [facility] [place] [address] [id number] [place] [address] [id number] Nov, [facility] [address] [facility] [id number], [place] 99849461- [address] Nov, [facility] [place] [address] [id number] [place] [id number] Nov, [facility] [place] [address] [id number] [place] [id number] Nov, [facility] [place] [address] [id number] [place] [id number] Nov, [facility] [place] [address] [id number] [place] [id number] Nov, [facility] [place] [address] [id number] [place] [id number] Nov, [facility] [place] [address] [id number] [place] [id number] Oct, [facility] [place] [address] [id number] [place] [id number] Oct, [facility] [place] [address] [id number] [place] [id number] Oct, [facility] [place] [address] [id number] [place] [id number] Oct, [facility] [place] [address] [id number] [place] [id number] Oct, [facility] [place] [address] [id number] [place] [id number] Oct, [facility] [place] [address] [id number] [place] [id number] Oct, [facility] [place] [address] [id number] [place] [id number] Oct, [facility] [place] [address] [id number] [place] [id number] Sep, [facility] [place] [address] [id number] [place] [id number] Sep, [facility] [place] [address] [id number] [place] [id number] Sep, [facility] [address] [facility] [address] [id number] [place] [id number] Sep, Dental examination Z01.20 [facility] [place] [address] [id number] [place] [id number] Sep, [facility] [place] [address] [id number], [place] [id number] Sep, [facility] [place] [address] [id number], [place] [id number] Sep, [facility] [place] [address] [id number], [place] [id number] Sep, [facility] [place] [address] [id number], [place] [id number] Sep, [facility] [place] [address] [id number], [place] [id number] Sep, [facility] [place] [address] [id number], [place] 086238085 Sep, [facility] [address] [id number], [place] [id number] Sep, Dental examination Z01.20 [facility] [address] [id number], [place] 819992650 Aug, [facility] [address] [id number], [place] [id number] Apr, Positive test Z32.01 [place] [address], [place] [address] Apr, [address] [facility] [address] [id number], [place] [id number] Apr, [facility] [address] [id number], [place] [id number] Apr, [facility] [address] [id number], [place] [id number] Apr, [facility] [address] [id number], [place] [id number] Mar, Gynecologic exam normal Z01.419 [place] [id number] [place] [address] 21291- 9798 Mar, Borderline personality disorder F60.3 ; Unspecified mood [ affective] disorder F39 and Cigarette nicotine dependence without complication F17.210 [place] [id number] [place] [address] 07687- 5809 Feb, Borderline personality disorder F60.3 ; Unspecified mood [ affective] disorder F39 and Cigarette nicotine dependence without complication F17.210 [facility] [address], [place] [address]- [address] Jan, Borderline personality disorder F60.[address] [id number], [place] [id number] Jan, Strep throat J02.0 and Sore throat J02.[address] [id number], [place] [id number] Oct, Acute nasopharyngitis J00 [facility] [address]00565100[place], [place] [address]- [address] Aug, [facility] [address] [place] [address] 94714- 1528 Jul, [facility] [address] [place] [address] 64242- 4412 Jul, [facility] [address]00565100[place], [place] [address]- 2904 Nov, Mood disorder F39 [facility] [address] [place] [address] 43748- 7759 Jul, Mood disorder 296.90 [facility] [id number], [place] [id number] June, Bipolar 1 disorder, depressed 296.50 and Attention deficit disorder 314.00 [facility] [address]00565100[place], [place] [address]- 0[address] Jan, [facility] [address] [place] [address] 01814- 9248 Nov, [facility] [address]65100[place], [place] [address]- 0118 Aug, IMMUNIZATIONS No Known Immunizations SOCIAL HISTORY [...] ligation 02/2017 Hospitalization History Voluntary in patient [facility] health admission [facility] unit Hospitalization History childbirth for three days 12/2016
--- OUTSIDE RECORDS SUMMARY | 2017-09-14 11:12 | XMS REPORT ---
Author Author STAR LARA [facility] Address [address] [place] [address] Care Team Providers Care Time Study Statistician Name Role Phone JANE STAR Unavailable PROBLEMS Type Condition ICD9-CM Code ULK19-EB Code Onset Dates Condition Status SNOMED Code Problem Borderline personality disorder F60.3 Active 62222041 Problem Acute nasopharyngitis J00 Active 75935981 Problem Post traumatic stress disorder (PTSD) F43.10 Active 61410157 Problem Positive test Z32.01 Active 091748882 Problem Unspecified mood [affective] disorder F39 Active 181398246 Problem Cigarette nicotine dependence without complication F17.210 Active 01079635 Problem Dysuria R30.0 Active 99926960 Problem Gynecologic exam normal Z01.419 Active 220439632 ALLERGIES No Information ENCOUNTERS Encounter Location Date Diagnosis [place] [id number] [address] 16 Jun, [address] [id number], [place] [id number] 15 Apr, 2017 Dental examination Z01.20 [address] [place] [id number] [place] [address]- 6[address] 14 Apr, 2017 Borderline personality disorder F60.3 ; Unspecified mood [ affective] disorder F39 and Post traumatic stress disorder (PTSD) F43.[address] [id number][place] [id number] 07 Mar, 2017 Dental caries K02.9 [place] [address] [id number], [place] [address] 10 Feb, 2017 Borderline personality disorder F60.3 ; Unspecified mood [ affective] disorder F39 and Post traumatic stress disorder (PTSD) F43.[address] [facility] [address] [id number], [place] [id number] Feb, Dental examination Z01.20 [facility] [address] [facility] [id number] [address]36[address] Feb, [facility] [address] [facility] [id number], [place] 63434408[address] Jan, Borderline personality disorder F60.[address] [facility] [address] [id number], [place] [id number] Jan, [facility] [address] [id number], [place] [id number] Jan, [facility] [address] [facility] [id number], [place] [address] Jan, [facility] [address] [facility] [id number], [place] [address] Dec, Borderline personality disorder F60.3 and Unspecified mood [ affective] disorder F39 [facility] [place] [address] [id number], [place] [phone] Dec, [facility] [place] [id number] [place] [address] [id number] Dec, [facility] [place] [address] [id number] [place] [address] [id number] Dec, [facility] [place] [address] [id number], [place] [id number] Nov, [facility] [place] [address] [id number], [place] [id number] Nov, [facility] [place] [address] [id number], [place] 636003814 Nov, [facility] [place] [address] [id number], [place] [phone] Nov, [facility] [place] [address] [id number] [place] [address] [id number] Nov, [facility] [address] [facility] [id number], [place] 41594911- [address] Nov, [facility] [place] [address] [id number] [place] [id number] Nov, [facility] [place] [address] [id number] [place] [id number] Nov, [facility] [place] [address] [id number] [place] [id number] Nov, [facility] [place] [address] [id number] [place] [phone] Nov, [facility] [place] [address] [id number] [place] [id number] Nov, [facility] [place] [address] [id number] [place] [id number] Oct, [facility] [place] [address] [id number] [place] [id number] Oct, [facility] [place] [address] [id number] [place] [id number] Oct, [facility] [place] [address] [id number] [place] [phone] Oct, [facility] [place] [address] [id number] [place] [id number] Oct, [facility] [place] [address] [id number] [place] [id number] Oct, [facility] [place] [address] [id number] [place] [phone] Oct, [facility] [place] [address] [id number] [place] [id number] Oct, [facility] [place] [address] [id number] [place] [phone] Sep, [facility] [place] [address] [id number] [place] [id number] Sep, [facility] [place] [address] [id number] [place] [phone] Sep, [facility] [address] [facility] [address] [id number] [phone] Sep, Dental examination Z01.20 [facility] [place] [address] [id number] [place] [id number] Sep, [facility] [place] [address] [id number], [place] [phone] Sep, [facility] [place] [address] [id number], [place] [phone] Sep, [facility] [place] [address] [id number], [place] [phone] Sep, [facility] [place] [address] [id number], [place] [phone] Sep, [facility] [place] [address] [id number], [place] [phone] Sep, [facility] [place] [address] [id number], [place] [phone] Sep, [facility] [address] [id number], [place] 580[address]4942 Sep, Dental examination Z01.20 [facility] [address] [id number], [place] [phone] Aug, [facility] [address] [id number], [place] [id number] Apr, Positive test Z32.01 [place] [address], [place] [address] Apr, Dysuria R30.0 [facility] [address] [id number], [place] [phone] Apr, [facility] [address] [id number], [place] [id number] Apr, [facility] [address] [id number], [place] [id number] Apr, [facility] [address] [id number], [place] [id number] Mar, Gynecologic exam normal Z01.419 [place] [address] [id number] [place] [address]- [address] Mar, Borderline personality disorder F60.3 ; Unspecified mood [ affective] disorder F39 and Cigarette nicotine dependence without complication F17.210 [place] [id number] [place] [address] 85921- 4414 Feb, Borderline personality disorder F60.3 ; Unspecified mood [ affective] disorder F39 and Cigarette nicotine dependence without complication F17.210 [facility] [address], [place] [address] Jan, Borderline personality disorder F60.[address] [id number], [place] [id number] Jan, Strep throat J02.0 and Sore throat J02.[address] [id number], [place] [id number] Oct, Acute nasopharyngitis J00 [facility] [address], [place] [address] Aug, [facility] [address] [place] [address] 64809- 4576 Jul, [facility] [address] [place] [address] 53585- 8625 Jul, [facility] [address], [place] [address] Nov, Mood disorder F39 [facility] [address] [place] [address] 89111- 0109 Jul, Mood disorder 296.90 [facility] [id number], [place] [address] June, Bipolar 1 disorder, depressed 296.50 and Attention deficit disorder 314.00 [facility] [address], [place] [address] Jan, [facility] [address] [place] [address] 45651- 3077 Nov, [facility] [address], [place] [address] Aug, IMMUNIZATIONS No Known Immunizations SOCIAL HISTORY [...] ligation 02/2017 Hospitalization History Voluntary in patient [facility] health admission [facility] unit Hospitalization History childbirth for three days 12/2016
--- OUTSIDE RECORDS SUMMARY | 2017-09-14 11:12 | XMS REPORT ---
Author Author YUSEF NORWOOD [facility] Address [address] [place] [address] Care Team Providers Care Derrick Hand Name Role Phone OZIEL NORWOODO Unavailable PROBLEMS Type Condition ICD9-CM Code VQD71-XC Code Onset Dates Condition Status SNOMED Code Problem Borderline personality disorder F60.3 Active 93810108 Problem Acute nasopharyngitis J00 Active 06418990 Problem Post traumatic stress disorder (PTSD) F43.10 Active 27976328 Problem Positive test Z32.01 Active 666907590 Problem Unspecified mood [affective] disorder F39 Active 489346752 Problem Cigarette nicotine dependence without complication F17.210 Active 50308377 Problem Dysuria R30.0 Active 82508234 Problem Gynecologic exam normal Z01.419 Active 978801317 ALLERGIES Substance Reaction Event Type Date Status Codeine Sulfate anger Drug Allergy Sep, Active Latex Unknown Non Drug Allergy Sep, Active ENCOUNTERS Encounter Location Date Diagnosis [place] [address] [id number] [address] 16 Jun, [address] [id number], [place] [id number] 15 Apr, 2017 Dental examination Z01.20 [address] [address] [place] [address]- [address]24 14 Apr, 2017 Borderline personality disorder F60.3 ; Unspecified mood [ affective] disorder F39 and Post traumatic stress disorder (PTSD) F43.[address] [id number], [place] [id number] 07 Mar, 2017 Dental caries K02.9 [place] [address] [address] [place] [address]11- 5419 10 Feb, 2017 Borderline personality disorder F60.3 ; Unspecified mood [ affective] disorder F39 and Post traumatic stress disorder (PTSD) F43.10 [facility] [address] [id number], [place] 410535643 Feb, Dental examination Z01.20 [facility] [address] [facility] [id number] [address]- [address] Feb, [facility] [address] [address]- [address] Jan, Borderline personality disorder F60.3 [facility] [address] [id number], [place] [phone] Jan, [facility] [address] [id number], [place] 624680169 Jan, [facility] [address] [address]- 0[address] Jan, [facility] [address]00565[address] [address]- 9[address] Dec, Borderline personality disorder F60.3 and Unspecified mood [ affective] disorder F39 [facility] [place] [id number] [place] [address] [id number] Dec, [facility] [place] [id number] [place] [address] [id number] Dec, [facility] [place] [address] [id number], [place] [phone] Dec, [facility] [place] [address] [id number] [place] [address] [id number] Nov, [facility] [place] [address] [id number], [place] [id number] Nov, [facility] [place] [address] [id number] [place] [address] [id number] Nov, [facility] [place] [address] [id number] [place] [address] [id number] Nov, [facility] [place] [address] [id number], [place] [id number] Nov, [facility] [address] [id number] [place] [address]- [address] Nov, [facility] [place] [address] [id number] [place] [id number] Nov, [facility] [place] [address] [id number] [place] [id number] Nov, [facility] [place] [address] [id number] [place] 6359770[place] Nov, [facility] [place] [address] [id number] [place] [id number] Nov, [facility] [place] [address] [id number] [place] [id number] Nov, [facility] [place] [address] [id number] [place] [id number] Oct, [facility] [place] [address] [id number] [place] [id number] Oct, [facility] [place] [address] [id number] [place] [id number] Oct, [facility] [place] [address] [id number] [place] [id number] Oct, [facility] [place] [address] [id number] [place] [id number] Oct, [facility] [place] [address] [id number] [place] [id number] Oct, [facility] [place] [address] [id number] [place] [id number] Oct, [facility] [place] [address] [id number] [place] [id number] Oct, [facility] [place] [address] [id number] [place] [id number] Sep, [facility] [place] [address] [id number] [place] [id number] Sep, [facility] [place] [address] [id number] [place] [id number] Sep, [facility] [address] [facility] [address] [id number] [facility] [id number] Sep, Dental examination Z01.20 [facility] [place] [address] [id number], [place] [id number] Sep, [facility] [place] [address] [id number] [place] [phone] Sep, [facility] [place] [address] [id number], [place] [id number] Sep, [facility] [place] [address] [id number], [place] 503194511 Sep, [facility] [place] [address] [id number], [place] [id number] Sep, [facility] [place] [address] [id number], [place] [id number] Sep, [facility] [place] [address] [id number], [place] [phone] Sep, [facility] [address] [id number], [place] 107807047 Sep, Dental examination Z01.20 [facility] [place] [address] [id number], [place] [id number] Aug, [facility] [address] [id number], [place] 459150026 Apr, Positive test Z32.01 [place] [address]- [address] Apr, Dysuria R30.0 [facility] [address] [id number], [place] [id number] Apr, [facility] [address] [id number], [place] [id number] Apr, [facility] [address] [id number], [place] [id number] Apr, [facility] [address] [id number], [place] [id number] Mar, Gynecologic exam normal Z01.419 [facility] [address] [address]- 395[address] Mar, Borderline personality disorder F60.3 ; Unspecified mood [ affective] disorder F39 and Cigarette nicotine dependence without complication F17.210 [facility] [address] [address]- 69[address] 20 Feb, 2017 Borderline personality disorder F60.3 ; Unspecified mood [ affective] disorder F39 and Cigarette nicotine dependence without complication F17.210 [facility] [address] [address]- [address] 23 Jan, 2016 Borderline personality disorder F60.[address] [id number], [place] [id number] 08 Jan, 2016 Strep throat J02.0 and Sore throat J02.[id number] [place] [address] [id number] 07 Oct, 2015 Acute nasopharyngitis J00 [facility] [address] [place] [address] 25957- 4556 Aug, [facility] [id number] [place] [address] 75729- 7405 Jul, [facility] [address] [place] [address] 11875- 5402 Jul, [facility] [address] [place] [address] 01732- 4514 Nov, Mood disorder F39 [facility] [address]100[place] [address]- 5649 Jul, Mood disorder 296.90 [facility] [id number], [place] [address] June, Bipolar 1 disorder, depressed 296.50 and Attention deficit disorder 314.00 [facility] [address] [place] [address] 86544- 3399 Jan, [facility] [id number] [place] [address] 35513- 0947 Nov, [facility] [address]100[place] [address]- 7924 Aug, IMMUNIZATIONS No Known Immunizations SOCIAL HISTORY Never Assessed REASON FOR VISIT christo PLAN OF CARE Activity Details Follow Up prn Reason:FIllings VITAL SIGNS Blood pressure systolic 112 mmHg 2016-10-14 Blood pressure diastolic 57 mmHg 2016-10-14 MEDICATIONS Medication Instructions Dosage Frequency Start Date End Date Duration Status Folic Acid Active Active RESULTS No Results PROCEDURES Procedure Date Ordered Result Body Site COMP ORAL EVALUATION - NEW/EST PT Oct 14, 2016 INSTRUCTIONS MEDICATIONS ADMINISTERED No Known Medications MEDICAL (GENERAL) HISTORY Type Description Date Medical History attention deficit hyperactivity disorder Medical History bipolar disorder Medical History Tourette's syndrome Medical History personality disorder Surgical History tonsillectomy Surgical History wisdom teeth extraction Surgical History Tubal ligation 02/2017 Hospitalization History Voluntary in patient behavior health admission [facility] Hospitalization History childbirth for three days 12/2016
--- OUTSIDE RECORDS SUMMARY | 2017-09-14 11:13 | XMS REPORT | Clinical Summary ---
Author Author Admin, MONICA Organization [facility] Address Unknown Phone Unavailable Allergies, Adverse Reactions, Alerts Allergy Name Reaction Description Start Date Severity Status Provider CODEINE hives and psych issues Critical Active Josephine Cruz MD Conditions or Problems Problem Name Problem Code Onset Date Status Entry Date Provider Comment Standard Description Annotate FAMILY HISTORY OF CORONARY HEART DISEASE V17.3 Active Estrellita Tenorio MD Family history of ischemic heart disease FAMILY HISTORY OF DIABETES V18.0 Active Estrellita Tenorio MD Family history of diabetes mellitus WELL CHILD EXAM V20.2 Inactive Estrellita Tenorio MD Routine or child health check CEPHALGIA 784.0 Resolved Estrellita Tenorio MD Headache WELL CHILD EXAM V20.2 Inactive Estrellita Tenorio MD Routine or child health check ABDOMINAL PAIN 789.00 Resolved Estrellita Tenorio MD Abdominal pain, unspecified site KNEE PAIN, LEFT 719.46 Active Estrellita Tenorio MD Pain in joint involving lower leg CONTRACEPTIVE MANAGEMENT V25.09 Active Edward Moody APRN Encounter for other general counseling and advice on contraceptive management Well child examination V20.2 Active Christy Brown APRN Routine or child health check Wart, left hand 078.10 Active Christy Brown APRN Viral warts, unspecified Vaginal discharge 623.5 Active Josephine Cruz MD Leukorrhea, not specified as infective DYSURIA 788.1 Active Edward Moody APRN Dysuria WELL CHILD EXAM ICD-V20.2 Inactive Estrellita Tenorio MD WELL CHILD EXAM ICD-V20.2 Inactive Estrellita Tenorio MD ABDOMINAL PAIN ICD-789.00 Inactive Estrellita Tenorio MD CEPHALGIA ICD-784.0 Inactive Estrellita Tenorio MD Medication List Medication Instructions Start Date Stop Date Generic Name NDC Status Provider Patient Instruction SPRINTEC 28 0.25-35 MG-MCG TABS 1 pill by mouth daily NORGESTIMATE-ETH ESTRADIOL 99525518478 Active Josephine Cruz MD Active LAMOTRIGINE 150 MG TABS 1 daily LAMOTRIGINE 84802123076 No Longer Active Josephine Cruz MD Active BUSPIRONE HCL 10 MG TABS 1/2 bid BUSPIRONE HCL 74092653550 No Longer Active Josephine Cruz MD Active WELLBUTRIN 100 MG TABS take 4&1/2 tabs daily BUPROPION HCL 20025190619 No Longer Active Josephine Cruz MD Active STRATTERA 80 MG CAPS 1 tablet daily ATOMOXETINE HCL 87084696683 No Longer Active Josephine Cruz MD Active SPRINTEC 28 0.25-35 MG-MCG TABS Take one by mouth daily NORGESTIMATE-ETH ESTRADIOL 86989786246 No Longer Active Josephine Cruz MD Active BUPROPION HCL ER (XL) 300 MG [id number] BUPROPION HCL 44112282706 No Longer Active Josephine Cruz MD Active DOXEPIN HCL 150 MG CAPS Take 1 to 2 caplets as needed at bedtime for sleep DOXEPIN HCL 68224591092 No Longer Active Josephine Cruz MD Active BACTRIM DS 800-160 MG TABS Take one (1) by mouth twice a day 2015 SULFAMETHOXAZOLE-TRIMETHOPRIM 98979508566 No Longer Active Josephine Cruz MD Active VYVANSE 30 MG CAPS 1 daily LISDEXAMFETAMINE DIMESYLATE 45831100505 No Longer Active Josephine Cruz MD Active TRAZODONE HCL 100 MG TAB 1 tab at bedtime TRAZODONE HCL 41888861982 No Longer Active Christy Brown APRN Active TRAZODONE HCL 50 MG TABS 1 q hs TRAZODONE HCL 37055135116 No Longer Active Estrellita Tenorio MD Active TRAZODONE HCL 50 MG TABS 1 q hs TRAZODONE HCL 50 MG TABS 028623 TRAZODONE HCL Inactive TRAZODONE HCL 100 MG TAB 1 tab at bedtime TRAZODONE HCL 100 MG TAB 272026 TRAZODONE HCL Inactive VYVANSE 30 MG CAPS 1 daily VYVANSE 30 MG CAPS LISDEXAMFETAMINE DIMESYLATE Inactive BACTRIM DS 800-160 MG TABS Take one (1) by mouth twice a day 2015 BACTRIM DS 800-160 MG TABS 712284 SULFAMETHOXAZOLE-TRIMETHOPRIM Inactive DOXEPIN HCL 150 MG CAPS Take 1 to 2 caplets as needed at bedtime for sleep DOXEPIN HCL 150 MG CAPS 1190006 DOXEPIN HCL Inactive BUPROPION HCL ER (XL) 300 MG [id number] BUPROPION HCL ER (XL) 300 MG [id number]-JBU BUPROPION HCL Inactive SPRINTEC 28 0.25-35 MG-MCG TABS Take one by mouth daily SPRINTEC 28 0.25-35 MG-MCG TABS 063853 NORGESTIMATE-ETH ESTRADIOL Inactive STRATTERA 80 MG CAPS 1 tablet daily STRATTERA 80 MG CAPS ATOMOXETINE HCL Inactive WELLBUTRIN 100 MG TABS take 4&1/2 tabs daily WELLBUTRIN 100 MG TABS BUPROPION HCL Inactive BUSPIRONE HCL 10 MG TABS 1/2 bid BUSPIRONE HCL 10 MG TABS 872512 BUSPIRONE HCL Inactive LAMOTRIGINE 150 MG TABS 1 daily LAMOTRIGINE 150 MG TABS 551036 LAMOTRIGINE Inactive Advance Directives Directive Description Start Date HOME PLACEMENT AGREEMENT CONSENT TO MEDICAL CARE CHILD IN NEED OF CARE ORDER PERMISSION TO SHARE Immunizations Vaccine Administration Date Value Standard Description TB-PPD (tuberculin purified protein derivative), intradermal administration Tubersol Human Papillomavirus vaccine (Gardasil) #3, (HPV #3) Gardasil human papilloma virus vaccine, quadrivalent MPSV4 (meningococcal polysaccharide vaccination) Historical meningococcal polysaccharide vaccine (MPSV4) hepatitis A immunization #2 Historical hepatitis A vaccine, unspecified formulation Human Papillomavirus vaccine (Gardasil) #2, (HPV #2) Gardasil human papilloma virus vaccine, quadrivalent dT (Diphtheria and Tetanus) booster given Historical Td(adult) unspecified formulation Adacel (Tetanus, reduced Diphtheria, and acellular Pertussis Immunization) Adacel [[id number]] tetanus toxoid, reduced diphtheria toxoid, and acellular pertussis vaccine, adsorbed hepatitis A immunization #1 Historical hepatitis A vaccine, unspecified formulation Adacel (Tetanus, reduced Diphtheria, and acellular Pertussis Immunization) Adacel [[id number]] tetanus toxoid, reduced diphtheria toxoid, and acellular pertussis vaccine, adsorbed chicken pox immunization #2 Historical varicella virus vaccine DPT immunization #5 Historical oral polio vaccine (OPV) #4 Historical poliovirus vaccine, unspecified formulation MMR (measles, mumps, rubella) virus immunization #2 Historical chicken pox immunization #1 Historical varicella virus vaccine DPT immunization #4 Historical oral polio vaccine (OPV) #3 Historical poliovirus vaccine, unspecified formulation DPT immunization #3 Historical Hemophilus influenza B immunization #2 Historical Haemophilus influenzae type b vaccine, conjugate unspecified formulation oral polio vaccine (OPV) #2 Historical poliovirus vaccine, unspecified formulation MMR (measles, mumps, rubella) virus immunization #1 Historical DPT immunization #2 Historical hepatitis B vaccine #3 Historical hepatitis B vaccine, unspecified formulation Hemophilus influenza B immunization #1 Historical Haemophilus influenzae type b vaccine, conjugate unspecified formulation oral polio vaccine (OPV) #1 Historical poliovirus vaccine, unspecified formulation DPT immunization #1 Historical hepatitis B vaccine #2 given Historical hepatitis B vaccine, unspecified formulation hepatitis B vaccine #1 given Historical hepatitis B vaccine, unspecified formulation Vital Signs Date Name Value Unit Range Description blood pressure, diastolic - 8462-4 74 mm[Hg] BP snowden blood pressure, systolic - 8480-6 128 mm[Hg] BP sys pulse rate E&M - 8867-4 86 /min Heart rate temperature E&M 99.1 [degF] Body temperature weight E&M - 3141-9 223 [lb_av] Weight Measured Encounters Code Encounter Date Provider Facility CPT-80169 Level 3 Est. Patient 11:17:42 COILER OPERATOR Christy Brown APRN [facility] CPT-09279 Level 3 Est. Patient 11:06:57 CDT Estrellita Tenorio MD [facility] CPT-11872 Level 3 Est. Patient 14:47:06 COILER OPERATOR Estrellita Tenorio MD [facility] CPT-38249 Level 3 Est. Patient 12:33:15 COILER OPERATOR Estrellita Tenorio MD [facility] Procedures Code Procedure Name Date Entry Date Standard Description CPT-98880 Nexplanon Removal 15:02:55 COILER OPERATOR CPT-OV Office Visit 15:44:02 CDT CPT-09385 Nexplanon Placement 14:14:42 CDT CPT-J7307 Nexplanon (Implant) 14:14:42 CDT CPT-19130 UHCG (floor use only) 14:14:42 CDT CPT-OV Office Visit 14:06:57 CDT CPT-OV Office Visit 17:01:36 COILER OPERATOR CPT-Cryo Cryotherapy 11:17:42 COILER OPERATOR CPT-24104 Gardasil 11:39:29 CDT CPT-OV Office Visit 11:39:29 CDT CPT-PV Prev. Care Visit 16:07:43 COILER OPERATOR CPT-19045 TB Tubersol 13:10:17 COILER OPERATOR
--- OUTSIDE RECORDS SUMMARY | 2017-09-14 11:13 | XMS REPORT ---
Author Author STAR LARA [facility] Address [address] [place] [address] Care Team Providers Care Precision Crop Manager Name Role Phone JANE STAR Unavailable PROBLEMS Type Condition ICD9-CM Code [id number] Code Onset Dates Condition Status SNOMED Code Problem Borderline personality disorder F60.3 Active 96245186 Problem Acute nasopharyngitis J00 Active 27580701 Problem Post traumatic stress disorder (PTSD) F43.10 Active 94037851 Problem Positive test Z32.01 Active 554635907 Problem Unspecified mood [affective] disorder F39 Active 070643024 Problem Cigarette nicotine dependence without complication F17.210 Active 93251316 Problem Dysuria R30.0 Active 66713165 Problem Gynecologic exam normal Z01.419 Active 647728238 ALLERGIES No Information ENCOUNTERS Encounter Location Date Diagnosis [address] [place] [address] [id number] [address] 16 Jun, [address] [id number] [id number] 15 Apr, 2017 Dental examination Z01.20 [address] [id number] [place] [address] 14 Apr, 2017 Borderline personality disorder F60.3 ; Unspecified mood [ affective] disorder F39 and Post traumatic stress disorder (PTSD) F43.[address] [id number] [address] 07 Mar, 2017 Dental caries K02.9 [address] [place] [address] [id number], [place] [address] 10 Feb, 2017 Borderline personality disorder F60.3 ; Unspecified mood [ affective] disorder F39 and Post traumatic stress disorder (PTSD) F43.[address] [facility] [address] [id number] [address] Feb, Dental examination Z01.20 [facility] [address] [facility] [id number], [place] [address]2272578[address] Feb, [facility] [address] [facility] [id number], [place] [address]67[address] Jan, Borderline personality disorder F60.[address] [facility] [address] [id number], [place] [address] Jan, [facility] [address] [id number] [address] Jan, [facility] [address] [facility] [id number], [place] [address] Jan, [facility] [address] [facility] [id number], [place] [address] Dec, Borderline personality disorder F60.3 and Unspecified mood [ affective] disorder F39 [facility] [place] [address] [id number][place] [id number] Dec, [facility] [place] [address] [id number] [place] [address] [id number] Dec, [facility] [place] [address] [id number] [place] [address] [id number] Dec, [facility] [place] [address] [id number], [place] [id number] Nov, [facility] [place] [address] [id number][place] 486886048 Nov, [facility] [place] [address] [id number], [place] 85[address]206 Nov, [facility] [place] [address] [id number], [place] [address]84231027 Nov, [facility] [place] [address] [id number] [place] [id number] Nov, [facility] [address] [facility] [id number], [place] [address]66[address] Nov, [facility] [place] [address] [id number] [place] [id number] Nov, [facility] [place] [address] [id number] [place] [address] Nov, [facility] [place] [address] [id number] [place] [id number] Nov, [facility] [place] [address] [id number] [place] [id number] Nov, [facility] [place] [address] [id number] [place] [address]78225[place] Nov, [facility] [place] [address] [id number] [place] [address]59471446 Oct, [facility] [place] [address] [id number] [place] [id number] Oct, [facility] [place] [address] [id number] [place] [id number] Oct, [facility] [place] [address] [id number] [place] [id number] Oct, [facility] [place] [address] [id number] [place] [id number] Oct, [facility] [place] [address] [id number] [phone] Oct, [facility] [place] [address] [id number] [place] [id number] Oct, [facility] [place] [address] [id number] [place] [id number] Oct, [facility] [place] [address] [id number] [place] [id number] Sep, [facility] [place] [address] [id number] [place] [id number] Sep, [facility] [place] [address] [id number] [place] [id number] Sep, [facility] [address] [facility] [address] [id number] [facility] [id number] Sep, Dental examination Z01.20 [facility] [place] [address] [id number] [place] [id number] Sep, [facility] [place] [address] [id number], [place] [id number] Sep, [facility] [place] [address] [id number], [place] [id number] Sep, [facility] [place] [address] [id number], [place] [id number] Sep, [facility] [place] [address] [id number], [place] [id number] Sep, [facility] [place] [address] [id number], [place] [id number] Sep, [facility] [place] [address] [id number], [place] [id number] Sep, [facility] [address] [id number] [id number] Sep, Dental examination Z01.20 [facility] [address] [id number], [place] [phone] Aug, [facility] [address] [id number], [place] [address]45[address]1485 Apr, Positive test Z32.01 [address], [place] [address] Apr, Dysuria R30.0 [facility] [address] [id number], [place] 686123612 Apr, [facility] [address] [id number], [place] [id number] Apr, [facility] [address] [id number], [place] [id number] Apr, [facility] [address] [id number], [place] 959383047 Mar, Gynecologic exam normal Z01.419 [id number] [place] [address] Mar, Borderline personality disorder F60.3 ; Unspecified mood [ affective] disorder F39 and Cigarette nicotine dependence without complication F17.210 [id number] [place] [address] Feb, Borderline personality disorder F60.3 ; Unspecified mood [ affective] disorder F39 and Cigarette nicotine dependence without complication F17.210 [facility] [address] [address] Jan, Borderline personality disorder F60.[address] [id number], [place] [id number] Jan, Strep throat J02.0 and Sore throat J02.[address] [id number], [place] [id number] Oct, Acute nasopharyngitis J00 [facility] [address]65[address], [place] [address] Aug, [facility] [address] [place] [address]- [address]097 Jul, [facility] [address] [place] [address] Jul, [facility] [address], [place] [address] Nov, Mood disorder F39 [facility] [address] [place] [address] Jul, Mood disorder 296.90 [facility] [id number], [place] [id number] June, Bipolar 1 disorder, depressed 296.50 and Attention deficit disorder 314.00 [facility] [address], [place] [address] Jan, [facility] [address] [place] [address]- [address]196 Nov, [facility] [address], [place] [address] Aug, IMMUNIZATIONS No Known Immunizations SOCIAL HISTORY [...] Hospitalization History Voluntary in patient [facility] admission [facility] Hospitalization History childbirth for three days 12/2016
--- OUTSIDE RECORDS SUMMARY | 2017-09-14 11:13 | XMS REPORT ---
Author Author STAR LARA [facility] Address [address] [place] [address] Care Team Providers Care Software Tools Build Engineer Name Role Phone STAR LARA Unavailable PROBLEMS Type Condition ICD9-CM Code [id number] Code Onset Dates Condition Status SNOMED Code Problem Borderline personality disorder F60.3 Active 72739387 Problem Acute nasopharyngitis J00 Active 18802545 Problem Post traumatic stress disorder (PTSD) F43.10 Active 25156768 Problem Positive test Z32.01 Active 617826611 Problem Unspecified mood [affective] disorder F39 Active 204711121 Problem Cigarette nicotine dependence without complication F17.210 Active 59126083 Problem Dysuria R30.0 Active 52546236 Problem Gynecologic exam normal Z01.419 Active 443322211 ALLERGIES No Information ENCOUNTERS Encounter Location Date Diagnosis [address] [id number][place] [id number] 14 Jul, 2017 [address] [address] [id number] [address] 30 Jun, [address] [id number], [place] 159574050 15 Apr, 2017 Dental examination Z01.20 [id number] [place] [address]- [address] 14 Apr, 2017 Borderline personality disorder F60.3 ; Unspecified mood [ affective] disorder F39 and Post traumatic stress disorder (PTSD) F43.[address] [id number], [place] 779139758 07 Mar, 2017 Dental caries K02.9 [address] [id number] [address] 10 Feb, 2017 Borderline personality disorder F60.3 ; Unspecified mood [ affective] disorder F39 and Post traumatic stress disorder (PTSD) F43.10 [facility] [address] [id number], [place] [id number] Feb, Dental examination Z01.20 [facility] [address] [facility] [id number], [place] 01552091- [address] Feb, [facility] [address] [facility] [id number], [place] 60922425- [address] Jan, Borderline personality disorder F60.3 [facility] [address] [id number], [place] [id number] Jan, [facility] [address] [id number], [place] [id number] Jan, [facility] [address]00565100[place] [address] Jan, [facility] [address]00565100[place] [address]- [address] Dec, Borderline personality disorder F60.3 and Unspecified mood [ affective] disorder F39 [facility] [place] [address] [id number] [place] [id number] Dec, [facility] [place] [address] [id number] [place] [id number] Dec, [facility] [place] [address] [id number] [place] [id number] Dec, [facility] [place] [id number] [place] [address] [id number] Nov, [facility] [place] [address] [id number] [place] [id number] Nov, [facility] [place] [address] [id number] [place] [address] [id number] Nov, [facility] [place] [address] [id number] [place] [id number] Nov, [facility] [place] [address] [id number] [place] [id number] Nov, [facility] [address] [id number] [address] Nov, [facility] [place] [address] [id number] [place] [id number] Nov, [facility] [place] [address] [id number] [place] [address] Nov, [facility] [place] [address] [id number] [place] [id number] Nov, [facility] [place] [address] [id number] [place] [id number] Nov, [facility] [place] [address] [id number] [place] [id number] Nov, [facility] [place] [address] [id number] [place] [id number] Oct, [facility] [place] [address] [id number] [place] [id number] Oct, [facility] [place] [address] [id number] [place] [id number] Oct, [facility] [place] [address] [id number] [place] [id number] Oct, [facility] [place] [address] [id number] [place] [id number] Oct, [facility] [place] [address] [id number] [place] [id number] Oct, [facility] [place] [address] [id number] [place] [id number] Oct, [facility] [place] [address] [id number] [place] [id number] Oct, [facility] [place] [address] [id number] [place] [id number] Sep, [facility] [place] [address] [id number] [place] [id number] Sep, [facility] [place] [address] [id number] [place] 925248571 Sep, [facility] [address] [facility] [address] [id number]. [facility] 193823279 Sep, Dental examination Z01.20 [facility] [place] [address] [id number] [place] [id number] Sep, [facility] [place] [address] [id number] [place] 415121468 Sep, [facility] [place] [address] [id number] [place] [id number] Sep, [facility] [place] [address] [id number] [place] 636188305 Sep, [facility] [address] [id number] [place] [id number] Sep, [facility] [place] [address] [id number] [place] [id number] Sep, [facility] [place] [address] [id number] [place] [id number] Sep, [facility] [address] [id number], [place] 589491768 Sep, Dental examination Z01.20 [facility] [place] [address] [id number] [place] 906978[address] Aug, [facility] [address] [id number], [place] 247136585 Apr, Positive test Z32.01 [facility] [address]65100[place] [address] Apr, Dysuria R30.0 [facility] [address] [id number], [place] [id number] Apr, [facility] [address] [id number], [place] [id number] Apr, [facility] [address] [id number], [place] 815883217 Apr, [facility] [address] [id number], [place] 130228611 Mar, Gynecologic exam normal Z01.419 [facility] [address]100[place] [address] Mar, Borderline personality disorder F60.3 ; Unspecified mood [ affective] disorder F39 and Cigarette nicotine dependence without complication F17.210 [facility] [address]65100[place] [address] 20 Feb, 2017 Borderline personality disorder F60.3 ; Unspecified mood [ affective] disorder F39 and Cigarette nicotine dependence without complication F17.210 [facility] [address]65100[place] 3858[place]- [address] 23 Jan, 2016 Borderline personality disorder F60.[address] [id number], [place] [id number] 08 Jan, 2016 Strep throat J02.0 and Sore throat J02.[address] [id number], [place] 905908534 07 Oct, 2015 Acute nasopharyngitis J00 [facility] [address]00565100[place] [address]- [address] Aug, [facility] [address] [place] [address]99- 2882 Jul, [facility] [address]00565100[place] [address]- [address] Jul, [facility] [id number] [place] [id number] Nov, Mood disorder F39 [facility] [id number] [address] Jul, Mood disorder 296.90 [facility] [id number] [id number] June, Bipolar 1 disorder, depressed 296.50 and Attention deficit disorder 314.00 [facility] [id number] [address] Jan, [facility] [id number] [id number] Nov, [facility] [id number] [address] Aug, IMMUNIZATIONS No Known Immunizations SOCIAL HISTORY [...]
--- OUTSIDE RECORDS SUMMARY | 2017-09-14 11:13 | XMS REPORT ---
Author Author NISHI RAGLAND [facility] Address [address] [place] [address] Care Team Providers Care Detective Homicide Squad Name Role Phone OBIE NISHI Unavailable PROBLEMS Type Condition ICD9-CM Code [id number] Code Onset Dates Condition Status SNOMED Code Problem Acute nasopharyngitis J00 Active 02176577 Problem Positive test Z32.01 Active 677349435 Problem Dysuria R30.0 Active 11949833 Problem Cigarette nicotine dependence without complication F17.210 Active 48434117 Problem Borderline personality disorder F60.3 Active 11448383 Problem Gynecologic exam normal Z01.419 Active 475469274 Problem Unspecified mood [affective] disorder F39 Active 736398586 ALLERGIES No Information SOCIAL HISTORY Never Assessed [...] teeth extraction Hospitalization [facility] unit
--- OUTSIDE RECORDS SUMMARY | 2017-09-14 11:13 | XMS REPORT ---
Author Author NISHI RAGLAND Organization [facility] Address [address] [place] [address] Care Team Providers Care Wildlife Protector Name Role Phone NISHI RAGLAND Unavailable PROBLEMS Type Condition ICD9-CM Code [id number] Code Onset Dates Condition Status SNOMED Code Problem Acute nasopharyngitis J00 Active 77823817 Problem Positive test Z32.01 Active 753649703 Problem Dysuria R30.0 Active 38904843 Problem Cigarette nicotine dependence without complication F17.210 Active 71811142 Problem Borderline personality disorder F60.3 Active 74224285 Problem Gynecologic exam normal Z01.419 Active 605992027 Problem Unspecified mood [affective] disorder F39 Active 933524418 ALLERGIES No Information SOCIAL HISTORY Never Assessed PLAN OF CARE VITAL SIGNS MEDICATIONS Medication Instructions Dosage Frequency Start Date End Date Duration Status Flagyl 500 mg Orally 2 times a day 1 tablet 12h Apr, Apr, 07 days Active RESULTS No Results PROCEDURES No Known procedures IMMUNIZATIONS No Known Immunizations MEDICAL (GENERAL) HISTORY Type Description Date Medical History attention deficit hyperactivity disorder Medical History bipolar disorder Medical History Tourette's syndrome Medical History personality disorder Medical History - 7 months- due date 12/2016 Surgical History tonsillectomy Surgical History wisdom teeth extraction Hospitalization History Voluntary in patient behavior health admission [facility]
--- OUTSIDE RECORDS SUMMARY | 2017-09-14 11:13 | XMS REPORT ---
Author Author STAR LARA [facility] Address [address] [place] [address] Care Team Providers Care Kennel Helper Name Role Phone JANE STAR Unavailable PROBLEMS Type Condition ICD9-CM Code [id number] Code Onset Dates Condition Status SNOMED Code Problem Borderline personality disorder F60.3 Active 59887819 Problem Acute nasopharyngitis J00 Active 96899023 Problem Post traumatic stress disorder (PTSD) F43.10 Active 70416326 Problem Positive test Z32.01 Active 006183366 Problem Unspecified mood [affective] disorder F39 Active 862077484 Problem Cigarette nicotine dependence without complication F17.210 Active 11016270 Problem Dysuria R30.0 Active 07124898 Problem Gynecologic exam normal Z01.419 Active 998909652 ALLERGIES No Information ENCOUNTERS Encounter Location Date Diagnosis [place] [id number] [address] 16 Jun, [address] [id number] [place]ILL[place] [id number] 15 Apr, 2017 Dental examination Z01.20 [place] [id number] [place] [address] 14 Apr, 2017 Borderline personality disorder F60.3 ; Unspecified mood [ affective] disorder F39 and Post traumatic stress disorder (PTSD) F43.[address] [id number] [id number] 07 Mar, 2017 Dental caries K02.9 [place] [id number] [address] 10 Feb, 2017 Borderline personality disorder F60.3 ; Unspecified mood [ affective] disorder F39 and Post traumatic stress disorder (PTSD) F43.[address] [facility] [address] [id number] [place]ILL[place] [phone] Feb, Dental examination Z01.20 [facility] [address] [facility] [id number] [place]AK[place] [id number] Feb, [facility] [address] [facility] [id number] [place]AK[place] [id number] Jan, Borderline personality disorder F60.[address] [facility] [address] [id number] [place] [id number] Jan, [facility] [address] [id number] [place] [id number] Jan, [facility] [address] [facility] [id number] [place] [address] Jan, [facility] [address] [facility] [id number] [place] [address] Dec, Borderline personality disorder F60.3 and Unspecified mood [ affective] disorder F39 [facility] [address] [id number][place] [id number] Dec, [facility] [id number] [place] [id number] Dec, [facility] [address] [id number] [place] [id number] Dec, [facility] [address] [id number][place] [id number] Nov, [facility] [address] [id number][place] [phone] Nov, [facility] [address] [id number], [place] [id number] Nov, [facility] [address] [id number][place] [phone] Nov, [facility] [place] [address] [id number] [place] [id number] Nov, [facility] [address] [facility] [id number] [place] [address] Nov, [facility] [address] [id number] [place] [phone] Nov, [facility] [place] [address] [id number] [place] [phone] Nov, [facility] [place] [address] [id number] [place] [id number] Nov, [facility] [place] [address] [id number] [place] [id number] Nov, [facility] [place] [address] [id number] [place] [id number] Nov, [facility] [place] [address] [id number] [place] [id number] Oct, [facility] [place] [address] [id number] [place] [id number] Oct, [facility] [place] [address] [id number] [place] [id number] Oct, [facility] [place] [address] [id number] [place] [phone] Oct, [facility] [place] [address] [id number] [place] [id number] Oct, [facility] [place] [address] [id number] [place] [id number] Oct, [facility] [address] [id number] [place] [id number] Oct, [facility] [address] [id number] [place] [id number] Oct, [facility] [place] [address] [id number] [place] [id number] Sep, [facility] [place] [address] [id number] [place] [id number] Sep, [facility] [place] [address] [id number] [place] [id number] Sep, [facility] [address] [facility] [address] [id number] [facility] [id number] Sep, Dental examination Z01.20 [facility] [address] [id number] [place] [id number] Sep, [facility] [address] [id number], [place] [phone] Sep, [facility] [place] [address] [id number], [place] [phone] Sep, [facility] [place] [address] [id number], [place] [phone] Sep, [facility] [place] [address] [id number], [place] [id number] Sep, [facility] [place] [address] [id number], [place] [id number] Sep, [facility] [place] [address] [id number], [place] [id number] Sep, [facility] [address] [id number] [place]ILL[place] [phone] Sep, Dental examination Z01.20 [facility] [address] [id number], [place] [id number] Aug, [facility] [address] [id number] [place] [id number] Apr, Positive test Z32.01 [place] [address] [address] Apr, [facility] R30.0 [facility] [address] [id number] [place]ILL[place] [phone] Apr, [facility] [address] [id number] [place] [phone] Apr, [facility] [address] [id number] [place] [id number] Apr, [facility] [address] [id number] [place]ILL[place] [id number] Mar, Gynecologic exam normal Z01.419 [place] [id number] [place] [address] Mar, Borderline personality disorder F60.3 ; Unspecified mood [ affective] disorder F39 and Cigarette nicotine dependence without complication F17.210 [place] [id number] [place] [address] Feb, Borderline personality disorder F60.3 ; Unspecified mood [ affective] disorder F39 and Cigarette nicotine dependence without complication F17.210 [facility] [address] [address] Jan, Borderline personality disorder F60.[address] [id number] [place]ILL[place] [id number] Jan, Strep throat J02.0 and Sore throat J02.[address] [id number] [place] [id number] Oct, Acute nasopharyngitis J00 [facility] [address] [address] Aug, [facility] [address] [place] [address] Jul, [facility] [address] [place] [address] Jul, [facility] [address] [address] Nov, Mood disorder F39 [facility] [address] [place] [address] Jul, Mood disorder 296.90 [facility] [id number], [place] [phone] June, Bipolar 1 disorder, depressed 296.50 and Attention deficit disorder 314.00 [facility] [address] [address] Jan, [facility] [address] [place] [address] Nov, [facility] [address] [address] Aug, IMMUNIZATIONS No Known Immunizations SOCIAL HISTORY [...] in patient [facility] admission [facility] unit Hospitalization History childbirth for three days 12/2016
--- OUTSIDE RECORDS SUMMARY | 2017-09-14 11:14 | XMS REPORT | Clinical Summary ---
Author Author Admin, MONICA Organization [facility] Address Unknown Phone Unavailable Allergies, Adverse Reactions, [...] EXAM V20.2 Inactive Estrellita Tenorio MD Routine infant or child health check ABDOMINAL PAIN 789.00 [...] CHILD EXAM ICD-V20.2 Inactive Estrellita Tenorio MD CEPHALGIA ICD-784.0 Inactive Estrellita Tenorio MD WELL CHILD EXAM ICD-V20.2 Inactive Estrellita Tenorio MD ABDOMINAL PAIN ICD-789.00 Inactive Estrellita Tenorio MD Medication List Medication Instructions Start Date Stop Date Generic Name NDC Status Provider Patient Instruction SPRINTEC 28 0.25-35 MG-MCG TABS 1 pill by mouth daily NORGESTIMATE-ETH ESTRADIOL 56867198520 Active Josephine Cruz MD Active LAMOTRIGINE 150 MG TABS 1 daily LAMOTRIGINE 68607407450 No Longer Active Josephine Cruz MD Active BUSPIRONE HCL 10 MG TABS 1/2 bid BUSPIRONE HCL 06081837448 No Longer Active Josephine Cruz MD Active WELLBUTRIN 100 MG TABS take 4&1/2 tabs daily BUPROPION HCL 75390303875 No Longer Active Josephine Cruz MD Active STRATTERA 80 MG CAPS 1 tablet daily ATOMOXETINE HCL 71798631681 No Longer Active Josephine Cruz MD Active SPRINTEC 28 0.25-35 MG-MCG TABS Take one by mouth daily NORGESTIMATE-ETH ESTRADIOL 10363043064 No Longer Active Josephine Cruz MD Active BUPROPION HCL ER (XL) 300 MG [id number] BUPROPION HCL 74736211680 No Longer Active Josephine Cruz MD Active DOXEPIN HCL 150 MG CAPS Take 1 to 2 caplets as needed at bedtime for sleep DOXEPIN HCL 90847129962 No Longer Active Josephine Cruz MD Active BACTRIM DS 800-160 MG TABS Take one (1) by mouth twice a day 2015 SULFAMETHOXAZOLE-TRIMETHOPRIM 38410568329 No Longer Active Josephine Cruz MD Active VYVANSE 30 MG CAPS 1 daily LISDEXAMFETAMINE DIMESYLATE 74705835678 No Longer Active Josephine Cruz MD Active TRAZODONE HCL 100 MG TAB 1 tab at bedtime TRAZODONE HCL 62132030115 No Longer Active Christy Brown APRN Active TRAZODONE HCL 50 MG TABS 1 q hs TRAZODONE HCL 55808927280 No Longer Active Estrellita Tenorio MD Active TRAZODONE HCL 50 MG TABS 1 q hs TRAZODONE HCL 50 MG TABS 551655 TRAZODONE HCL Inactive TRAZODONE HCL 100 MG TAB 1 tab at bedtime TRAZODONE HCL 100 MG TAB 288432 TRAZODONE HCL Inactive VYVANSE 30 MG CAPS 1 daily VYVANSE 30 MG CAPS LISDEXAMFETAMINE DIMESYLATE Inactive BACTRIM DS 800-160 MG TABS Take one (1) by mouth twice a day 2015 BACTRIM DS 800-160 MG TABS 540708 SULFAMETHOXAZOLE-TRIMETHOPRIM Inactive DOXEPIN HCL 150 MG CAPS Take 1 to 2 caplets as needed at bedtime for sleep DOXEPIN HCL 150 MG CAPS 7031067 DOXEPIN HCL Inactive BUPROPION HCL ER (XL) 300 MG [id number] BUPROPION HCL ER (XL) 300 MG [id number] BUPROPION HCL Inactive SPRINTEC 28 0.25-35 MG-MCG TABS Take one by mouth daily SPRINTEC 28 0.25-35 MG-MCG TABS 747450 NORGESTIMATE-ETH ESTRADIOL Inactive STRATTERA 80 MG CAPS 1 tablet daily STRATTERA 80 MG CAPS ATOMOXETINE HCL Inactive WELLBUTRIN 100 MG TABS take 4&1/2 tabs daily WELLBUTRIN 100 MG TABS BUPROPION HCL Inactive BUSPIRONE HCL 10 MG TABS 1/2 bid BUSPIRONE HCL 10 MG TABS 944149 BUSPIRONE HCL Inactive LAMOTRIGINE 150 MG TABS 1 daily LAMOTRIGINE 150 MG TABS 404113 LAMOTRIGINE Inactive Advance Directives Directive Description Start [...] reduced Diphtheria, and acellular Pertussis Immunization) Adacel [[id number]] tetanus toxoid, reduced diphtheria toxoid, and acellular pertussis vaccine, adsorbed hepatitis A immunization #1 Historical hepatitis A vaccine, unspecified formulation Adacel (Tetanus, reduced Diphtheria, and acellular Pertussis Immunization) Adacel [[id number]] tetanus toxoid, reduced diphtheria toxoid, and acellular pertussis vaccine, adsorbed chicken pox immunization #2 Historical varicella virus vaccine DPT immunization #5 Historical oral polio vaccine (OPV) #4 Historical poliovirus vaccine, unspecified formulation MMR (measles, mumps, rubella) virus immunization #2 Historical chicken pox immunization #1 Historical varicella virus vaccine DPT immunization #4 Historical DPT immunization #3 Historical oral polio vaccine (OPV) #3 Historical poliovirus vaccine, unspecified formulation hepatitis B vaccine #3 Historical hepatitis B vaccine, unspecified formulation DPT immunization #2 Historical Hemophilus influenza B immunization #2 Historical Haemophilus influenzae type b vaccine, conjugate unspecified formulation oral polio vaccine (OPV) #2 Historical poliovirus vaccine, unspecified formulation MMR (measles, mumps, rubella) virus immunization #1 Historical hepatitis B vaccine #2 given Historical hepatitis B vaccine, unspecified formulation DPT immunization #1 Historical Hemophilus influenza B immunization #1 Historical Haemophilus influenzae type b vaccine, conjugate unspecified formulation oral polio vaccine (OPV) #1 Historical poliovirus vaccine, unspecified formulation hepatitis B vaccine #1 [...] Measured Encounters Code Encounter Date Provider Facility CPT-82854 Level 3 Est. Patient 11:17:[address]INTENANCE WORKER Christy Brown APRN [facility] CPT-51121 Level 3 Est. Patient 11:06:57 CDT Estrellita Tenorio MD [facility] CPT-44874 Level 3 Est. Patient 14:47:[address] MAINTENANCE WORKER Estrellita Tenorio MD [facility] CPT-46973 Level 3 Est. Patient 12:33:[address] MAINTENANCE WORKER Estrellita Tenorio MD [facility] Procedures Code Procedure Name Date Entry Date Standard Description CPT-81374 Nexplanon Removal 15:02:[address] MAINTENANCE WORKER CPT-OV Office Visit 15:44:02 CDT CPT-51204 Nexplanon Placement 14:14:42 CDT CPT-J7307 Nexplanon (Implant) 14:14:42 CDT CPT-28192 UHCG (floor use only) 14:14:42 CDT CPT-OV Office Visit 14:06:57 CDT CPT-OV Office Visit 17:01:[address] MAINTENANCE WORKER CPT-Cryo Cryotherapy 11:17:[address] MAINTENANCE WORKER CPT-18503 Gardasil 11:39:29 CDT CPT-OV Office Visit 11:39:29 CDT CPT-PV Prev. Care Visit 16:07:[address] MAINTENANCE WORKER CPT-17993 TB Tubersol 13:10:[address] MAINTENANCE WORKER
--- OUTSIDE RECORDS SUMMARY | 2017-09-14 11:14 | XMS REPORT | Clinical Summary ---
Author Author Admin, MONICA Organization [facility] Address Unknown Phone Unavailable Allergies, Adverse Reactions, [...] 1 pill by mouth daily NORGESTIMATE-ETH ESTRADIOL 68704901539 Active Josephine Cruz MD Active LAMOTRIGINE 150 MG TABS 1 daily LAMOTRIGINE 60623924297 No Longer Active Josephine Cruz MD Active BUSPIRONE HCL 10 MG TABS 1/2 bid BUSPIRONE HCL 26733033376 No Longer Active Josephine Cruz MD Active WELLBUTRIN 100 MG TABS take 4&1/2 tabs daily BUPROPION HCL 18302056882 No Longer Active Josephine Cruz MD Active STRATTERA 80 MG CAPS 1 tablet daily ATOMOXETINE HCL 76769961842 No Longer Active Josephine Cruz MD Active SPRINTEC 28 0.25-35 MG-MCG TABS Take one by mouth daily NORGESTIMATE-ETH ESTRADIOL 03471261383 No Longer Active Josephine Cruz MD Active BUPROPION HCL ER (XL) 300 MG [id number] BUPROPION HCL 56296342161 No Longer Active Josephine Cruz MD Active DOXEPIN HCL 150 MG CAPS Take 1 to 2 caplets as needed at bedtime for sleep DOXEPIN HCL 95667348916 No Longer Active Josephine Cruz MD Active BACTRIM DS 800-160 MG TABS Take one (1) by mouth twice a day 2015 SULFAMETHOXAZOLE-TRIMETHOPRIM 16213788304 No Longer Active Josephine Cruz MD Active VYVANSE 30 MG CAPS 1 daily LISDEXAMFETAMINE DIMESYLATE 06797986613 No Longer Active Josephine Cruz MD Active TRAZODONE HCL 100 MG TAB 1 tab at bedtime TRAZODONE HCL 03881257158 No Longer Active Christy Brown APRN Active TRAZODONE HCL 50 MG TABS 1 q hs TRAZODONE HCL 35346474350 No Longer Active Estrellita Tenorio MD Active TRAZODONE HCL 50 MG TABS 1 q hs TRAZODONE HCL 50 MG TABS 667670 TRAZODONE HCL Inactive TRAZODONE HCL 100 MG TAB 1 tab at bedtime TRAZODONE HCL 100 MG TAB 290051 TRAZODONE HCL Inactive VYVANSE 30 MG CAPS 1 daily VYVANSE 30 MG CAPS LISDEXAMFETAMINE DIMESYLATE Inactive BACTRIM DS 800-160 MG TABS Take one (1) by mouth twice a day 2015 BACTRIM DS 800-160 MG TABS 099065 SULFAMETHOXAZOLE-TRIMETHOPRIM Inactive DOXEPIN HCL 150 MG CAPS Take 1 to 2 caplets as needed at bedtime for sleep DOXEPIN HCL 150 MG CAPS 3567076 DOXEPIN HCL Inactive BUPROPION HCL ER (XL) 300 MG [id number] BUPROPION HCL ER (XL) 300 MG [id number] BUPROPION HCL Inactive SPRINTEC 28 0.25-35 MG-MCG TABS Take one by mouth daily SPRINTEC 28 0.25-35 MG-MCG TABS 786487 NORGESTIMATE-ETH ESTRADIOL Inactive STRATTERA 80 MG CAPS 1 tablet daily STRATTERA 80 MG CAPS ATOMOXETINE HCL Inactive WELLBUTRIN 100 MG TABS take 4&1/2 tabs daily WELLBUTRIN 100 MG TABS BUPROPION HCL Inactive BUSPIRONE HCL 10 MG TABS 1/2 bid BUSPIRONE HCL 10 MG TABS 527672 BUSPIRONE HCL Inactive LAMOTRIGINE 150 MG TABS 1 daily LAMOTRIGINE 150 MG TABS 645708 LAMOTRIGINE Inactive Advance Directives Directive Description Start [...] reduced Diphtheria, and acellular Pertussis Immunization) Adacel [[id number]] tetanus toxoid, reduced diphtheria toxoid, and acellular pertussis vaccine, adsorbed hepatitis A immunization #1 Historical hepatitis A vaccine, unspecified formulation Adacel (Tetanus, reduced Diphtheria, and acellular Pertussis Immunization) Adacel [[id number]] tetanus toxoid, reduced diphtheria toxoid, and acellular [...] Measured Encounters Code Encounter Date Provider Facility CPT-59697 Level 3 Est. Patient 11:17:42 NURSE TECH Christy Brown APRN [facility] CPT-48292 Level 3 Est. Patient 11:06:57 CDT Estrellita Tenorio MD [facility] CPT-62085 Level 3 Est. Patient 14:47:06 NURSE TECH Estrellita Tenorio MD [facility] CPT-87618 Level 3 Est. Patient 12:33:15 NURSE TECH Estrellita Tenorio MD [facility] Procedures Code Procedure Name Date Entry Date Standard Description CPT-99071 Nexplanon Removal 15:02:55 NURSE TECH CPT-OV Office Visit 15:44:02 CDT CPT-90652 Nexplanon Placement 14:14:42 CDT CPT-J7307 Nexplanon (Implant) 14:14:42 CDT CPT-63118 UHCG (floor use only) 14:14:42 CDT CPT-OV Office Visit 14:06:57 CDT CPT-OV Office Visit 17:01:36 NURSE TECH CPT-Cryo Cryotherapy 11:17:42 NURSE TECH CPT-84997 Gardasil 11:39:29 CDT CPT-OV Office Visit 11:39:29 CDT CPT-PV Prev. Care Visit 16:07:43 NURSE TECH CPT-15851 TB Tubersol 13:10:17 NURSE TECH
--- OUTSIDE RECORDS SUMMARY | 2017-09-14 11:15 | XMS REPORT | Clinical Summary ---
Author Author Admin, MONICA Organization [facility] Address Unknown Phone Unavailable Allergies, Adverse Reactions, [...] 1 pill by mouth daily NORGESTIMATE-ETH ESTRADIOL 67781928668 Active Josephine Cruz MD Active LAMOTRIGINE 150 MG TABS 1 daily LAMOTRIGINE 25915043748 No Longer Active Josephine Cruz MD Active BUSPIRONE HCL 10 MG TABS 1/2 bid BUSPIRONE HCL 61085504118 No Longer Active Josephine Cruz MD Active WELLBUTRIN 100 MG TABS take 4&1/2 tabs daily BUPROPION HCL 32848047238 No Longer Active Josephine Cruz MD Active STRATTERA 80 MG CAPS 1 tablet daily ATOMOXETINE HCL 81757616420 No Longer Active Josephine Cruz MD Active SPRINTEC 28 0.25-35 MG-MCG TABS Take one by mouth daily NORGESTIMATE-ETH ESTRADIOL 36815570057 No Longer Active Josephine Cruz MD Active BUPROPION HCL ER (XL) 300 MG [id number] BUPROPION HCL 45321712999 No Longer Active Josephine Cruz MD Active DOXEPIN HCL 150 MG CAPS Take 1 to 2 caplets as needed at bedtime for sleep DOXEPIN HCL 63041410067 No Longer Active Josephine Cruz MD Active BACTRIM DS 800-160 MG TABS Take one (1) by mouth twice a day 2015 SULFAMETHOXAZOLE-TRIMETHOPRIM 78500673800 No Longer Active Josephine Cruz MD Active VYVANSE 30 MG CAPS 1 daily LISDEXAMFETAMINE DIMESYLATE 07553074358 No Longer Active Josephine Cruz MD Active TRAZODONE HCL 100 MG TAB 1 tab at bedtime TRAZODONE HCL 94088537386 No Longer Active Christy Brown APRN Active TRAZODONE HCL 50 MG TABS 1 q hs TRAZODONE HCL 59034553967 No Longer Active Estrellita Tenorio MD Active TRAZODONE HCL 50 MG TABS 1 q hs TRAZODONE HCL 50 MG TABS 008091 TRAZODONE HCL Inactive TRAZODONE HCL 100 MG TAB 1 tab at bedtime TRAZODONE HCL 100 MG TAB 078625 TRAZODONE HCL Inactive VYVANSE 30 MG CAPS 1 daily VYVANSE 30 MG CAPS LISDEXAMFETAMINE DIMESYLATE Inactive BACTRIM DS 800-160 MG TABS Take one (1) by mouth twice a day 2015 BACTRIM DS 800-160 MG TABS 035996 SULFAMETHOXAZOLE-TRIMETHOPRIM Inactive DOXEPIN HCL 150 MG CAPS Take 1 to 2 caplets as needed at bedtime for sleep DOXEPIN HCL 150 MG CAPS 3667287 DOXEPIN HCL Inactive BUPROPION HCL ER (XL) 300 MG [id number] BUPROPION HCL ER (XL) 300 MG [id number] BUPROPION HCL Inactive SPRINTEC 28 0.25-35 MG-MCG TABS Take one by mouth daily SPRINTEC 28 0.25-35 MG-MCG TABS 900715 NORGESTIMATE-ETH ESTRADIOL Inactive STRATTERA 80 MG CAPS 1 tablet daily STRATTERA 80 MG CAPS ATOMOXETINE HCL Inactive WELLBUTRIN 100 MG TABS take 4&1/2 tabs daily WELLBUTRIN 100 MG TABS BUPROPION HCL Inactive BUSPIRONE HCL 10 MG TABS 1/2 bid BUSPIRONE HCL 10 MG TABS 959070 BUSPIRONE HCL Inactive LAMOTRIGINE 150 MG TABS 1 daily LAMOTRIGINE 150 MG TABS 716807 LAMOTRIGINE Inactive Advance Directives Directive Description Start [...] reduced Diphtheria, and acellular Pertussis Immunization) Adacel [[id number]] tetanus toxoid, reduced diphtheria toxoid, and acellular pertussis vaccine, adsorbed hepatitis A immunization #1 Historical hepatitis A vaccine, unspecified formulation Adacel (Tetanus, reduced Diphtheria, and acellular Pertussis Immunization) Adacel [[id number]] tetanus toxoid, reduced diphtheria toxoid, and acellular [...] Measured Encounters Code Encounter Date Provider Facility CPT-64021 Level 3 Est. Patient 11:17:42 ROASTERMAN Christy Brown APRN [facility] CPT-95141 Level 3 Est. Patient 11:06:57 CDT Estrellita Tenorio MD [facility] CPT-93776 Level 3 Est. Patient 14:47:06 ROASTERMAN Estrellita Tenorio MD [facility] CPT-53729 Level 3 Est. Patient 12:33:15 ROASTERMAN Estrellita Tenorio MD [facility] Procedures Code Procedure Name Date Entry Date Standard Description CPT-23953 Nexplanon Removal 15:02:55 ROASTERMAN CPT-OV Office Visit 15:44:02 CDT CPT-61817 Nexplanon Placement 14:14:42 CDT CPT-J7307 Nexplanon (Implant) 14:14:42 CDT CPT-55315 UHCG (floor use only) 14:14:42 CDT CPT-OV Office Visit 14:06:57 CDT CPT-OV Office Visit 17:01:36 ROASTERMAN CPT-Cryo Cryotherapy 11:17:42 ROASTERMAN CPT-09214 Gardasil 11:39:29 CDT CPT-OV Office Visit 11:39:29 CDT CPT-PV Prev. Care Visit 16:07:43 ROASTERMAN CPT-49034 TB Tubersol 13:10:17 ROASTERMAN
--- OUTSIDE RECORDS SUMMARY | 2017-09-14 11:16 | XMS REPORT | Clinical Summary ---
Author Author Admin, MONICA Organization [facility] Address Unknown Phone Unavailable Allergies, Adverse Reactions, [...] 1 pill by mouth daily NORGESTIMATE-ETH ESTRADIOL 15749093576 Active Josephine Cruz MD Active LAMOTRIGINE 150 MG TABS 1 daily LAMOTRIGINE 98917637246 No Longer Active Josephine Cruz MD Active BUSPIRONE HCL 10 MG TABS 1/2 bid BUSPIRONE HCL 73725744583 No Longer Active Josephine Cruz MD Active WELLBUTRIN 100 MG TABS take 4&1/2 tabs daily BUPROPION HCL 39606039086 No Longer Active Josephine Cruz MD Active STRATTERA 80 MG CAPS 1 tablet daily ATOMOXETINE HCL 93780898426 No Longer Active Josephine Cruz MD Active SPRINTEC 28 0.25-35 MG-MCG TABS Take one by mouth daily NORGESTIMATE-ETH ESTRADIOL 76352656173 No Longer Active Josephine Cruz MD Active BUPROPION HCL ER (XL) 300 MG [id number] BUPROPION HCL 59263443497 No Longer Active Josephine Cruz MD Active DOXEPIN HCL 150 MG CAPS Take 1 to 2 caplets as needed at bedtime for sleep DOXEPIN HCL 65927816741 No Longer Active Josephine Cruz MD Active BACTRIM DS 800-160 MG TABS Take one (1) by mouth twice a day 2015 SULFAMETHOXAZOLE-TRIMETHOPRIM 28176952347 No Longer Active Josephine Cruz MD Active VYVANSE 30 MG CAPS 1 daily LISDEXAMFETAMINE DIMESYLATE 08275375066 No Longer Active Josephine Cruz MD Active TRAZODONE HCL 100 MG TAB 1 tab at bedtime TRAZODONE HCL 18150691813 No Longer Active Christy Brown APRN Active TRAZODONE HCL 50 MG TABS 1 q hs TRAZODONE HCL 89214096300 No Longer Active Estrellita Tenorio MD Active TRAZODONE HCL 50 MG TABS 1 q hs TRAZODONE HCL 50 MG TABS 312471 TRAZODONE HCL Inactive TRAZODONE HCL 100 MG TAB 1 tab at bedtime TRAZODONE HCL 100 MG TAB 023713 TRAZODONE HCL Inactive VYVANSE 30 MG CAPS 1 daily VYVANSE 30 MG CAPS LISDEXAMFETAMINE DIMESYLATE Inactive BACTRIM DS 800-160 MG TABS Take one (1) by mouth twice a day 2015 BACTRIM DS 800-160 MG TABS 432558 SULFAMETHOXAZOLE-TRIMETHOPRIM Inactive DOXEPIN HCL 150 MG CAPS Take 1 to 2 caplets as needed at bedtime for sleep DOXEPIN HCL 150 MG CAPS 8929595 DOXEPIN HCL Inactive BUPROPION HCL ER (XL) 300 MG [id number] BUPROPION HCL ER (XL) 300 MG [id number] BUPROPION HCL Inactive SPRINTEC 28 0.25-35 MG-MCG TABS Take one by mouth daily SPRINTEC 28 0.25-35 MG-MCG TABS 044305 NORGESTIMATE-ETH ESTRADIOL Inactive STRATTERA 80 MG CAPS 1 tablet daily STRATTERA 80 MG CAPS ATOMOXETINE HCL Inactive WELLBUTRIN 100 MG TABS take 4&1/2 tabs daily WELLBUTRIN 100 MG TABS BUPROPION HCL Inactive BUSPIRONE HCL 10 MG TABS 1/2 bid BUSPIRONE HCL 10 MG TABS 083017 BUSPIRONE HCL Inactive LAMOTRIGINE 150 MG TABS 1 daily LAMOTRIGINE 150 MG TABS 233175 LAMOTRIGINE Inactive Advance Directives Directive Description Start [...] reduced Diphtheria, and acellular Pertussis Immunization) Adacel [[id number]] tetanus toxoid, reduced diphtheria toxoid, and acellular pertussis vaccine, adsorbed hepatitis A immunization #1 Historical hepatitis A vaccine, unspecified formulation Adacel (Tetanus, reduced Diphtheria, and acellular Pertussis Immunization) Adacel [[id number]] tetanus toxoid, reduced diphtheria toxoid, and acellular [...] Measured Encounters Code Encounter Date Provider Facility CPT-21538 Level 3 Est. Patient 11:17:42 BARGE WORKER Christy Brown APRN [facility] CPT-35902 Level 3 Est. Patient 11:06:57 CDT Estrellita Tenorio MD [facility] CPT-57715 Level 3 Est. Patient 14:47:06 BARGE WORKER Estrellita Tenorio MD [facility] CPT-35091 Level 3 Est. Patient 12:33:15 BARGE WORKER Estrellita Tenorio MD [facility] Procedures Code Procedure Name Date Entry Date Standard Description CPT-05779 Nexplanon Removal 15:02:55 BARGE WORKER CPT-OV Office Visit 15:44:02 CDT CPT-16903 Nexplanon Placement 14:14:42 CDT CPT-J7307 Nexplanon (Implant) 14:14:42 CDT CPT-32331 UHCG (floor use only) 14:14:42 CDT CPT-OV Office Visit 14:06:57 CDT CPT-OV Office Visit 17:01:36 BARGE WORKER CPT-Cryo Cryotherapy 11:17:42 BARGE WORKER CPT-56553 Gardasil 11:39:29 CDT CPT-OV Office Visit 11:39:29 CDT CPT-PV Prev. Care Visit 16:07:43 BARGE WORKER CPT-61903 TB Tubersol 13:10:17 BARGE WORKER
--- OUTSIDE RECORDS SUMMARY | 2017-09-14 11:16 | XMS REPORT | Clinical Summary ---
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 Encounter for other general counseling and advice on contraceptive management Well child examination V20.2 Active Christy Brown APRN Routine or child health check Wart, left hand 078.10 Active Christy Brown APRN Viral warts, unspecified Vaginal discharge 623.5 Active Josephine Cruz MD Leukorrhea, not specified as infective WELL CHILD EXAM ICD-V20.2 Inactive Estrellita Tenorio MD [place] ICD-784.0 Inactive Estrellita Tenorio MD WELL CHILD EXAM ICD-V20.2 Inactive Estrellita Tenorio MD ABDOMINAL PAIN ICD-789.00 Inactive Estrellita Tenorio MD Medication List Medication Instructions Start Date Stop Date Generic Name NDC Status Provider Patient Instruction DOXEPIN HCL 150 MG CAPS Take 1 to 2 caplets as needed at bedtime for sleep DOXEPIN HCL 58953362688 Active Josephine Cruz MD Active BUPROPION HCL ER (XL) 300 MG [id number] BUPROPION HCL 38654601082 Active Josephine Cruz MD Active VYVANSE 30 MG CAPS 1 daily LISDEXAMFETAMINE DIMESYLATE 86606383841 No Longer Active Josephine Cruz MD Active TRAZODONE HCL 100 MG TAB 1 tab at bedtime TRAZODONE HCL 42677230132 No Longer Active Christy Brown APRN Active STRATTERA 80 MG CAPS 1 tablet daily ATOMOXETINE HCL 16077259842 Active Christy Brown APRN Active SPRINTEC 28 0.25-35 MG-MCG TABS Take one by mouth daily NORGESTIMATE-ETH ESTRADIOL 51879988772 Active Josephine Cruz MD Active WELLBUTRIN 100 MG TABS take 4&1/2 tabs daily BUPROPION HCL 80601619967 Active Estrellita Tenorio MD Active TRAZODONE HCL 50 MG TABS 1 q hs TRAZODONE HCL 58776077788 No Longer Active Estrellita Tenorio MD Active LAMOTRIGINE 150 MG TABS 1 daily LAMOTRIGINE 00987870434 Active Jayashree Bragg LPN Active BUSPIRONE HCL 10 MG TABS 1/2 bid BUSPIRONE HCL 26725493980 Active Jayashree Bragg LPN Active TRAZODONE HCL 50 MG TABS 1 q hs TRAZODONE HCL 50 MG TABS 952450 TRAZODONE HCL Inactive TRAZODONE HCL 100 MG TAB 1 tab at bedtime TRAZODONE HCL 100 MG TAB 646662 TRAZODONE HCL Inactive VYVANSE 30 MG CAPS 1 daily VYVANSE 30 MG CAPS LISDEXAMFETAMINE DIMESYLATE Inactive Advance Directives Directive Description Start Date HOME PLACEMENT AGREEMENT CONSENT TO MEDICAL CARE CHILD IN NEED OF CARE ORDER PERMISSION TO SHARE Immunizations Vaccine Administration Date Value Standard Description TB PPD (tuberculin purified protein derivative), intradermal administration Tubersol Human Papillomavirus vaccine (Gardasil) #3, (HPV #3) Gardasil human papilloma virus vaccine, quadrivalent MPSV4 (meningococcal polysaccharide vaccination) Historical meningococcal polysaccharide vaccine (MPSV4) hepatitis A immunization #2 Historical hepatitis A vaccine, unspecified formulation Human Papillomavirus vaccine (Gardasil) #2, (HPV #2) Gardasil human papilloma virus vaccine, quadrivalent dT (Diphtheria and Tetanus) booster Historical Td(adult) unspecified formulation Adacel immunization Adacel [[id number]] tetanus toxoid, reduced diphtheria toxoid, and acellular pertussis vaccine, adsorbed hepatitis A immunization #1 Historical hepatitis A vaccine, unspecified formulation Adacel immunization Adacel [[id number]] tetanus toxoid, reduced diphtheria toxoid, and acellular pertussis vaccine, adsorbed chicken pox immunization #2 Historical varicella virus vaccine DPT immunization #5 Historical oral polio vaccine (OPV) #4 Historical poliovirus vaccine, unspecified formulation MMR virus immunization #2 Historical chicken pox immunization [...] #2 Historical poliovirus vaccine, unspecified formulation MMR virus immunization #1 Historical hepatitis B vaccine #2 Historical hepatitis B vaccine, unspecified formulation DPT immunization #1 Historical Hemophilus influenza B immunization #1 Historical Haemophilus influenzae type b vaccine, conjugate unspecified formulation oral polio vaccine (OPV) #1 Historical poliovirus vaccine, unspecified formulation hepatitis B vaccine #1 Historical hepatitis B vaccine, unspecified formulation Vital Signs Date Name Value Unit Range Description blood pressure, diastolic 81 mm[Hg] BP snowden blood pressure, systolic 120 mm[Hg] BP sys height E&M 67.75 [in_us] Bdy height temperature E&M 98.1 [degF] Body temperature weight E&M 173 [lb_av] Weight Measured blood pressure, diastolic 81 mm[Hg] BP snowden blood pressure, systolic 121 mm[Hg] BP sys height E&M 67.75 [in_us] Bdy height pulse rate E&M 98 /min Heart rate temperature E&M 98.1 [degF] Body temperature weight E&M 167 [lb_av] Weight Measured blood pressure, diastolic 86 mm[Hg] BP snowden blood pressure, systolic 137 mm[Hg] BP sys height E&M 67.75 [in_us] Bdy height pulse rate E&M 92 /min Heart rate temperature E&M 98.1 [degF] Body temperature weight E&M 159.38 [lb_av] Weight Measured blood pressure, diastolic 77 mm[Hg] BP snowden blood pressure, systolic 117 mm[Hg] BP sys height E&M 67.75 [in_us] Bdy height pulse rate E&M 82 /min Heart rate temperature E&M 97.6 [degF] Body temperature weight E&M 144.2 [lb_av] Weight Measured blood pressure, diastolic 70 mm[Hg] BP snowden blood pressure, systolic 110 mm[Hg] BP sys height E&M 67.75 [in_us] Bdy height temperature E&M 99.2 [degF] Body temperature weight E&M 147 [lb_av] Weight Measured Diagnostic Results Date Name Value Unit Range Description Lab Report: CBC W/ DIFF, MYCO, MONO, DRUG SCREEN , UCG - Hematology leukocyte count, blood 6.2 10*3/mm3 hemoglobin, blood 11.5 g/dL platelet count 274 10*3/mm3 Lab Report: Chlamydia/GC APTIMA/[id number] - Lab chlamydia DNA probe NOT DETECTED NOT DETECTED Lab Report: Chlamydia/GC APTIMA/[id number] - Microbiology Neisseria gonorrhoeae DNA probe NOT DETECTED NOT DETECTED Lab Report: Chlamydia/GC DNA, SDA - Lab chlamydia DNA probe NOT DETECTED NOT DETECTED Lab Report: Chlamydia/GC DNA, SDA - Microbiology Neisseria gonorrhoeae DNA probe NOT DETECTED NOT DETECTED Lab Report: UADIP W/MICRO, AUTO - Chemistry RBC, urine, dipstick Negative Negative protein, total urine random Negative mg/dL Negative Lab Report: UADIP W/MICRO, AUTO - Urinalysis glucose, urine, semiquantitative Negative Negative ketones, urine, by test strip Negative Negative bilirubin, urine Negative Negative urine color Yellow Colorless;Lightyellow;Straw;Yellow appearance, urine Clear Clear specific gravity, urine >=1.030 1.000-1.030 pH, urine, semiquantitative 6.0 5.0-8.5 urobilinogen, urine, semiquantitative (dipstick) 0.2 Normal leukocyte esterase, urine, by dipstick Negative Negative nitrite, urine, semiquantitative Negative Negative Office Visit: nexplanon insertion - Chemistry human chorionic gonadotropin, urine, qualitative (urine test) Negative Encounters Code Encounter Date Provider Facility CPT-43310 Level 3 Est. Patient 11:17:42 SPAR MACHINE OPERATOR Christy Brown APRN [facility] CPT-30847 Level 3 Est. Patient 11:06:57 CDT Estrellita Tenorio MD [facility] CPT-70345 Level 3 Est. Patient 14:47:06 SPAR MACHINE OPERATOR Estrellita Tenorio MD [facility] CPT-25227 Level 3 Est. Patient 12:33:15 SPAR MACHINE OPERATOR Estrellita Tenorio MD [facility] Procedures Code Procedure Name Date Entry Date Standard Description CPT-68975 Nexplanon Placement 14:14:42 CDT CPT-J7307 Nexplanon (Implant) 14:14:42 CDT CPT-26864 UHCG (floor use only) 14:14:42 CDT CPT-OV Office Visit 14:06:57 CDT CPT-OV Office Visit 17:01:36 SPAR MACHINE OPERATOR CPT-Cryo Cryotherapy 11:17:42 SPAR MACHINE OPERATOR CPT-96959 Gardasil 11:39:29 CDT CPT-OV Office Visit 11:39:29 CDT CPT-PV Prev. Care Visit 16:07:43 SPAR MACHINE OPERATOR CPT-33973 TB Tubersol 13:10:17 SPAR MACHINE OPERATOR
--- OUTSIDE RECORDS SUMMARY | 2017-09-14 11:16 | XMS REPORT | Clinical Summary ---
Author Author Admin, MONICA Organization [facility] Address Unknown Phone Unavailable Allergies, Adverse [...] Generic Name NDC Status Provider Patient Instruction BACTRIM DS 800-160 MG TABS Take one (1) by mouth twice a day SULFAMETHOXAZOLE-TRIMETHOPRIM 59089186739 Active Edward Moody APRN Active DOXEPIN HCL 150 MG CAPS Take 1 to 2 caplets as needed at bedtime for sleep DOXEPIN HCL 30857617183 Active Josephine Cruz MD Active BUPROPION HCL ER (XL) 300 MG [id number] BUPROPION HCL 63963304400 Active Josephine Cruz MD Active VYVANSE 30 MG CAPS 1 daily LISDEXAMFETAMINE DIMESYLATE 34339273551 No Longer Active Josephine Cruz MD Active TRAZODONE HCL 100 MG TAB 1 tab at bedtime TRAZODONE HCL 39293326290 No Longer Active Christy Brown APRN Active STRATTERA 80 MG CAPS 1 tablet daily ATOMOXETINE HCL 42936797530 Active Christy Brown APRN Active SPRINTEC 28 0.25-35 MG-MCG TABS Take one by mouth daily NORGESTIMATE-ETH ESTRADIOL 00127252720 Active Josephine Cruz MD Active WELLBUTRIN 100 MG TABS take 4&1/2 tabs daily BUPROPION HCL 84284336607 Active Estrellita Tenorio MD Active TRAZODONE HCL 50 MG TABS 1 q hs TRAZODONE HCL 20902117447 No Longer Active Estrellita Tenorio MD Active LAMOTRIGINE 150 MG TABS 1 daily LAMOTRIGINE 51698259496 Active Jayashree Bragg LPN Active BUSPIRONE HCL 10 MG TABS 1/2 bid BUSPIRONE HCL 81463421441 Active Jayashree Bragg CARGO STATION WORKER Active TRAZODONE HCL 50 MG TABS 1 q hs TRAZODONE HCL 50 MG TABS 883622 TRAZODONE HCL Inactive TRAZODONE HCL 100 MG TAB 1 tab at bedtime TRAZODONE HCL 100 MG TAB 056093 TRAZODONE HCL Inactive VYVANSE 30 MG CAPS [...] reduced Diphtheria, and acellular Pertussis Immunization) Adacel [[id number]] tetanus toxoid, reduced diphtheria toxoid, and acellular pertussis vaccine, adsorbed hepatitis A immunization #1 Historical hepatitis A vaccine, unspecified formulation Adacel (Tetanus, reduced Diphtheria, and acellular Pertussis Immunization) Adacel [WGI383] tetanus toxoid, reduced diphtheria toxoid, and acellular [...] Range Description blood pressure, diastolic - 8462-4 88 mm[Hg] BP snowden blood pressure, systolic - 8480-6 160 mm[Hg] BP sys pulse rate E&M - 8867-4 114 /min Heart rate temperature E&M 98.6 [degF] Body temperature weight E&M - 3141-9 178 [lb_av] Weight Measured blood pressure, diastolic - 8462-4 81 mm[Hg] BP snowden blood pressure, systolic - 8480-6 120 mm[Hg] BP sys height E&M - 8302-2 67.75 [in_us] Bdy height temperature E&M 98.1 [degF] Body temperature weight E&M - 3141-9 173 [lb_av] Weight Measured blood pressure, diastolic - 8462-4 81 mm[Hg] BP snowden blood pressure, systolic - 8480-6 121 mm[Hg] BP sys height E&M - 8302-2 67.75 [in_us] Bdy height pulse rate E&M - 8867-4 98 /min Heart rate temperature E&M 98.1 [degF] Body temperature weight E&M - 3141-9 167 [lb_av] Weight Measured blood pressure, diastolic - 8462-4 86 mm[Hg] BP snowden blood pressure, systolic - 8480-6 137 mm[Hg] BP sys height E&M - 8302-2 67.75 [in_us] Bdy height pulse rate E&M - 8867-4 92 /min Heart rate temperature E&M 98.1 [degF] Body temperature weight E&M - 3141-9 159.38 [lb_av] Weight Measured Diagnostic Results Date Name Value Unit Range Description Lab Report: CBC W/ DIFF, MYCO, MONO, DRUG SCREEN , UCG - Hematology leukocyte count, blood 6.2 10*3/mm3 hemoglobin, blood 11.5 g/dL platelet count 274 10*3/mm3 Lab Report: Chlamydia/GC APTIMA/[id number] - Lab chlamydia DNA probe NOT DETECTED NOT DETECTED chlamydia DNA probe NOT DETECTED NOT DETECTED Lab Report: Chlamydia/GC APTIMA/[id number] - Microbiology Neisseria gonorrhoeae DNA probe NOT DETECTED NOT DETECTED Neisseria gonorrhoeae DNA probe NOT DETECTED NOT [...] Negative Encounters Code Encounter Date Provider Facility CPT-86015 Level 3 Est. Patient 11:17:42 PIPE FITTER GAS PIPE Christy Brown APRN [facility] CPT-30423 Level 3 Est. Patient 11:06:57 CDT Estrellita Tenorio MD [facility] CPT-66766 Level 3 Est. Patient 14:47:06 PIPE FITTER GAS PIPE Estrellita Tenorio MD [facility] CPT-40604 Level 3 Est. Patient 12:33:15 JOSE Tenorio MD [facility] Procedures Code Procedure Name Date Entry Date Standard Description CPT-OV Office Visit 15:44:02 CDT CPT-84967 Nexplanon Placement 14:14:42 CDT CPT-J7307 Nexplanon (Implant) 14:14:42 CDT CPT-75610 UHCG (floor use only) 14:14:42 CDT CPT-OV Office Visit 14:06:57 CDT CPT-OV Office Visit 17:01:36 PIPE FITTER GAS PIPE CPT-Cryo Cryotherapy 11:17:42 PIPE FITTER GAS PIPE CPT-40886 Gardasil 11:39:29 CDT CPT-OV Office Visit 11:39:29 CDT CPT-PV Prev. Care Visit 16:07:43 PIPE FITTER GAS PIPE CPT-00383 TB Tubersol 13:10:17 PIPE FITTER GAS PIPE
--- OUTSIDE RECORDS SUMMARY | 2017-09-14 11:17 | XMS REPORT | Clinical Summary ---
Author Author Admin, MONICA Organization [facility] Address Unknown Phone Allergies, Adverse Reactions, [...] MD Routine infant or child health check CEPHALGIA 784.0 Resolved [...] examination V20.2 Active Christy Brown APRN Routine infant or child health check Wart, left hand [...] (1) by mouth twice a day SULFAMETHOXAZOLE-TRIMETHOPRIM 06092400413 Active Edward Moody APRN Active DOXEPIN HCL 150 MG CAPS Take 1 to 2 caplets as needed at bedtime for sleep DOXEPIN HCL 71354936400 Active Josephine Cruz MD Active BUPROPION HCL ER (XL) 300 MG [id number] BUPROPION HCL 12890203635 Active Josephine Cruz MD Active VYVANSE 30 MG CAPS 1 daily LISDEXAMFETAMINE DIMESYLATE 52597130802 No Longer Active Josephine Cruz MD Active TRAZODONE HCL 100 MG TAB 1 tab at bedtime TRAZODONE HCL 07431236009 No Longer Active Christy Brown APRN Active STRATTERA 80 MG CAPS 1 tablet daily ATOMOXETINE HCL 44702131008 Active Christy Brown APRN Active SPRINTEC 28 0.25-35 MG-MCG TABS Take one by mouth daily NORGESTIMATE-ETH ESTRADIOL 79485268723 Active Josephine Cruz MD Active WELLBUTRIN 100 MG TABS take 4&1/2 tabs daily BUPROPION HCL 82379507028 Active Estrellita Tenorio MD Active TRAZODONE HCL 50 MG TABS 1 q hs TRAZODONE HCL 98551347070 No Longer Active Estrellita Tenorio MD Active LAMOTRIGINE 150 MG TABS 1 daily LAMOTRIGINE 05934385431 Active Jayashree Bragg DIAMOND MOUNTER Active BUSPIRONE HCL 10 MG TABS 1/2 bid BUSPIRONE HCL 10010252596 Active Jayashree Bragg DIAMOND MOUNTER Active TRAZODONE HCL 50 MG TABS 1 q hs TRAZODONE HCL 50 MG TABS 122706 TRAZODONE HCL Inactive TRAZODONE HCL 100 MG TAB 1 tab at bedtime TRAZODONE HCL 100 MG TAB 700467 TRAZODONE HCL Inactive VYVANSE 30 MG CAPS [...] reduced Diphtheria, and acellular Pertussis Immunization) Adacel [[id number]] tetanus toxoid, reduced diphtheria toxoid, and acellular pertussis vaccine, adsorbed hepatitis A immunization #1 Historical hepatitis A vaccine, unspecified formulation Adacel (Tetanus, reduced Diphtheria, and acellular Pertussis Immunization) Adacel [[id number]] tetanus toxoid, reduced diphtheria toxoid, and acellular [...] E&M - 3141-9 159.38 [lb_av] Weight Measured blood pressure, diastolic - 8462-4 77 mm[Hg] BP snowden blood pressure, systolic - 8480-6 117 mm[Hg] BP sys height E&M - 8302-2 67.75 [in_us] Bdy height pulse rate E&M - 8867-4 82 /min Heart rate temperature E&M 97.6 [degF] Body temperature weight E&M - 3141-9 144.2 [lb_av] Weight Measured Diagnostic Results Date Name Value Unit Range Description Lab Report: CBC W/ DIFF, MYCO, MONO, DRUG SCREEN , UCG - Hematology leukocyte count, blood 6.2 10*3/mm3 hemoglobin, blood 11.5 g/dL platelet count 274 10*3/mm3 Lab Report: Chlamydia/GC APTIMA/35111 - Lab chlamydia DNA probe NOT DETECTED NOT DETECTED chlamydia DNA probe NOT DETECTED NOT DETECTED Lab Report: Chlamydia/GC APTIMA/56154 - Microbiology Neisseria gonorrhoeae DNA probe NOT [...] Negative Encounters Code Encounter Date Provider Facility CPT-58202 Level 3 Est. Patient 11:17:42 JOSE Brown APRN [facility] CPT-14937 Level 3 Est. Patient 11:06:57 CDT Estrellita Tenorio MD [facility] CPT-12776 Level 3 Est. Patient 14:47:06 TIE INSPECTOR Estrellita Tenorio MD [facility] CPT-95094 Level 3 Est. Patient 12:33:15 TIE INSPECTOR Estrellita Tenorio MD [facility] Procedures Code Procedure Name Date Entry Date Standard Description CPT-OV Office Visit 15:44:02 CDT CPT-50736 Nexplanon Placement 14:14:42 CDT CPT-J7307 Nexplanon (Implant) 14:14:42 CDT CPT-39316 UHCG (floor use only) 14:14:42 CDT CPT-OV Office Visit 14:06:57 CDT CPT-OV Office Visit 17:01:36 TIE INSPECTOR CPT-Cryo Cryotherapy 11:17:42 TIE INSPECTOR CPT-78015 Gardasil 11:39:29 CDT CPT-OV Office Visit 11:39:29 CDT CPT-PV Prev. Care Visit 16:07:43 TIE INSPECTOR CPT-34128 TB Tubersol 13:10:17 TIE INSPECTOR
--- OUTSIDE RECORDS SUMMARY | 2017-09-14 11:17 | XMS REPORT | Clinical Summary ---
Author Author Admin, MONICA Organization [facility] Address Unknown Phone Allergies, Adverse Reactions, Alerts [...] leg CONTRACEPTIVE MANAGEMENT V25.09 Active Edward Moody LAST INSERTER Encounter for other general counseling and advice [...] needed at bedtime for sleep DOXEPIN HCL 99129561048 Active Josephine Cruz MD Active BUPROPION HCL ER (XL) 300 MG [id number] BUPROPION HCL 45565076615 Active Josephine Cruz MD Active VYVANSE 30 MG CAPS 1 daily LISDEXAMFETAMINE DIMESYLATE 67744457399 No Longer Active Josephine Cruz MD Active TRAZODONE HCL 100 MG TAB 1 tab at bedtime TRAZODONE HCL 39247567114 No Longer Active Christy Brown APRN Active STRATTERA 80 MG CAPS 1 tablet daily ATOMOXETINE HCL 71871494520 Active Christy Brown APRN Active SPRINTEC 28 0.25-35 MG-MCG TABS Take one by mouth daily NORGESTIMATE-ETH ESTRADIOL 94289018939 Active Josephine rCuz MD Active WELLBUTRIN 100 MG TABS take 4&1/2 tabs daily BUPROPION HCL 42090415641 Active Estrellita Tenorio MD Active TRAZODONE HCL 50 MG TABS 1 q hs TRAZODONE HCL 32901082409 No Longer Active Estrellita Tenorio MD Active LAMOTRIGINE 150 MG TABS 1 daily LAMOTRIGINE 61769961310 Active Jayashree Bragg LPN Active BUSPIRONE HCL 10 MG TABS 1/2 bid BUSPIRONE HCL 74745907429 Active Jayashree Bragg LPN Active TRAZODONE HCL 50 MG TABS 1 q hs TRAZODONE HCL 50 MG TABS 850733 TRAZODONE HCL Inactive TRAZODONE HCL 100 MG TAB 1 tab at bedtime TRAZODONE HCL 100 MG TAB 569954 TRAZODONE HCL Inactive VYVANSE 30 MG CAPS [...] Historical Td(adult) unspecified formulation Adacel immunization Adacel [WUV312] tetanus toxoid, reduced diphtheria toxoid, and acellular pertussis vaccine, adsorbed hepatitis A immunization #1 Historical hepatitis A vaccine, unspecified formulation Adacel immunization Adacel [LUX161] tetanus toxoid, reduced diphtheria toxoid, and acellular [...] unspecified formulation MMR virus immunization #1 Historical DPT immunization #2 Historical hepatitis B vaccine #3 Historical hepatitis B vaccine, unspecified formulation Hemophilus influenza B immunization #1 Historical Haemophilus influenzae type b vaccine, conjugate unspecified formulation oral polio vaccine (OPV) #1 Historical poliovirus vaccine, unspecified formulation DPT immunization #1 Historical hepatitis B vaccine #2 Historical hepatitis B vaccine, unspecified formulation hepatitis [...] platelet count 274 10*3/mm3 Lab Report: Chlamydia/GC APTIMA/29468 - Lab chlamydia DNA probe NOT DETECTED NOT DETECTED Lab Report: Chlamydia/GC APTIMA/48099 - Microbiology Neisseria gonorrhoeae DNA probe NOT [...] Negative Encounters Code Encounter Date Provider Facility CPT-84745 Level 3 Est. Patient 11:17:42 BRANDING MACHINE OPERATOR Christy Brown APRN [facility] CPT-55118 Level 3 Est. Patient 11:06:57 CDT Estrellita Tenorio MD [facility] CPT-29968 Level 3 Est. Patient 14:47:06 BRANDING MACHINE OPERATOR Estrellita Tenorio MD [facility] CPT-44883 Level 3 Est. Patient 12:33:15 BRANDING MACHINE OPERATOR Estrellita Tenorio MD [facility] Procedures Code Procedure Name Date Entry Date Standard Description CPT-84722 Nexplanon Placement 14:14:42 CDT CPT-J7307 Nexplanon (Implant) 14:14:42 CDT CPT-17320 UHCG (floor use only) 14:14:42 CDT CPT-OV Office Visit 14:06:57 CDT CPT-OV Office Visit 17:01:36 BRANDING MACHINE OPERATOR CPT-Cryo Cryotherapy 11:17:42 BRANDING MACHINE OPERATOR CPT-60977 Gardasil 11:39:29 CDT CPT-OV Office Visit 11:39:29 CDT CPT-PV Prev. Care Visit 16:07:43 BRANDING MACHINE OPERATOR CPT-39202 TB Tubersol 13:10:17 BRANDING MACHINE OPERATOR
--- OUTSIDE RECORDS SUMMARY | 2017-09-14 11:17 | XMS REPORT | Clinical Summary ---
Author Author Admin, MONICA Organization [facility] Address Unknown Phone Allergies, Adverse Reactions, [...] leg CONTRACEPTIVE MANAGEMENT V25.09 Active Edward Moody ENROLLMENT MANAGEMENT COORDINATOR Encounter for other general counseling and advice [...] needed at bedtime for sleep DOXEPIN HCL 24929442089 Active Josephine Cruz MD Active BUPROPION HCL ER (XL) 300 MG [id number] BUPROPION HCL 73995958083 Active Josephine Cruz MD Active VYVANSE 30 MG CAPS 1 daily LISDEXAMFETAMINE DIMESYLATE 74907964605 No Longer Active Josephine rCuz MD Active TRAZODONE HCL 100 MG TAB 1 tab at bedtime TRAZODONE HCL 46414560393 No Longer Active Christy Brown APRN Active STRATTERA 80 MG CAPS 1 tablet daily ATOMOXETINE HCL 19347569486 Active Christy Brown APRN Active SPRINTEC 28 0.25-35 MG-MCG TABS Take one by mouth daily NORGESTIMATE-ETH ESTRADIOL 47837891681 Active Josephine Cruz MD Active WELLBUTRIN 100 MG TABS take 4&1/2 tabs daily BUPROPION HCL 79843358898 Active Estrellita Tenorio MD Active TRAZODONE HCL 50 MG TABS 1 q hs TRAZODONE HCL 18201578289 No Longer Active Estrellita Tenorio MD Active LAMOTRIGINE 150 MG TABS 1 daily LAMOTRIGINE 52940807155 Active Jayashree Bragg LPN Active BUSPIRONE HCL 10 MG TABS 1/2 bid BUSPIRONE HCL 08755821287 Active Jayashree Bragg LPN Active TRAZODONE HCL 50 MG TABS 1 q hs TRAZODONE HCL 50 MG TABS 747417 TRAZODONE HCL Inactive TRAZODONE HCL 100 MG TAB 1 tab at bedtime TRAZODONE HCL 100 MG TAB 340016 TRAZODONE HCL Inactive VYVANSE 30 MG CAPS [...] Historical Td(adult) unspecified formulation Adacel immunization Adacel [[id number]] tetanus toxoid, reduced diphtheria toxoid, and acellular pertussis vaccine, adsorbed hepatitis A immunization #1 Historical hepatitis A vaccine, unspecified formulation Adacel immunization Adacel [HNB047] tetanus toxoid, reduced diphtheria toxoid, and acellular [...] platelet count 274 10*3/mm3 Lab Report: Chlamydia/GC APTIMA/76641 - Lab chlamydia DNA probe NOT DETECTED NOT DETECTED Lab Report: Chlamydia/GC APTIMA/11466 - Microbiology Neisseria gonorrhoeae DNA probe NOT [...] Negative Encounters Code Encounter Date Provider Facility CPT-62119 Level 3 Est. Patient 11:17:42 COOK DINNER Christy Brown APRN [facility] CPT-83433 Level 3 Est. Patient 11:06:57 CDT Estrellita Tenorio MD [facility] CPT-23920 Level 3 Est. Patient 14:47:06 COOK DINNER Estrellita Tenorio MD [facility] CPT-91524 Level 3 Est. Patient 12:33:15 COOK DINNER Estrellita Tenorio MD [facility] Procedures Code Procedure Name Date Entry Date Standard Description CPT-90603 Nexplanon Placement 14:14:42 CDT CPT-J7307 Nexplanon (Implant) 14:14:42 CDT CPT-49509 UHCG (floor use only) 14:14:42 CDT CPT-OV Office Visit 14:06:57 CDT CPT-OV Office Visit 17:01:36 COOK DINNER CPT-Cryo Cryotherapy 11:17:42 COOK DINNER CPT-91922 Gardasil 11:39:29 CDT CPT-OV Office Visit 11:39:29 CDT CPT-PV Prev. Care Visit 16:07:43 COOK DINNER CPT-28460 TB Tubersol 13:10:17 COOK DINNER
--- OUTSIDE RECORDS SUMMARY | 2017-09-14 11:18 | XMS REPORT | Clinical Summary ---
Author Author Admin, MONICA Organization [facility] Address Unknown Phone Allergies, Adverse Reactions, Alerts [...] (1) by mouth twice a day SULFAMETHOXAZOLE-TRIMETHOPRIM 00369900116 Active Edward Moody APRN Active DOXEPIN HCL 150 MG CAPS Take 1 to 2 caplets as needed at bedtime for sleep DOXEPIN HCL 33842335257 Active Josephine Cruz MD Active BUPROPION HCL ER (XL) 300 MG [id number] BUPROPION HCL 43008062551 Active Josephine Cruz MD Active VYVANSE 30 MG CAPS 1 daily LISDEXAMFETAMINE DIMESYLATE 96791991106 No Longer Active Josephine Cruz MD Active TRAZODONE HCL 100 MG TAB 1 tab at bedtime TRAZODONE HCL 73586338986 No Longer Active Christy Brown APRN Active STRATTERA 80 MG CAPS 1 tablet daily ATOMOXETINE HCL 59674184019 Active Christy Brown APRN Active SPRINTEC 28 0.25-35 MG-MCG TABS Take one by mouth daily NORGESTIMATE-ETH ESTRADIOL 29731220524 Active Josephine Cruz MD Active WELLBUTRIN 100 MG TABS take 4&1/2 tabs daily BUPROPION HCL 32234804194 Active Estrellita Tenorio MD Active TRAZODONE HCL 50 MG TABS 1 q hs TRAZODONE HCL 13713855459 No Longer Active Estrellita Tenorio MD Active LAMOTRIGINE 150 MG TABS 1 daily LAMOTRIGINE 83851106728 Active Jayashree Bragg OLDER ADULT SOCIAL WORK SPECIALIST Active BUSPIRONE HCL 10 MG TABS 1/2 bid BUSPIRONE HCL 85685129884 Active Jayashree Yemi LOPEZN Active TRAZODONE HCL 50 MG TABS 1 q hs TRAZODONE HCL 50 MG TABS 222696 TRAZODONE HCL Inactive TRAZODONE HCL 100 MG TAB 1 tab at bedtime TRAZODONE HCL 100 MG TAB 004578 TRAZODONE HCL Inactive VYVANSE 30 MG CAPS [...] reduced Diphtheria, and acellular Pertussis Immunization) Adacel [OUL649] tetanus toxoid, reduced diphtheria toxoid, and acellular pertussis vaccine, adsorbed hepatitis A immunization #1 Historical hepatitis A vaccine, unspecified formulation Adacel (Tetanus, reduced Diphtheria, and acellular Pertussis Immunization) Adacel [LDQ024] tetanus toxoid, reduced diphtheria toxoid, and acellular pertussis vaccine, adsorbed chicken pox immunization #2 Historical varicella virus vaccine MMR (measles, mumps, rubella) virus immunization #2 Historical DPT immunization #5 Historical oral polio vaccine (OPV) #4 Historical poliovirus vaccine, unspecified formulation chicken pox immunization #1 Historical varicella virus vaccine DPT immunization #4 Historical DPT immunization #3 Historical oral polio vaccine (OPV) #3 Historical poliovirus vaccine, unspecified formulation MMR (measles, mumps, rubella) virus immunization #1 Historical hepatitis B vaccine #3 Historical hepatitis B vaccine, unspecified formulation DPT immunization #2 Historical oral polio vaccine (OPV) #2 Historical poliovirus vaccine, unspecified formulation Hemophilus influenza B immunization #2 Historical Haemophilus influenzae type b vaccine, conjugate unspecified formulation hepatitis B vaccine #2 given Historical hepatitis [...] platelet count 274 10*3/mm3 Lab Report: Chlamydia/GC APTIMA/69083 - Lab chlamydia DNA probe NOT DETECTED NOT DETECTED chlamydia DNA probe NOT DETECTED NOT DETECTED Lab Report: Chlamydia/GC APTIMA/96612 - Microbiology Neisseria gonorrhoeae DNA probe NOT [...] Negative Encounters Code Encounter Date Provider Facility CPT-38041 Level 3 Est. Patient 11:17:42 JOSE Brown APRN [facility] CPT-82315 Level 3 Est. Patient 11:06:57 CDT Estrellita Tenorio MD [facility] CPT-22723 Level 3 Est. Patient 14:47:06 BARBED WIRE MACHINE OPERATOR Estrellita Tenorio MD [facility] CPT-37251 Level 3 Est. Patient 12:33:15 BARBED WIRE MACHINE OPERATOR Estrellita Tenorio MD [facility] Procedures Code Procedure Name Date Entry Date Standard Description CPT-OV Office Visit 15:44:02 CDT CPT-04556 Nexplanon Placement 14:14:42 CDT CPT-J7307 Nexplanon (Implant) 14:14:42 CDT CPT-69685 UHCG (floor use only) 14:14:42 CDT CPT-OV Office Visit 14:06:57 CDT CPT-OV Office Visit 17:01:36 BARBED WIRE MACHINE OPERATOR CPT-Cryo Cryotherapy 11:17:42 BARBED WIRE MACHINE OPERATOR CPT-10909 Gardasil 11:39:29 CDT CPT-OV Office Visit 11:39:29 CDT CPT-PV Prev. Care Visit 16:07:43 BARBED WIRE MACHINE OPERATOR CPT-26498 TB Tubersol 13:10:17 BARBED WIRE MACHINE OPERATOR
--- OUTSIDE RECORDS SUMMARY | 2017-09-14 11:18 | XMS REPORT | Clinical Summary ---
Author Author Admin, MONICA Organization [facility] Address Unknown Phone Allergies, Adverse Reactions, [...] leg CONTRACEPTIVE MANAGEMENT V25.09 Active Edward Moody ELEMENTARY READING TUTOR Encounter for other general counseling and advice [...] needed at bedtime for sleep DOXEPIN HCL 35348193579 Active Josephine Cruz MD Active BUPROPION HCL ER (XL) 300 MG [id number] BUPROPION HCL 14076359717 Active Josephine Cruz MD Active VYVANSE 30 MG CAPS 1 daily LISDEXAMFETAMINE DIMESYLATE 13579930595 No Longer Active Josephine Cruz MD Active TRAZODONE HCL 100 MG TAB 1 tab at bedtime TRAZODONE HCL 72171708185 No Longer Active Christy Brown APRN Active STRATTERA 80 MG CAPS 1 tablet daily ATOMOXETINE HCL 68450726990 Active Christy Brown APRN Active SPRINTEC 28 0.25-35 MG-MCG TABS Take one by mouth daily NORGESTIMATE-ETH ESTRADIOL 75120523873 Active Josephine Cruz MD Active WELLBUTRIN 100 MG TABS take 4&1/2 tabs daily BUPROPION HCL 36285002471 Active Estrellita Tenorio MD Active TRAZODONE HCL 50 MG TABS 1 q hs TRAZODONE HCL 89548315885 No Longer Active Estrellita Tenorio MD Active LAMOTRIGINE 150 MG TABS 1 daily LAMOTRIGINE 18151038916 Active Jayashree Bragg LPN Active BUSPIRONE HCL 10 MG TABS 1/2 bid BUSPIRONE HCL 61443865446 Active Jayashree Bragg LPN Active TRAZODONE HCL 100 MG TAB 1 tab at bedtime TRAZODONE HCL 100 MG TAB 909158 TRAZODONE HCL Inactive TRAZODONE HCL 50 MG TABS 1 q hs TRAZODONE HCL 50 MG TABS 384579 TRAZODONE HCL Inactive VYVANSE 30 MG CAPS [...] Historical Td(adult) unspecified formulation Adacel immunization Adacel [GOX749] tetanus toxoid, reduced diphtheria toxoid, and acellular pertussis vaccine, adsorbed hepatitis A immunization #1 Historical hepatitis A vaccine, unspecified formulation Adacel immunization Adacel [UWY096] tetanus toxoid, reduced diphtheria toxoid, and acellular [...] platelet count 274 10*3/mm3 Lab Report: Chlamydia/GC APTIMA/67074 - Lab chlamydia DNA probe NOT DETECTED NOT DETECTED Lab Report: Chlamydia/GC APTIMA/52818 - Microbiology Neisseria gonorrhoeae DNA probe NOT [...] Negative Encounters Code Encounter Date Provider Facility CPT-10420 Level 3 Est. Patient 11:17:42 FURNITURE INSTALLER Christy Brown APRN [facility] CPT-98683 Level 3 Est. Patient 11:06:57 CDT Estrellita Tenorio MD [facility] CPT-42649 Level 3 Est. Patient 14:47:06 FURNITURE INSTALLER Estrellita Tenorio MD [facility] CPT-71748 Level 3 Est. Patient 12:33:15 FURNITURE INSTALLER Estrellita Tenorio MD [facility] Procedures Code Procedure Name Date Entry Date Standard Description CPT-44940 Nexplanon Placement 14:14:42 CDT CPT-J7307 Nexplanon (Implant) 14:14:42 CDT CPT-96314 UHCG (floor use only) 14:14:42 CDT CPT-OV Office Visit 14:06:57 CDT CPT-OV Office Visit 17:01:36 FURNITURE INSTALLER CPT-Cryo Cryotherapy 11:17:42 FURNITURE INSTALLER CPT-99703 Gardasil 11:39:29 CDT CPT-OV Office Visit 11:39:29 CDT CPT-PV Prev. Care Visit 16:07:43 FURNITURE INSTALLER CPT-81493 TB Tubersol 13:10:17 FURNITURE INSTALLER
--- OUTSIDE RECORDS SUMMARY | 2017-09-14 11:19 | XMS REPORT | Clinical Summary ---
Author Author Admin, MONICA Organization [facility] Address Unknown Phone Allergies, Adverse Reactions, [...] leg CONTRACEPTIVE MANAGEMENT V25.09 Active Edward Moody RECORDS ANALYSIS MANAGER Encounter for other general counseling and advice [...] needed at bedtime for sleep DOXEPIN HCL 52102612225 Active Josephine Cruz MD Active BUPROPION HCL ER (XL) 300 MG [id number] BUPROPION HCL 47469511075 Active Josephine Cruz MD Active VYVANSE 30 MG CAPS 1 daily LISDEXAMFETAMINE DIMESYLATE 02774025505 No Longer Active Josephine Cruz MD Active TRAZODONE HCL 100 MG TAB 1 tab at bedtime TRAZODONE HCL 98391424430 No Longer Active Christy Brown APRN Active STRATTERA 80 MG CAPS 1 tablet daily ATOMOXETINE HCL 26135433669 Active Christy Brown APRN Active SPRINTEC 28 0.25-35 MG-MCG TABS Take one by mouth daily NORGESTIMATE-ETH ESTRADIOL 41615322665 Active Josephine Cruz MD Active WELLBUTRIN 100 MG TABS take 4&1/2 tabs daily BUPROPION HCL 20001061668 Active Estrellita Tenorio MD Active TRAZODONE HCL 50 MG TABS 1 q hs TRAZODONE HCL 67373318110 No Longer Active Estrellita Tenorio MD Active LAMOTRIGINE 150 MG TABS 1 daily LAMOTRIGINE 65879588676 Active Jayashree Bragg LPN Active BUSPIRONE HCL 10 MG TABS 1/2 bid BUSPIRONE HCL 62814934904 Active Jayashree Bragg LPN Active TRAZODONE HCL 50 MG TABS 1 q hs TRAZODONE HCL 50 MG TABS 116418 TRAZODONE HCL Inactive TRAZODONE HCL 100 MG TAB 1 tab at bedtime TRAZODONE HCL 100 MG TAB 754978 TRAZODONE HCL Inactive VYVANSE 30 MG CAPS [...] Historical Td(adult) unspecified formulation Adacel immunization Adacel [WBQ152] tetanus toxoid, reduced diphtheria toxoid, and acellular pertussis vaccine, adsorbed hepatitis A immunization #1 Historical hepatitis A vaccine, unspecified formulation Adacel immunization Adacel [SWY830] tetanus toxoid, reduced diphtheria toxoid, and acellular [...] platelet count 274 10*3/mm3 Lab Report: Chlamydia/GC APTIMA/97269 - Lab chlamydia DNA probe NOT DETECTED NOT DETECTED Lab Report: Chlamydia/GC APTIMA/85466 - Microbiology Neisseria gonorrhoeae DNA probe NOT [...] Negative Encounters Code Encounter Date Provider Facility CPT-11309 Level 3 Est. Patient 11:17:42 QUILL WINDER Christy Brown APRN [facility] CPT-26321 Level 3 Est. Patient 11:06:57 CDT Estrellita Tenorio MD [facility] CPT-43570 Level 3 Est. Patient 14:47:06 QUILL WINDER Estrellita Tenorio MD [facility] CPT-33325 Level 3 Est. Patient 12:33:15 QUILL WINDER Estrellita Tenorio MD [facility] Procedures Code Procedure Name Date Entry Date Standard Description CPT-52585 Nexplanon Placement 14:14:42 CDT CPT-J7307 Nexplanon (Implant) 14:14:42 CDT CPT-31896 UHCG (floor use only) 14:14:42 CDT CPT-OV Office Visit 14:06:57 CDT CPT-OV Office Visit 17:01:36 QUILL WINDER CPT-Cryo Cryotherapy 11:17:42 QUILL WINDER CPT-75228 Gardasil 11:39:29 CDT CPT-OV Office Visit 11:39:29 CDT CPT-PV Prev. Care Visit 16:07:43 QUILL WINDER CPT-93652 TB Tubersol 13:10:17 QUILL WINDER
--- OUTSIDE RECORDS SUMMARY | 2017-09-14 11:19 | XMS REPORT | Clinical Summary ---
Author Author Admin, MONICA Organization [facility] Address Unknown Phone Allergies, Adverse Reactions, Alerts [...] mellitus WELL CHILD EXAM V20.2 Inactive Estrellita Tneorio MD Routine infant or child health check [...] (1) by mouth twice a day SULFAMETHOXAZOLE-TRIMETHOPRIM 09239997785 Active Edward Moody APRN Active DOXEPIN HCL 150 MG CAPS Take 1 to 2 caplets as needed at bedtime for sleep DOXEPIN HCL 59326992887 Active Josephine Cruz MD Active BUPROPION HCL ER (XL) 300 MG [id number] BUPROPION HCL 51209313128 Active Josephine Cruz MD Active VYVANSE 30 MG CAPS 1 daily LISDEXAMFETAMINE DIMESYLATE 65776181405 No Longer Active Josephine Cruz MD Active TRAZODONE HCL 100 MG TAB 1 tab at bedtime TRAZODONE HCL 82798877171 No Longer Active Christy Brown APRN Active STRATTERA 80 MG CAPS 1 tablet daily ATOMOXETINE HCL 28325850539 Active Christy Brown APRN Active SPRINTEC 28 0.25-35 MG-MCG TABS Take one by mouth daily NORGESTIMATE-ETH ESTRADIOL 05711982515 Active Josephine Cruz MD Active WELLBUTRIN 100 MG TABS take 4&1/2 tabs daily BUPROPION HCL 09961223364 Active Estrellita Tenorio MD Active TRAZODONE HCL 50 MG TABS 1 q hs TRAZODONE HCL 57803182764 No Longer Active Estrellita Tenorio MD Active LAMOTRIGINE 150 MG TABS 1 daily LAMOTRIGINE 19915774493 Active Jayashree Bragg METAL GAUGE MAKER Active BUSPIRONE HCL 10 MG TABS 1/2 bid BUSPIRONE HCL 65506606604 Active Jayashree Bragg METAL GAUGE MAKER Active TRAZODONE HCL 50 MG TABS 1 q hs TRAZODONE HCL 50 MG TABS 302396 TRAZODONE HCL Inactive TRAZODONE HCL 100 MG TAB 1 tab at bedtime TRAZODONE HCL 100 MG TAB 186969 TRAZODONE HCL Inactive VYVANSE 30 MG CAPS [...] reduced Diphtheria, and acellular Pertussis Immunization) Adacel [[id number]] tetanus toxoid, reduced diphtheria toxoid, and acellular pertussis vaccine, adsorbed hepatitis A immunization #1 Historical hepatitis A vaccine, unspecified formulation Adacel (Tetanus, reduced Diphtheria, and acellular Pertussis Immunization) Adacel [[id number]] tetanus toxoid, reduced diphtheria toxoid, and acellular [...] E&M - 3141-9 144.2 [lb_av] Weight Measured blood pressure, diastolic - 8462-4 70 mm[Hg] BP snowden blood pressure, systolic - 8480-6 110 mm[Hg] BP sys height E&M - 8302-2 67.75 [in_us] Bdy height temperature E&M 99.2 [degF] Body temperature weight E&M - 3141-9 147 [lb_av] Weight Measured Diagnostic Results Date Name Value Unit Range Description Lab Report: CBC W/ DIFF, MYCO, MONO, DRUG SCREEN , UCG - Hematology leukocyte count, blood 6.2 10*3/mm3 hemoglobin, blood 11.5 g/dL platelet count 274 10*3/mm3 Lab Report: Chlamydia/GC APTIMA/01322 - Lab chlamydia DNA probe NOT DETECTED NOT DETECTED chlamydia DNA probe NOT DETECTED NOT DETECTED Lab Report: Chlamydia/GC APTIMA/88833 - Microbiology Neisseria gonorrhoeae DNA probe NOT [...] Negative Encounters Code Encounter Date Provider Facility CPT-34877 Level 3 Est. Patient 11:17:42 JOSE Brown APRN [facility] CPT-43503 Level 3 Est. Patient 11:06:57 CDT Estrellita Tenorio MD [facility] CPT-28899 Level 3 Est. Patient 14:47:06 GLUING MACHINE OPERATOR Estrellita Tenorio MD [facility] CPT-06469 Level 3 Est. Patient 12:33:15 GLUING MACHINE OPERATOR Estrellita Tenorio MD [facility] Procedures Code Procedure Name Date Entry Date Standard Description CPT-OV Office Visit 15:44:02 CDT CPT-56278 Nexplanon Placement 14:14:42 CDT CPT-J7307 Nexplanon (Implant) 14:14:42 CDT CPT-16694 UHCG (floor use only) 14:14:42 CDT CPT-OV Office Visit 14:06:57 CDT CPT-OV Office Visit 17:01:36 GLUING MACHINE OPERATOR CPT-Cryo Cryotherapy 11:17:42 GLUING MACHINE OPERATOR CPT-37689 Gardasil 11:39:29 CDT CPT-OV Office Visit 11:39:29 CDT CPT-PV Prev. Care Visit 16:07:43 GLUING MACHINE OPERATOR CPT-93351 TB Tubersol 13:10:17 GLUING MACHINE OPERATOR
--- OUTSIDE RECORDS SUMMARY | 2017-09-14 11:19 | XMS REPORT | Clinical Summary ---
Author Author Admin, MONICA Organization [facility] Address Unknown Phone Allergies, Adverse Reactions, [...] leg CONTRACEPTIVE MANAGEMENT V25.09 Active Edward Moody RECONCILIATION ANALYST Encounter for other general counseling and advice [...] needed at bedtime for sleep DOXEPIN HCL 75705694859 Active Josephine Cruz MD Active BUPROPION HCL ER (XL) 300 MG [id number] BUPROPION HCL 07721391127 Active Josephine Cruz MD Active VYVANSE 30 MG CAPS 1 daily LISDEXAMFETAMINE DIMESYLATE 81837397207 No Longer Active Josephine Cruz MD Active TRAZODONE HCL 100 MG TAB 1 tab at bedtime TRAZODONE HCL 36432035956 No Longer Active Christy Brown APRN Active STRATTERA 80 MG CAPS 1 tablet daily ATOMOXETINE HCL 16964737488 Active Christy Brown APRN Active SPRINTEC 28 0.25-35 MG-MCG TABS Take one by mouth daily NORGESTIMATE-ETH ESTRADIOL 03802114723 Active Josephine Cruz MD Active WELLBUTRIN 100 MG TABS take 4&1/2 tabs daily BUPROPION HCL 08025045055 Active Estrellita Tenorio MD Active TRAZODONE HCL 50 MG TABS 1 q hs TRAZODONE HCL 24192329406 No Longer Active Estrellita Tenorio MD Active LAMOTRIGINE 150 MG TABS 1 daily LAMOTRIGINE 91803170636 Active Jayashree Bragg LPN Active BUSPIRONE HCL 10 MG TABS 1/2 bid BUSPIRONE HCL 97982202052 Active Jayashree Bragg LPN Active TRAZODONE HCL 50 MG TABS 1 q hs TRAZODONE HCL 50 MG TABS 533403 TRAZODONE HCL Inactive TRAZODONE HCL 100 MG TAB 1 tab at bedtime TRAZODONE HCL 100 MG TAB 418810 TRAZODONE HCL Inactive VYVANSE 30 MG CAPS [...] Historical Td(adult) unspecified formulation Adacel immunization Adacel [[id number]] tetanus toxoid, reduced diphtheria toxoid, and acellular pertussis vaccine, adsorbed hepatitis A immunization #1 Historical hepatitis A vaccine, unspecified formulation Adacel immunization Adacel [KYF316] tetanus toxoid, reduced diphtheria toxoid, and acellular [...] platelet count 274 10*3/mm3 Lab Report: Chlamydia/GC APTIMA/32590 - Lab chlamydia DNA probe NOT DETECTED NOT DETECTED Lab Report: Chlamydia/GC APTIMA/29546 - Microbiology Neisseria gonorrhoeae DNA probe NOT [...] Negative Encounters Code Encounter Date Provider Facility CPT-28860 Level 3 Est. Patient 11:17:42 ALCOHOLISM WORKER Christy Brown APRN [facility] CPT-37151 Level 3 Est. Patient 11:06:57 CDT Estrellita Tenorio MD [facility] CPT-53123 Level 3 Est. Patient 14:47:06 ALCOHOLISM WORKER Estrellita Tenorio MD [facility] CPT-71373 Level 3 Est. Patient 12:33:15 ALCOHOLISM WORKER Estrellita Tenorio MD [facility] Procedures Code Procedure Name Date Entry Date Standard Description CPT-19349 Nexplanon Placement 14:14:42 CDT CPT-J7307 Nexplanon (Implant) 14:14:42 CDT CPT-29477 UHCG (floor use only) 14:14:42 CDT CPT-OV Office Visit 14:06:57 CDT CPT-OV Office Visit 17:01:36 ALCOHOLISM WORKER CPT-Cryo Cryotherapy 11:17:42 ALCOHOLISM WORKER CPT-36422 Gardasil 11:39:29 CDT CPT-OV Office Visit 11:39:29 CDT CPT-PV Prev. Care Visit 16:07:43 ALCOHOLISM WORKER CPT-75638 TB Tubersol 13:10:17 ALCOHOLISM WORKER
--- OUTSIDE RECORDS SUMMARY | 2017-09-14 11:20 | XMS REPORT | Clinical Summary ---
Author Author Admin, MONICA Organization [facility] Address Unknown Phone Allergies, Adverse Reactions, [...] leg CONTRACEPTIVE MANAGEMENT V25.09 Active Edward Moody HEAD OF MOBILE Encounter for other general counseling and advice [...] needed at bedtime for sleep DOXEPIN HCL 26379487763 Active Josephine Cruz MD Active BUPROPION HCL ER (XL) 300 MG [id number] BUPROPION HCL 50447912697 Active Josephine Cruz MD Active VYVANSE 30 MG CAPS 1 daily LISDEXAMFETAMINE DIMESYLATE 30269392752 No Longer Active Josephine Cruz MD Active TRAZODONE HCL 100 MG TAB 1 tab at bedtime TRAZODONE HCL 79707074297 No Longer Active Christy Brown APRN Active STRATTERA 80 MG CAPS 1 tablet daily ATOMOXETINE HCL 24706039188 Active Christy Brown APRN Active SPRINTEC 28 0.25-35 MG-MCG TABS Take one by mouth daily NORGESTIMATE-ETH ESTRADIOL 34800623613 Active Josephine Cruz MD Active WELLBUTRIN 100 MG TABS take 4&1/2 tabs daily BUPROPION HCL 00160298518 Active Estrellita Tenorio MD Active TRAZODONE HCL 50 MG TABS 1 q hs TRAZODONE HCL 21800235380 No Longer Active Estrellita Tenorio MD Active LAMOTRIGINE 150 MG TABS 1 daily LAMOTRIGINE 98991640752 Active Jayashree Bragg LPN Active BUSPIRONE HCL 10 MG TABS 1/2 bid BUSPIRONE HCL 41792205677 Active Jayashree Bragg LPN Active TRAZODONE HCL 50 MG TABS 1 q hs TRAZODONE HCL 50 MG TABS 677743 TRAZODONE HCL Inactive TRAZODONE HCL 100 MG TAB 1 tab at bedtime TRAZODONE HCL 100 MG TAB 489221 TRAZODONE HCL Inactive VYVANSE 30 MG CAPS [...] Historical Td(adult) unspecified formulation Adacel immunization Adacel [DIF446] tetanus toxoid, reduced diphtheria toxoid, and acellular pertussis vaccine, adsorbed hepatitis A immunization #1 Historical hepatitis A vaccine, unspecified formulation Adacel immunization Adacel [KZX322] tetanus toxoid, reduced diphtheria toxoid, and acellular [...] platelet count 274 10*3/mm3 Lab Report: Chlamydia/GC APTIMA/86264 - Lab chlamydia DNA probe NOT DETECTED NOT DETECTED Lab Report: Chlamydia/GC APTIMA/30060 - Microbiology Neisseria gonorrhoeae DNA probe NOT [...] Negative Encounters Code Encounter Date Provider Facility CPT-90763 Level 3 Est. Patient 11:17:42 LATEX FASHIONS DESIGNER Christy Brown APRN [facility] CPT-29789 Level 3 Est. Patient 11:06:57 CDT Estrellita Tenorio MD [facility] CPT-77847 Level 3 Est. Patient 14:47:06 LATEX FASHIONS DESIGNER Estrellita Tenorio MD [facility] CPT-88939 Level 3 Est. Patient 12:33:15 LATEX FASHIONS DESIGNER Estrellita Tenorio MD [facility] Procedures Code Procedure Name Date Entry Date Standard Description CPT-32780 Nexplanon Placement 14:14:42 CDT CPT-J7307 Nexplanon (Implant) 14:14:42 CDT CPT-62055 UHCG (floor use only) 14:14:42 CDT CPT-OV Office Visit 14:06:57 CDT CPT-OV Office Visit 17:01:36 LATEX FASHIONS DESIGNER CPT-Cryo Cryotherapy 11:17:42 LATEX FASHIONS DESIGNER CPT-14289 Gardasil 11:39:29 CDT CPT-OV Office Visit 11:39:29 CDT CPT-PV Prev. Care Visit 16:07:43 LATEX FASHIONS DESIGNER CPT-73972 TB Tubersol 13:10:17 LATEX FASHIONS DESIGNER
--- OUTSIDE RECORDS SUMMARY | 2017-09-14 11:20 | XMS REPORT | Clinical Summary ---
Author Author Admin, MONICA Organization [facility] Address Unknown Phone Allergies, Adverse Reactions, [...] leg CONTRACEPTIVE MANAGEMENT V25.09 Active Edward Moody CLERICAL RECEPTIONIST Encounter for other general counseling and advice [...] needed at bedtime for sleep DOXEPIN HCL 32423553801 Active Josephine Cruz MD Active BUPROPION HCL ER (XL) 300 MG [id number] BUPROPION HCL 78479078546 Active Josephine Cruz MD Active VYVANSE 30 MG CAPS 1 daily LISDEXAMFETAMINE DIMESYLATE 23135644363 No Longer Active Josephine Cruz MD Active TRAZODONE HCL 100 MG TAB 1 tab at bedtime TRAZODONE HCL 31578502839 No Longer Active Christy Brown APRN Active STRATTERA 80 MG CAPS 1 tablet daily ATOMOXETINE HCL 20937695643 Active Christy Brown APRN Active SPRINTEC 28 0.25-35 MG-MCG TABS Take one by mouth daily NORGESTIMATE-ETH ESTRADIOL 38025071278 Active Josephine Cruz MD Active WELLBUTRIN 100 MG TABS take 4&1/2 tabs daily BUPROPION HCL 02213713952 Active Estrellita Tenorio MD Active TRAZODONE HCL 50 MG TABS 1 q hs TRAZODONE HCL 80652092609 No Longer Active Estrellita Tenorio MD Active LAMOTRIGINE 150 MG TABS 1 daily LAMOTRIGINE 28651053558 Active Jayashree Bragg LPN Active BUSPIRONE HCL 10 MG TABS 1/2 bid BUSPIRONE HCL 25226577887 Active Jayashree Bragg LPN Active TRAZODONE HCL 50 MG TABS 1 q hs TRAZODONE HCL 50 MG TABS 987099 TRAZODONE HCL Inactive TRAZODONE HCL 100 MG TAB 1 tab at bedtime TRAZODONE HCL 100 MG TAB 747049 TRAZODONE HCL Inactive VYVANSE 30 MG CAPS [...] Historical Td(adult) unspecified formulation Adacel immunization Adacel [JIX870] tetanus toxoid, reduced diphtheria toxoid, and acellular pertussis vaccine, adsorbed hepatitis A immunization #1 Historical hepatitis A vaccine, unspecified formulation Adacel immunization Adacel [VFU441] tetanus toxoid, reduced diphtheria toxoid, and acellular [...] platelet count 274 10*3/mm3 Lab Report: Chlamydia/GC APTIMA/26830 - Lab chlamydia DNA probe NOT DETECTED NOT DETECTED Lab Report: Chlamydia/GC APTIMA/01368 - Microbiology Neisseria gonorrhoeae DNA probe NOT [...] Negative Encounters Code Encounter Date Provider Facility CPT-59361 Level 3 Est. Patient 11:17:42 ZONING ASSISTANT Christy Brown APRN [facility] CPT-46350 Level 3 Est. Patient 11:06:57 CDT Estrellita Tenorio MD [facility] CPT-34963 Level 3 Est. Patient 14:47:06 ZONING ASSISTANT Estrellita Tenorio MD [facility] CPT-79406 Level 3 Est. Patient 12:33:15 ZONING ASSISTANT Estrellita Tenorio MD [facility] Procedures Code Procedure Name Date Entry Date Standard Description CPT-18897 Nexplanon Placement 14:14:42 CDT CPT-J7307 Nexplanon (Implant) 14:14:42 CDT CPT-41194 UHCG (floor use only) 14:14:42 CDT CPT-OV Office Visit 14:06:57 CDT CPT-OV Office Visit 17:01:36 ZONING ASSISTANT CPT-Cryo Cryotherapy 11:17:42 ZONING ASSISTANT CPT-02068 Gardasil 11:39:29 CDT CPT-OV Office Visit 11:39:29 CDT CPT-PV Prev. Care Visit 16:07:43 ZONING ASSISTANT CPT-71735 TB Tubersol 13:10:17 ZONING ASSISTANT
--- OUTSIDE RECORDS SUMMARY | 2017-09-14 11:20 | XMS REPORT | Clinical Summary ---
Author Author Admin, MONICA Organization 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 Encounter for other general counseling and advice [...] needed at bedtime for sleep DOXEPIN HCL 22264092851 Active Josephine Cruz MD Active BUPROPION HCL ER (XL) 300 MG [id number] BUPROPION HCL 65141442040 Active Josephine Cruz MD Active VYVANSE 30 MG CAPS 1 daily LISDEXAMFETAMINE DIMESYLATE 44533381344 No Longer Active Josephine Cruz MD Active TRAZODONE HCL 100 MG TAB 1 tab at bedtime TRAZODONE HCL 93538578127 No Longer Active Christy Brown APRN Active STRATTERA 80 MG CAPS 1 tablet daily ATOMOXETINE HCL 37266061686 Active Christy Brown APRN Active SPRINTEC 28 0.25-35 MG-MCG TABS Take one by mouth daily NORGESTIMATE-ETH ESTRADIOL 14936600442 Active Josephine Cruz MD Active WELLBUTRIN 100 MG TABS take 4&1/2 tabs daily BUPROPION HCL 39455945461 Active Estrellita Tenorio MD Active TRAZODONE HCL 50 MG TABS 1 q hs TRAZODONE HCL 83569423861 No Longer Active Estrellita Tenorio MD Active LAMOTRIGINE 150 MG TABS 1 daily LAMOTRIGINE 15058845644 Active Jayashree Bragg LPN Active BUSPIRONE HCL 10 MG TABS 1/2 bid BUSPIRONE HCL 15866297619 Active Jayashree Bragg LPN Active TRAZODONE HCL 50 MG TABS 1 q hs TRAZODONE HCL 50 MG TABS 873245 TRAZODONE HCL Inactive TRAZODONE HCL 100 MG TAB 1 tab at bedtime TRAZODONE HCL 100 MG TAB 206852 TRAZODONE HCL Inactive VYVANSE 30 MG CAPS [...] Historical Td(adult) unspecified formulation Adacel immunization Adacel [OCP401] tetanus toxoid, reduced diphtheria toxoid, and acellular pertussis vaccine, adsorbed hepatitis A immunization #1 Historical hepatitis A vaccine, unspecified formulation Adacel immunization Adacel [NOR484] tetanus toxoid, reduced diphtheria toxoid, and acellular [...] platelet count 274 10*3/mm3 Lab Report: Chlamydia/GC APTIMA/83043 - Lab chlamydia DNA probe NOT DETECTED NOT DETECTED Lab Report: Chlamydia/GC APTIMA/70452 - Microbiology Neisseria gonorrhoeae DNA probe NOT [...] Negative Encounters Code Encounter Date Provider Facility CPT-90210 Level 3 Est. Patient 11:17:42 FUEL SYSTEM MAINTENANCE WORKER Christy Brown APRN [facility] CPT-39137 Level 3 Est. Patient 11:06:57 CDT Estrellita Tenorio MD [facility] CPT-96457 Level 3 Est. Patient 14:47:06 FUEL SYSTEM MAINTENANCE WORKER Estrellita Tenorio MD [facility] CPT-80921 Level 3 Est. Patient 12:33:15 FUEL SYSTEM MAINTENANCE WORKER Estrellita Tenorio MD [facility] Procedures Code Procedure Name Date Entry Date Standard Description CPT-65978 Nexplanon Placement 14:14:42 CDT CPT-J7307 Nexplanon (Implant) 14:14:42 CDT CPT-76138 UHCG (floor use only) 14:14:42 CDT CPT-OV Office Visit 14:06:57 CDT CPT-OV Office Visit 17:01:36 FUEL SYSTEM MAINTENANCE WORKER CPT-Cryo Cryotherapy 11:17:42 FUEL SYSTEM MAINTENANCE WORKER CPT-38725 Gardasil 11:39:29 CDT CPT-OV Office Visit 11:39:29 CDT CPT-PV Prev. Care Visit 16:07:43 FUEL SYSTEM MAINTENANCE WORKER CPT-46686 TB Tubersol 13:10:17 FUEL SYSTEM MAINTENANCE WORKER
--- OUTSIDE RECORDS SUMMARY | 2017-09-14 11:21 | XMS REPORT | Clinical Summary ---
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 Encounter for other general counseling and advice [...] needed at bedtime for sleep DOXEPIN HCL 96762198380 Active Josephine Cruz MD Active BUPROPION HCL ER (XL) 300 MG [id number] BUPROPION HCL 82990661454 Active Josephine Cruz MD Active VYVANSE 30 MG CAPS 1 daily LISDEXAMFETAMINE DIMESYLATE 84315212804 No Longer Active Josephine Cruz MD Active TRAZODONE HCL 100 MG TAB 1 tab at bedtime TRAZODONE HCL 63902557332 No Longer Active Christy Brown APRN Active STRATTERA 80 MG CAPS 1 tablet daily ATOMOXETINE HCL 91665949477 Active Christy Brown APRN Active SPRINTEC 28 0.25-35 MG-MCG TABS Take one by mouth daily NORGESTIMATE-ETH ESTRADIOL 33896255861 Active Josephine Cruz MD Active WELLBUTRIN 100 MG TABS take 4&1/2 tabs daily BUPROPION HCL 77775422418 Active Estrellita Tenorio MD Active TRAZODONE HCL 50 MG TABS 1 q hs TRAZODONE HCL 64996300668 No Longer Active Estrellita Tenorio MD Active LAMOTRIGINE 150 MG TABS 1 daily LAMOTRIGINE 45538360621 Active Jayashree Bragg LPN Active BUSPIRONE HCL 10 MG TABS 1/2 bid BUSPIRONE HCL 12226750431 Active Jayashree Bragg LPN Active TRAZODONE HCL 50 MG TABS 1 q hs TRAZODONE HCL 50 MG TABS 488377 TRAZODONE HCL Inactive TRAZODONE HCL 100 MG TAB 1 tab at bedtime TRAZODONE HCL 100 MG TAB 505670 TRAZODONE HCL Inactive VYVANSE 30 MG CAPS [...] Historical Td(adult) unspecified formulation Adacel immunization Adacel [VFR192] tetanus toxoid, reduced diphtheria toxoid, and acellular pertussis vaccine, adsorbed hepatitis A immunization #1 Historical hepatitis A vaccine, unspecified formulation Adacel immunization Adacel [SHK015] tetanus toxoid, reduced diphtheria toxoid, and acellular [...] platelet count 274 10*3/mm3 Lab Report: Chlamydia/GC APTIMA/68296 - Lab chlamydia DNA probe NOT DETECTED NOT DETECTED Lab Report: Chlamydia/GC APTIMA/10324 - Microbiology Neisseria gonorrhoeae DNA probe NOT [...] Negative Encounters Code Encounter Date Provider Facility CPT-19201 Level 3 Est. Patient 11:17:42 VETERINARY TECHNICIAN ASSISTANT Christy Brown APRN [facility] CPT-78606 Level 3 Est. Patient 11:06:57 CDT Estrellita Tenorio MD [facility] CPT-93199 Level 3 Est. Patient 14:47:06 VETERINARY TECHNICIAN ASSISTANT Estrellita Tenorio MD [facility] CPT-04306 Level 3 Est. Patient 12:33:15 VETERINARY TECHNICIAN ASSISTANT Estrellita Tenorio MD [facility] Procedures Code Procedure Name Date Entry Date Standard Description CPT-86859 Nexplanon Placement 14:14:42 CDT CPT-J7307 Nexplanon (Implant) 14:14:42 CDT CPT-03583 UHCG (floor use only) 14:14:42 CDT CPT-OV Office Visit 14:06:57 CDT CPT-OV Office Visit 17:01:36 VETERINARY TECHNICIAN ASSISTANT CPT-Cryo Cryotherapy 11:17:42 VETERINARY TECHNICIAN ASSISTANT CPT-40285 Gardasil 11:39:29 CDT CPT-OV Office Visit 11:39:29 CDT CPT-PV Prev. Care Visit 16:07:43 VETERINARY TECHNICIAN ASSISTANT CPT-75270 TB Tubersol 13:10:17 VETERINARY TECHNICIAN ASSISTANT
--- OUTSIDE RECORDS SUMMARY | 2017-09-14 11:21 | XMS REPORT | Clinical Summary ---
Author Author Admin, MONICA Organization [facility] Address Unknown Phone Allergies, Adverse Reactions, Alerts Allergy Name Reaction Description Start Date Severity Status Provider No Known Allergies Jayashree Bargg LPN Conditions or Problems Problem Name Problem Code Onset Date Status Entry Date Provider Comment Standard Description Annotate FAMILY HISTORY OF CORONARY HEART DISEASE V17.3 Active Estrellita Tenorio MD Family history of ischemic heart disease FAMILY HISTORY OF DIABETES V18.0 Active Estrellita Tenorio MD Family history of diabetes mellitus WELL CHILD EXAM V20.2 Inactive Estrellita Tenroio MD Routine or child health check CEPHALGIA 784.0 Resolved Estrellita Tenorio MD Headache WELL CHILD EXAM V20.2 Inactive Estrellita Tenorio MD Routine infant or child health check ABDOMINAL PAIN 789.00 Resolved Estrellita Tenorio MD Abdominal pain, unspecified site KNEE PAIN, LEFT 719.46 Active Estrellita Tenorio MD Pain in joint involving lower leg CONTRACEPTIVE MANAGEMENT V25.09 Active Edward Moody AWNINGS MECHANIC Encounter for other general counseling and advice on contraceptive management Well child examination V20.2 Active Christy Brown APRN Routine or child health check Wart, left hand 078.10 Active Christy Brown APRN Viral warts, unspecified Vaginal discharge 623.5 Active Josephine Cruz MD Leukorrhea, not specified as infective WELL CHILD EXAM ICD-V20.2 Inactive Estrellita Tneorio MD CEPHALGIA ICD-784.0 Inactive Estrellita Tenorio MD WELL CHILD EXAM ICD-V20.2 Inactive Estrellita Tenorio MD ABDOMINAL PAIN ICD-789.00 Inactive Estrellita Tenorio MD Medication List Medication Instructions Start Date Stop Date Generic Name NDC Status Provider Patient Instruction DOXEPIN HCL 150 MG CAPS Take 1 to 2 caplets as needed at bedtime for sleep DOXEPIN HCL 31592036965 Active Josephine Cruz MD Active BUPROPION HCL ER (XL) 300 MG [id number] BUPROPION HCL 14689067864 Active Josephine Cruz MD Active VYVANSE 30 MG CAPS 1 daily LISDEXAMFETAMINE DIMESYLATE 94066515632 No Longer Active Josephine Cruz MD Active TRAZODONE HCL 100 MG TAB 1 tab at bedtime TRAZODONE HCL 83824286486 No Longer Active Christy Brown APRN Active STRATTERA 80 MG CAPS 1 tablet daily ATOMOXETINE HCL 33941060098 Active Christy Brown APRN Active SPRINTEC 28 0.25-35 MG-MCG TABS Take one by mouth daily NORGESTIMATE-ETH ESTRADIOL 70208557507 Active Josephine Cruz MD Active WELLBUTRIN 100 MG TABS take 4&1/2 tabs daily BUPROPION HCL 72457708220 Active Estrellita Tenorio MD Active TRAZODONE HCL 50 MG TABS 1 q hs TRAZODONE HCL 33349633013 No Longer Active Estrellita Tenorio MD Active LAMOTRIGINE 150 MG TABS 1 daily LAMOTRIGINE 47677904740 Active Jayashree Bragg LPN Active BUSPIRONE HCL 10 MG TABS 1/2 bid BUSPIRONE HCL 82192316762 Active Jayashree Bragg LPN Active TRAZODONE HCL 50 MG TABS 1 q hs TRAZODONE HCL 50 MG TABS 147806 TRAZODONE HCL Inactive TRAZODONE HCL 100 MG TAB 1 tab at bedtime TRAZODONE HCL 100 MG TAB 863457 TRAZODONE HCL Inactive VYVANSE 30 MG CAPS [...] Historical Td(adult) unspecified formulation Adacel immunization Adacel [[id number]] tetanus toxoid, reduced diphtheria toxoid, and acellular pertussis vaccine, adsorbed hepatitis A immunization #1 Historical hepatitis A vaccine, unspecified formulation Adacel immunization Adacel [[id number]] tetanus toxoid, reduced diphtheria toxoid, and acellular [...] platelet count 274 10*3/mm3 Lab Report: Chlamydia/GC [id number] - Lab chlamydia DNA probe NOT DETECTED NOT DETECTED Lab Report: Chlamydia/GC [id number] - Microbiology Neisseria gonorrhoeae DNA probe NOT [...] Negative Encounters Code Encounter Date Provider Facility CPT-49623 Level 3 Est. Patient 11:17:42 JITTERBUG OPERATOR Christy Brown APRN [facility] CPT-77029 Level 3 Est. Patient 11:06:57 CDT Estrellita Tenorio MD [facility] CPT-20170 Level 3 Est. Patient 14:47:06 JITTERBUG OPERATOR Estrellita Tenorio MD [facility] CPT-37386 Level 3 Est. Patient 12:33:15 JITTERBUG OPERATOR Estrellita Tenorio MD [facility] Procedures Code Procedure Name Date Entry Date Standard Description CPT-17503 Nexplanon Placement 14:14:42 CDT CPT-J7307 Nexplanon (Implant) 14:14:42 CDT CPT-61604 UHCG (floor use only) 14:14:42 CDT CPT-OV Office Visit 14:06:57 CDT CPT-OV Office Visit 17:01:36 JITTERBUG OPERATOR CPT-Cryo Cryotherapy 11:17:42 JITTERBUG OPERATOR CPT-25364 Gardasil 11:39:29 CDT CPT-OV Office Visit 11:39:29 CDT CPT-PV Prev. Care Visit 16:07:43 JITTERBUG OPERATOR CPT-55404 TB Tubersol 13:10:17 JITTERBUG OPERATOR
[2017-09-14 12:00] VITALS: BP 109/66
--- NOTE | 2017-09-14 12:11 | ED General ---
General Chief Complaint: Psych/Social Disorder Stated Complaint: EVAL FOR REHAB Nursing Triage Note: Pt reports she needs medical clearance to go to rehab for meth and alcohol use. Pt states she went to [facility] yesterday and was told she needed to come here because she was not a [place] resident. Pt reports last use was 09/12. Nursing Sepsis Screen: No Definite Risk Source of Information: Patient Exam Limitations: No Limitations History of Present Illness Date Seen by Provider: Sep 14, 2017 Time Seen by Provider: 12:08 Initial Comments to ER complaint by her grandmother with reports of needing detox he reports that she needs detoxed from marijuana, alcohol, methamphetamine. Last use of any of these was on 09/12. Her grandmother took her off the street and she is now living with her grandmother. [facility]. Timing/Duration: 1-2 Days Severity: Moderate Allergies and Home Medications Allergies Coded Allergies: NKANo Known Allergies (Unverified Allergy, Mild, 08/08/08) codeine (Unverified Allergy, Unknown, 09/14/17) Home Medications Naproxen 500 Mg Tablet, 1 EACH PO BID PRN Prescribed by: CLEVELAND MCLAIN MD on 02/15/09 1149 Patient Home Medication List Home Medication List Reviewed: Yes Review of Systems Constitutional: see HPI EENTM: see HPI Respiratory: no symptoms reported Cardiovascular: no symptoms reported Genitourinary: no symptoms reported Musculoskeletal: no symptoms reported Skin: no symptoms reported Psychiatric/Neurological: See HPI Past Cqjjpgd-Dkqyha-Bziinj Hx Patient Social History Recent Foreign Travel: No Contact w/Someone Who Travel: No Recent Infectious Disease Expo: No Physical Exam Vital Signs Vital Signs - First Documented 09/14/17 11:10 Temp 98.8 Pulse 89 Resp 18 B/P (MAP) 114/71 (85) Pulse Ox 99 O2 Delivery Room Air Capillary Refill : Less Than 3 Seconds Height, Weight, BMI Height: 5'7.00" Weight: 220lbs. oz. 99.976525xb; BMI Method:Stated General Appearance: No Apparent Distress, WD/WN Eyes: Bilateral Eye Normal Inspection, Bilateral Eye PERRL, Bilateral Eye EOMI HEENT: PERRL/EOMI, TMs Normal Neck: Full Range of Motion, Normal Inspection Respiratory: No Accessory Muscle Use, No Respiratory Distress Cardiovascular: Regular Rate, Rhythm, Normal Peripheral Pulses Gastrointestinal: Normal Bowel Sounds, Non Tender, Soft Extremity: Normal Capillary Refill, Normal Inspection Neurologic/Psychiatric: Alert, Oriented x3 Skin: Normal Color, Warm/Dry (she) Progress/Results/Core Measures Suspected Sepsis Recent Fever Within 48 Hours: No Infection Criteria Present: None New/Unexplained Altered Menta: No Sepsis Screen: No Definite Risk SIRS Temperature:98.8 Pulse: 89 Respiratory Rate: 18 Blood Pressure 114 /71 Mean: 85 Results/Orders Vital Signs/I&O 09/14/17 09/14/17 11:10 12:00 Temp 98.8 Pulse 89 68 Resp 18 16 B/P (MAP) 114/71 (85) 109/66 (80) Pulse Ox 99 100 O2 Delivery Room Air Capillary Refill : Less Than 3 Seconds Blood Pressure Mean: 85 Departure Communication (Admissions) now despite 48 hours of no alcohol use she is showing no signs of alcohol withdrawal or delirium tremens. Normal mental status, no hypertension or tremors. he is not intoxicated at this time, she appears very reasonable and genuinely interested in detox. supportive and encouraging grandmother is at the bedside. She's been to addiction treatment Center [facility] once before for 4 years ago and did not feel that it was helpful. She is uncertain at this point whether she would like to proceed withherapy. Impression Primary Impression: Substance abuse Disposition: 01 HOME, SELF-CARE Condition: Stable Departure-Patient Inst. Decision time for Depature: 12:10 [facility] Primary Care Physician NISHI RAGLAND (Family) Primary Care Physician Patient Instructions: ALCOHOL AND SUBSTANCE ABUSE, Panic Disorder (DC) Add. Discharge Instructions: 1. Your scheduled to see Dr. Norma Brown at [facility] tomorrow at 3:20 PM. Based on this visit they will proceed with outpatient or inpatient therapy. All discharge instructions reviewed with patient and/or family. Voiced understanding. Copy Copies To 1: NORMA BROWN MD, PETER J APRN Sep 14, 2017 12:10
[2017-09-14 14:00] VITALS: BP 136/71
== END 2017-09-14 12:20 | disposition home or self-care (01) ==
LOC: EDUNIT# 10:58 → ER 11:02
DX: F12.10 Cannabis abuse, uncomplicated (principal); F15.10 Other stimulant abuse, uncomplicated; F10.10 Alcohol abuse, uncomplicated; Z88.5 Allergy status to narcotic agent
CPT/HCPCS: 99283

== ENCOUNTER 2019-05-10 20:01 | Emergency (ER) | payer MEDICAID ==
[~2019-05-10] VITALS: Ht 170 cm; Wt 99.0 kg
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
[2019-05-10 20:47] VITALS: BP 122/82
--- NOTE | 2019-05-10 20:48 | Diagnostic Imaging Report ---
INDICATION: Right hand pain. Hand injury. FINDINGS: Alignment of the hand appears appropriate. There are no findings of an acute fracture. There is no joint dislocation. There is no focal soft tissue abnormality. There is no foreign body. IMPRESSION: 1. Negative radiographs of the right hand. Dictated by: Dictated on workstation # [id number]
--- OUTSIDE RECORDS SUMMARY | 2019-05-10 21:14 | XMS REPORT ---
Author Author Nicolette Moody [facility] Address [address] [place], [place] [address] Care Team Providers Care Certified Ski Patroller Name Role Phone Edward Moody PCP Unavailable Allergies and Adverse Reactions Name Reaction Notes codeine sulfate Latex doxepin Plan of Treatment Planned Activity Comments Planned Date Planned Time Plan/Goal HCG QL 04/17/2018 12:00 AM Medications Name Start Date Expiration Date SIG Comments fluticasone 50 mcg/actuation nasal spray,suspension 12/01/2017 12/08/2017 inhale 1 spray (50 mcg) in each nostril by intranasal route once daily for 7 days azithromycin 250 mg oral tablet 03/03/2018 03/08/2018 take 2 tablets (500 mg) by oral route once daily for 1 day then 1 tablet (250 mg) by oral route once daily for 4 days Discontinued Name Start Date Discontinued Date SIG Comments Medrol (Choco) 4 mg oral tablets,dose pack 12/01/2017 03/03/2018 take as directed Tessalon Perles 100 mg oral capsule 12/01/2017 03/03/2018 take 1 capsule (100 mg) by oral route 3 times per day as needed for cough prednisone 20 mg oral tablet 03/03/2018 03/17/2018 2 t abs po q am x 3 days, 1 tab po q am x 4 days, 1/2 tab po q am x 2 days. take in the am with food. Mucinex DM 30-600 mg oral tablet extended release 12 hr 9 03/17/2018 take 1 tablet by oral route every 12 hours as needed Zyrtec 10 mg oral tablet 03/03/2018 04/17/2018 1 tab p o q pm prn sinus drainage/cough fluticasone 50 mcg/actuation nasal spray,suspension 03/17/2018 04/17/2018 1-2 sprays each nostril bid for 14 days Mucinex DM 60-1,200 mg oral tablet extended release 12 hr 019 04/17/2018 1 tab po q 12 hours prn cough/congestion Problem List Not available. Vital Signs Date Time BP-Sys(mm[Hg] BP-Sheryl(mm[Hg]) HR(bpm) RR(rpm) Temp WT HT HC BMI BSA BMI Percentile O2 Sat(%) 04/17/2018 11:47:00 AM 112 mmHg 70 mmHg 87 bpm 18 rpm 99.1 F 196 lbs 67 in 30.6976 kg/m 2.0501 m 99 % 03/17/2018 12:27:00 PM 130 mmHg 84 mmHg 83 bpm 18 rpm 98.4 F 207.25 lbs 67 in 32.46 kg/m2 2.11 m2 99 % 03/03/2018 10:47:00 AM 116 mmHg 72 mmHg 109 bpm 18 rpm 98.1 F 205.375 lbs 67 in 32.1659 kg/m 2.0985 m 99 % 12/01/2017 3:53:00 PM 124 mmHg 80 mmHg 63 bpm 18 rpm 98.6 F 213 lbs 67 in 33.36 kg/m2 2.14 m2 98 % 11/17/2017 7:53:00 PM 116 mmHg 80 mmHg 104 bpm 16 rpm 99.3 F 202.25 lbs 67 in 31.6765 kg/m 2.0825 m 99 % Social History Name Description Comments Tobacco History of Procedures Date Ordered Description Order Status 11/17/2017 12:00 AM Zofran 4mg Injection Reviewed 11/17/2017 12:00 AM THER/PROPH/DIAG INJ SC/IM Reviewed 03/17/2018 12:29 PM STREP A ASSAY W/OPTIC Reviewed 03/17/2018 12:29 PM INFLUENZA A/B AG EIA Reviewed 03/17/2018 12:00 AM CULTURE SCREEN ONLY Returned 04/17/2018 12:03 PM URINE TEST Reviewed 04/17/2018 12:00 AM COLLECTION VENOUS BLOOD VENIPUNCTURE Rev iewed Results Summary Date and Description Results 03/17/2018 12:52 PM STREPTOCOCCUS, GROUP A CULTU RE neg Influenza A neg Influenza B neg 04/17/2018 12:24 PM Test, Urine neg History Of Immunizations Not available. History of Past Illness Name Date of Onset Comments Gastroenteritis Of Presumed Infectious Origin Nov 17 2017 7 :58PM Bronchitis Mar 03 2018 10:49AM URI (upper respiratory infection) Mar 17 2018 12:29PM Pharyngitis Mar 17 2018 12:29PM Smoker Mar 17 2018 12:29PM Encounter for test, result positive Apr 17 2018 11 :53AM Payers Insurance Name Company Name Plan Name Plan Number Policy Number [place] Group Number Start Date [employer] Better [employer] - [place] [employer] - [place] [id number] Friday, 2018 [employer] - [place] - [place] State [place] [employer] [place] [id number] N/A [employer] [place] [employer] [place] [id number] N/A History of Encounters Visit Date Visit Type Provider 04/17/2018 Office visit Edward Arciniega PRN 03/17/2018 Office visit Edward Arciniega PRN 03/03/2018 Office visit Edward Arciniega PRN 12/01/2017 Office visit Lester Lugo NP 11/17/2017 Office visit Lester Lugo NP
--- OUTSIDE RECORDS SUMMARY | 2019-05-10 21:14 | XMS REPORT ---
Author Author Nicolette Moody [facility] Address [address] [place], [place] [address] Care Team Providers Care Book Canvasser Name Role Phone Edward Moody PCP Unavailable Allergies and Adverse Reactions Name Reaction Notes codeine sulfate Latex doxepin Plan of Treatment Not available. Medications Name Start Date Expiration Date SIG [...] PM URINE TEST Reviewed 04/17/2018 12:00 AM CHORIONIC GONADOTROPIN ASSAY Returned 04/17/2018 12:00 AM COLLECTION VENOUS BLOOD VENIPUNCTURE [...] - RHC [employer] Better Health - [place] [id number] Friday, 2018 [employer] - [place] - [place] State Plan [employer] - [place] State Plan [id number] N/A [employer] [place] [employer] [place] [id number] N/A History of Encounters Visit Date Visit Type Provider 04/17/2018 Office visit Edward Arciniega PRN 03/17/2018 Office visit Edward Arciniega PRN 03/03/2018 Office visit Edward Arciniega PRN 12/01/2017 Office visit Lester Lugo NP 11/17/2017 Office visit Lester Lugo NP
--- OUTSIDE RECORDS SUMMARY | 2019-05-10 21:14 | XMS REPORT ---
Author Author Nicolette Moody [facility] Address [address] [place], [place] [address] Care Team Providers Care District Extension Service Agent Name Role Phone Edward Moody PCP Unavailable Allergies and Adverse Reactions Name Reaction Notes codeine sulfate Latex doxepin Plan of Treatment Not available. Medications Active Name Start Date Estimated Completion Date SIG Co mments prednisone 20 mg oral tablet 06/22/2018 2 t abs po q am x 3 days, 1 tab po q am x 4 days, 1/2 tab po q am x 2 days. take with food. Mucinex DM 60-1,200 mg oral tablet extended release 12 hr 06/23/19 19 1 tab po q 12 hours prn cough/congestion Name Start Date Expiration Date SIG Comments fluticasone 50 mcg/actuation nasal spray,suspension 12/01/2017 12/08/2017 inhale 1 spray (50 mcg) in each nostril by intranasal route once daily for 7 days azithromycin 250 mg oral tablet 03/03/2018 03/08/2018 take 2 tablets (500 mg) by oral route once daily for 1 day then 1 tablet (250 mg) by oral route once daily for 4 days azithromycin 250 mg oral tablet 06/22/2018 06/27/2018 take 2 tablets (500 mg) by oral [...] HC BMI BSA BMI Percentile O2 Sat(%) 06/22/2018 1:02:00 PM 118 mmHg 70 mmHg 75 bpm 18 rpm 97.5 F 192 lbs 67 in 30.0711 kg/m 2.029 m 100 % 04/17/2018 11:47:00 AM 112 mmHg 70 mmHg 87 bpm 18 rpm 99.1 F 196 lbs 67 in 30.70 kg/m2 2.05 m2 99 % 03/17/2018 12:27:00 PM 130 mmHg [...] result positive Apr 17 2018 11 :53AM Bronchitis Jun 22 2018 1:05PM Upper Respiratory Infections Dec 01 2017 3:56PM Payers Insurance Name Company Name Plan Name Plan Number Policy Number [place] Group Number Start Date [employer] Better [employer] - [place] [employer] - [place] [id number] Friday, 2018 [employer] - RHC - [place] State Plan [employer] - [place] [id number] N/A [employer] [place] [employer] [place] [id number] N/A History of Encounters Visit Date Visit Type Provider 06/22/2018 Office visit Edward Arciniega PRN 04/17/2018 Office visit Edward Arciniega PRN 03/17/2018 Office visit Edward Arciniega PRN 03/03/2018 Office visit Edward Arciniega PRN 12/01/2017 Office visit Lester Lugo NP 11/17/2017 Office visit Lester Lugo NP
--- OUTSIDE RECORDS SUMMARY | 2019-05-10 21:14 | XMS REPORT ---
Author Nicolette Espitia [facility] Address [address] [place], [place] [address] Care Team Providers Care Senior Advocate Name Role Phone Edward Moody PCP Unavailable Allergies and Adverse Reactions Name Reaction Notes codeine sulfate Latex doxepin Plan of Treatment Planned Activity Comments Planned Date Planned Time Plan/Goal Throat culture and sensitivity 03/17/2018 12:00 AM Medications Active Name Start Date Estimated Completion Date SIG Co mments Zyrtec 10 mg oral tablet 03/03/2018 1 tab po q pm pr n sinus drainage/cough fluticasone 50 mcg/actuation nasal spray,suspension 03/17/2018 1-2 sprays each nostril bid for 14 days Mucinex DM 60-1,200 mg oral tablet extended release 12 hr 019 1 tab po q 12 hours prn [...] oral route every 12 hours as needed Problem List Not available. Vital Signs Date Time BP-Sys(mm[Hg] BP-Sheryl(mm[Hg]) HR(bpm) RR(rpm) Temp WT HT HC BMI BSA BMI Percentile O2 Sat(%) 03/17/2018 12:27:00 PM 130 mmHg 84 mmHg 83 bpm 18 rpm 98.4 F 207.25 lbs 67 in 32.4596 kg/m 2.1081 m 99 % 03/03/2018 10:47:00 AM 116 mmHg 72 mmHg 109 bpm 18 rpm 98.1 F 205.375 lbs 67 in 32.17 kg/m2 2.10 m2 99 % 12/01/2017 3:53:00 PM 124 mmHg 80 mmHg 63 bpm 18 rpm 98.6 F 213 lbs 67 in 33.3602 kg/m 2.1371 m 98 % 11/17/2017 7:53:00 PM 116 mmHg 80 mmHg 104 bpm 16 rpm 99.3 F 202.25 lbs 67 in 31.6765 kg/m 2.08 m2 99 % Social History Name Description Comments Tobacco History of Procedures Date Ordered Description Order Status 11/17/2017 12:00 AM Zofran 4mg Injection Reviewed 11/17/2017 12:00 AM THER/PROPH/DIAG INJ SC/IM Reviewed 03/17/2018 12:29 PM STREP A ASSAY W/OPTIC Reviewed 03/17/2018 12:29 PM INFLUENZA A/B AG EIA Reviewed Results Summary Date and Description Results 03/17/2018 12:52 PM STREPTOCOCCUS, GROUP A CULTU RE neg Influenza A neg Influenza B neg History Of Immunizations Not available. History of Past Illness Name Date of Onset Comments Gastroenteritis Of Presumed Infectious Origin Nov 17 2017 7 :58PM Bronchitis Mar 03 2018 10:49AM URI (upper respiratory infection) Mar 17 2018 12:29PM Pharyngitis Mar 17 2018 12:29PM Smoker Mar 17 2018 12:29PM Payers Insurance Name Company Name Plan Name Plan Number Policy Number [place] Group Number Start Date [employer] Better Health - [facility] [employer] - [facility] [id number] Friday, 2018 [employer] - [place]HC - [place] State Plan [employer] - [place] [id number] N/A [employer] [place] [employer] [place] State Plan [id number] N/A History of Encounters Visit Date Visit Type Provider 03/17/2018 Office visit Edward BARCLAY 03/03/2018 Office visit Edward BARCLAY 12/01/2017 Office visit Lester Lugo NP 11/17/2017 Office visit Lester Lugo NP
--- OUTSIDE RECORDS SUMMARY | 2019-05-10 21:14 | XMS REPORT ---
Author Author Nicolette Moody [facility] Address [address] [place], [place] [address] Care Team Providers Care Slot Technician Name Role Phone Edward Moody PCP Unavailable Allergies and Adverse Reactions Name Reaction Notes codeine sulfate Latex doxepin Plan of Treatment Not available. Medications Active Name Start Date Estimated Completion Date SIG Co mments azithromycin 250 mg oral tablet 03/03/2018 03/08/2018 take 2 tablets (500 mg) by oral route once daily for 1 day then 1 tablet (250 mg) by oral route once daily for 4 days prednisone 20 mg oral tablet 03/03/2018 2 t abs po q am x 3 days, 1 tab po q am x 4 days, 1/2 tab po q am x 2 days. take in the am with food. Mucinex DM 30-600 mg oral tablet extended release 12 hr 9 take 1 tablet by oral route every 12 hours as needed Zyrtec 10 mg oral tablet 03/03/2018 1 tab po q pm pr n sinus drainage/cough Name Start Date Expiration Date SIG Comments fluticasone 50 mcg/actuation nasal spray,suspension 12/01/2017 12/08/2017 inhale 1 spray (50 mcg) in each nostril by intranasal route once daily for 7 days Discontinued Name Start Date Discontinued Date SIG Comments Medrol (Choco) 4 mg oral tablets,dose pack 12/01/2017 03/03/2018 take as directed Tessalon Perles 100 mg oral capsule 12/01/2017 03/03/2018 take 1 capsule (100 mg) by oral route 3 times per day as needed for cough Problem List Not available. Vital Signs Date Time BP-Sys(mm[Hg] BP-Sheryl(mm[Hg]) HR(bpm) RR(rpm) Temp WT HT HC BMI BSA BMI Percentile O2 Sat(%) 03/03/2018 10:47:00 AM 116 mmHg 72 mmHg [...] 11/17/2017 12:00 AM THER/PROPH/DIAG INJ SC/IM Reviewed Results Summary Not available. History Of Immunizations Not available. History of Past Illness Name Date of Onset Comments Gastroenteritis Of Presumed Infectious Origin Nov 17 2017 7 :58PM Bronchitis Mar 03 2018 10:49AM Payers Insurance Name Company Name Plan Name Plan Number Policy Number Reddy cy Group Number Start Date [employer] - [place] - [place] State Plan [employer] - [facility] State Plan [id number] N/A [employer] [place] State [place] [employer] [place] State Plan [id number] N/A History of Encounters Visit Date Visit Type Provider 03/03/2018 Office visit Edward BARCLAY 12/01/2017 Office visit Lester Lugo NP 11/17/2017 Office visit Lester Lugo NP
--- OUTSIDE RECORDS SUMMARY | 2019-05-10 21:14 | XMS REPORT ---
Author Author Nicolette Lugo [facility] Address [address] [place], [place] [address] Care Team Providers Care Messenger Copy Name Role Phone Lester Lugo PCP Allergies and Adverse Reactions Name Reaction Notes codeine sulfate Latex doxepin Plan of Treatment Not available. Medications Active Name Start Date Estimated Completion Date SIG Co mments fluticasone 50 mcg/actuation nasal spray,suspension 12/01/2017 12/08/2017 inhale 1 spray (50 mcg) in each nostril by intranasal route once daily for 7 days Medrol (Choco) 4 mg oral tablets,dose pack 12/01/2017 take as directed Tessalon Perles 100 mg oral capsule 12/01/2017 take 1 capsule (100 mg) by oral route 3 times per day as needed for cough Problem List Not available. Vital Signs Date Time BP-Sys(mm[Hg] BP-Sheryl(mm[Hg]) HR(bpm) RR(rpm) Temp WT HT HC BMI BSA BMI Percentile O2 Sat(%) 12/01/2017 3:53:00 PM 124 mmHg 80 mmHg 63 bpm 18 rpm 98.6 F 213 lbs 67 in 33.3602 kg/m 2.1371 m 98 % 11/17/2017 7:53:00 PM 116 mmHg 80 mmHg 104 bpm 16 rpm 99.3 F 202.25 lbs 67 in 31.68 kg/m2 2.08 m2 99 % Social History Name Description Comments Tobacco History of Procedures Date Ordered Description Order Status 11/17/2017 12:00 AM Zofran 4mg Injection Reviewed 11/17/2017 12:00 AM THER/PROPH/DIAG INJ SC/IM Reviewed Results Summary Not available. History Of Immunizations Not available. History of Past Illness Name Date of Onset Comments Gastroenteritis Of Presumed Infectious Origin Nov 17 2017 7 :58PM Payers Insurance Name Company Name Plan Name Plan Number Policy Number Reddy cy Group Number Start Date [employer] - [facility] [place] State Plan [employer] [place] - [facility] [place] State Plan [id number] N/A History of Encounters Visit Date Visit Type Provider 12/01/2017 Office visit Lester Lugo NP 11/17/2017 Office visit Lester Lugo NP
--- OUTSIDE RECORDS SUMMARY | 2019-05-10 21:14 | XMS REPORT ---
Author Author Nicolette Moody [facility] ou Address [address] [place], [place] [address] Care Team Providers Care Manager Pharmaceutical Name Role Phone Edward Moody PCP Unavailable [...] am x 2 days. take with food. azithromycin 250 mg oral tablet 06/22/2018 06/27/2018 take 2 tablets (500 mg) by oral route once daily for 1 day then 1 tablet (250 mg) by oral route once daily for 4 days Mucinex DM 60-1,200 mg oral tablet [...] 11 :53AM Bronchitis Jun 22 2018 1:05PM Payers Insurance Name Company Name Plan Name Plan Number Policy Number Reddy cy Group Number Start Date [employer] - [place] [employer] - [place]HC [id number] Friday, 2018 [employer] - [place] - [place] State Plan [employer] - [place] State Plan [id number] N/A [employer] [place] State Plan [employer] [place] State Plan [id number] N/A History of Encounters Visit Date Visit Type Provider 06/22/2018 Office visit Edward Arciniega PRN 04/17/2018 Office visit Edward Arciniega PRN 03/17/2018 Office visit Edward Arciniega PRN 03/03/2018 Office visit Edward Arciniega PRN 12/01/2017 Office visit Lester Lugo NP 11/17/2017 Office visit Lester Lugo NP
--- OUTSIDE RECORDS SUMMARY | 2019-05-10 21:14 | XMS REPORT ---
Author Author Nicolette Lugo [facility] Address [address] [place], [place] [address] Care Team Providers Care Maintenance Journeyman Name Role Phone Lester Lugo PCP Allergies and Adverse Reactions Name Reaction Notes codeine sulfate Latex doxepin Plan of Treatment Not available. Medications Not available. Problem List Not available. Vital Signs Date Time BP-Sys(mm[Hg] BP-Sheryl(mm[Hg]) HR(bpm) RR(rpm) Temp WT HT HC BMI BSA BMI Percentile O2 Sat(%) 11/17/2017 7:53:00 PM 116 mmHg 80 mmHg 104 bpm 16 rpm 99.3 F 202.25 lbs 67 in 31.6765 kg/m 2.0825 m 99 % Social History Name Description Comments Tobacco History of Procedures Date Ordered Description Order Status 11/17/2017 12:00 AM THER/PROPH/DIAG INJ SC/IM Reviewed Results Summary Not available. History Of Immunizations Not available. History of Past Illness Name Date of Onset Comments Gastroenteritis Of Presumed Infectious Origin Nov 17 2017 7 :58PM Payers Insurance Name Company Name Plan Name Plan Number Policy Number Reddy cy Group Number [facility] [place] State Plan [facility] State Plan [id number] N/A History of Encounters Visit Date Visit Type Provider 11/17/2017 Office visit Lester Lugo NP
--- OUTSIDE RECORDS SUMMARY | 2019-05-10 21:14 | XMS REPORT ---
Author Author Nicolette Alvarado Doctor Organization [facility] Address Unknown Phone Unavailable Care Team Providers Care Foreign Student Adviser Name Role Phone Migration, Doctor Unavailable Unavailable PROBLEMS Type Condition ICD9-CM Code [id number] Code Onset Dates Condition S tatus SNOMED Code Problem Acute nasopharyngitis J00 Active 54228218 Problem Borderline personality disorder F60.3 Active 89965577 Problem Positive test Z32.01 Active 555833719 Problem Post traumatic stress disorder (PTSD) F43.10 Active 75532340 Problem Cigarette nicotine dependence without complication F17.210 Active 17184557 Problem Unspecified mood [affective] disorder F39 Active 069992822 Problem Gynecologic exam normal Z01.419 Active 257103804 Problem Dysuria R30.0 Active 78664060 ALLERGIES No Information ENCOUNTERS Encounter Location Date Diagnosis [facility] [address] [place] [id number] 13 Jul, 19 [facility] [address] [place] [phone] 30 June, [address] [phone] 09 June, 19 Dental examination Z01.20 ; Gingivitis K05.10 and Oral health maintenance status requiring routine preventive dental care K08.9 [facility] [address] [place] [phone] 08 June, 19 Dental examination Z01.20 and Caries K02.9 [facility] [address] [place] [phone] 10 May, 19 Dental examination Z01.20 and Caries K02.9 [facility] [address] [place] [phone] 05 Jan, 18 Dental examination Z01.20 and Caries K02.9 [facility] [address] [id number] [place] [id number] Apr, Dental examination Z01.20 [facility] [place] [address] [facility] [id number] [address] [place] [phone] 14 Apr, 2017 Borderline personality disor gabo F60.3 ; Unspecified mood [affective] disorder F39 and Post traumatic stress disorder (PTSD) F43.10 [facility] [address] [id number] [place] [id number] 07 Mar, 2017 Dental caries K02.9 [facility] [place] [address] [facility] [id number] [address] [place] [phone] Feb, Borderline personality disor gabo F60.3 ; Unspecified mood [affective] disorder F39 and Post traumatic stress disorder (PTSD) F43.10 [facility] [id number] [place] [id number] 09 Feb, 2017 Dental examination Z01.20 [facility] [place] [address] [facility] [id number] [address] [place] [phone] Feb, [facility] [place] [address] [facility] [id number] [address] [place] [phone] Jan, Borderline personality disor gabo F60.3 [facility] [address] [id number] [place] [id number] Jan, [facility] [id number] [place] [id number] Jan, [facility] [place] [address] [facility] [id number] [address] [place] [phone] Jan, [facility] [place] [address] [facility] [id number] [address] [place] [phone] Dec, Borderline personality disor gabo F60.3 and Unspecified mood [affective] disorder F39 [facility] [place] [address] [id number] [place] [id number] Dec, [facility] [place] [address] [id number] [place] [id number] Dec, [facility] [place] [address] [id number] [place] [id number] Dec, [facility] [place] [address] [id number] [place] [id number] Nov, [facility] [place] [address] [id number] [place] [id number] Nov, [facility] [place] [address] [id number] [place] [id number] Nov, [facility] [place] [address] [id number] [place] [id number] Nov, [facility] [place] [address] [id number] [place] [id number] Nov, [facility] [address] [id number] 100[address] [place] [address] Nov, [facility] [place] [address] [id number] [place] [id number] Nov, [facility] [place] [address] [id number] [place] [id number] Nov, [facility] [place] [address] [id number] [place] [id number] Nov, [facility] [place] [address] [id number] [place] [id number] Nov, [facility] [place] [address] [id number] [place] [id number] Nov, [facility] [place] [address] [id number] [place] [id number] Oct, [facility] [place] [address] [id number] [place] [id number] Oct, [facility] [place] [address] [id number] [place] [id number] Oct, [facility] [place] [address] [id number] [place] [id number] Oct, [facility] [place] [address] [id number] [place] [id number] Oct, [facility] [place] [address] [id number] [place] [id number] Oct, [facility] [place] [address] [id number] [place] [id number] Oct, [facility] [place] [address] [id number] [place] [id number] Oct, [facility] [place] [address] [id number] [place] [id number] Sep, [facility] [place] [address] [id number] [place] [id number] Sep, [facility] [place] [address] [id number] [place] [id number] Sep, [facility] [address] [id number] [place] [id number] Sep, Dental examination Z01.20 [facility] [place] [address] [id number] [place] [id number] Sep, [facility] [place] [address] [id number] [place] [id number] Sep, [facility] [place] [address] [id number] [place] [id number] Sep, [facility] [place] [address] [id number] [place] [id number] Sep, [facility] [place] [address] [id number] [place] [id number] Sep, [facility] [place] [address] [id number] [place] [id number] Sep, [facility] [place] [address] [id number] [place] [id number] Sep, [facility] [address] [id number] [place] [id number] Sep, Dental examination Z01.20 [facility] [place] [address] [id number] [place] [id number] Aug, [facility] [address] [id number] [place] [id number] Apr, Positive test Z32.01 [facility] [address] [id number] [address] [place] [address] Apr, Dysuria R30.[address] [facility] [address] [id number] [place] [id number] Apr, [facility] [address] [id number] [place] [id number] Apr, [facility] [address] [id number] [place] [id number] Apr, [facility] [address] [id number] [place] [id number] Mar, Gynecologic exam normal Z01.419 [facility] [place] [address] [facility] [id number] [address] [place] [address] Mar, Borderline personality disor gabo F60.3 ; Unspecified mood [affective] disorder F39 and Cigarette nicotine dependence without complication F17.210 [facility] [place] [address] [facility] [id number] [address] [place] [phone] Feb, Borderline personality disor gabo F60.3 ; Unspecified mood [affective] disorder F39 and Cigarette nicotine dependence without complication F17.210 [facility] [place] [address] [facility] [id number] [address] [place] [phone] Jan, Borderline personality disor gabo F60.3 [facility] [id number] [place] [id number] Jan, Strep throat J02.0 and Sore throat J02.9 [facility] [id number] [place] [id number] Oct, Acute nasopharyngitis J00 [facility] [place] [address] [facility] [id number] [address] [place] [address] Aug, [facility] [place] [address] [facility] [id number] [address] [place] [phone] Jul, [facility] [place] [address] [facility] [id number] [address] [place] [phone] Jul, [facility] [place] [address] [facility] [id number] [address] [place] [address] Nov, Mood disorder F39 [facility] [place] [address] [facility] [id number] [address] [place] [address] Jul, Mood disorder 296.90 [facility] [address] [id number] [place] [id number] June, Bipolar 1 disorder, depressed 296.50 and Attention deficit disorder 314.00 [facility] [place] [address] [facility] [id number] [address] [place] [address] Jan, [facility] [place] [address] [facility] [id number] [address] [place] [phone] Nov, [facility] [place] [address] [facility] [id number] [address] [place] [address] Aug, IMMUNIZATIONS No Known Immunizations SOCIAL HISTORY Never Assessed REASON FOR VISIT EMR-[facility] PLAN OF CARE VITAL SIGNS MEDICATIONS Unknown Medications RESULTS No Results PROCEDURES No Known procedures INSTRUCTIONS MEDICATIONS ADMINISTERED No Known Medications MEDICAL (GENERAL) HISTORY Type Description Date Medical History attention deficit hyperactivity disorder Medical History bipolar disorder Medical History Tourette's syndrome Medical History personality disorder Surgical History tonsillectomy Surgical History wisdom teeth extraction Surgical History Tubal ligation 02/2017 Hospitalization History Voluntary in patient [facility] unit Hospitalization History childbirth for three days 12/2016
--- OUTSIDE RECORDS SUMMARY | 2019-05-10 21:14 | XMS REPORT ---
Author Author Nicolette RAGLAND [facility] [address] [facility] Address [address] [place] [address] Care Team Providers Care Rotary Drum Tanner Name Role Phone JERILYN RAGLANDA Unavailable PROBLEMS Type Condition ICD9-CM Code ZRS54-NC Code Onset Dates Condition S tatus SNOMED Code Problem Borderline personality disorder F60.3 Active 21801035 Problem Acute nasopharyngitis J00 Active 80587336 Problem Post traumatic stress disorder (PTSD) F43.10 Active 63831174 Problem Positive test Z32.01 Active 330113390 Problem Unspecified mood [affective] disorder F39 Active 680502073 Problem Cigarette nicotine dependence without complication F17.210 Active 59248124 Problem Dysuria R30.0 Active 18297243 Problem Gynecologic exam normal Z01.419 Active 872116770 ALLERGIES Substance Reaction Event Type Date Status Codeine Sulfate anger Drug Allergy Jan, Active Latex Unknown Non Drug Allergy Jan, Active ENCOUNTERS Encounter Location Date Diagnosis [facility] [address] [place] [address] 03 Feb, 19 [facility] [address] [place] [address] 05 Jan, 18 Dental examination Z01.20 and Caries K02.9 [place] [id number] [facility] [address] [id number] [id number] 15 Apr, 2017 Dental examination Z01.[address] [id number] [place], [place] [address] 14 Apr, 2017 Borderline personality disor gabo F60.3 ; Unspecified mood [affective] disorder F39 and Post traumatic stress disorder (PTSD) F43.10 [facility] [address] [facility] [id number][place] [id number] Mar, Dental caries K02.9 [place] [id number] [address] [place] [phone] Feb, Borderline personality disor gabo F60.3 ; Unspecified mood [affective] disorder F39 and Post traumatic stress disorder (PTSD) F43.10 [facility] [address] [id number][place] [id number] Feb, Dental examination Z01.20 [facility] [address] [facility] [id number] [address] [place] [address] Feb, [facility] [address] [facility] [id number] [address] [place] [address] Jan, Borderline personality disor gabo F60.3 [facility] [address] [id number][place] [id number] Jan, [facility] [address] [id number][place] [id number] Jan, [facility] [address] [facility] [id number] [address] [place] [address] Jan, [facility] [address] [facility] [id number] [address] [place] [address] Dec, Borderline personality disor gabo F60.3 and Unspecified mood [affective] disorder F39 [facility] [address] [id number] [place] [id number] Dec, [facility] [place] [address] [id number] [place] [id number] Dec, [facility] [address] [id number] [place] [id number] Dec, [facility] [place] [address] [id number] [place] [id number] Nov, [facility] [place] [address] [id number] [place] [id number] Nov, [facility] [address] [id number] [place] [id number] Nov, [facility] [place] [address] [id number] [place] [id number] Nov, [facility] [place] [address] [id number] [place] [id number] Nov, [facility] [address] [id number] [address] [place] [address] Nov, [facility] [place] [address] [id number] [place] [id number] Nov, [facility] [place] [address] [id number] [place] [id number] Nov, [facility] [place] [address] [id number] [place] [id number] Nov, [facility] [place] [address] [id number] [place] [id number] Nov, [facility] [place] [address] [id number] [place] [id number] Nov, [facility] [place] [address] [id number] [place] [id number] Oct, [facility] [place] [address] [id number] [place] [id number] Oct, [facility] [place] [address] [id number] [place] [id number] Oct, [facility] [place] [address] [id number] [place] [id number] Oct, [facility] [place] [address] [id number] [place] [id number] Oct, [facility] [place] [address] [id number] [place] [id number] Oct, [facility] [place] [address] [id number] [place] [id number] Oct, [facility] [place] [address] [id number] [place] [id number] Oct, [facility] [place] [address] [id number] [place] [id number] Sep, [facility] [place] [address] [id number] [place] [id number] Sep, [facility] [place] [address] [id number] [place] [id number] Sep, [facility] [address] [id number] [place] [id number] Sep, Dental examination Z01.20 [facility] [place] [address] [id number] [place] [id number] Sep, [facility] [place] [address] [id number] [place] [id number] Sep, [facility] [place] [address] [id number] [place] [id number] Sep, [facility] [place] [address] [id number] [place] [id number] Sep, [facility] [place] [address] [id number] [place] [id number] Sep, [facility] [place] [address] [id number] [place] [id number] Sep, [facility] [place] [address] [id number] [place] [id number] Sep, [facility] [address] [id number] [place] [phone] Sep, Dental examination Z01.20 [facility] [address] [id number] [place] [id number] Aug, [facility] [place] [address] [id number], [place] [id number] Apr, Positive test Z32.01 [facility] [address] [facility] [id number] [place] [address] Apr, Dysuria R30.[address] [facility] [address] [id number], [place] [phone] Apr, [facility] [address] [id number], [place] [id number] Apr, [facility] [place] [address] [id number], [place] [phone] Apr, [facility] [place] [id number] [place] [id number] Mar, Gynecologic exam normal Z01.419 [facility] [address] [facility] [id number] [address] [place] [address] Mar, Borderline personality disor gabo F60.3 ; Unspecified mood [affective] disorder F39 and Cigarette nicotine dependence without complication F17.210 [facility] [address] [facility] [id number] [address] [place] [address] Feb, Borderline personality disor gabo F60.3 ; Unspecified mood [affective] disorder F39 and Cigarette nicotine dependence without complication F17.210 [facility] [address] [facility] [id number] [address] [place] [address] Jan, Borderline personality disor gabo F60.3 [facility] [id number] [place] [id number] Jan, Strep throat J02.0 and Sore throat J02.9 [facility] [id number] [place] [id number] Oct, Acute nasopharyngitis J00 [facility] [address] [place] [id number] [address] [place] [address] Aug, [facility] [address] [place] [id number] [address] [place] [address] Jul, [facility] [address] [place] [id number] [address] [place] [address] Jul, [facility] [address] [place] [id number] [address] [place] [address] Nov, Mood disorder F39 [facility] [address] [facility] [id number] [address] [place] [address] Jul, Mood disorder 296.90 [facility] [address] [id number] [place] [id number] June, Bipolar 1 disorder, depressed 296.50 and Attention deficit disorder 314.00 [facility] [address] [place] [id number] [address] [place] [address] Jan, [facility] [address] [facility] [id number] [address] [place] [address] Nov, [facility] [address] [facility] [id number] [address] [place] [phone] Aug, IMMUNIZATIONS No Known Immunizations SOCIAL HISTORY Never Assessed REASON FOR VISIT bolivar DA/IK PLAN OF CARE Activity Details Follow Up prn Reason: VITAL SIGNS Height 67.50 in 2018-01-20 Blood pressure systolic 94 mmHg 2018-01-20 Blood pressure diastolic 82 mmHg 2018-01-20 MEDICATIONS Medication Instructions Dosage Frequency Start Date End Date Duration S tatus Cocoa 5-325 MG Orally every 6 hrs 1 tablet as needed 6h Jan, 8 Active RESULTS No Results PROCEDURES Procedure Date Ordered Result Body Site LTD ORAL EVALUATION - PROBLEM FOCUS Jan 20, 2018 INTRAORL-PERIAPICAL 1 FILM 64930 Jan 20, 2018 EXTRAC ERUPTED TOOTH/EXPOSED ROOT Jan 20, 2018 INTRAORL-PERIAPICAL EA ADD FILM Jan 20, 2018 INSTRUCTIONS MEDICATIONS ADMINISTERED No Known Medications MEDICAL (GENERAL) HISTORY Type Description Date Medical History attention deficit hyperactivity disorder Medical History bipolar disorder Medical History Tourette's syndrome Medical History personality disorder Surgical History tonsillectomy Surgical History wisdom teeth extraction Surgical History Tubal ligation 02/2017 Hospitalization History Voluntary in patient [facility] admission [facility] unit Hospitalization History childbirth for three days 12/2016
--- OUTSIDE RECORDS SUMMARY | 2019-05-10 21:15 | XMS REPORT ---
Author Author Nicolette Pinto [facility] Address [address] [place] [address] Care Team Providers Care Train Braker Name Role Phone KIERSTEN Pinto Unavailable PROBLEMS Type Condition ICD9-CM Code AUA26-SS Code Onset Dates Condition S tatus SNOMED Code Problem Borderline personality disorder F60.3 Active 95150319 Problem Acute nasopharyngitis J00 Active 31283416 Problem Post traumatic stress disorder (PTSD) F43.10 Active 67119479 Problem Positive test Z32.01 Active 609658388 Problem Unspecified mood [affective] disorder F39 Active 960928504 Problem Cigarette nicotine dependence without complication F17.210 Active 61255771 Problem Dysuria R30.0 Active 67015215 Problem Gynecologic exam normal Z01.419 Active 392181378 ALLERGIES Substance Reaction Event Type Date Status Codeine Sulfate anger Drug Allergy Apr, Active Latex Unknown Non Drug Allergy Apr, Active ENCOUNTERS Encounter Location Date Diagnosis [id number] [place] [address] [id number] 15 Apr, 2017 Dental examination Z01.20 [facility] [address] [facility] [id number] [address] [place] [address] 14 Apr, 2017 Borderline personality disor gabo F60.3 ; Unspecified mood [affective] disorder F39 and Post traumatic stress disorder (PTSD) F43.10 [place] [id number] [facility] [id number] [place] [address] [id number] 07 Mar, 2017 Dental caries K02.9 [facility] [address] [facility] [id number] [address] [place] [phone] 10 Feb, 2017 Borderline personality disor gabo F60.3 ; Unspecified mood [affective] disorder F39 and Post traumatic stress disorder (PTSD) F43.[address] [place] [address] [id number][place] [id number] Feb, Dental examination Z01.20 [facility] [address] [facility] [id number] [address] [place] [address] Feb, [facility] [address] [facility] [id number] [address] [place] [address] Jan, Borderline personality disor gabo F60.3 [facility] [address] [id number][place] [id number] Jan, [facility] [place] [address] [id number], [place] [id number] Jan, [facility] [address] [facility] [id number] [address] [place] [address] Jan, [facility] [address] [facility] [id number] [address] [place] [address] Dec, Borderline personality disor gabo F60.3 and Unspecified mood [affective] disorder F39 [facility] [place] [address] [id number] [place] [id number] Dec, [facility] [place] [address] [id number] [place] [id number] Dec, [facility] [place] [address] [id number] [place] [id number] Dec, [facility] [place] [address] [id number] [place] [id number] Nov, [facility] [place] [address] [id number] [place] [id number] Nov, [facility] [place] [address] [id number] [place] [id number] Nov, [facility] [place] [address] [id number] [place] [id number] Nov, [facility] [place] [address] [id number] [place] [id number] Nov, [facility] [address] [facility] [id number] [address] [place] [address] Nov, [facility] [place] [address] [id number] [place] [id number] Nov, [facility] [place] [address] [id number] [place] [id number] Nov, [facility] [place] [address] [id number] [place] [id number] Nov, [facility] [place] [address] [id number] [place] [id number] Nov, [facility] [place] [address] [id number] [place] [id number] Nov, [facility] [place] [address] [id number] [place] [id number] Oct, [facility] [place] [address] [id number] [place] [id number] Oct, [facility] [place] [address] [id number] [place] [id number] Oct, [facility] [place] [address] [id number] [place] [id number] Oct, [facility] [place] [address] [id number] [place] [id number] Oct, [facility] [place] [address] [id number] [place] [id number] Oct, [facility] [place] [address] [id number] [place] [id number] Oct, [facility] [place] [address] [id number] [place] [id number] Oct, [facility] [place] [address] [id number] [place] [id number] Sep, [facility] [place] [address] [id number] [place] [id number] Sep, [facility] [place] [address] [id number] [place] [id number] Sep, [facility] [place] [facility] [address] [id number] [place] [id number] Sep, Dental examination Z01.20 [facility] [place] [address] [id number] [place] [id number] Sep, [facility] [place] [address] [id number] [place] [id number] Sep, [facility] [place] [address] [id number] [place] [id number] Sep, [facility] [place] [address] [id number] [place] [id number] Sep, [facility] [place] [address] [id number] [place] [id number] Sep, [facility] [place] [address] [id number] [place] [id number] Sep, [facility] [place] [address] [id number] [place] [id number] Sep, [facility] [place] [id number], [place] [id number] Sep, Dental examination Z01.20 [facility] [place] [address] [id number] [place] [id number] Aug, [facility] [place] [id number], [place] [id number] Apr, Positive test Z32.01 [place] [address] [place] [id number] [address] [place] [address] Apr, Dysuria R30.0 [facility] [address] [id number], [place] [id number] Apr, [facility] [place] [id number], [place] [id number] Apr, [facility] [place] [id number], [place] [id number] Apr, [facility] [place] [address] [id number], [place] [phone] Mar, Gynecologic exam normal Z01.419 [place] [address] [place] [address] 21 Feb, 2017 Borderline personality disor gabo F60.3 ; Unspecified mood [affective] disorder F39 and Cigarette nicotine dependence without complication F17.210 [facility] [address] [facility] [id number] [address] [place] [address] 20 Feb, 2016 Borderline personality disor gabo F60.3 ; Unspecified mood [affective] disorder F39 and Cigarette nicotine dependence without complication F17.210 [facility] [address] [facility] [id number] [address] [place] [address] 23 Jan, 2016 Borderline personality disor gabo F60.3 [facility] [address] [facility] [address] [id number], [place] [id number] 08 Jan, 2016 Strep throat J02.0 and Sore throat J02.9 [facility] [address] [facility] [address] [id number], [place] [id number] 07 Oct, 2015 Acute nasopharyngitis J00 [facility] [address] [facility] [id number] [address] [place] [address] Aug, [facility] [address] [facility] [id number] [address] [place] [phone] Jul, [facility] [address] [facility] [id number] [address] [place] [address] Jul, [facility] [address] [facility] [id number] [address] [place] [address] Nov, Mood disorder F39 [facility] [address] [facility] [id number] [address] [place] [address] Jul, Mood disorder 296.90 [facility] [place] [address] [id number] [place] [address] [id number] June, Bipolar 1 disorder, depressed 296.50 and Attention deficit disorder 314.00 [facility] [address] [facility] [id number] [address] [place] [address] Jan, [facility] [address] [facility] [id number] [address] [place] [phone] Nov, [facility] [address] [facility] [id number] [address] [place] [address] Aug, IMMUNIZATIONS No Known Immunizations SOCIAL HISTORY Never Assessed REASON FOR VISIT Restorative PLAN OF CARE Activity Details Follow Up 1 Week Reason:1hr.fillings VITAL SIGNS Height 67.50 in 2017-04-30 Blood pressure systolic 127 mmHg 2017-04-30 Blood pressure diastolic 72 mmHg 2017-04-30 MEDICATIONS Medication Instructions Dosage Frequency Start Date End Date Duration S tatus Abilify 5 mg Orally Once a day 1 tablet 24h Apr, 30 day(s) Active Clindamycin HCl 150 MG Orally every 8 hrs 2 capsules 8h 5 day(s) Not-Taking Sertraline HCl 25 MG Orally Once a day 1 tablet 24h Active Lamotrigine 25 MG Orally Twice a day 1 tablet 12h Not-Taking Latuda 40 mg Orally Once a day 1 tablet with food 24h Not-Taking Zoloft 100 MG Orally Once a day 1 tablet 24h 30 days Not-Taking Not-Taking Folic Acid Not-Taking Motrin IB 800 Orally every 6 hrs 1 tablet as needed 6h 5 days Not-Taking Nicoderm CQ 7 MG/24HR Transdermal Once a day 1 patch to skin 24h Not-Taking Bactrim Not-Taking RESULTS No Results PROCEDURES Procedure Date Ordered Result Body Site RESIN COMPOS - 2 SURFACES POSTERIOR April 30, 2017 Billing Notes on claim April 30, 2017 INSTRUCTIONS MEDICATIONS ADMINISTERED No Known Medications MEDICAL (GENERAL) HISTORY Type Description Date Medical History attention deficit hyperactivity disorder Medical History bipolar disorder Medical History Tourette's syndrome Medical History personality disorder Surgical History tonsillectomy Surgical History wisdom teeth extraction Surgical History Tubal ligation 02/2017 Hospitalization History Voluntary in patient [facility] admission [facility] unit Hospitalization History childbirth for three days 12/2016
--- OUTSIDE RECORDS SUMMARY | 2019-05-10 21:16 | XMS REPORT | Clinical Summary ---
Author Author Admin, Nicolette Oneill Organization [facility] Address Unknown Phone Unavailable Allergies, Adverse Reactions, Alerts Allergy Name Reaction Description Start Date Severity Status Pr ovider CODEINE hives and psych issues Critical Active Adeline Cruz MD Conditions or Problems Problem Name Problem Code Onset Date Status Entry Date Provider Comment Standard Description Annotate FAMILY HISTORY OF CORONARY HEART DISEASE V17.3 Active Estrellita Tenorio MD Family history of ischemic heart disease FAMILY HISTORY OF DIABETES V18.0 Active Estrellita Franco MD Family history of diabetes mellitus WELL CHILD EXAM V20.2 Inactive Estrellita Teonrio MD Routine infant or child health check CEPHALGIA 784.0 Resolved Estrellita Tenorio MD Headache WELL CHILD EXAM V20.2 Inactive Estrellita Tenorio MD Routine infant or child health check ABDOMINAL PAIN 789.00 Resolved Estrellita Tenorio MD Abdominal pain, unspecified site KNEE PAIN, LEFT 719.46 Active Estrellita Tenorio MD Pain in joint involving lower leg CONTRACEPTIVE MANAGEMENT V25.09 Resolved Mor Cruz MD Encounter for other general counseling and advice on c ontraceptive management Well child examination V20.2 Active Christy garcia RETURN CLERK Routine or child health check Wart, left hand 078.10 Active Christy Brown APR N Viral warts, unspecified Vaginal discharge 623.5 Resolved Marilee Cook LPN Leukorrhea, not specified as infective DYSURIA 788.1 Resolved Marilee Cook LPN Dysuria examination or test, positive result V72.42 Active Marilee Cook LPN examination or milagro t, positive result Status, sterilization, tubal ligation V26.51 Active Marilee Cook LPN Tubal ligation status BMI 30-30.9 Refinement Ellen Iraheta PA-C Body Mass Index 30.0-30.9, adult BMI 29-29.9 Refinement Carolina Kaur Slim dy Mass Index 30.0-30.9, adult BMI 28-28.9 Active Josephine Cruz MD Body Mass Index 30.0-30.9, adult Obesity Class I (BMI 30-34.9) Refinement Debbie Iraheta PA-C Obesity, unspecified Overweight (BMI 25-29.9) Active Carolina Kaur Obesity, unspecified Paresthesia of arm 782.0 Active Ellen Iraheta PA-C Disturbance of skin sensation left arm Std screening V74.5 Active Josephine Cruz MD Screening examination for venereal disease Pap only (ca screen cervix) V76.2 Inactive Josephine Cruz MD Screening for malignant neoplasms of the cervix Atypical squamous cells on cervical Papa nicolaou smear cannot exclude high grade squamous intraepithelial lesion 795.02 Active 5 Josephine Cruz MD Papanicolaou smear of cervix with atypical squamous cells cannot exclude high grade squamous intraepithelial lesion (ASC-H) 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 Josephine Cruz MD M oderate dysplasia of cervix Irregular menses 626.4 Active Josephine Cruz MD Irregular menstrual cycle WELL CHILD EXAM ICD-V20.2 Inactive Estrellita barajas MD CEPHALGIA ICD-784.0 Inactive Estrellita Tenorio MD WELL CHILD EXAM ICD-V20.2 Inactive Estrellita barajas MD ABDOMINAL PAIN ICD-789.00 Inactive Estrellita barajas MD CONTRACEPTIVE MANAGEMENT ICD-V25.09 Inactive Josephine Cruz MD Vaginal discharge ICD-623.5 Inactive Marilee powers LPN DYSURIA ICD-788.1 Inactive Marilee REYNOLDS Medication List Medication Instructions Start Date Stop Date Generic Name NDC Status Provider Patient Instruction DIFLUCAN 150 MG ORAL TABLET 1 tablet by mouth daily 20 04/07/14 FLUCONAZOLE 14984354728 No Longer Active Josephine Cruz MD Active CYCLOBENZAPRINE HCL 10 MG ORAL TABLET 1 q 8 hours prn for mu scle spasms CYCLOBENZAPRINE HCL 33461836130 No Longer Active Carlos Kaur Active SPRINTEC 28 0.25-35 MG-MCG ORAL TABLET 1 pill by mouth daily 201 07/28/21 NORGESTIMATE-ETH ESTRADIOL 48680114407 No Longer Active Nabeel Cook LPN Active LAMOTRIGINE 150 MG ORAL TABLET 1 daily LAMOTRIG INE 20195300631 No Longer Active Josephine Cruz MD Active BUSPIRONE HCL 10 MG ORAL TABLET 1/2 bid BUSPIRO NE HCL 69465256967 No Longer Active Josephine Cruz MD Active WELLBUTRIN 100 MG ORAL TABLET take 4&1/2 tabs daily 31/01/22 BUPROPION HCL 27243842279 No Longer Active Josephine Cruz MD Active STRATTERA 80 MG ORAL CAPSULE 1 tablet daily ATOMOXETINE HCL 50943310474 No Longer Active Josephine Cruz MD Active SPRINTEC 28 0.25-35 MG-MCG ORAL TABLET Take one by mouth daily 2 NORGESTIMATE-ETH ESTRADIOL 37516461244 No Longer Active Josephine Cruz MD Active BUPROPION HCL ER (XL) 300 MG ORAL TABLET EXTENDED RELEASE 24 ZACKARY R BUPROPION HCL 30051271897 No Longer Active Josephine Cruz MD Active DOXEPIN HCL 150 MG ORAL CAPSULE Take 1 to 2 caplets as needed at bedtime for sleep DOXEPIN HCL 87725846286 No Longer Active Josephine Cruz MD Active BACTRIM DS 800-160 MG ORAL TABLET Take one (1) by mouth twice a day SULFAMETHOXAZOLE-TRIMETHOPRIM 08144965530 No Longer Active Daniel Cruz MD Active VYVANSE 30 MG ORAL CAPSULE 1 daily LISDEXAMF ETAMINE DIMESYLATE 41526952398 No Longer Active Josephine Cruz MD Active TRAZODONE HCL 100 MG ORAL TABLET 1 tab at bedtime 2013 TRAZODONE HCL 57838717903 No Longer Active Christy Brown RETURN CLERK Act vernon TRAZODONE HCL 50 MG ORAL TABLET 1 q hs TRAZODO NE HCL 46137472275 No Longer Active Estrellita Tenorio MD Active TRAZODONE HCL 50 MG ORAL TABLET 1 q hs 5 TRAZODONE HCL 50 MG ORAL TABLET 592765 TRAZODONE HCL Inactive TRAZODONE HCL 100 MG ORAL TABLET 1 tab at bedtime 2013 TRAZODONE HCL 100 MG ORAL TABLET 543467 TRAZODONE HCL Inactiv e VYVANSE 30 MG ORAL CAPSULE 1 daily VYVANSE 30 M G ORAL CAPSULE LISDEXAMFETAMINE DIMESYLATE Inactive BACTRIM DS 800-160 MG ORAL TABLET Take one (1) by mouth twice a day BACTRIM DS 800-160 MG ORAL TABLET 134591 SULFAMETHOXAZOLE-TRIMETHOPRIM Inactive DOXEPIN HCL 150 MG ORAL CAPSULE Take 1 to 2 caplets as needed at bedtime for sleep DOXEPIN HCL 150 MG ORAL CAPSULE 7456444 DOXE PIN HCL Inactive BUPROPION HCL ER (XL) 300 MG ORAL TABLET EXTENDED RELEASE 24 ZACKARY R BUPROPION HCL ER (XL) 300 MG ORAL TABLET EXTENDED RELEASE 24 HOUR BUPROPION HCL Inactive SPRINTEC 28 0.25-35 MG-MCG ORAL TABLET Take one by mouth daily 2 SPRINTEC 28 0.25-35 MG-MCG ORAL TABLET 658799 N ORGESTIMATE-ETH ESTRADIOL Inactive STRATTERA 80 MG ORAL CAPSULE 1 tablet daily STRATTERA 80 MG ORAL CAPSULE 525222 ATOMOXETINE HCL Inactive WELLBUTRIN 100 MG ORAL TABLET take 4&1/2 tabs daily 20 31/01/22 WELLBUTRIN 100 MG ORAL TABLET BUPROPION HCL Inactive BUSPIRONE HCL 10 MG ORAL TABLET 1/2 bid 2 BUSPIRONE HCL 10 MG ORAL TABLET 924251 BUSPIRONE HCL Inactive LAMOTRIGINE 150 MG ORAL TABLET 1 daily LAMOTRIGINE 150 MG ORAL TABLET 445915 LAMOTRIGINE Inactive SPRINTEC 28 0.25-35 MG-MCG ORAL TABLET 1 pill by mouth daily 201 07/28/21 SPRINTEC 28 0.25-35 MG-MCG ORAL TABLET 571642 N ORGESTIMATE-ETH ESTRADIOL Inactive CYCLOBENZAPRINE HCL 10 MG ORAL TABLET 1 q 8 hours prn for mu scle spasms CYCLOBENZAPRINE HCL 10 MG ORAL TABLET 538154 CYCLOBENZAPRINE HCL Inactive DIFLUCAN 150 MG ORAL TABLET 1 tablet by mouth daily 04/07/14 DIFLUCAN 150 MG ORAL TABLET 354253 FLUCONAZOLE Inactive Advance Directives Directive Description Start Date HOME PLACEMENT AGREEMENT CONSENT TO MEDICAL CARE CHILD IN NEED OF CARE ORDER PERMISSION TO SHARE Immunizations Vaccine Administration Date Value Standard Colt cription TB-PPD (tuberculin purified protein derivative), intra dermal administration Tubersol Human Papillomavirus vaccine (Gardasil) #3, (HPV #3) Gardasil human papilloma virus vaccine, quadrivalent MPSV4 (meningococcal polysaccharide vaccination) Historical meningococcal polysaccharide vaccine (MPSV4) hepatitis A immunization #2 Historical hepa titis A vaccine, unspecified formulation Human Papillomavirus vaccine (Gardasil) #2, (HPV #2) Gardasil human papilloma virus vaccine, quadrivalent dT (Diphtheria and Tetanus) booster given Histor ical Td(adult) unspecified formulation Adacel (Tetanus, reduced Diphtheria, and acellular Per tussis Immunization) Adacel [[id number]] tetanus toxoid, reduced diph theria toxoid, and acellular pertussis vaccine, adsorbed hepatitis A immunization #1 Historical hepa titis A vaccine, unspecified formulation Adacel (Tetanus, reduced Diphtheria, and acellular Per tussis Immunization) Adacel [[id number]] tetanus toxoid, reduced diph theria toxoid, and acellular pertussis vaccine, adsorbed chicken pox immunization #2 Historical vari benedict virus vaccine DPT immunization #5 Historical oral polio vaccine (OPV) #4 Historical ann marie ovirus vaccine, unspecified formulation MMR (measles, mumps, rubella) virus immunization #2 Historical chicken pox immunization #1 Historical vari benedict virus vaccine DPT immunization #4 Historical DPT immunization #3 Historical oral polio vaccine (OPV) #3 Historical ann marie ovirus vaccine, unspecified formulation hepatitis B vaccine #3 Historical hepatitis B vaccine, unspecified formulation DPT immunization #2 Historical Hemophilus influenza B immunization #2 Historica l Haemophilus influenzae type b vaccine, conjugate unspecified formulation oral polio vaccine (OPV) #2 Historical ann marie ovirus vaccine, unspecified formulation MMR (measles, mumps, rubella) virus immunization #1 Historical hepatitis B vaccine #2 given Historical hep atitis B vaccine, unspecified formulation DPT immunization #1 Historical Hemophilus influenza B immunization #1 Historica l Haemophilus influenzae type b vaccine, conjugate unspecified formulation oral polio vaccine (OPV) #1 Historical ann marie ovirus vaccine, unspecified formulation hepatitis B vaccine #1 given Historical hep atitis B vaccine, unspecified formulation Vital Signs Date Name Value Unit Range Description blood pressure, diastolic 67 mm[Hg] BP snowden blood pressure, systolic 121 mm[Hg] BP sys height E&M 67.75 [in_us] Bdy height pulse rate E&M 70 /min Heart rate temperature E&M 97.8 [degF] Body temp erature weight E&M 190.40 [lb_av] Weight Measure d blood pressure, diastolic 73 mm[Hg] BP snowden blood pressure, systolic 110 mm[Hg] BP sys height E&M 67.75 [in_us] Bdy height pulse rate E&M 84 /min Heart rate temperature E&M 99.0 [degF] Body temp erature weight E&M 186 [lb_av] Weight Measure d blood pressure, diastolic 84 mm[Hg] BP snowden blood pressure, systolic 128 mm[Hg] BP sys height E&M 67.75 [in_us] Bdy height pulse rate E&M 78 /min Heart rate temperature E&M 98.6 [degF] Body temp erature weight E&M 191 [lb_av] Weight Measure d blood pressure, diastolic, repeated by physician 84 BP snowden blood pressure, diastolic 84 mm[Hg] BP snowden blood pressure, systolic, repeated by physician 129 BP sys blood pressure, systolic 129 mm[Hg] BP sys height E&M 67.75 [in_us] Bdy height pulse rate E&M 90 /min Heart rate temperature E&M 99.1 [degF] Body temp erature weight E&M 194 [lb_av] Weight Measure d blood pressure, diastolic, repeated by physician 71 BP snowden blood pressure, diastolic 71 mm[Hg] BP snowden blood pressure, systolic, repeated by physician 113 BP sys blood pressure, systolic 113 mm[Hg] BP sys height E&M 67.75 [in_us] Bdy height pulse rate E&M 86 /min Heart rate temperature E&M 98.8 [degF] Body temp erature weight E&M 199.50 [lb_av] Weight Measure d Diagnostic Results Date Name Value Unit Range Description Lab Report: Chlamydia/GC APTIMA/34229, H EPATITIS B S AG W/, HIV-1/2 Agn/ ... - Chemistry hepatitis B surface antigen NON-REACTIVE NON-RE ACTIVE rapid plasma reagin antibody titer NON-REACTIVE NON-REACTIVE Lab Report: Chlamydia/GC APTIMA/22374, H EPATITIS B S AG W/, HIV-1/2 Agn/ ... - Lab chlamydia DNA probe NOT DETECTED NOT DETECTED Lab Report: Chlamydia/GC APTIMA/13169, H EPATITIS B S AG W/, HIV-1/2 Agn/ ... - Microbiology Neisseria gonorrhoeae DNA probe NOT DETECTED NO T DETECTED Lab Report: Wet Prep, UADIP W/MICRO, AUT O - Chemistry RBC, urine, dipstick Negative Negative protein, total urine random Negative mg/dL Negative Lab Report: Wet Prep, UADIP W/MICRO, AUT O - Urinalysis glucose, urine, semiquantitative Negative Neg ative ketones, urine, by test strip Negative Negati ve bilirubin, urine Negative Negative urine color Yellow Colorless;Lightyellow;St raw;Yellow appearance, urine Slightly Cloudy Clear specific gravity, urine 1.025 1.000-1.030 pH, urine, semiquantitative 7.0 5.0-8.5 urobilinogen, urine, semiquantitative (dipstick) 0.2 E .U./dL Normal leukocyte esterase, urine, by dipstick 1+ Negative nitrite, urine, semiquantitative Negative Neg ative urate crystals, amorphous, urine, semiquantitative Few None seen Office Procedure: Colposcopy - Chemistry human chorionic gonadotropin , urine, qualitative (urine test) neg Office Visit: Evaluation for possible pr egnancy - Chemistry human chorionic gonadotropin , urine, qualitative (urine test) Negative Office Visit: F/u neck pain, nerve damag e - Chemistry HDL cholesterol, serum, target level 40 mg/dL cholesterol, target level 200 mg/dL triglyceride, target level 150 mg/dL Encounters Code Encounter Date Provider Facility CPT-11400 Level 3 Est. Patient 15:03:32 CDT Josephine montgomery MD [facility] CPT-97475 Level 4 Est. Patient 12:59:20 CDT Josephine montgomery MD [facility] CPT-95849 Level 4 Est. Patient 13:50:25 CDT Josephine montgomery MD [facility] CPT-04704 98836-[id number] Vst-New Level II 14:23:[address] Ellen Iraheta PA-C [facility] CPT-42239 Level 3 Est. Patient 11:17:42 TROLLEY COACH DRIVER Christy Muñoz APRN [facility] CPT-18587 Level 3 Est. Patient 11:06:57 CDT Estrellita Caceres MD [facility] CPT-54806 Level 3 Est. Patient 14:47:06 TROLLEY COACH DRIVER Estrellita Caceres MD [facility] CPT-38664 Level 3 Est. Patient 12:33:15 TROLLEY COACH DRIVER Estrellita Caceres MD [facility] Procedures Code Procedure Name Date Entry Date Standard Desc ription CPT-OV Office Visit 10:54:38 CDT CPT-52266 [place] of cervix w bx ECC 10:46:24 CDT 06/30 CPT-62288 UHCG Urine - FLOOR USE ONLY 10:46:23 CDT 20 04/07/14 CPT-OV Office Visit 10:46:23 CDT CPT-48764 Nexplanon Removal 15:02:55 TROLLEY COACH DRIVER CPT-OV Office Visit 15:44:02 CDT CPT-76292 Nexplanon Placement 14:14:42 CDT CPT-J7307 Nexplanon (Implant) 14:14:42 CDT CPT-95076 UHCG (floor use only) 14:14:42 CDT CPT-OV Office Visit 14:06:57 CDT CPT-OV Office Visit 17:01:36 TROLLEY COACH DRIVER CPT-Cryo Cryotherapy 11:17:42 TROLLEY COACH DRIVER CPT-75089 Gardasil 11:39:29 CDT CPT-OV Office Visit 11:39:29 CDT CPT-PV Prev. Care Visit 16:07:43 TROLLEY COACH DRIVER CPT-45193 TB Tubersol 13:10:17 TROLLEY COACH DRIVER
--- OUTSIDE RECORDS SUMMARY | 2019-05-10 21:16 | XMS REPORT | Clinical Summary ---
Author Author Admin, Nicolette Oneill Organization [facility] Address Unknown Phone Unavailable Allergies, Adverse Reactions, [...] Well child examination V20.2 Active Christy garcia PRIVATE EYE Routine or child health check Wart, left hand 078.10 Active Christy Brown APR N Viral warts, unspecified Vaginal discharge 623.5 Resolved Marilee Cook LPN Leukorrhea, not specified as infective DYSURIA 788.1 Resolved Marilee Cook LPN Dysuria examination or test, positive result V72.42 Active Marilee Coko LPN examination or milagro t, positive result [...] Cruz MD M oderate dysplasia of cervix WELL CHILD EXAM ICD-V20.2 Inactive Estrellita barajas MD WELL CHILD EXAM ICD-V20.2 Inactive Estrellita barajas MD ABDOMINAL PAIN ICD-789.00 Inactive Estrellita barajas MD CEPHALGIA ICD-784.0 Inactive Estrellita Tenorio MD DYSURIA ICD-788.1 Inactive Marilee REYNOLDS CONTRACEPTIVE MANAGEMENT ICD-V25.09 Inactive Josephine Cruz MD Vaginal discharge ICD-623.5 Inactive Marilee powers LPN Medication List Medication Instructions Start Date Stop Date Generic Name NDC Status Provider Patient Instruction DIFLUCAN 150 MG ORAL TABLET 1 tablet by mouth daily 04/07/14 FLUCONAZOLE [id number] No Longer Active Josephine Cruz MD Active CYCLOBENZAPRINE HCL 10 MG ORAL TABLET 1 q 8 hours prn for mu scle spasms CYCLOBENZAPRINE HCL 34373856578 No Longer Active Carlos Kaur Active SPRINTEC 28 0.25-35 MG-MCG ORAL TABLET 1 pill by mouth daily 201 07/28/21 NORGESTIMATE-ETH ESTRADIOL 06350407183 No Longer Active Nabeel Cook LPN Active LAMOTRIGINE 150 MG ORAL TABLET 1 daily LAMOTRIG INE 84537887781 No Longer Active Josephine Cruz MD Active BUSPIRONE HCL 10 MG ORAL TABLET 1/2 bid BUSPIRO NE HCL 73000492333 No Longer Active Josephine Cruz MD Active WELLBUTRIN 100 MG ORAL TABLET take 4&1/2 tabs daily 31/01/22 BUPROPION HCL 12296798631 No Longer Active Josephine Cruz MD Active STRATTERA 80 MG ORAL CAPSULE 1 tablet daily ATOMOXETINE HCL 39819965472 No Longer Active Josephine Cruz MD Active SPRINTEC 28 0.25-35 MG-MCG ORAL TABLET Take one by mouth daily 2 NORGESTIMATE-ETH ESTRADIOL 38351262061 No Longer Active Josephine Cruz MD Active BUPROPION HCL ER (XL) 300 MG ORAL TABLET EXTENDED RELEASE 24 ZACKARY R BUPROPION HCL 52049145945 No Longer Active Josephine Cruz MD Active DOXEPIN HCL 150 MG ORAL CAPSULE Take 1 to 2 caplets as needed at bedtime for sleep DOXEPIN HCL 83786400856 No Longer Active Josephine Cruz MD Active BACTRIM DS 800-160 MG ORAL TABLET Take one (1) by mouth twice a day SULFAMETHOXAZOLE-TRIMETHOPRIM 74595774326 No Longer Active Daniel Cruz MD Active VYVANSE 30 MG ORAL CAPSULE 1 daily LISDEXAMF ETAMINE DIMESYLATE 30277681689 No Longer Active Josephine Cruz MD Active TRAZODONE HCL 100 MG ORAL TABLET 1 tab at bedtime 2013 TRAZODONE HCL 03154548887 No Longer Active Christy Brown APRN Act vernon TRAZODONE HCL 50 MG ORAL TABLET 1 q hs TRAZODO NE HCL 22107983614 No Longer Active Estrellita Tenorio MD Active TRAZODONE HCL 50 MG ORAL TABLET 1 q hs 5 TRAZODONE HCL 50 MG ORAL TABLET 388196 TRAZODONE HCL Inactive TRAZODONE HCL 100 MG ORAL TABLET 1 tab at bedtime 2013 TRAZODONE HCL 100 MG ORAL TABLET 881584 TRAZODONE HCL Inactiv e VYVANSE 30 MG ORAL CAPSULE 1 daily VYVANSE 30 M G ORAL CAPSULE LISDEXAMFETAMINE DIMESYLATE Inactive BACTRIM DS 800-160 MG ORAL TABLET Take one (1) by mouth twice a day BACTRIM DS 800-160 MG ORAL TABLET 592332 SULFAMETHOXAZOLE-TRIMETHOPRIM Inactive DOXEPIN HCL 150 MG ORAL CAPSULE Take 1 to 2 caplets as needed at bedtime for sleep DOXEPIN HCL 150 MG ORAL CAPSULE 8637008 DOXE PIN HCL Inactive BUPROPION HCL ER (XL) 300 MG ORAL TABLET EXTENDED RELEASE 24 ZACKARY R BUPROPION HCL ER (XL) 300 MG ORAL TABLET EXTENDED RELEASE 24 HOUR BUPROPION HCL Inactive SPRINTEC 28 0.25-35 MG-MCG ORAL TABLET Take one by mouth daily 2 SPRINTEC 28 0.25-35 MG-MCG ORAL TABLET 611166 N ORGESTIMATE-ETH ESTRADIOL Inactive STRATTERA 80 MG ORAL CAPSULE 1 tablet daily STRATTERA 80 MG ORAL CAPSULE 096405 ATOMOXETINE HCL Inactive WELLBUTRIN 100 MG ORAL TABLET take 4&1/2 tabs daily 20 31/01/22 WELLBUTRIN 100 MG ORAL TABLET BUPROPION HCL Inactive BUSPIRONE HCL 10 MG ORAL TABLET 1/2 bid 2 BUSPIRONE HCL 10 MG ORAL TABLET 967877 BUSPIRONE HCL Inactive LAMOTRIGINE 150 MG ORAL TABLET 1 daily LAMOTRIGINE 150 MG ORAL TABLET 939712 LAMOTRIGINE Inactive SPRINTEC 28 0.25-35 MG-MCG ORAL TABLET 1 pill by mouth daily 201 07/28/21 SPRINTEC 28 0.25-35 MG-MCG ORAL TABLET 026327 N ORGESTIMATE-ETH ESTRADIOL Inactive CYCLOBENZAPRINE HCL 10 MG ORAL TABLET 1 q 8 hours prn for mu scle spasms CYCLOBENZAPRINE HCL 10 MG ORAL TABLET 000222 CYCLOBENZAPRINE HCL Inactive DIFLUCAN 150 MG ORAL TABLET 1 tablet by mouth daily 04/07/14 DIFLUCAN 150 MG ORAL TABLET 852059 FLUCONAZOLE Inactive Advance Directives Directive Description Start [...] Diphtheria, and acellular Per tussis Immunization) Adacel [[id number]] tetanus toxoid, reduced diph theria toxoid, and acellular pertussis vaccine, adsorbed hepatitis A immunization #1 Historical hepa titis A vaccine, unspecified formulation Adacel (Tetanus, reduced Diphtheria, and acellular Per tussis Immunization) Adacel [[id number]] tetanus toxoid, reduced diph theria toxoid, and acellular pertussis vaccine, adsorbed chicken pox immunization #2 Historical vari benedict virus vaccine DPT immunization #5 Historical oral polio vaccine (OPV) #4 Historical ann marie ovirus vaccine, unspecified formulation MMR (measles, mumps, rubella) virus immunization #2 Historical chicken pox immunization #1 Historical vari benedict virus vaccine DPT immunization #4 Historical oral polio vaccine (OPV) #3 Historical ann marie ovirus vaccine, unspecified formulation DPT immunization #3 Historical Hemophilus influenza B immunization #2 Historica l Haemophilus influenzae type b vaccine, conjugate unspecified formulation oral polio vaccine (OPV) #2 Historical ann marie ovirus vaccine, unspecified formulation MMR (measles, mumps, rubella) virus immunization #1 Historical DPT immunization #2 Historical hepatitis B vaccine #3 Historical hepatitis B vaccine, unspecified formulation Hemophilus influenza B immunization #1 Historica l Haemophilus influenzae type b vaccine, conjugate unspecified formulation oral polio vaccine (OPV) #1 Historical ann marie ovirus vaccine, unspecified formulation DPT immunization #1 Historical hepatitis B vaccine #2 given Historical hep atitis B vaccine, unspecified formulation hepatitis B vaccine [...] Value Unit Range Description Lab Report: Chlamydia/GC APTIMA/97495, H EPATITIS B S AG W/, HIV-1/2 Agn/ ... - Chemistry hepatitis B surface antigen NON-REACTIVE NON-RE ACTIVE rapid plasma reagin antibody titer NON-REACTIVE NON-REACTIVE Lab Report: Chlamydia/GC APTIMA/06000, H EPATITIS B S AG W/, HIV-1/2 Agn/ ... - Lab chlamydia DNA probe NOT DETECTED NOT DETECTED Lab Report: Chlamydia/GC APTIMA/66416, H EPATITIS B S AG W/, HIV-1/2 [...] mg/dL Encounters Code Encounter Date Provider Facility CPT-22134 Level 4 Est. Patient 12:59:20 CDT Josephine montgomery MD [facility] CPT-27487 Level 4 Est. Patient 13:50:25 CDT Josephine montgomery MD [facility] CPT-47231 21280-Kap Vst-New Level II 14:23:[address] Ellen Iraheta PA-C [facility] CPT-17080 Level 3 Est. Patient 11:17:42 FEEDER SWITCHBOARD OPERATOR Christy Muñoz APRN [facility] CPT-27098 Level 3 Est. Patient 11:06:57 CDT Estrellita Caceres MD [facility] CPT-33485 Level 3 Est. Patient 14:47:06 FEEDER SWITCHBOARD OPERATOR Estrellita Caceres MD [facility] CPT-71100 Level 3 Est. Patient 12:33:15 FEEDER SWITCHBOARD OPERATOR Estrellita Caceres MD [facility] Procedures Code Procedure Name Date Entry Date Standard Desc ription CPT-OV Office Visit 10:54:38 CDT CPT-37690 [place] of cervix w bx ECC 10:46:24 CDT 06/30 CPT-60295 UHCG Urine - FLOOR USE ONLY 10:46:23 CDT 20 04/07/14 CPT-OV Office Visit 10:46:23 CDT CPT-35501 Nexplanon Removal 15:02:55 FEEDER SWITCHBOARD OPERATOR CPT-OV Office Visit 15:44:02 CDT CPT-81173 Nexplanon Placement 14:14:42 CDT CPT-J7307 Nexplanon (Implant) 14:14:42 CDT CPT-71735 UHCG (floor use only) 14:14:42 CDT CPT-OV Office Visit 14:06:57 CDT CPT-OV Office Visit 17:01:36 FEEDER SWITCHBOARD OPERATOR CPT-Cryo Cryotherapy 11:17:42 FEEDER SWITCHBOARD OPERATOR CPT-50806 Gardasil 11:39:29 CDT CPT-OV Office Visit 11:39:29 CDT CPT-PV Prev. Care Visit 16:07:43 FEEDER SWITCHBOARD OPERATOR CPT-89025 TB Tubersol 13:10:17 FEEDER SWITCHBOARD OPERATOR
--- OUTSIDE RECORDS SUMMARY | 2019-05-10 21:16 | XMS REPORT | Clinical Summary ---
Author Author Admin, Nicolette Oneill Organization [facility] Address Unknown Phone Unavailable Allergies, [...] Well child examination V20.2 Active Christy garcia CUSTOMER ASSISTANCE ASSOCIATE Routine or child health check Wart, left [...] sensation left arm Std screening V74.5 Active Josehpine Cruz MD Screening examination for venereal disease [...] tablet by mouth daily 20 04/07/14 FLUCONAZOLE 12425185704 No Longer Active Josephine Cruz MD Active CYCLOBENZAPRINE HCL 10 MG ORAL TABLET 1 q 8 hours prn for mu scle spasms CYCLOBENZAPRINE HCL 61212368878 No Longer Active Carlos Kaur Active SPRINTEC 28 0.25-35 MG-MCG ORAL TABLET 1 pill by mouth daily 201 07/28/21 NORGESTIMATE-ETH ESTRADIOL 76814145979 No Longer Active Nabeel Cook LPN Active LAMOTRIGINE 150 MG ORAL TABLET 1 daily LAMOTRIG INE 30998080101 No Longer Active Josephine Cruz MD Active BUSPIRONE HCL 10 MG ORAL TABLET 1/2 bid BUSPIRO NE HCL 72865496019 No Longer Active Josephine Cruz MD Active WELLBUTRIN 100 MG ORAL TABLET take 4&1/2 tabs daily 31/01/22 BUPROPION HCL 70714531187 No Longer Active Josephine Cruz MD Active STRATTERA 80 MG ORAL CAPSULE 1 tablet daily ATOMOXETINE HCL 56718017072 No Longer Active Josephine Crzu MD Active SPRINTEC 28 0.25-35 MG-MCG ORAL TABLET Take one by mouth daily 2 NORGESTIMATE-ETH ESTRADIOL 34129988589 No Longer Active Josephine Cruz MD Active BUPROPION HCL ER (XL) 300 MG ORAL TABLET EXTENDED RELEASE 24 ZACKARY R BUPROPION HCL 33965096577 No Longer Active Josepihne Cruz MD Active DOXEPIN HCL 150 MG ORAL CAPSULE Take 1 to 2 caplets as needed at bedtime for sleep DOXEPIN HCL 81070766952 No Longer Active Josephine Cruz MD Active BACTRIM DS 800-160 MG ORAL TABLET Take one (1) by mouth twice a day SULFAMETHOXAZOLE-TRIMETHOPRIM 59328662444 No Longer Active Daniel Cruz MD Active VYVANSE 30 MG ORAL CAPSULE 1 daily LISDEXAMF ETAMINE DIMESYLATE 89228581262 No Longer Active Josephine Cruz MD Active TRAZODONE HCL 100 MG ORAL TABLET 1 tab at bedtime 2013 TRAZODONE HCL 09801132290 No Longer Active Christy Brown CUSTOMER ASSISTANCE ASSOCIATE Act vernon TRAZODONE HCL 50 MG ORAL TABLET 1 q hs TRAZODO NE HCL 69617740921 No Longer Active Estrellita Tenorio MD Active TRAZODONE HCL 50 MG ORAL TABLET 1 q hs 5 TRAZODONE HCL 50 MG ORAL TABLET 059092 TRAZODONE HCL Inactive TRAZODONE HCL 100 MG ORAL TABLET 1 tab at bedtime 2013 TRAZODONE HCL 100 MG ORAL TABLET 663830 TRAZODONE HCL Inactiv e VYVANSE 30 MG ORAL CAPSULE 1 daily VYVANSE 30 M G ORAL CAPSULE LISDEXAMFETAMINE DIMESYLATE Inactive BACTRIM DS 800-160 MG ORAL TABLET Take one (1) by mouth twice a day BACTRIM DS 800-160 MG ORAL TABLET 727831 SULFAMETHOXAZOLE-TRIMETHOPRIM Inactive DOXEPIN HCL 150 MG ORAL CAPSULE Take 1 to 2 caplets as needed at bedtime for sleep DOXEPIN HCL 150 MG ORAL CAPSULE 4658283 DOXE PIN HCL Inactive BUPROPION HCL ER (XL) 300 MG ORAL TABLET EXTENDED RELEASE 24 ZACKARY R BUPROPION HCL ER (XL) 300 MG ORAL TABLET EXTENDED RELEASE 24 HOUR BUPROPION HCL Inactive SPRINTEC 28 0.25-35 MG-MCG ORAL TABLET Take one by mouth daily 2 SPRINTEC 28 0.25-35 MG-MCG ORAL TABLET 848206 N ORGESTIMATE-ETH ESTRADIOL Inactive STRATTERA 80 MG ORAL CAPSULE 1 tablet daily STRATTERA 80 MG ORAL CAPSULE 223837 ATOMOXETINE HCL Inactive WELLBUTRIN 100 MG ORAL TABLET take 4&1/2 tabs daily 20 31/01/22 WELLBUTRIN 100 MG ORAL TABLET BUPROPION HCL Inactive BUSPIRONE HCL 10 MG ORAL TABLET 1/2 bid 2 BUSPIRONE HCL 10 MG ORAL TABLET 147825 BUSPIRONE HCL Inactive LAMOTRIGINE 150 MG ORAL TABLET 1 daily LAMOTRIGINE 150 MG ORAL TABLET 013126 LAMOTRIGINE Inactive SPRINTEC 28 0.25-35 MG-MCG ORAL TABLET 1 pill by mouth daily 201 07/28/21 SPRINTEC 28 0.25-35 MG-MCG ORAL TABLET 765333 N ORGESTIMATE-ETH ESTRADIOL Inactive CYCLOBENZAPRINE HCL 10 MG ORAL TABLET 1 q 8 hours prn for mu scle spasms CYCLOBENZAPRINE HCL 10 MG ORAL TABLET 987675 CYCLOBENZAPRINE HCL Inactive DIFLUCAN 150 MG ORAL TABLET 1 tablet by mouth daily 04/07/14 DIFLUCAN 150 MG ORAL TABLET 644197 FLUCONAZOLE Inactive Advance Directives Directive Description Start [...] Diphtheria, and acellular Per tussis Immunization) Adacel [[id number]] tetanus toxoid, reduced diph theria toxoid, and acellular pertussis vaccine, adsorbed hepatitis A immunization #1 Historical hepa titis A vaccine, unspecified formulation Adacel (Tetanus, reduced Diphtheria, and acellular Per tussis Immunization) Adacel [[id number]] tetanus toxoid, reduced diph theria toxoid, and [...] Value Unit Range Description Lab Report: Chlamydia/GC APTIMA/55648, H EPATITIS B S AG W/, HIV-1/2 Agn/ ... - Chemistry hepatitis B surface antigen NON-REACTIVE NON-RE ACTIVE rapid plasma reagin antibody titer NON-REACTIVE NON-REACTIVE Lab Report: Chlamydia/GC APTIMA/77329, H EPATITIS B S AG W/, HIV-1/2 Agn/ ... - Lab chlamydia DNA probe NOT DETECTED NOT DETECTED Lab Report: Chlamydia/GC APTIMA/35232, H EPATITIS B S AG W/, HIV-1/2 [...] mg/dL Encounters Code Encounter Date Provider Facility CPT-27372 Level 3 Est. Patient 15:03:32 CDT Josephine montgomery MD [facility] CPT-06269 Level 4 Est. Patient 12:59:20 CDT Josephine montgomery MD [facility] CPT-40804 Level 4 Est. Patient 13:50:25 CDT Josephine montgomery MD [facility] CPT-20419 [id number] Vst-New Level II 14:23:[address] Ellen Iraheta PA-C [facility] CPT-54558 Level 3 Est. Patient 11:17:42 BULB INSPECTOR Christy Muñoz APRN [facility] CPT-26932 Level 3 Est. Patient 11:06:57 CDT Estrellita Caceres MD [facility] CPT-00959 Level 3 Est. Patient 14:47:06 BULB INSPECTOR Estrellita Caceres MD [facility] CPT-87597 Level 3 Est. Patient 12:33:15 BULB INSPECTOR Estrellita Caceres MD [facility] Procedures Code Procedure Name Date Entry Date Standard Desc ription CPT-OV Office Visit 10:54:38 CDT CPT-48401 [place] of cervix w bx ECC 10:46:24 CDT 06/30 CPT-58074 UHCG Urine - FLOOR USE ONLY 10:46:23 CDT 20 04/07/14 CPT-OV Office Visit 10:46:23 CDT CPT-17005 Nexplanon Removal 15:02:55 BULB INSPECTOR CPT-OV Office Visit 15:44:02 CDT CPT-61121 Nexplanon Placement 14:14:42 CDT CPT-J7307 Nexplanon (Implant) 14:14:42 CDT CPT-82968 UHCG (floor use only) 14:14:42 CDT CPT-OV Office Visit 14:06:57 CDT CPT-OV Office Visit 17:01:36 BULB INSPECTOR CPT-Cryo Cryotherapy 11:17:42 BULB INSPECTOR CPT-51748 Gardasil 11:39:29 CDT CPT-OV Office Visit 11:39:29 CDT CPT-PV Prev. Care Visit 16:07:43 BULB INSPECTOR CPT-25593 TB Tubersol 13:10:17 BULB INSPECTOR
--- OUTSIDE RECORDS SUMMARY | 2019-05-10 21:17 | XMS REPORT | Clinical Summary ---
Author Author Admin, Nicolette Oneill Organization [facility] Address Unknown Phone Unavailable Allergies, Adverse [...] Well child examination V20.2 Active Christy garcia LIAISON OFFICER Routine or child health check Wart, left [...] 1 tablet by mouth daily 04/07/14 FLUCONAZOLE 51337048269 No Longer Active Josephine Cruz MD Active CYCLOBENZAPRINE HCL 10 MG ORAL TABLET 1 q 8 hours prn for mu scle spasms CYCLOBENZAPRINE HCL 93698544989 No Longer Active Carlos Kaur Active SPRINTEC 28 0.25-35 MG-MCG ORAL TABLET 1 pill by mouth daily 201 07/28/21 NORGESTIMATE-ETH ESTRADIOL 67709585101 No Longer Active Nabeel Cook LPN Active LAMOTRIGINE 150 MG ORAL TABLET 1 daily LAMOTRIG INE 30389713154 No Longer Active Josephine Cruz MD Active BUSPIRONE HCL 10 MG ORAL TABLET 1/2 bid BUSPIRO NE HCL 77745894137 No Longer Active Josephine Cruz MD Active WELLBUTRIN 100 MG ORAL TABLET take 4&1/2 tabs daily 31/01/22 BUPROPION HCL 70546376018 No Longer Active Josephine Cruz MD Active STRATTERA 80 MG ORAL CAPSULE 1 tablet daily ATOMOXETINE HCL 36018151721 No Longer Active Josephine Cruz MD Active SPRINTEC 28 0.25-35 MG-MCG ORAL TABLET Take one by mouth daily 2 NORGESTIMATE-ETH ESTRADIOL 97592144654 No Longer Active Josephine Cruz MD Active BUPROPION HCL ER (XL) 300 MG ORAL TABLET EXTENDED RELEASE 24 ZACKARY R BUPROPION HCL 81220273323 No Longer Active Josephine Cruz MD Active DOXEPIN HCL 150 MG ORAL CAPSULE Take 1 to 2 caplets as needed at bedtime for sleep DOXEPIN HCL 99059983815 No Longer Active Josephine Cruz MD Active BACTRIM DS 800-160 MG ORAL TABLET Take one (1) by mouth twice a day SULFAMETHOXAZOLE-TRIMETHOPRIM 26902892961 No Longer Active Daniel Cruz MD Active VYVANSE 30 MG ORAL CAPSULE 1 daily LISDEXAMF ETAMINE DIMESYLATE 02946613875 No Longer Active Josephine Cruz MD Active TRAZODONE HCL 100 MG ORAL TABLET 1 tab at bedtime 2013 TRAZODONE HCL 41431401407 No Longer Active Christy Brown APRN Act vernon TRAZODONE HCL 50 MG ORAL TABLET 1 q hs TRAZODO NE HCL 67025152193 No Longer Active Estrellita Tenorio MD Active TRAZODONE HCL 50 MG ORAL TABLET 1 q hs 5 TRAZODONE HCL 50 MG ORAL TABLET 840206 TRAZODONE HCL Inactive TRAZODONE HCL 100 MG ORAL TABLET 1 tab at bedtime 2013 TRAZODONE HCL 100 MG ORAL TABLET 831473 TRAZODONE HCL Inactiv e VYVANSE 30 MG ORAL CAPSULE 1 daily VYVANSE 30 M G ORAL CAPSULE LISDEXAMFETAMINE DIMESYLATE Inactive BACTRIM DS 800-160 MG ORAL TABLET Take one (1) by mouth twice a day BACTRIM DS 800-160 MG ORAL TABLET 413206 SULFAMETHOXAZOLE-TRIMETHOPRIM Inactive DOXEPIN HCL 150 MG ORAL CAPSULE Take 1 to 2 caplets as needed at bedtime for sleep DOXEPIN HCL 150 MG ORAL CAPSULE 1667120 DOXE PIN HCL Inactive BUPROPION HCL ER (XL) 300 MG ORAL TABLET EXTENDED RELEASE 24 ZACKARY R BUPROPION HCL ER (XL) 300 MG ORAL TABLET EXTENDED RELEASE 24 HOUR BUPROPION HCL Inactive SPRINTEC 28 0.25-35 MG-MCG ORAL TABLET Take one by mouth daily 2 SPRINTEC 28 0.25-35 MG-MCG ORAL TABLET 560781 N ORGESTIMATE-ETH ESTRADIOL Inactive STRATTERA 80 MG ORAL CAPSULE 1 tablet daily STRATTERA 80 MG ORAL CAPSULE 551727 ATOMOXETINE HCL Inactive WELLBUTRIN 100 MG ORAL TABLET take 4&1/2 tabs daily 20 31/01/22 WELLBUTRIN 100 MG ORAL TABLET BUPROPION HCL Inactive BUSPIRONE HCL 10 MG ORAL TABLET 1/2 bid 2 BUSPIRONE HCL 10 MG ORAL TABLET 454621 BUSPIRONE HCL Inactive LAMOTRIGINE 150 MG ORAL TABLET 1 daily LAMOTRIGINE 150 MG ORAL TABLET 620930 LAMOTRIGINE Inactive SPRINTEC 28 0.25-35 MG-MCG ORAL TABLET 1 pill by mouth daily 201 07/28/21 SPRINTEC 28 0.25-35 MG-MCG ORAL TABLET 510279 N ORGESTIMATE-ETH ESTRADIOL Inactive CYCLOBENZAPRINE HCL 10 MG ORAL TABLET 1 q 8 hours prn for mu scle spasms CYCLOBENZAPRINE HCL 10 MG ORAL TABLET 644599 CYCLOBENZAPRINE HCL Inactive DIFLUCAN 150 MG ORAL TABLET 1 tablet by mouth daily 04/07/14 DIFLUCAN 150 MG ORAL TABLET 124997 FLUCONAZOLE Inactive Advance Directives Directive Description Start [...] Diphtheria, and acellular Per tussis Immunization) Adacel [[id number]] tetanus toxoid, reduced diph theria toxoid, and acellular pertussis vaccine, adsorbed hepatitis A immunization #1 Historical hepa titis A vaccine, unspecified formulation Adacel (Tetanus, reduced Diphtheria, and acellular Per tussis Immunization) Adacel [[id number]] tetanus toxoid, reduced diph theria toxoid, and [...] Value Unit Range Description Lab Report: Chlamydia/GC APTIMA/29174, H EPATITIS B S AG W/, HIV-1/2 Agn/ ... - Chemistry hepatitis B surface antigen NON-REACTIVE NON-RE ACTIVE rapid plasma reagin antibody titer NON-REACTIVE NON-REACTIVE Lab Report: Chlamydia/GC APTIMA/89295, H EPATITIS B S AG W/, HIV-1/2 Agn/ ... - Lab chlamydia DNA probe NOT DETECTED NOT DETECTED Lab Report: Chlamydia/GC APTIMA/00324, H EPATITIS B S AG W/, HIV-1/2 [...] mg/dL Encounters Code Encounter Date Provider Facility CPT-64315 Level 4 Est. Patient 12:59:20 CDT Josephine montgomery MD [facility] CPT-25794 Level 4 Est. Patient 13:50:25 CDT Josephine montgomery MD [facility] CPT-08210 [id number] Vst-New Level II 14:23:[address] Ellen Iraheta PA-C [facility] CPT-61058 Level 3 Est. Patient 11:17:42 PSYCHIATRIC NURSE PRACTITIONER Christy Muñoz APRN [facility] CPT-93260 Level 3 Est. Patient 11:06:57 CDT Estrellita Caceres MD [facility] CPT-59798 Level 3 Est. Patient 14:47:06 PSYCHIATRIC NURSE PRACTITIONER Estrellita Caceres MD [facility] CPT-87333 Level 3 Est. Patient 12:33:15 PSYCHIATRIC NURSE PRACTITIONER Estrellita Caceres MD [facility] Procedures Code Procedure Name Date Entry Date Standard Desc ription CPT-OV Office Visit 10:54:38 CDT CPT-45011 [place] of cervix w bx ECC 10:46:24 CDT 06/30 CPT-09818 UHCG Urine - FLOOR USE ONLY 10:46:23 CDT 20 04/07/14 CPT-OV Office Visit 10:46:23 CDT CPT-09727 Nexplanon Removal 15:02:55 PSYCHIATRIC NURSE PRACTITIONER CPT-OV Office Visit 15:44:02 CDT CPT-73825 Nexplanon Placement 14:14:42 CDT CPT-J7307 Nexplanon (Implant) 14:14:42 CDT CPT-61907 UHCG (floor use only) 14:14:42 CDT CPT-OV Office Visit 14:06:57 CDT CPT-OV Office Visit 17:01:36 PSYCHIATRIC NURSE PRACTITIONER CPT-Cryo Cryotherapy 11:17:42 PSYCHIATRIC NURSE PRACTITIONER CPT-45475 Gardasil 11:39:29 CDT CPT-OV Office Visit 11:39:29 CDT CPT-PV Prev. Care Visit 16:07:43 PSYCHIATRIC NURSE PRACTITIONER CPT-17820 TB Tubersol 13:10:17 PSYCHIATRIC NURSE PRACTITIONER
--- OUTSIDE RECORDS SUMMARY | 2019-05-10 21:17 | XMS REPORT | Clinical Summary ---
Author Author Admin, Nicolette Oneill Organization [facility] Address Unknown Phone Unavailable Allergies, Adverse Reactions, [...] management Well child examination V20.2 Active Christy Orozco art CAMBERING MACHINE OPERATOR Routine infant or child health check Wart, left hand 078.10 Active Christy Brown APR N Viral warts, unspecified Vaginal discharge 623.5 Resolved Marilee Cook LPN Leukorrhea, not specified as infective DYSURIA 788.1 Resolved Marilee Joey CLOTHER IN Dysuria examination or test, positive result V72.42 Active Marilee Cook LPN examination or milagro t, positive result Status, sterilization, tubal ligation V26.51 Active Marilee Cook CLOTHER IN Tubal ligation status BMI 30-30.9 Refinement Ellen [...] Cruz MD Vaginal discharge ICD-623.5 Inactive Marilee charlesl CLOTHER IN DYSURIA ICD-788.1 Inactive Marilee REYNOLDS Medication List Medication Instructions Start Date Stop Date Generic Name NDC Status Provider Patient Instruction DIFLUCAN 150 MG ORAL TABLET 1 tablet by mouth daily 04/07/14 FLUCONAZOLE 70769509894 No Longer Active Josephine Cruz MD Active CYCLOBENZAPRINE HCL 10 MG ORAL TABLET 1 q 8 hours prn for mu scle spasms CYCLOBENZAPRINE HCL 90702055881 No Longer Active Carlos Kaur Active SPRINTEC 28 0.25-35 MG-MCG ORAL TABLET 1 pill by mouth daily 201 07/28/21 NORGESTIMATE-ETH ESTRADIOL 83993280998 No Longer Active Nabeel Cook LPN Active LAMOTRIGINE 150 MG ORAL TABLET 1 daily LAMOTRIG INE 81414314097 No Longer Active Josephine Cruz MD Active BUSPIRONE HCL 10 MG ORAL TABLET 1/2 bid BUSPIRO NE HCL 44801376585 No Longer Active Josephine Cruz MD Active WELLBUTRIN 100 MG ORAL TABLET take 4&1/2 tabs daily 31/01/22 BUPROPION HCL 34843346032 No Longer Active Josephine Cruz MD Active STRATTERA 80 MG ORAL CAPSULE 1 tablet daily ATOMOXETINE HCL 86791441106 No Longer Active Josephine Cruz MD Active SPRINTEC 28 0.25-35 MG-MCG ORAL TABLET Take one by mouth daily 2 NORGESTIMATE-ETH ESTRADIOL 13431465954 No Longer Active Josephine Cruz MD Active BUPROPION HCL ER (XL) 300 MG ORAL TABLET EXTENDED RELEASE 24 ZACKARY R BUPROPION HCL 79498131242 No Longer Active Josephine Cruz MD Active DOXEPIN HCL 150 MG ORAL CAPSULE Take 1 to 2 caplets as needed at bedtime for sleep DOXEPIN HCL 18085575226 No Longer Active Josephine Cruz MD Active BACTRIM DS 800-160 MG ORAL TABLET Take one (1) by mouth twice a day SULFAMETHOXAZOLE-TRIMETHOPRIM 96460192716 No Longer Active Daniel Cruz MD Active VYVANSE 30 MG ORAL CAPSULE 1 daily LISDEXAMF ETAMINE DIMESYLATE 14018728367 No Longer Active Josephine Cruz MD Active TRAZODONE HCL 100 MG ORAL TABLET 1 tab at bedtime 2013 TRAZODONE HCL 96792290164 No Longer Active Christy Brown CAMBERING MACHINE OPERATOR Act vernon TRAZODONE HCL 50 MG ORAL TABLET 1 q hs TRAZODO NE HCL 79834730032 No Longer Active Estrellita Tenorio MD Active TRAZODONE HCL 50 MG ORAL TABLET 1 q hs 5 TRAZODONE HCL 50 MG ORAL TABLET 915265 TRAZODONE HCL Inactive TRAZODONE HCL 100 MG ORAL TABLET 1 tab at bedtime 2013 TRAZODONE HCL 100 MG ORAL TABLET 895435 TRAZODONE HCL Inactiv e VYVANSE 30 MG ORAL CAPSULE 1 daily VYVANSE 30 M G ORAL CAPSULE LISDEXAMFETAMINE DIMESYLATE Inactive BACTRIM DS 800-160 MG ORAL TABLET Take one (1) by mouth twice a day BACTRIM DS 800-160 MG ORAL TABLET 936829 SULFAMETHOXAZOLE-TRIMETHOPRIM Inactive DOXEPIN HCL 150 MG ORAL CAPSULE Take 1 to 2 caplets as needed at bedtime for sleep DOXEPIN HCL 150 MG ORAL CAPSULE 3503574 DOXE PIN HCL Inactive BUPROPION HCL ER (XL) 300 MG ORAL TABLET EXTENDED RELEASE 24 ZACKARY R BUPROPION HCL ER (XL) 300 MG ORAL TABLET EXTENDED RELEASE 24 HOUR BUPROPION HCL Inactive SPRINTEC 28 0.25-35 MG-MCG ORAL TABLET Take one by mouth daily 2 SPRINTEC 28 0.25-35 MG-MCG ORAL TABLET 286514 N ORGESTIMATE-ETH ESTRADIOL Inactive STRATTERA 80 MG ORAL CAPSULE 1 tablet daily STRATTERA 80 MG ORAL CAPSULE 334433 ATOMOXETINE HCL Inactive WELLBUTRIN 100 MG ORAL TABLET take 4&1/2 tabs daily 20 31/01/22 WELLBUTRIN 100 MG ORAL TABLET BUPROPION HCL Inactive BUSPIRONE HCL 10 MG ORAL TABLET 1/2 bid 2 BUSPIRONE HCL 10 MG ORAL TABLET 571718 BUSPIRONE HCL Inactive LAMOTRIGINE 150 MG ORAL TABLET 1 daily LAMOTRIGINE 150 MG ORAL TABLET 194627 LAMOTRIGINE Inactive SPRINTEC 28 0.25-35 MG-MCG ORAL TABLET 1 pill by mouth daily 201 07/28/21 SPRINTEC 28 0.25-35 MG-MCG ORAL TABLET 786601 N ORGESTIMATE-ETH ESTRADIOL Inactive CYCLOBENZAPRINE HCL 10 MG ORAL TABLET 1 q 8 hours prn for mu scle spasms CYCLOBENZAPRINE HCL 10 MG ORAL TABLET 983648 CYCLOBENZAPRINE HCL Inactive DIFLUCAN 150 MG ORAL TABLET 1 tablet by mouth daily 04/07/14 DIFLUCAN 150 MG ORAL TABLET 233819 FLUCONAZOLE Inactive Advance Directives Directive Description Start [...] Diphtheria, and acellular Per tussis Immunization) Adacel [[id number]] tetanus toxoid, reduced diph theria toxoid, and acellular pertussis vaccine, adsorbed hepatitis A immunization #1 Historical hepa titis A vaccine, unspecified formulation Adacel (Tetanus, reduced Diphtheria, and acellular Per tussis Immunization) Adacel [[id number]] tetanus toxoid, reduced diph theria toxoid, and acellular pertussis vaccine, adsorbed chicken pox immunization #2 Historical vari benedict virus vaccine oral polio vaccine (OPV) #4 Historical ann marie ovirus vaccine, unspecified formulation MMR (measles, mumps, rubella) virus immunization #2 Historical DPT immunization #5 Historical chicken pox immunization #1 Historical vari [...] immunization #2 Historical oral polio vaccine (OPV) #1 Historical ann marie ovirus vaccine, unspecified formulation hepatitis B vaccine #2 given Historical hep atitis B vaccine, unspecified formulation DPT immunization #1 Historical Hemophilus influenza B immunization #1 Historica l Haemophilus influenzae type b vaccine, conjugate unspecified formulation hepatitis B vaccine #1 given [...] Value Unit Range Description Lab Report: Chlamydia/GC APTIMA/46572, H EPATITIS B S AG W/, HIV-1/2 Agn/ ... - Chemistry hepatitis B surface antigen NON-REACTIVE NON-RE ACTIVE rapid plasma reagin antibody titer NON-REACTIVE NON-REACTIVE Lab Report: Chlamydia/GC APTIMA/14169, H EPATITIS B S AG W/, HIV-1/2 Agn/ ... - Lab chlamydia DNA probe NOT DETECTED NOT DETECTED Lab Report: Chlamydia/GC APTIMA/63962, H EPATITIS B S AG W/, HIV-1/2 [...] mg/dL Encounters Code Encounter Date Provider Facility CPT-85059 Level 4 Est. Patient 12:59:20 CDT Josephine montgomery MD [facility] CPT-73368 Level 4 Est. Patient 13:50:25 CDT Josephine montgomery MD [facility] CPT-96673 [id number] Vst-New Level II 14:23:[address] Ellen Iraheta PA-C [facility] CPT-30423 Level 3 Est. Patient 11:17:42 BRASS PICKLER Christy Muñoz APRN [facility] CPT-54265 Level 3 Est. Patient 11:06:57 CDT Estrellita Caceres MD [facility] CPT-34698 Level 3 Est. Patient 14:47:06 BRASS PICKLER Estrellita Caceres MD [facility] CPT-59779 Level 3 Est. Patient 12:33:15 BRASS PICKLER Estrellita Caceres MD [facility] Procedures Code Procedure Name Date Entry Date Standard Desc ription CPT-OV Office Visit 10:54:38 CDT CPT-15333 [place] of cervix w bx ECC 10:46:24 CDT 06/30 CPT-37847 UHCG Urine - FLOOR USE ONLY 10:46:23 CDT 20 04/07/14 CPT-OV Office Visit 10:46:23 CDT CPT-61226 Nexplanon Removal 15:02:55 BRASS PICKLER CPT-OV Office Visit 15:44:02 CDT CPT-23980 Nexplanon Placement 14:14:42 CDT CPT-J7307 Nexplanon (Implant) 14:14:42 CDT CPT-08163 UHCG (floor use only) 14:14:42 CDT CPT-OV Office Visit 14:06:57 CDT CPT-OV Office Visit 17:01:36 BRASS PICKLER CPT-Cryo Cryotherapy 11:17:42 BRASS PICKLER CPT-65203 Gardasil 11:39:29 CDT CPT-OV Office Visit 11:39:29 CDT CPT-PV Prev. Care Visit 16:07:43 BRASS PICKLER CPT-61240 TB Tubersol 13:10:17 BRASS PICKLER
--- OUTSIDE RECORDS SUMMARY | 2019-05-10 21:17 | XMS REPORT | Clinical Summary ---
[...] child examination V20.2 Active Christy Orozco art RECRUITING SCHEDULER Routine infant or child health check Wart, left hand 078.10 Active Christy Brown APR N Viral warts, unspecified Vaginal discharge 623.5 Resolved Marilee Cook LPN Leukorrhea, not specified as infective DYSURIA 788.1 Resolved Marilee Joey APPLICATIONS PROGRAMMER Dysuria examination or test, positive result V72.42 Active Marilee Cook LPN examination or milagro t, positive result Status, sterilization, tubal ligation V26.51 Active Marilee Cook APPLICATIONS PROGRAMMER Tubal ligation status BMI 30-30.9 Refinement Ellen [...] MD Vaginal discharge ICD-623.5 Inactive Marilee charlesl APPLICATIONS PROGRAMMER DYSURIA ICD-788.1 Inactive Marilee REYNOLDS Medication List Medication Instructions Start Date Stop Date Generic Name NDC Status Provider Patient Instruction DIFLUCAN 150 MG ORAL TABLET 1 tablet by mouth daily 04/07/14 FLUCONAZOLE 99406749012 No Longer Active Josephine Cruz MD Active CYCLOBENZAPRINE HCL 10 MG ORAL TABLET 1 q 8 hours prn for mu scle spasms CYCLOBENZAPRINE HCL 86920673867 No Longer Active Carlos Kaur Active SPRINTEC 28 0.25-35 MG-MCG ORAL TABLET 1 pill by mouth daily 201 07/28/21 NORGESTIMATE-ETH ESTRADIOL 91917240654 No Longer Active Nabeel Cook LPN Active LAMOTRIGINE 150 MG ORAL TABLET 1 daily LAMOTRIG INE 38109193074 No Longer Active Josephine Cruz MD Active BUSPIRONE HCL 10 MG ORAL TABLET 1/2 bid BUSPIRO NE HCL 35173071246 No Longer Active Josephine Cruz MD Active WELLBUTRIN 100 MG ORAL TABLET take 4&1/2 tabs daily 31/01/22 BUPROPION HCL 84050101525 No Longer Active Josephine Cruz MD Active STRATTERA 80 MG ORAL CAPSULE 1 tablet daily ATOMOXETINE HCL 52108301961 No Longer Active Josephine Cruz MD Active SPRINTEC 28 0.25-35 MG-MCG ORAL TABLET Take one by mouth daily 2 NORGESTIMATE-ETH ESTRADIOL 83297880568 No Longer Active Josephine Cruz MD Active BUPROPION HCL ER (XL) 300 MG ORAL TABLET EXTENDED RELEASE 24 ZACKARY R BUPROPION HCL 51825473393 No Longer Active Josephine Cruz MD Active DOXEPIN HCL 150 MG ORAL CAPSULE Take 1 to 2 caplets as needed at bedtime for sleep DOXEPIN HCL 47775257082 No Longer Active Josephine Cruz MD Active BACTRIM DS 800-160 MG ORAL TABLET Take one (1) by mouth twice a day SULFAMETHOXAZOLE-TRIMETHOPRIM 75624314724 No Longer Active Daniel Cruz MD Active VYVANSE 30 MG ORAL CAPSULE 1 daily LISDEXAMF ETAMINE DIMESYLATE 06598127275 No Longer Active Josephine Cruz MD Active TRAZODONE HCL 100 MG ORAL TABLET 1 tab at bedtime 2013 TRAZODONE HCL 02463102120 No Longer Active Christy Brown RECRUITING SCHEDULER Act vernon TRAZODONE HCL 50 MG ORAL TABLET 1 q hs TRAZODO NE HCL 16139541621 No Longer Active Estrellita Tenorio MD Active TRAZODONE HCL 50 MG ORAL TABLET 1 q hs 5 TRAZODONE HCL 50 MG ORAL TABLET 912535 TRAZODONE HCL Inactive TRAZODONE HCL 100 MG ORAL TABLET 1 tab at bedtime 2013 TRAZODONE HCL 100 MG ORAL TABLET 663066 TRAZODONE HCL Inactiv e VYVANSE 30 MG ORAL CAPSULE 1 daily VYVANSE 30 M G ORAL CAPSULE LISDEXAMFETAMINE DIMESYLATE Inactive BACTRIM DS 800-160 MG ORAL TABLET Take one (1) by mouth twice a day BACTRIM DS 800-160 MG ORAL TABLET 566643 SULFAMETHOXAZOLE-TRIMETHOPRIM Inactive DOXEPIN HCL 150 MG ORAL CAPSULE Take 1 to 2 caplets as needed at bedtime for sleep DOXEPIN HCL 150 MG ORAL CAPSULE 0930435 DOXE PIN HCL Inactive BUPROPION HCL ER (XL) 300 MG ORAL TABLET EXTENDED RELEASE 24 ZACKARY R BUPROPION HCL ER (XL) 300 MG ORAL TABLET EXTENDED RELEASE 24 HOUR BUPROPION HCL Inactive SPRINTEC 28 0.25-35 MG-MCG ORAL TABLET Take one by mouth daily 2 SPRINTEC 28 0.25-35 MG-MCG ORAL TABLET 170504 N ORGESTIMATE-ETH ESTRADIOL Inactive STRATTERA 80 MG ORAL CAPSULE 1 tablet daily STRATTERA 80 MG ORAL CAPSULE 101254 ATOMOXETINE HCL Inactive WELLBUTRIN 100 MG ORAL TABLET take 4&1/2 tabs daily 20 31/01/22 WELLBUTRIN 100 MG ORAL TABLET BUPROPION HCL Inactive BUSPIRONE HCL 10 MG ORAL TABLET 1/2 bid 2 BUSPIRONE HCL 10 MG ORAL TABLET 596197 BUSPIRONE HCL Inactive LAMOTRIGINE 150 MG ORAL TABLET 1 daily LAMOTRIGINE 150 MG ORAL TABLET 537066 LAMOTRIGINE Inactive SPRINTEC 28 0.25-35 MG-MCG ORAL TABLET 1 pill by mouth daily 201 07/28/21 SPRINTEC 28 0.25-35 MG-MCG ORAL TABLET 005111 N ORGESTIMATE-ETH ESTRADIOL Inactive CYCLOBENZAPRINE HCL 10 MG ORAL TABLET 1 q 8 hours prn for mu scle spasms CYCLOBENZAPRINE HCL 10 MG ORAL TABLET 034250 CYCLOBENZAPRINE HCL Inactive DIFLUCAN 150 MG ORAL TABLET 1 tablet by mouth daily 04/07/14 DIFLUCAN 150 MG ORAL TABLET 419979 FLUCONAZOLE Inactive Advance Directives Directive Description Start [...] Diphtheria, and acellular Per tussis Immunization) Adacel [[id number]] tetanus toxoid, reduced diph theria toxoid, and acellular pertussis vaccine, adsorbed hepatitis A immunization #1 Historical hepa titis A vaccine, unspecified formulation Adacel (Tetanus, reduced Diphtheria, and acellular Per tussis Immunization) Adacel [[id number]] tetanus toxoid, reduced diph theria toxoid, and [...] Value Unit Range Description Lab Report: Chlamydia/GC APTIMA/78129, H EPATITIS B S AG W/, HIV-1/2 Agn/ ... - Chemistry hepatitis B surface antigen NON-REACTIVE NON-RE ACTIVE rapid plasma reagin antibody titer NON-REACTIVE NON-REACTIVE Lab Report: Chlamydia/GC APTIMA/95869, H EPATITIS B S AG W/, HIV-1/2 Agn/ ... - Lab chlamydia DNA probe NOT DETECTED NOT DETECTED Lab Report: Chlamydia/GC APTIMA/73894, H EPATITIS B S AG W/, HIV-1/2 [...] mg/dL Encounters Code Encounter Date Provider Facility CPT-08316 Level 4 Est. Patient 12:59:20 CDT Josephine montgomery MD [facility] CPT-25338 Level 4 Est. Patient 13:50:25 CDT Josephine montgomery MD [facility] CPT-52945 [id number] Vst-New Level II 14:23:[address] Ellen Iraheta PA-C [facility] CPT-79424 Level 3 Est. Patient 11:17:42 RESIDENTIAL INTERIOR DESIGNER Christy Muñoz APRN [facility] CPT-65912 Level 3 Est. Patient 11:06:57 CDT Estrellita Caceres MD [facility] CPT-44067 Level 3 Est. Patient 14:47:06 RESIDENTIAL INTERIOR DESIGNER Estrellita Caceres MD [facility] CPT-40452 Level 3 Est. Patient 12:33:15 RESIDENTIAL INTERIOR DESIGNER Estrellita Caceres MD [facility] Procedures Code Procedure Name Date Entry Date Standard Desc ription CPT-OV Office Visit 10:54:38 CDT CPT-82586 [place] of cervix w bx ECC 10:46:24 CDT 06/30 CPT-95579 UHCG Urine - FLOOR USE ONLY 10:46:23 CDT 20 04/07/14 CPT-OV Office Visit 10:46:23 CDT CPT-45396 Nexplanon Removal 15:02:55 RESIDENTIAL INTERIOR DESIGNER CPT-OV Office Visit 15:44:02 CDT CPT-49360 Nexplanon Placement 14:14:42 CDT CPT-J7307 Nexplanon (Implant) 14:14:42 CDT CPT-66475 UHCG (floor use only) 14:14:42 CDT CPT-OV Office Visit 14:06:57 CDT CPT-OV Office Visit 17:01:36 RESIDENTIAL INTERIOR DESIGNER CPT-Cryo Cryotherapy 11:17:42 RESIDENTIAL INTERIOR DESIGNER CPT-84636 Gardasil 11:39:29 CDT CPT-OV Office Visit 11:39:29 CDT CPT-PV Prev. Care Visit 16:07:43 RESIDENTIAL INTERIOR DESIGNER CPT-74385 TB Tubersol 13:10:17 RESIDENTIAL INTERIOR DESIGNER
--- OUTSIDE RECORDS SUMMARY | 2019-05-10 21:17 | XMS REPORT | Clinical Summary ---
Author Author Admin, Nicolette Oneill Organization [facility] Address Unknown Phone Unavailable Allergies, [...] child examination V20.2 Active Christy Orozco art CLINICAL DOCUMENTATION SPECIALIST Routine infant or child health check Wart, left hand 078.10 Active Christy Brown APR N Viral warts, unspecified Vaginal discharge 623.5 Resolved Marilee Cook LPN Leukorrhea, not specified as infective DYSURIA 788.1 Resolved Marilee Joey OCEAN IMPORT REPRESENTATIVE Dysuria examination or test, positive result V72.42 Active Marilee Cook LPN examination or milagro t, positive result Status, sterilization, tubal ligation V26.51 Active Marilee Cook OCEAN IMPORT REPRESENTATIVE Tubal ligation status BMI 30-30.9 Refinement Ellen [...] MD Vaginal discharge ICD-623.5 Inactive Marilee charlesl OCEAN IMPORT REPRESENTATIVE DYSURIA ICD-788.1 Inactive Marilee REYNOLDS Medication List Medication Instructions Start Date Stop Date Generic Name NDC Status Provider Patient Instruction DIFLUCAN 150 MG ORAL TABLET 1 tablet by mouth daily 04/07/14 FLUCONAZOLE 57682660731 No Longer Active Josephine Cruz MD Active CYCLOBENZAPRINE HCL 10 MG ORAL TABLET 1 q 8 hours prn for mu scle spasms CYCLOBENZAPRINE HCL 58821872194 No Longer Active Carlos Kaur Active SPRINTEC 28 0.25-35 MG-MCG ORAL TABLET 1 pill by mouth daily 201 07/28/21 NORGESTIMATE-ETH ESTRADIOL 51680687769 No Longer Active Nabeel Cook LPN Active LAMOTRIGINE 150 MG ORAL TABLET 1 daily LAMOTRIG INE 67729253438 No Longer Active Josephine Cruz MD Active BUSPIRONE HCL 10 MG ORAL TABLET 1/2 bid BUSPIRO NE HCL 90845121872 No Longer Active Josephine Cruz MD Active WELLBUTRIN 100 MG ORAL TABLET take 4&1/2 tabs daily 31/01/22 BUPROPION HCL 72206017177 No Longer Active Josephine Cruz MD Active STRATTERA 80 MG ORAL CAPSULE 1 tablet daily ATOMOXETINE HCL 85802163426 No Longer Active Josephine Cruz MD Active SPRINTEC 28 0.25-35 MG-MCG ORAL TABLET Take one by mouth daily 2 NORGESTIMATE-ETH ESTRADIOL 03080388648 No Longer Active Josephine Cruz MD Active BUPROPION HCL ER (XL) 300 MG ORAL TABLET EXTENDED RELEASE 24 ZACKARY R BUPROPION HCL 65293300382 No Longer Active Josephine Cruz MD Active DOXEPIN HCL 150 MG ORAL CAPSULE Take 1 to 2 caplets as needed at bedtime for sleep DOXEPIN HCL 72889491417 No Longer Active Josephine Cruz MD Active BACTRIM DS 800-160 MG ORAL TABLET Take one (1) by mouth twice a day SULFAMETHOXAZOLE-TRIMETHOPRIM 21583706153 No Longer Active Daniel Cruz MD Active VYVANSE 30 MG ORAL CAPSULE 1 daily LISDEXAMF ETAMINE DIMESYLATE 64053207788 No Longer Active Josephine Cruz MD Active TRAZODONE HCL 100 MG ORAL TABLET 1 tab at bedtime 2013 TRAZODONE HCL 90485403780 No Longer Active Christy Brown CLINICAL DOCUMENTATION SPECIALIST Act vernon TRAZODONE HCL 50 MG ORAL TABLET 1 q hs TRAZODO NE HCL 49582901580 No Longer Active Estrellita Tenorio MD Active TRAZODONE HCL 50 MG ORAL TABLET 1 q hs 5 TRAZODONE HCL 50 MG ORAL TABLET 681611 TRAZODONE HCL Inactive TRAZODONE HCL 100 MG ORAL TABLET 1 tab at bedtime 2013 TRAZODONE HCL 100 MG ORAL TABLET 474601 TRAZODONE HCL Inactiv e VYVANSE 30 MG ORAL CAPSULE 1 daily VYVANSE 30 M G ORAL CAPSULE LISDEXAMFETAMINE DIMESYLATE Inactive BACTRIM DS 800-160 MG ORAL TABLET Take one (1) by mouth twice a day BACTRIM DS 800-160 MG ORAL TABLET 449293 SULFAMETHOXAZOLE-TRIMETHOPRIM Inactive DOXEPIN HCL 150 MG ORAL CAPSULE Take 1 to 2 caplets as needed at bedtime for sleep DOXEPIN HCL 150 MG ORAL CAPSULE 5582616 DOXE PIN HCL Inactive BUPROPION HCL ER (XL) 300 MG ORAL TABLET EXTENDED RELEASE 24 ZACKARY R BUPROPION HCL ER (XL) 300 MG ORAL TABLET EXTENDED RELEASE 24 HOUR BUPROPION HCL Inactive SPRINTEC 28 0.25-35 MG-MCG ORAL TABLET Take one by mouth daily 2 SPRINTEC 28 0.25-35 MG-MCG ORAL TABLET 385276 N ORGESTIMATE-ETH ESTRADIOL Inactive STRATTERA 80 MG ORAL CAPSULE 1 tablet daily STRATTERA 80 MG ORAL CAPSULE 481227 ATOMOXETINE HCL Inactive WELLBUTRIN 100 MG ORAL TABLET take 4&1/2 tabs daily 20 31/01/22 WELLBUTRIN 100 MG ORAL TABLET BUPROPION HCL Inactive BUSPIRONE HCL 10 MG ORAL TABLET 1/2 bid 2 BUSPIRONE HCL 10 MG ORAL TABLET 705833 BUSPIRONE HCL Inactive LAMOTRIGINE 150 MG ORAL TABLET 1 daily LAMOTRIGINE 150 MG ORAL TABLET 496126 LAMOTRIGINE Inactive SPRINTEC 28 0.25-35 MG-MCG ORAL TABLET 1 pill by mouth daily 201 07/28/21 SPRINTEC 28 0.25-35 MG-MCG ORAL TABLET 700322 N ORGESTIMATE-ETH ESTRADIOL Inactive CYCLOBENZAPRINE HCL 10 MG ORAL TABLET 1 q 8 hours prn for mu scle spasms CYCLOBENZAPRINE HCL 10 MG ORAL TABLET 498769 CYCLOBENZAPRINE HCL Inactive DIFLUCAN 150 MG ORAL TABLET 1 tablet by mouth daily 04/07/14 DIFLUCAN 150 MG ORAL TABLET 739799 FLUCONAZOLE Inactive Advance Directives Directive Description Start [...] Diphtheria, and acellular Per tussis Immunization) Adacel [[id number]] tetanus toxoid, reduced diph theria toxoid, and acellular pertussis vaccine, adsorbed hepatitis A immunization #1 Historical hepa titis A vaccine, unspecified formulation Adacel (Tetanus, reduced Diphtheria, and acellular Per tussis Immunization) Adacel [[id number]] tetanus toxoid, reduced diph theria toxoid, and [...] Value Unit Range Description Lab Report: Chlamydia/GC APTIMA/53418, H EPATITIS B S AG W/, HIV-1/2 Agn/ ... - Chemistry hepatitis B surface antigen NON-REACTIVE NON-RE ACTIVE rapid plasma reagin antibody titer NON-REACTIVE NON-REACTIVE Lab Report: Chlamydia/GC APTIMA/71155, H EPATITIS B S AG W/, HIV-1/2 Agn/ ... - Lab chlamydia DNA probe NOT DETECTED NOT DETECTED Lab Report: Chlamydia/GC APTIMA/49903, H EPATITIS B S AG W/, HIV-1/2 [...] mg/dL Encounters Code Encounter Date Provider Facility CPT-59991 Level 4 Est. Patient 12:59:20 CDT Josephine montgomery MD [facility] CPT-91286 Level 4 Est. Patient 13:50:25 CDT Josephine montgomery MD [facility] CPT-95579 [id number] Vst-New Level II 14:23:[address] Ellen Iraheta PA-C [facility] CPT-11663 Level 3 Est. Patient 11:17:42 CHIEF ENTERPRISE ARCHITECT Christy Muñoz APRN [facility] CPT-36041 Level 3 Est. Patient 11:06:57 CDT Estrellita Caceres MD [facility] CPT-26636 Level 3 Est. Patient 14:47:06 CHIEF ENTERPRISE ARCHITECT Estrellita Caceres MD [facility] CPT-82612 Level 3 Est. Patient 12:33:15 CHIEF ENTERPRISE ARCHITECT Estrellita Caceres MD [facility] Procedures Code Procedure Name Date Entry Date Standard Desc ription CPT-OV Office Visit 10:54:38 CDT CPT-03570 [place] of cervix w bx ECC 10:46:24 CDT 06/30 CPT-11038 UHCG Urine - FLOOR USE ONLY 10:46:23 CDT 20 04/07/14 CPT-OV Office Visit 10:46:23 CDT CPT-88066 Nexplanon Removal 15:02:55 CHIEF ENTERPRISE ARCHITECT CPT-OV Office Visit 15:44:02 CDT CPT-11753 Nexplanon Placement 14:14:42 CDT CPT-J7307 Nexplanon (Implant) 14:14:42 CDT CPT-42280 UHCG (floor use only) 14:14:42 CDT CPT-OV Office Visit 14:06:57 CDT CPT-OV Office Visit 17:01:36 CHIEF ENTERPRISE ARCHITECT CPT-Cryo Cryotherapy 11:17:42 CHIEF ENTERPRISE ARCHITECT CPT-77452 Gardasil 11:39:29 CDT CPT-OV Office Visit 11:39:29 CDT CPT-PV Prev. Care Visit 16:07:43 CHIEF ENTERPRISE ARCHITECT CPT-68680 TB Tubersol 13:10:17 CHIEF ENTERPRISE ARCHITECT
--- OUTSIDE RECORDS SUMMARY | 2019-05-10 21:18 | XMS REPORT | Clinical Summary ---
Author Author Admin, Nicolette Oneill Organization [facility] Address Unknown Phone Unavailable Allergies, Adverse [...] child examination V20.2 Active Christy Orozco art AXMINSTER WEAVER Routine infant or child health check Wart, left hand 078.10 Active Christy Brown APR N Viral warts, unspecified Vaginal discharge 623.5 Resolved Marilee Cook LPN Leukorrhea, not specified as infective DYSURIA 788.1 Resolved Marilee Joey CLINICAL AUDITOR Dysuria examination or test, positive result V72.42 Active Marilee Cook LPN examination or milagro t, positive result Status, sterilization, tubal ligation V26.51 Active Marilee Cook CLINICAL AUDITOR Tubal ligation status BMI 30-30.9 Refinement Ellen [...] MD Vaginal discharge ICD-623.5 Inactive Marilee charlesl CLINICAL AUDITOR DYSURIA ICD-788.1 Inactive Marilee REYNOLDS Medication List Medication Instructions Start Date Stop Date Generic Name NDC Status Provider Patient Instruction DIFLUCAN 150 MG ORAL TABLET 1 tablet by mouth daily 04/07/14 FLUCONAZOLE 77731151485 No Longer Active Josephine Cruz MD Active CYCLOBENZAPRINE HCL 10 MG ORAL TABLET 1 q 8 hours prn for mu scle spasms CYCLOBENZAPRINE HCL 68190520804 No Longer Active Carlos Kaur Active SPRINTEC 28 0.25-35 MG-MCG ORAL TABLET 1 pill by mouth daily 201 07/28/21 NORGESTIMATE-ETH ESTRADIOL 17142516698 No Longer Active Nabeel Cook LPN Active LAMOTRIGINE 150 MG ORAL TABLET 1 daily LAMOTRIG INE 57608857361 No Longer Active Josephine Cruz MD Active BUSPIRONE HCL 10 MG ORAL TABLET 1/2 bid BUSPIRO NE HCL 80697864454 No Longer Active Josephine Cruz MD Active WELLBUTRIN 100 MG ORAL TABLET take 4&1/2 tabs daily 31/01/22 BUPROPION HCL 78505972186 No Longer Active Josephine Cruz MD Active STRATTERA 80 MG ORAL CAPSULE 1 tablet daily ATOMOXETINE HCL 52007898715 No Longer Active Josephine Cruz MD Active SPRINTEC 28 0.25-35 MG-MCG ORAL TABLET Take one by mouth daily 2 NORGESTIMATE-ETH ESTRADIOL 24669847806 No Longer Active Josephine Cruz MD Active BUPROPION HCL ER (XL) 300 MG ORAL TABLET EXTENDED RELEASE 24 ZACKARY R BUPROPION HCL 36930534013 No Longer Active Josephine Cruz MD Active DOXEPIN HCL 150 MG ORAL CAPSULE Take 1 to 2 caplets as needed at bedtime for sleep DOXEPIN HCL 96857413094 No Longer Active Josephine Cruz MD Active BACTRIM DS 800-160 MG ORAL TABLET Take one (1) by mouth twice a day SULFAMETHOXAZOLE-TRIMETHOPRIM 08624117349 No Longer Active Daniel Cruz MD Active VYVANSE 30 MG ORAL CAPSULE 1 daily LISDEXAMF ETAMINE DIMESYLATE 70159379261 No Longer Active Josephine Cruz MD Active TRAZODONE HCL 100 MG ORAL TABLET 1 tab at bedtime 2013 TRAZODONE HCL 59404496652 No Longer Active Christy Brown AXMINSTER WEAVER Act vernon TRAZODONE HCL 50 MG ORAL TABLET 1 q hs TRAZODO NE HCL 26479508862 No Longer Active Estrellita Tenorio MD Active TRAZODONE HCL 50 MG ORAL TABLET 1 q hs 5 TRAZODONE HCL 50 MG ORAL TABLET 330368 TRAZODONE HCL Inactive TRAZODONE HCL 100 MG ORAL TABLET 1 tab at bedtime 2013 TRAZODONE HCL 100 MG ORAL TABLET 282079 TRAZODONE HCL Inactiv e VYVANSE 30 MG ORAL CAPSULE 1 daily VYVANSE 30 M G ORAL CAPSULE LISDEXAMFETAMINE DIMESYLATE Inactive BACTRIM DS 800-160 MG ORAL TABLET Take one (1) by mouth twice a day BACTRIM DS 800-160 MG ORAL TABLET 170646 SULFAMETHOXAZOLE-TRIMETHOPRIM Inactive DOXEPIN HCL 150 MG ORAL CAPSULE Take 1 to 2 caplets as needed at bedtime for sleep DOXEPIN HCL 150 MG ORAL CAPSULE 0256152 DOXE PIN HCL Inactive BUPROPION HCL ER (XL) 300 MG ORAL TABLET EXTENDED RELEASE 24 ZACKARY R BUPROPION HCL ER (XL) 300 MG ORAL TABLET EXTENDED RELEASE 24 HOUR BUPROPION HCL Inactive SPRINTEC 28 0.25-35 MG-MCG ORAL TABLET Take one by mouth daily 2 SPRINTEC 28 0.25-35 MG-MCG ORAL TABLET 449438 N ORGESTIMATE-ETH ESTRADIOL Inactive STRATTERA 80 MG ORAL CAPSULE 1 tablet daily STRATTERA 80 MG ORAL CAPSULE 102121 ATOMOXETINE HCL Inactive WELLBUTRIN 100 MG ORAL TABLET take 4&1/2 tabs daily 20 31/01/22 WELLBUTRIN 100 MG ORAL TABLET BUPROPION HCL Inactive BUSPIRONE HCL 10 MG ORAL TABLET 1/2 bid 2 BUSPIRONE HCL 10 MG ORAL TABLET 622828 BUSPIRONE HCL Inactive LAMOTRIGINE 150 MG ORAL TABLET 1 daily LAMOTRIGINE 150 MG ORAL TABLET 747787 LAMOTRIGINE Inactive SPRINTEC 28 0.25-35 MG-MCG ORAL TABLET 1 pill by mouth daily 201 07/28/21 SPRINTEC 28 0.25-35 MG-MCG ORAL TABLET 291759 N ORGESTIMATE-ETH ESTRADIOL Inactive CYCLOBENZAPRINE HCL 10 MG ORAL TABLET 1 q 8 hours prn for mu scle spasms CYCLOBENZAPRINE HCL 10 MG ORAL TABLET 745127 CYCLOBENZAPRINE HCL Inactive DIFLUCAN 150 MG ORAL TABLET 1 tablet by mouth daily 04/07/14 DIFLUCAN 150 MG ORAL TABLET 517054 FLUCONAZOLE Inactive Advance Directives Directive Description Start [...] Diphtheria, and acellular Per tussis Immunization) Adacel [[id number]] tetanus toxoid, reduced diph theria toxoid, and acellular pertussis vaccine, adsorbed hepatitis A immunization #1 Historical hepa titis A vaccine, unspecified formulation Adacel (Tetanus, reduced Diphtheria, and acellular Per tussis Immunization) Adacel [[id number]] tetanus toxoid, reduced diph theria toxoid, and [...] pressure, diastolic, repeated by physician 71 BP snowedn blood pressure, diastolic 71 mm[Hg] BP snowden blood pressure, systolic, repeated by physician 113 BP sys blood pressure, systolic 113 mm[Hg] BP sys height E&M 67.75 [in_us] Bdy height pulse rate E&M 86 /min Heart rate temperature E&M 98.8 [degF] Body temp erature weight E&M 199.50 [lb_av] Weight Measure d Diagnostic Results Date Name Value Unit Range Description Lab Report: Chlamydia/GC APTIMA/07947, H EPATITIS B S AG W/, HIV-1/2 Agn/ ... - Chemistry hepatitis B surface antigen NON-REACTIVE NON-RE ACTIVE rapid plasma reagin antibody titer NON-REACTIVE NON-REACTIVE Lab Report: Chlamydia/GC APTIMA/89998, H EPATITIS B S AG W/, HIV-1/2 Agn/ ... - Lab chlamydia DNA probe NOT DETECTED NOT DETECTED Lab Report: Chlamydia/GC APTIMA/25003, H EPATITIS B S AG W/, HIV-1/2 [...] mg/dL Encounters Code Encounter Date Provider Facility CPT-72552 Level 4 Est. Patient 12:59:20 CDT Josephine montgomery MD [facility] CPT-58767 Level 4 Est. Patient 13:50:25 CDT Josephien montgomery MD [facility] CPT-82863 [id number] Vst-New Level II 14:23:[address] Ellen Iraheta PA-C [facility] CPT-67474 Level 3 Est. Patient 11:17:42 FISH FARM MANAGER Christy Muñoz APRN [facility] CPT-95575 Level 3 Est. Patient 11:06:57 CDT Estrellita Caceres MD [facility] CPT-25698 Level 3 Est. Patient 14:47:06 FISH FARM MANAGER Estrellita Caceres MD [facility] CPT-55703 Level 3 Est. Patient 12:33:15 FISH FARM MANAGER Estrellita Caceres MD [facility] Procedures Code Procedure Name Date Entry Date Standard Desc ription CPT-OV Office Visit 10:54:38 CDT CPT-07140 [place] of cervix w bx ECC 10:46:24 CDT 06/30 CPT-16922 UHCG Urine - FLOOR USE ONLY 10:46:23 CDT 20 04/07/14 CPT-OV Office Visit 10:46:23 CDT CPT-44096 Nexplanon Removal 15:02:55 FISH FARM MANAGER CPT-OV Office Visit 15:44:02 CDT CPT-03382 Nexplanon Placement 14:14:42 CDT CPT-J7307 Nexplanon (Implant) 14:14:42 CDT CPT-63580 UHCG (floor use only) 14:14:42 CDT CPT-OV Office Visit 14:06:57 CDT CPT-OV Office Visit 17:01:36 FISH FARM MANAGER CPT-Cryo Cryotherapy 11:17:42 FISH FARM MANAGER CPT-63913 Gardasil 11:39:29 CDT CPT-OV Office Visit 11:39:29 CDT CPT-PV Prev. Care Visit 16:07:43 FISH FARM MANAGER CPT-22237 TB Tubersol 13:10:17 FISH FARM MANAGER
--- OUTSIDE RECORDS SUMMARY | 2019-05-10 21:18 | XMS REPORT | Clinical Summary ---
Author Author Admin, Nicolette Oneill Organization [employer] Address Unknown Phone Unavailable Allergies, Adverse Reactions, [...] Well child examination V20.2 Active Christy garcia TRIMMING DEPARTMENT BLOCKER Routine or child health check Wart, left [...] Body Mass Index 30.0-30.9, adult BMI 29-29.9 Active Carolina Kaur Body Mass Index 30.0-30.9, adult Obesity Class [...] exclude high grade squamous intraepithelial lesion (ASC-H) WELL CHILD EXAM ICD-V20.2 Inactive Estrellita barajas [...] 1 tablet by mouth daily 04/07/14 FLUCONAZOLE 47808260594 No Longer Active Josephine Cruz MD Active CYCLOBENZAPRINE HCL 10 MG ORAL TABLET 1 q 8 hours prn for mu scle spasms CYCLOBENZAPRINE HCL 43489174273 No Longer Active Carlos Kaur Active SPRINTEC 28 0.25-35 MG-MCG ORAL TABLET 1 pill by mouth daily 201 07/28/21 NORGESTIMATE-ETH ESTRADIOL 14251096212 No Longer Active Nabeel Cook LPN Active LAMOTRIGINE 150 MG ORAL TABLET 1 daily LAMOTRIG INE 76435435944 No Longer Active Josephine Cruz MD Active BUSPIRONE HCL 10 MG ORAL TABLET 1/2 bid BUSPIRO NE HCL 31625142255 No Longer Active Josephine Cruz MD Active WELLBUTRIN 100 MG ORAL TABLET take 4&1/2 tabs daily 20 31/01/22 BUPROPION HCL 62630420815 No Longer Active Josephine Cruz MD Active STRATTERA 80 MG ORAL CAPSULE 1 tablet daily ATOMOXETINE HCL 82855268548 No Longer Active Josephine Cruz MD Active SPRINTEC 28 0.25-35 MG-MCG ORAL TABLET Take one by mouth daily 2 NORGESTIMATE-ETH ESTRADIOL 44261834460 No Longer Active Josephine Cruz MD Active BUPROPION HCL ER (XL) 300 MG ORAL TABLET EXTENDED RELEASE 24 ZACKARY R BUPROPION HCL 77560658431 No Longer Active Josephine Cruz MD Active DOXEPIN HCL 150 MG ORAL CAPSULE Take 1 to 2 caplets as needed at bedtime for sleep DOXEPIN HCL 48568817301 No Longer Active Josephine Cruz MD Active BACTRIM DS 800-160 MG ORAL TABLET Take one (1) by mouth twice a day SULFAMETHOXAZOLE-TRIMETHOPRIM 59669073554 No Longer Active Daniel Cruz MD Active VYVANSE 30 MG ORAL CAPSULE 1 daily LISDEXAMF ETAMINE DIMESYLATE 92160671099 No Longer Active Josephine Cruz MD Active TRAZODONE HCL 100 MG ORAL TABLET 1 tab at bedtime 2013 TRAZODONE HCL 28279232134 No Longer Active Christy Brown TRIMMING DEPARTMENT BLOCKER Act vernon TRAZODONE HCL 50 MG ORAL TABLET 1 q hs TRAZODO NE HCL 46807940176 No Longer Active Estrellita Tenorio MD Active TRAZODONE HCL 50 MG ORAL TABLET 1 q hs 5 TRAZODONE HCL 50 MG ORAL TABLET 582521 TRAZODONE HCL Inactive TRAZODONE HCL 100 MG ORAL TABLET 1 tab at bedtime 2013 TRAZODONE HCL 100 MG ORAL TABLET 542964 TRAZODONE HCL Inactiv e VYVANSE 30 MG ORAL CAPSULE 1 daily VYVANSE 30 M G ORAL CAPSULE LISDEXAMFETAMINE DIMESYLATE Inactive BACTRIM DS 800-160 MG ORAL TABLET Take one (1) by mouth twice a day BACTRIM DS 800-160 MG ORAL TABLET 765662 SULFAMETHOXAZOLE-TRIMETHOPRIM Inactive DOXEPIN HCL 150 MG ORAL CAPSULE Take 1 to 2 caplets as needed at bedtime for sleep DOXEPIN HCL 150 MG ORAL CAPSULE 7064074 DOXE PIN HCL Inactive BUPROPION HCL ER (XL) 300 MG ORAL TABLET EXTENDED RELEASE 24 ZACKARY R BUPROPION HCL ER (XL) 300 MG ORAL TABLET EXTENDED RELEASE 24 HOUR BUPROPION HCL Inactive SPRINTEC 28 0.25-35 MG-MCG ORAL TABLET Take one by mouth daily 2 SPRINTEC 28 0.25-35 MG-MCG ORAL TABLET 729038 N ORGESTIMATE-ETH ESTRADIOL Inactive STRATTERA 80 MG ORAL CAPSULE 1 tablet daily STRATTERA 80 MG ORAL CAPSULE 728243 ATOMOXETINE HCL Inactive WELLBUTRIN 100 MG ORAL TABLET take 4&1/2 tabs daily 31/01/22 WELLBUTRIN 100 MG ORAL TABLET BUPROPION HCL Inactive BUSPIRONE HCL 10 MG ORAL TABLET 1/2 bid 2 BUSPIRONE HCL 10 MG ORAL TABLET 277816 BUSPIRONE HCL Inactive LAMOTRIGINE 150 MG ORAL TABLET 1 daily LAMOTRIGINE 150 MG ORAL TABLET 380294 LAMOTRIGINE Inactive SPRINTEC 28 0.25-35 MG-MCG ORAL TABLET 1 pill by mouth daily 201 07/28/21 SPRINTEC 28 0.25-35 MG-MCG ORAL TABLET 618397 N ORGESTIMATE-ETH ESTRADIOL Inactive CYCLOBENZAPRINE HCL 10 MG ORAL TABLET 1 q 8 hours prn for mu scle spasms CYCLOBENZAPRINE HCL 10 MG ORAL TABLET 412996 CYCLOBENZAPRINE HCL Inactive DIFLUCAN 150 MG ORAL TABLET 1 tablet by mouth daily 04/07/14 DIFLUCAN 150 MG ORAL TABLET 764836 FLUCONAZOLE Inactive Advance Directives Directive Description Start [...] Diphtheria, and acellular Per tussis Immunization) Adacel [[id number]] tetanus toxoid, reduced diph theria toxoid, and acellular pertussis vaccine, adsorbed hepatitis A immunization #1 Historical hepa titis A vaccine, unspecified formulation Adacel (Tetanus, reduced Diphtheria, and acellular Per tussis Immunization) Adacel [[id number]] tetanus toxoid, reduced diph theria toxoid, and [...] Value Unit Range Description blood pressure, diastolic 84 mm[Hg] BP snow[place] [...] Value Unit Range Description Lab Report: Chlamydia/GC APTIMA/90362, H EPATITIS B S AG W/, HIV-1/2 Agn/ ... - Chemistry hepatitis B surface antigen NON-REACTIVE NON-RE ACTIVE rapid plasma reagin antibody titer NON-REACTIVE NON-REACTIVE Lab Report: Chlamydia/GC APTIMA/33411, H EPATITIS B S AG W/, HIV-1/2 Agn/ ... - Lab chlamydia DNA probe NOT DETECTED NOT DETECTED Lab Report: Chlamydia/GC APTIMA/13842, H EPATITIS B S AG W/, HIV-1/2 [...] mg/dL Encounters Code Encounter Date Provider Facility CPT-95187 Level 4 Est. Patient 13:50:25 CDT Josephine montgomery MD [facility] CPT-33110 [id number] Vst-New Level II 14:23:[address] Ellen Iraheta PA-C [facility] CPT-13020 Level 3 Est. Patient 11:17:42 COUPON CLERK Christy Muñoz APRN [facility] CPT-30501 Level 3 Est. Patient 11:06:57 CDT Estrellita Caceres MD [facility] CPT-10824 Level 3 Est. Patient 14:47:06 COUPON CLERK Estrellita Caceres MD [facility] CPT-50125 Level 3 Est. Patient 12:33:15 COUPON CLERK Estrellita Caceres MD [facility] Procedures Code Procedure Name Date Entry Date Standard Desc ription CPT-58252 [place] of cervix w bx ECC 10:46:24 CDT 06/30 CPT-02812 UHCG Urine - FLOOR USE ONLY 10:46:23 CDT 20 04/07/14 CPT-OV Office Visit 10:46:23 CDT CPT-82190 Nexplanon Removal 15:02:55 COUPON CLERK CPT-OV Office Visit 15:44:02 CDT CPT-17551 Nexplanon Placement 14:14:42 CDT CPT-J7307 Nexplanon (Implant) 14:14:42 CDT CPT-12573 UHCG (floor use only) 14:14:42 CDT CPT-OV Office Visit 14:06:57 CDT CPT-OV Office Visit 17:01:36 COUPON CLERK CPT-Cryo Cryotherapy 11:17:42 COUPON CLERK CPT-52221 Gardasil 11:39:29 CDT CPT-OV Office Visit 11:39:29 CDT CPT-PV Prev. Care Visit 16:07:43 COUPON CLERK CPT-00726 TB Tubersol 13:10:17 COUPON CLERK
--- OUTSIDE RECORDS SUMMARY | 2019-05-10 21:18 | XMS REPORT | Clinical Summary ---
Author Author Brijesh, Nicolette Oneill Organization [facility] Address Unknown Phone Unavailable Allergies, Adverse [...] Well child examination V20.2 Active Christy garcia GRIP WRAPPER Routine or child health check Wart, left hand 078.10 Active Christy Brown APR N Viral warts, unspecified Vaginal discharge 623.5 Resolved Marilee Cook LPN Leukorrhea, not specified as infective DYSURIA 788.1 Resolved Marilee Cook LPN Dysuria examination or test, positive result V72.42 Active Marliee Cook LPN examination or milagro t, positive [...] disease Pap only (ca screen cervix) V76.2 Active Josephine Cruz MD Screening for malignant neoplasms of the cervix WELL CHILD EXAM ICD-V20.2 Inactive Estrellita barajas MD WELL CHILD EXAM ICD-V20.2 Inactive Estrellita barajas MD ABDOMINAL PAIN ICD-789.00 Inactive Estrellita barajas MD CONTRACEPTIVE MANAGEMENT ICD-V25.09 Inactive Josephine Cruz MD CEPHALGIA ICD-784.0 Inactive Estrellita Tenorio MD Vaginal discharge ICD-623.5 Inactive Marilee benjaminhall SUBMERSIBLE PILOT DYSURIA ICD-788.1 Inactive Marilee Cook L PN Medication List Medication Instructions Start Date Stop Date Generic Name NDC Status Provider Patient Instruction DIFLUCAN 150 MG ORAL TABLET 1 tablet by mouth daily FLUCONAZOLE 88579894747 Active Marileemallorie Cook LPN Active CYCLOBENZAPRINE HCL 10 MG ORAL TABLET 1 q 8 hours prn for mu scle spasms CYCLOBENZAPRINE HCL 48906285076 No Longer Active Carlos rosy Kaur Active SPRINTEC 28 0.25-35 MG-MCG ORAL TABLET 1 pill by mouth daily 201 07/28/21 NORGESTIMATE-ETH ESTRADIOL 57198561990 No Longer Active Nabeel Cook LPN Active LAMOTRIGINE 150 MG ORAL TABLET 1 daily LAMOTRIG INE 75386444897 No Longer Active Josephine Cruz MD Active BUSPIRONE HCL 10 MG ORAL TABLET 1/2 bid BUSPIRO NE HCL 31110078471 No Longer Active Josephine Cruz MD Active WELLBUTRIN 100 MG ORAL TABLET take 4&1/2 tabs daily 20 31/01/22 BUPROPION HCL 38165114197 No Longer Active Josephine Cruz MD Active STRATTERA 80 MG ORAL CAPSULE 1 tablet daily ATOMOXETINE HCL 69783545639 No Longer Active Josephine Cruz MD Active SPRINTEC 28 0.25-35 MG-MCG ORAL TABLET Take one by mouth daily 2 NORGESTIMATE-ETH ESTRADIOL 63326961950 No Longer Active Josephine Cruz MD Active BUPROPION HCL ER (XL) 300 MG ORAL TABLET EXTENDED RELEASE 24 ZACKARY R BUPROPION HCL 60670899134 No Longer Active Josephine Curz MD Active DOXEPIN HCL 150 MG ORAL CAPSULE Take 1 to 2 caplets as needed at bedtime for sleep DOXEPIN HCL 28964233390 No Longer Active Josephine Cruz MD Active BACTRIM DS 800-160 MG ORAL TABLET Take one (1) by mouth twice a day SULFAMETHOXAZOLE-TRIMETHOPRIM 22764001108 No Longer Active Daniel Cruz MD Active VYVANSE 30 MG ORAL CAPSULE 1 daily LISDEXAMF ETAMINE DIMESYLATE 43106417127 No Longer Active Josephine Cruz MD Active TRAZODONE HCL 100 MG ORAL TABLET 1 tab at bedtime 2013 TRAZODONE HCL 40950914639 No Longer Active Christy Brown GRIP WRAPPER Act vernon TRAZODONE HCL 50 MG ORAL TABLET 1 q hs TRAZODO NE HCL 18970894566 No Longer Active Estrellita Tenorio MD Active TRAZODONE HCL 50 MG ORAL TABLET 1 q hs 5 TRAZODONE HCL 50 MG ORAL TABLET 394122 TRAZODONE HCL Inactive TRAZODONE HCL 100 MG ORAL TABLET 1 tab at bedtime 2013 TRAZODONE HCL 100 MG ORAL TABLET 802900 TRAZODONE HCL Inactiv e VYVANSE 30 MG ORAL CAPSULE 1 daily VYVANSE 30 M G ORAL CAPSULE LISDEXAMFETAMINE DIMESYLATE Inactive BACTRIM DS 800-160 MG ORAL TABLET Take one (1) by mouth twice a day BACTRIM DS 800-160 MG ORAL TABLET 662386 SULFAMETHOXAZOLE-TRIMETHOPRIM Inactive DOXEPIN HCL 150 MG ORAL CAPSULE Take 1 to 2 caplets as needed at bedtime for sleep DOXEPIN HCL 150 MG ORAL CAPSULE 7043317 DOXE PIN HCL Inactive BUPROPION HCL ER (XL) 300 MG ORAL TABLET EXTENDED RELEASE 24 ZACKARY R BUPROPION HCL ER (XL) 300 MG ORAL TABLET EXTENDED RELEASE 24 HOUR BUPROPION HCL Inactive SPRINTEC 28 0.25-35 MG-MCG ORAL TABLET Take one by mouth daily 2 SPRINTEC 28 0.25-35 MG-MCG ORAL TABLET 719662 N ORGESTIMATE-ETH ESTRADIOL Inactive STRATTERA 80 MG ORAL CAPSULE 1 tablet daily STRATTERA 80 MG ORAL CAPSULE 299864 ATOMOXETINE HCL Inactive WELLBUTRIN 100 MG ORAL TABLET take 4&1/2 tabs daily 31/01/22 WELLBUTRIN 100 MG ORAL TABLET BUPROPION HCL Inactive BUSPIRONE HCL 10 MG ORAL TABLET 1/2 bid 2 BUSPIRONE HCL 10 MG ORAL TABLET 986642 BUSPIRONE HCL Inactive LAMOTRIGINE 150 MG ORAL TABLET 1 daily LAMOTRIGINE 150 MG ORAL TABLET 521965 LAMOTRIGINE Inactive SPRINTEC 28 0.25-35 MG-MCG ORAL TABLET 1 pill by mouth daily 201 07/28/21 SPRINTEC 28 0.25-35 MG-MCG ORAL TABLET 094771 N ORGESTIMATE-ETH ESTRADIOL Inactive CYCLOBENZAPRINE HCL 10 MG ORAL TABLET 1 q 8 hours prn for mu scle spasms CYCLOBENZAPRINE HCL 10 MG ORAL TABLET 919073 CYCLOBENZAPRINE HCL Inactive Advance Directives Directive Description Start Date [...] Diphtheria, and acellular Per tussis Immunization) Adacel [[id number]] tetanus toxoid, reduced diph theria toxoid, and acellular pertussis vaccine, adsorbed hepatitis A immunization #1 Historical hepa titis A vaccine, unspecified formulation Adacel (Tetanus, reduced Diphtheria, and acellular Per tussis Immunization) Adacel [[id number]] tetanus toxoid, reduced diph theria toxoid, and [...] vaccine, unspecified formulation DPT immunization #3 Historical MMR (measles, mumps, rubella) virus immunization #1 Historical oral polio vaccine (OPV) #2 Historical ann marie ovirus vaccine, unspecified formulation DPT immunization #2 Historical hepatitis B vaccine #3 Historical hepatitis B vaccine, unspecified formulation Hemophilus influenza B immunization #2 Historica l Haemophilus influenzae type b vaccine, conjugate unspecified formulation DPT immunization #1 Historical hepatitis B vaccine #2 given Historical hep atitis B vaccine, unspecified formulation oral polio vaccine (OPV) #1 Historical ann marie ovirus vaccine, unspecified formulation Hemophilus influenza B immunization #1 Historica l Haemophilus influenzae type b vaccine, conjugate unspecified formulation hepatitis B vaccine #1 given Historical hep atitis B vaccine, unspecified formulation Vital Signs Date Name Value Unit Range Description blood pressure, diastolic, repeated by physician 84 [...] Value Unit Range Description Lab Report: Chlamydia/GC APTIMA/69214, H EPATITIS B S AG W/, HIV-1/2 Agn/ ... - Chemistry hepatitis B surface antigen NON-REACTIVE NON-RE ACTIVE rapid plasma reagin antibody titer NON-REACTIVE NON-REACTIVE Lab Report: Chlamydia/GC APTIMA/70044, H EPATITIS B S AG W/, HIV-1/2 Agn/ ... - Lab chlamydia DNA probe NOT DETECTED NOT DETECTED Lab Report: Chlamydia/GC APTIMA/65019, H EPATITIS B S AG W/, HIV-1/2 [...] amorphous, urine, semiquantitative Few None seen Office Visit: Evaluation for possible pr egnancy - Chemistry human chorionic gonadotropin , urine, qualitative (urine test) Negative Office Visit: F/u neck pain, nerve damag e - Chemistry HDL cholesterol, serum, target level 40 mg/dL cholesterol, target level 200 mg/dL triglyceride, target level 150 mg/dL Encounters Code Encounter Date Provider Facility CPT-85795 Level 4 Est. Patient 13:50:25 CDT Josephine montgomery MD [facility] CPT-04503 [id number] Vst-New Level II 14:23:[address] Ellen Iraheta PA-C [facility] CPT-17303 Level 3 Est. Patient 11:17:42 SUPERVISOR CIGAR PROCESSING Christy Muñoz APRN [facility] CPT-79311 Level 3 Est. Patient 11:06:57 CDT Estrellita Caceres MD [facility] CPT-70450 Level 3 Est. Patient 14:47:06 SUPERVISOR CIGAR PROCESSING Estrellita Caceres MD [facility] CPT-83922 Level 3 Est. Patient 12:33:15 JOSE Caceres MD [facility] Procedures Code Procedure Name Date Entry Date Standard Desc ription CPT-26368 Nexplanon Removal 15:02:55 SUPERVISOR CIGAR PROCESSING CPT-OV Office Visit 15:44:02 CDT CPT-45333 Nexplanon Placement 14:14:42 CDT CPT-J7307 Nexplanon (Implant) 14:14:42 CDT CPT-28853 UHCG (floor use only) 14:14:42 CDT CPT-OV Office Visit 14:06:57 CDT CPT-OV Office Visit 17:01:36 SUPERVISOR CIGAR PROCESSING CPT-Cryo Cryotherapy 11:17:42 SUPERVISOR CIGAR PROCESSING CPT-62312 Gardasil 11:39:29 CDT CPT-OV Office Visit 11:39:29 CDT CPT-PV Prev. Care Visit 16:07:43 SUPERVISOR CIGAR PROCESSING CPT-42550 TB Tubersol 13:10:17 SUPERVISOR CIGAR PROCESSING
--- OUTSIDE RECORDS SUMMARY | 2019-05-10 21:18 | XMS REPORT | Clinical Summary ---
Author Author Brijesh, Nicolette Oneill Organization [facility] Address Unknown Phone Unavailable Allergies, Adverse Reactions, [...] Well child examination V20.2 Active Christy garcia DIET KITCHEN COOK Routine or child health check Wart, left [...] 1 tablet by mouth daily 04/07/14 FLUCONAZOLE 13704545292 No Longer Active Josephine Cruz MD Active CYCLOBENZAPRINE HCL 10 MG ORAL TABLET 1 q 8 hours prn for mu scle spasms CYCLOBENZAPRINE HCL 93694449355 No Longer Active Carlos Kaur Active SPRINTEC 28 0.25-35 MG-MCG ORAL TABLET 1 pill by mouth daily 201 07/28/21 NORGESTIMATE-ETH ESTRADIOL 82203525821 No Longer Active Nabeel Cook LPN Active LAMOTRIGINE 150 MG ORAL TABLET 1 daily LAMOTRIG INE 72919730473 No Longer Active Josephine Cruz MD Active BUSPIRONE HCL 10 MG ORAL TABLET 1/2 bid BUSPIRO NE HCL 54910332058 No Longer Active Josephine Cruz MD Active WELLBUTRIN 100 MG ORAL TABLET take 4&1/2 tabs daily 31/01/22 BUPROPION HCL 30493320983 No Longer Active Josephine Cruz MD Active STRATTERA 80 MG ORAL CAPSULE 1 tablet daily ATOMOXETINE HCL 86168861870 No Longer Active Josephine Cruz MD Active SPRINTEC 28 0.25-35 MG-MCG ORAL TABLET Take one by mouth daily 2 NORGESTIMATE-ETH ESTRADIOL 39843440043 No Longer Active Josephine Cruz MD Active BUPROPION HCL ER (XL) 300 MG ORAL TABLET EXTENDED RELEASE 24 ZACKARY R BUPROPION HCL 15496436741 No Longer Active Josephine Cruz MD Active DOXEPIN HCL 150 MG ORAL CAPSULE Take 1 to 2 caplets as needed at bedtime for sleep DOXEPIN HCL 05633103675 No Longer Active Josephine Cruz MD Active BACTRIM DS 800-160 MG ORAL TABLET Take one (1) by mouth twice a day SULFAMETHOXAZOLE-TRIMETHOPRIM 57587894876 No Longer Active Daniel Cruz MD Active VYVANSE 30 MG ORAL CAPSULE 1 daily LISDEXAMF ETAMINE DIMESYLATE 72806245501 No Longer Active Josephine Cruz MD Active TRAZODONE HCL 100 MG ORAL TABLET 1 tab at bedtime 2013 TRAZODONE HCL 66939414503 No Longer Active Christy Brown APRN Act vernon TRAZODONE HCL 50 MG ORAL TABLET 1 q hs TRAZODO NE HCL 44286324120 No Longer Active Estrellita Tenorio MD Active TRAZODONE HCL 50 MG ORAL TABLET 1 q hs 5 TRAZODONE HCL 50 MG ORAL TABLET 815772 TRAZODONE HCL Inactive TRAZODONE HCL 100 MG ORAL TABLET 1 tab at bedtime 2013 TRAZODONE HCL 100 MG ORAL TABLET 409261 TRAZODONE HCL Inactiv e VYVANSE 30 MG ORAL CAPSULE 1 daily VYVANSE 30 M G ORAL CAPSULE LISDEXAMFETAMINE DIMESYLATE Inactive BACTRIM DS 800-160 MG ORAL TABLET Take one (1) by mouth twice a day BACTRIM DS 800-160 MG ORAL TABLET 868049 SULFAMETHOXAZOLE-TRIMETHOPRIM Inactive DOXEPIN HCL 150 MG ORAL CAPSULE Take 1 to 2 caplets as needed at bedtime for sleep DOXEPIN HCL 150 MG ORAL CAPSULE 9309958 DOXE PIN HCL Inactive BUPROPION HCL ER (XL) 300 MG ORAL TABLET EXTENDED RELEASE 24 ZACKARY R BUPROPION HCL ER (XL) 300 MG ORAL TABLET EXTENDED RELEASE 24 HOUR BUPROPION HCL Inactive SPRINTEC 28 0.25-35 MG-MCG ORAL TABLET Take one by mouth daily 2 SPRINTEC 28 0.25-35 MG-MCG ORAL TABLET 881836 N ORGESTIMATE-ETH ESTRADIOL Inactive STRATTERA 80 MG ORAL CAPSULE 1 tablet daily STRATTERA 80 MG ORAL CAPSULE 308385 ATOMOXETINE HCL Inactive WELLBUTRIN 100 MG ORAL TABLET take 4&1/2 tabs daily 31/01/22 WELLBUTRIN 100 MG ORAL TABLET BUPROPION HCL Inactive BUSPIRONE HCL 10 MG ORAL TABLET 1/2 bid 2 BUSPIRONE HCL 10 MG ORAL TABLET 865052 BUSPIRONE HCL Inactive LAMOTRIGINE 150 MG ORAL TABLET 1 daily LAMOTRIGINE 150 MG ORAL TABLET 987495 LAMOTRIGINE Inactive SPRINTEC 28 0.25-35 MG-MCG ORAL TABLET 1 pill by mouth daily 201 07/28/21 SPRINTEC 28 0.25-35 MG-MCG ORAL TABLET 320782 N ORGESTIMATE-ETH ESTRADIOL Inactive CYCLOBENZAPRINE HCL 10 MG ORAL TABLET 1 q 8 hours prn for mu scle spasms CYCLOBENZAPRINE HCL 10 MG ORAL TABLET 949768 CYCLOBENZAPRINE HCL Inactive DIFLUCAN 150 MG ORAL TABLET 1 tablet by mouth daily 04/07/14 DIFLUCAN 150 MG ORAL TABLET 172929 FLUCONAZOLE Inactive Advance Directives Directive Description Start [...] Diphtheria, and acellular Per tussis Immunization) Adacel [[id number]] tetanus toxoid, reduced diph theria toxoid, and acellular pertussis vaccine, adsorbed hepatitis A immunization #1 Historical hepa titis A vaccine, unspecified formulation Adacel (Tetanus, reduced Diphtheria, and acellular Per tussis Immunization) Adacel [[id number]] tetanus toxoid, reduced diph theria toxoid, and [...] Value Unit Range Description Lab Report: Chlamydia/GC APTIMA/69433, H EPATITIS B S AG W/, HIV-1/2 Agn/ ... - Chemistry hepatitis B surface antigen NON-REACTIVE NON-RE ACTIVE rapid plasma reagin antibody titer NON-REACTIVE NON-REACTIVE Lab Report: Chlamydia/GC APTIMA/82581, H EPATITIS B S AG W/, HIV-1/2 Agn/ ... - Lab chlamydia DNA probe NOT DETECTED NOT DETECTED Lab Report: Chlamydia/GC APTIMA/27281, H EPATITIS B S AG W/, HIV-1/2 [...] mg/dL Encounters Code Encounter Date Provider Facility CPT-18383 Level 4 Est. Patient 13:50:25 CDT Josephine montgomery MD [facility] CPT-13422 80691-[place] Vst-New Level II 14:23:[address] Ellen Iraheta PA-C [facility] CPT-78325 Level 3 Est. Patient 11:17:42 FIELD SALES AGENT Christy Muñoz APRN [facility] CPT-82168 Level 3 Est. Patient 11:06:57 CDT Estrellita Caceres MD [facility] CPT-45872 Level 3 Est. Patient 14:47:06 FIELD SALES AGENT Estrellita Caceres MD [facility] CPT-13403 Level 3 Est. Patient 12:33:15 FIELD SALES AGENT Estrellita Caceres MD [facility] Procedures Code Procedure Name Date Entry Date Standard Desc ription CPT-57588 [place] of cervix w bx ECC 10:46:24 CDT 06/30 CPT-49081 UHCG Urine - FLOOR USE ONLY 10:46:23 CDT 20 04/07/14 CPT-OV Office Visit 10:46:23 CDT CPT-37771 Nexplanon Removal 15:02:55 FIELD SALES AGENT CPT-OV Office Visit 15:44:02 CDT CPT-03259 Nexplanon Placement 14:14:42 CDT CPT-J7307 Nexplanon (Implant) 14:14:42 CDT CPT-84932 UHCG (floor use only) 14:14:42 CDT CPT-OV Office Visit 14:06:57 CDT CPT-OV Office Visit 17:01:36 FIELD SALES AGENT CPT-Cryo Cryotherapy 11:17:42 FIELD SALES AGENT CPT-73877 Gardasil 11:39:29 CDT CPT-OV Office Visit 11:39:29 CDT CPT-PV Prev. Care Visit 16:07:43 FIELD SALES AGENT CPT-53502 TB Tubersol 13:10:17 FIELD SALES AGENT
--- OUTSIDE RECORDS SUMMARY | 2019-05-10 21:18 | XMS REPORT | Clinical Summary ---
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 Routine or child health check Wart, left [...] 1 tablet by mouth daily 04/07/14 FLUCONAZOLE 76412134483 No Longer Active Josephine Cruz MD Active CYCLOBENZAPRINE HCL 10 MG ORAL TABLET 1 q 8 hours prn for mu scle spasms CYCLOBENZAPRINE HCL 57626675097 No Longer Active Carlos Kaur Active SPRINTEC 28 0.25-35 MG-MCG ORAL TABLET 1 pill by mouth daily 201 07/28/21 NORGESTIMATE-ETH ESTRADIOL 29763724806 No Longer Active Nabeel Cook LPN Active LAMOTRIGINE 150 MG ORAL TABLET 1 daily LAMOTRIG INE 41298853932 No Longer Active Josephine Cruz MD Active BUSPIRONE HCL 10 MG ORAL TABLET 1/2 bid BUSPIRO NE HCL 38007825223 No Longer Active Josephine Cruz MD Active WELLBUTRIN 100 MG ORAL TABLET take 4&1/2 tabs daily 20 31/01/22 BUPROPION HCL 22451119854 No Longer Active Josephine Cruz MD Active STRATTERA 80 MG ORAL CAPSULE 1 tablet daily ATOMOXETINE HCL 08702012318 No Longer Active Josephine Cruz MD Active SPRINTEC 28 0.25-35 MG-MCG ORAL TABLET Take one by mouth daily 2 NORGESTIMATE-ETH ESTRADIOL 51807183635 No Longer Active Josephine Cruz MD Active BUPROPION HCL ER (XL) 300 MG ORAL TABLET EXTENDED RELEASE 24 ZACKARY R BUPROPION HCL 08720665421 No Longer Active Josephine Cruz MD Active DOXEPIN HCL 150 MG ORAL CAPSULE Take 1 to 2 caplets as needed at bedtime for sleep DOXEPIN HCL 62674068878 No Longer Active Josephine Cruz MD Active BACTRIM DS 800-160 MG ORAL TABLET Take one (1) by mouth twice a day SULFAMETHOXAZOLE-TRIMETHOPRIM 89582324050 No Longer Active Daniel Cruz MD Active VYVANSE 30 MG ORAL CAPSULE 1 daily LISDEXAMF ETAMINE DIMESYLATE 09932518576 No Longer Active Josephine Cruz MD Active TRAZODONE HCL 100 MG ORAL TABLET 1 tab at bedtime 2013 TRAZODONE HCL 84717334814 No Longer Active Christy Brown METAL ALLOY SCIENTIST Act vernon TRAZODONE HCL 50 MG ORAL TABLET 1 q hs TRAZODO NE HCL 96694873535 No Longer Active Estrellita Tenorio MD Active TRAZODONE HCL 50 MG ORAL TABLET 1 q hs 5 TRAZODONE HCL 50 MG ORAL TABLET 025034 TRAZODONE HCL Inactive TRAZODONE HCL 100 MG ORAL TABLET 1 tab at bedtime 2013 TRAZODONE HCL 100 MG ORAL TABLET 437100 TRAZODONE HCL Inactiv e VYVANSE 30 MG ORAL CAPSULE 1 daily VYVANSE 30 M G ORAL CAPSULE LISDEXAMFETAMINE DIMESYLATE Inactive BACTRIM DS 800-160 MG ORAL TABLET Take one (1) by mouth twice a day BACTRIM DS 800-160 MG ORAL TABLET 365398 SULFAMETHOXAZOLE-TRIMETHOPRIM Inactive DOXEPIN HCL 150 MG ORAL CAPSULE Take 1 to 2 caplets as needed at bedtime for sleep DOXEPIN HCL 150 MG ORAL CAPSULE 0390859 DOXE PIN HCL Inactive BUPROPION HCL ER (XL) 300 MG ORAL TABLET EXTENDED RELEASE 24 ZACKARY R BUPROPION HCL ER (XL) 300 MG ORAL TABLET EXTENDED RELEASE 24 HOUR BUPROPION HCL Inactive SPRINTEC 28 0.25-35 MG-MCG ORAL TABLET Take one by mouth daily 2 SPRINTEC 28 0.25-35 MG-MCG ORAL TABLET 586637 N ORGESTIMATE-ETH ESTRADIOL Inactive STRATTERA 80 MG ORAL CAPSULE 1 tablet daily STRATTERA 80 MG ORAL CAPSULE 300484 ATOMOXETINE HCL Inactive WELLBUTRIN 100 MG ORAL TABLET take 4&1/2 tabs daily 31/01/22 WELLBUTRIN 100 MG ORAL TABLET BUPROPION HCL Inactive BUSPIRONE HCL 10 MG ORAL TABLET 1/2 bid 2 BUSPIRONE HCL 10 MG ORAL TABLET 448991 BUSPIRONE HCL Inactive LAMOTRIGINE 150 MG ORAL TABLET 1 daily LAMOTRIGINE 150 MG ORAL TABLET 350175 LAMOTRIGINE Inactive SPRINTEC 28 0.25-35 MG-MCG ORAL TABLET 1 pill by mouth daily 201 07/28/21 SPRINTEC 28 0.25-35 MG-MCG ORAL TABLET 196722 N ORGESTIMATE-ETH ESTRADIOL Inactive CYCLOBENZAPRINE HCL 10 MG ORAL TABLET 1 q 8 hours prn for mu scle spasms CYCLOBENZAPRINE HCL 10 MG ORAL TABLET 881438 CYCLOBENZAPRINE HCL Inactive DIFLUCAN 150 MG ORAL TABLET 1 tablet by mouth daily 04/07/14 DIFLUCAN 150 MG ORAL TABLET 141699 FLUCONAZOLE Inactive Advance Directives Directive Description Start [...] Diphtheria, and acellular Per tussis Immunization) Adacel [[id number]] tetanus toxoid, reduced diph theria toxoid, and acellular pertussis vaccine, adsorbed hepatitis A immunization #1 Historical hepa titis A vaccine, unspecified formulation Adacel (Tetanus, reduced Diphtheria, and acellular Per tussis Immunization) Adacel [[id number]] tetanus toxoid, reduced diph theria toxoid, and [...] Value Unit Range Description Lab Report: Chlamydia/GC APTIMA/50977, H EPATITIS B S AG W/, HIV-1/2 Agn/ ... - Chemistry hepatitis B surface antigen NON-REACTIVE NON-RE ACTIVE rapid plasma reagin antibody titer NON-REACTIVE NON-REACTIVE Lab Report: Chlamydia/GC APTIMA/32947, H EPATITIS B S AG W/, HIV-1/2 Agn/ ... - Lab chlamydia DNA probe NOT DETECTED NOT DETECTED Lab Report: Chlamydia/GC APTIMA/17384, H EPATITIS B S AG W/, HIV-1/2 [...] mg/dL Encounters Code Encounter Date Provider Facility CPT-01664 Level 4 Est. Patient 13:50:25 CDT Josephine montgomery MD [facility] CPT-37884 21132-[id number] Vst-New Level II 14:23:[address] Ellen Iraheta PA-C [facility] CPT-05477 Level 3 Est. Patient 11:17:42 QUALIFIED CRAFT WORKER ELECTRICIAN Christy Muñoz APRN [facility] CPT-54889 Level 3 Est. Patient 11:06:57 CDT Estrellita Caceres MD [facility] CPT-84832 Level 3 Est. Patient 14:47:06 QUALIFIED CRAFT WORKER ELECTRICIAN Estrellita Caceres MD [facility] CPT-42733 Level 3 Est. Patient 12:33:15 QUALIFIED CRAFT WORKER ELECTRICIAN Estrellita Caceres MD [facility] Procedures Code Procedure Name Date Entry Date Standard Desc ription CPT-88674 [place] of cervix w bx ECC 10:46:24 CDT 06/30 CPT-44574 UHCG Urine - FLOOR USE ONLY 10:46:23 CDT 20 04/07/14 CPT-OV Office Visit 10:46:23 CDT CPT-95470 Nexplanon Removal 15:02:55 QUALIFIED CRAFT WORKER ELECTRICIAN CPT-OV Office Visit 15:44:02 CDT CPT-58844 Nexplanon Placement 14:14:42 CDT CPT-J7307 Nexplanon (Implant) 14:14:42 CDT CPT-04273 UHCG (floor use only) 14:14:42 CDT CPT-OV Office Visit 14:06:57 CDT CPT-OV Office Visit 17:01:36 QUALIFIED CRAFT WORKER ELECTRICIAN CPT-Cryo Cryotherapy 11:17:42 QUALIFIED CRAFT WORKER ELECTRICIAN CPT-37700 Gardasil 11:39:29 CDT CPT-OV Office Visit 11:39:29 CDT CPT-PV Prev. Care Visit 16:07:43 QUALIFIED CRAFT WORKER ELECTRICIAN CPT-92824 TB Tubersol 13:10:17 QUALIFIED CRAFT WORKER ELECTRICIAN
--- OUTSIDE RECORDS SUMMARY | 2019-05-10 21:19 | XMS REPORT | Clinical Summary ---
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 Routine or child health check Wart, left hand 078.10 Active Christy Brown APR N Viral warts, unspecified Vaginal discharge 623.5 Resolved Marilee Cook LPN Leukorrhea, not specified as infective DYSURIA 788.1 Resolved Marilee Joey STEWARD/STEWARDESS CHIEF CARGO VESSEL Dysuria examination or test, positive result V72.42 [...] MD Vaginal discharge ICD-623.5 Inactive Marilee charlesl STEWARD/STEWARDESS CHIEF CARGO VESSEL DYSURIA ICD-788.1 Inactive Marilee Ferrell PN Medication List Medication Instructions Start Date Stop Date Generic Name ND Status Provider Patient Instruction DIFLUCAN 150 MG ORAL TABLET 1 tablet by mouth daily FLUCONAZOLE 98733078440 Active Marilee Cook LPN Active CYCLOBENZAPRINE HCL 10 MG ORAL TABLET 1 q 8 hours prn for mu scle spasms CYCLOBENZAPRINE HCL 68143649065 No Longer Active Carlos Kaur Active SPRINTEC 28 0.25-35 MG-MCG ORAL TABLET 1 pill by mouth daily 201 07/28/21 NORGESTIMATE-ETH ESTRADIOL 53643157485 No Longer Active Nabeel Cook LPN Active LAMOTRIGINE 150 MG ORAL TABLET 1 daily LAMOTRIG INE 63337351664 No Longer Active Josephine Cruz MD Active BUSPIRONE HCL 10 MG ORAL TABLET 1/2 bid BUSPIRO NE HCL 22976783864 No Longer Active Josephine Cruz MD Active WELLBUTRIN 100 MG ORAL TABLET take 4&1/2 tabs daily 20 31/01/22 BUPROPION HCL 24164956860 No Longer Active Josephine Cruz MD Active STRATTERA 80 MG ORAL CAPSULE 1 tablet daily ATOMOXETINE HCL 53701958530 No Longer Active Josephine Curz MD Active SPRINTEC 28 0.25-35 MG-MCG ORAL TABLET Take one by mouth daily 2 NORGESTIMATE-ETH ESTRADIOL 75537369788 No Longer Active Josephine Cruz MD Active BUPROPION HCL ER (XL) 300 MG ORAL TABLET EXTENDED RELEASE 24 ZAKCARY R BUPROPION HCL 89201108679 No Longer Active Josephine Cruz MD Active DOXEPIN HCL 150 MG ORAL CAPSULE Take 1 to 2 caplets as needed at bedtime for sleep DOXEPIN HCL 58217855103 No Longer Active Josephine Cruz MD Active BACTRIM DS 800-160 MG ORAL TABLET Take one (1) by mouth twice a day SULFAMETHOXAZOLE-TRIMETHOPRIM 76401484133 No Longer Active Daniel Cruz MD Active VYVANSE 30 MG ORAL CAPSULE 1 daily LISDEXAMF ETAMINE DIMESYLATE 47173894217 No Longer Active Josephine Cruz MD Active TRAZODONE HCL 100 MG ORAL TABLET 1 tab at bedtime 2013 TRAZODONE HCL 37477233824 No Longer Active Christy Brown POULTRY FARM WORKER Act vernon TRAZODONE HCL 50 MG ORAL TABLET 1 q hs TRAZODO NE HCL 22564718099 No Longer Active Estrellita Tenorio MD Active TRAZODONE HCL 50 MG ORAL TABLET 1 q hs 5 TRAZODONE HCL 50 MG ORAL TABLET 645454 TRAZODONE HCL Inactive TRAZODONE HCL 100 MG ORAL TABLET 1 tab at bedtime 2013 TRAZODONE HCL 100 MG ORAL TABLET 903367 TRAZODONE HCL Inactiv e VYVANSE 30 MG ORAL CAPSULE 1 daily VYVANSE 30 M G ORAL CAPSULE LISDEXAMFETAMINE DIMESYLATE Inactive BACTRIM DS 800-160 MG ORAL TABLET Take one (1) by mouth twice a day BACTRIM DS 800-160 MG ORAL TABLET 373847 SULFAMETHOXAZOLE-TRIMETHOPRIM Inactive DOXEPIN HCL 150 MG ORAL CAPSULE Take 1 to 2 caplets as needed at bedtime for sleep DOXEPIN HCL 150 MG ORAL CAPSULE 1657295 DOXE PIN HCL Inactive BUPROPION HCL ER (XL) 300 MG ORAL TABLET EXTENDED RELEASE 24 ZACKARY R BUPROPION HCL ER (XL) 300 MG ORAL TABLET EXTENDED RELEASE 24 HOUR BUPROPION HCL Inactive SPRINTEC 28 0.25-35 MG-MCG ORAL TABLET Take one by mouth daily 2 SPRINTEC 28 0.25-35 MG-MCG ORAL TABLET 072214 N ORGESTIMATE-ETH ESTRADIOL Inactive STRATTERA 80 MG ORAL CAPSULE 1 tablet daily STRATTERA 80 MG ORAL CAPSULE 869460 ATOMOXETINE HCL Inactive WELLBUTRIN 100 MG ORAL TABLET take 4&1/2 tabs daily 31/01/22 WELLBUTRIN 100 MG ORAL TABLET BUPROPION HCL Inactive BUSPIRONE HCL 10 MG ORAL TABLET 1/2 bid 2 BUSPIRONE HCL 10 MG ORAL TABLET 094270 BUSPIRONE HCL Inactive LAMOTRIGINE 150 MG ORAL TABLET 1 daily LAMOTRIGINE 150 MG ORAL TABLET 675689 LAMOTRIGINE Inactive SPRINTEC 28 0.25-35 MG-MCG ORAL TABLET 1 pill by mouth daily 201 07/28/21 SPRINTEC 28 0.25-35 MG-MCG ORAL TABLET 611542 N ORGESTIMATE-ETH ESTRADIOL Inactive CYCLOBENZAPRINE HCL 10 MG ORAL TABLET 1 q 8 hours prn for mu scle spasms CYCLOBENZAPRINE HCL 10 MG ORAL TABLET 369362 CYCLOBENZAPRINE HCL Inactive Advance Directives Directive Description [...] Diphtheria, and acellular Per tussis Immunization) Adacel [[id number]] tetanus toxoid, reduced diph theria toxoid, and acellular pertussis vaccine, adsorbed hepatitis A immunization #1 Historical hepa titis A vaccine, unspecified formulation Adacel (Tetanus, reduced Diphtheria, and acellular Per tussis Immunization) Adacel [[id number]] tetanus toxoid, reduced diph theria toxoid, and [...] Value Unit Range Description Lab Report: Chlamydia/GC APTIMA/20498, H EPATITIS B S AG W/, HIV-1/2 Agn/ ... - Chemistry hepatitis B surface antigen NON-REACTIVE NON-RE ACTIVE rapid plasma reagin antibody titer NON-REACTIVE NON-REACTIVE Lab Report: Chlamydia/GC APTIMA/59565, H EPATITIS B S AG W/, HIV-1/2 Agn/ ... - Lab chlamydia DNA probe NOT DETECTED NOT DETECTED Lab Report: Chlamydia/GC APTIMA/27751, H EPATITIS B S AG W/, HIV-1/2 [...] mg/dL Encounters Code Encounter Date Provider Facility CPT-78203 Level 4 Est. Patient 13:50:25 CDT Josephine montgomery MD [facility] CPT-43127 [id number] Vst-New Level II 14:23:[address] Ellen Iraheta PA-C [facility] CPT-05480 Level 3 Est. Patient 11:17:42 LITHOGRAPH OPERATOR Christy Muñoz APRN [facility] CPT-04773 Level 3 Est. Patient 11:06:57 CDT Estrellita Caceres MD [facility] CPT-37970 Level 3 Est. Patient 14:47:06 LITHOGRAPH OPERATOR Estrellita Caceres MD [facility] CPT-45634 Level 3 Est. Patient 12:33:15 LITHOGRAPH OPERATOR Estrellita Caceres MD [facility] Procedures Code Procedure Name Date Entry Date Standard Desc ription CPT-39360 Nexplanon Removal 15:02:55 LITHOGRAPH OPERATOR CPT-OV Office Visit 15:44:02 CDT CPT-41720 Nexplanon Placement 14:14:42 CDT CPT-J7307 Nexplanon (Implant) 14:14:42 CDT CPT-19771 UHCG (floor use only) 14:14:42 CDT CPT-OV Office Visit 14:06:57 CDT CPT-OV Office Visit 17:01:36 LITHOGRAPH OPERATOR CPT-Cryo Cryotherapy 11:17:42 LITHOGRAPH OPERATOR CPT-89773 Gardasil 11:39:29 CDT CPT-OV Office Visit 11:39:29 CDT CPT-PV Prev. Care Visit 16:07:43 LITHOGRAPH OPERATOR CPT-31766 TB Tubersol 13:10:17 LITHOGRAPH OPERATOR
--- OUTSIDE RECORDS SUMMARY | 2019-05-10 21:19 | XMS REPORT | Clinical Summary ---
Author Author Brijesh, Nicolette Oneill Organization [facility] Address Unknown Phone Unavailable Allergies, Adverse Reactions, [...] Well child examination V20.2 Active Christy garcia HOOKING MACHINE OPERATOR Routine or child health check Wart, left [...] Cruz MD Vaginal discharge ICD-623.5 Inactive Marilee benjaminhall FACTORY FOCUS TECHNICIAN DYSURIA ICD-788.1 Inactive Marilee Ferrell PN Medication List Medication Instructions Start Date Stop Date Generic Name NDC Status Provider Patient Instruction DIFLUCAN 150 MG ORAL TABLET 1 tablet by mouth daily FLUCONAZOLE 79028034779 Active Marileemallorie Cook LPN Active CYCLOBENZAPRINE HCL 10 MG ORAL TABLET 1 q 8 hours prn for mu scle spasms CYCLOBENZAPRINE HCL 48091863221 No Longer Active Carlos rosy Kaur Active SPRINTEC 28 0.25-35 MG-MCG ORAL TABLET 1 pill by mouth daily 201 07/28/21 NORGESTIMATE-ETH ESTRADIOL 24058111846 No Longer Active Nabeel Cook LPN Active LAMOTRIGINE 150 MG ORAL TABLET 1 daily LAMOTRIG INE 11306146958 No Longer Active Josephine Cruz MD Active BUSPIRONE HCL 10 MG ORAL TABLET 1/2 bid BUSPIRO NE HCL 51385057043 No Longer Active Josephine Cruz MD Active WELLBUTRIN 100 MG ORAL TABLET take 4&1/2 tabs daily 20 31/01/22 BUPROPION HCL 60875317737 No Longer Active Josephine Cruz MD Active STRATTERA 80 MG ORAL CAPSULE 1 tablet daily ATOMOXETINE HCL 25998697061 No Longer Active Josephine Cruz MD Active SPRINTEC 28 0.25-35 MG-MCG ORAL TABLET Take one by mouth daily 2 NORGESTIMATE-ETH ESTRADIOL 55198186078 No Longer Active Josephine Cruz MD Active BUPROPION HCL ER (XL) 300 MG ORAL TABLET EXTENDED RELEASE 24 ZACKARY R BUPROPION HCL 06816201605 No Longer Active Josephine Cruz MD Active DOXEPIN HCL 150 MG ORAL CAPSULE Take 1 to 2 caplets as needed at bedtime for sleep DOXEPIN HCL 52849204409 No Longer Active Josephine Cruz MD Active BACTRIM DS 800-160 MG ORAL TABLET Take one (1) by mouth twice a day SULFAMETHOXAZOLE-TRIMETHOPRIM 59126029908 No Longer Active Daniel Cruz MD Active VYVANSE 30 MG ORAL CAPSULE 1 daily LISDEXAMF ETAMINE DIMESYLATE 04340978727 No Longer Active Josephine Cruz MD Active TRAZODONE HCL 100 MG ORAL TABLET 1 tab at bedtime 2013 TRAZODONE HCL 28230214282 No Longer Active Christy Brown HOOKING MACHINE OPERATOR Act vernon TRAZODONE HCL 50 MG ORAL TABLET 1 q hs TRAZODO NE HCL 20890231496 No Longer Active Estrellita Tenorio MD Active TRAZODONE HCL 50 MG ORAL TABLET 1 q hs 5 TRAZODONE HCL 50 MG ORAL TABLET 268508 TRAZODONE HCL Inactive TRAZODONE HCL 100 MG ORAL TABLET 1 tab at bedtime 2013 TRAZODONE HCL 100 MG ORAL TABLET 322980 TRAZODONE HCL Inactiv e VYVANSE 30 MG ORAL CAPSULE 1 daily VYVANSE 30 M G ORAL CAPSULE LISDEXAMFETAMINE DIMESYLATE Inactive BACTRIM DS 800-160 MG ORAL TABLET Take one (1) by mouth twice a day BACTRIM DS 800-160 MG ORAL TABLET 712831 SULFAMETHOXAZOLE-TRIMETHOPRIM Inactive DOXEPIN HCL 150 MG ORAL CAPSULE Take 1 to 2 caplets as needed at bedtime for sleep DOXEPIN HCL 150 MG ORAL CAPSULE 5870209 DOXE PIN HCL Inactive BUPROPION HCL ER (XL) 300 MG ORAL TABLET EXTENDED RELEASE 24 ZACKARY R BUPROPION HCL ER (XL) 300 MG ORAL TABLET EXTENDED RELEASE 24 HOUR BUPROPION HCL Inactive SPRINTEC 28 0.25-35 MG-MCG ORAL TABLET Take one by mouth daily 2 SPRINTEC 28 0.25-35 MG-MCG ORAL TABLET 299748 N ORGESTIMATE-ETH ESTRADIOL Inactive STRATTERA 80 MG ORAL CAPSULE 1 tablet daily STRATTERA 80 MG ORAL CAPSULE 084177 ATOMOXETINE HCL Inactive WELLBUTRIN 100 MG ORAL TABLET take 4&1/2 tabs daily 31/01/22 WELLBUTRIN 100 MG ORAL TABLET BUPROPION HCL Inactive BUSPIRONE HCL 10 MG ORAL TABLET 1/2 bid 2 BUSPIRONE HCL 10 MG ORAL TABLET 881309 BUSPIRONE HCL Inactive LAMOTRIGINE 150 MG ORAL TABLET 1 daily LAMOTRIGINE 150 MG ORAL TABLET 546783 LAMOTRIGINE Inactive SPRINTEC 28 0.25-35 MG-MCG ORAL TABLET 1 pill by mouth daily 201 07/28/21 SPRINTEC 28 0.25-35 MG-MCG ORAL TABLET 475199 N ORGESTIMATE-ETH ESTRADIOL Inactive CYCLOBENZAPRINE HCL 10 MG ORAL TABLET 1 q 8 hours prn for mu scle spasms CYCLOBENZAPRINE HCL 10 MG ORAL TABLET 287742 CYCLOBENZAPRINE HCL Inactive Advance Directives Directive Description [...] Diphtheria, and acellular Per tussis Immunization) Adacel [[id number]] tetanus toxoid, reduced diph theria toxoid, and acellular pertussis vaccine, adsorbed hepatitis A immunization #1 Historical hepa titis A vaccine, unspecified formulation Adacel (Tetanus, reduced Diphtheria, and acellular Per tussis Immunization) Adacel [[id number]] tetanus toxoid, reduced diph theria toxoid, and [...] Value Unit Range Description Lab Report: Chlamydia/GC APTIMA/83192, H EPATITIS B S AG W/, HIV-1/2 Agn/ ... - Chemistry hepatitis B surface antigen NON-REACTIVE NON-RE ACTIVE rapid plasma reagin antibody titer NON-REACTIVE NON-REACTIVE Lab Report: Chlamydia/GC APTIMA/43049, H EPATITIS B S AG W/, HIV-1/2 Agn/ ... - Lab chlamydia DNA probe NOT DETECTED NOT DETECTED Lab Report: Chlamydia/GC APTIMA/12440, H EPATITIS B S AG W/, HIV-1/2 [...] mg/dL Encounters Code Encounter Date Provider Facility CPT-18528 Level 4 Est. Patient 13:50:25 CDT Josephine montgomery MD [facility] CPT-81577 [id number] Vst-New Level II 14:23:[address] Ellen Iraheta PA-C [facility] CPT-85347 Level 3 Est. Patient 11:17:42 PUBLIC HEALTH TECHNOLOGIST Christy Muñoz APRN [facility] CPT-94741 Level 3 Est. Patient 11:06:57 CDT Estrellita Caceres MD [facility] CPT-03704 Level 3 Est. Patient 14:47:06 PUBLIC HEALTH TECHNOLOGIST Estrellita Caceres MD [facility] CPT-10299 Level 3 Est. Patient 12:33:15 JOSE Caceres MD [facility] Procedures Code Procedure Name Date Entry Date Standard Desc ription CPT-23401 Nexplanon Removal 15:02:55 PUBLIC HEALTH TECHNOLOGIST CPT-OV Office Visit 15:44:02 CDT CPT-93818 Nexplanon Placement 14:14:42 CDT CPT-J7307 Nexplanon (Implant) 14:14:42 CDT CPT-49380 UHCG (floor use only) 14:14:42 CDT CPT-OV Office Visit 14:06:57 CDT CPT-OV Office Visit 17:01:36 PUBLIC HEALTH TECHNOLOGIST CPT-Cryo Cryotherapy 11:17:42 PUBLIC HEALTH TECHNOLOGIST CPT-54741 Gardasil 11:39:29 CDT CPT-OV Office Visit 11:39:29 CDT CPT-PV Prev. Care Visit 16:07:43 PUBLIC HEALTH TECHNOLOGIST CPT-47896 TB Tubersol 13:10:17 PUBLIC HEALTH TECHNOLOGIST
--- OUTSIDE RECORDS SUMMARY | 2019-05-10 21:19 | XMS REPORT | Clinical Summary ---
Author Author Admin, Nicolette Oneill Organization [employer] Address Unknown Phone Unavailable Allergies, Adverse Reactions, [...] Well child examination V20.2 Active Christy garcia INSTRUCTIONAL TECHNOLOGY DIRECTOR Routine or child health check Wart, left hand 078.10 Active Christy Brown APR N Viral warts, unspecified Vaginal discharge 623.5 Resolved Marilee Cook LPN Leukorrhea, not specified as infective DYSURIA 788.1 Resolved Marilee Joey TRIAL EXAMINER Dysuria examination or test, positive result V72.42 [...] MD Vaginal discharge ICD-623.5 Inactive Marilee charlesl TRIAL EXAMINER DYSURIA ICD-788.1 Inactive Marilee Ferrell PN Medication List Medication Instructions Start Date Stop Date Generic Name ND Status Provider Patient Instruction DIFLUCAN 150 MG ORAL TABLET 1 tablet by mouth daily FLUCONAZOLE 18786112480 Active Marilee Cook LPN Active CYCLOBENZAPRINE HCL 10 MG ORAL TABLET 1 q 8 hours prn for mu scle spasms CYCLOBENZAPRINE HCL 15880902713 No Longer Active Carlos Kaur Active SPRINTEC 28 0.25-35 MG-MCG ORAL TABLET 1 pill by mouth daily 201 07/28/21 NORGESTIMATE-ETH ESTRADIOL 82686844082 No Longer Active Nabeel Cook LPN Active LAMOTRIGINE 150 MG ORAL TABLET 1 daily LAMOTRIG INE 84841398615 No Longer Active Josephine Cruz MD Active BUSPIRONE HCL 10 MG ORAL TABLET 1/2 bid BUSPIRO NE HCL 68460228457 No Longer Active Josephine Cruz MD Active WELLBUTRIN 100 MG ORAL TABLET take 4&1/2 tabs daily 20 31/01/22 BUPROPION HCL 24009851262 No Longer Active Josephine Cruz MD Active STRATTERA 80 MG ORAL CAPSULE 1 tablet daily ATOMOXETINE HCL 34778557468 No Longer Active Josephine Cruz MD Active SPRINTEC 28 0.25-35 MG-MCG ORAL TABLET Take one by mouth daily 2 NORGESTIMATE-ETH ESTRADIOL 36285886735 No Longer Active Josephine Cruz MD Active BUPROPION HCL ER (XL) 300 MG ORAL TABLET EXTENDED RELEASE 24 ZACKARY R BUPROPION HCL 32478178960 No Longer Active Josephine Cruz MD Active DOXEPIN HCL 150 MG ORAL CAPSULE Take 1 to 2 caplets as needed at bedtime for sleep DOXEPIN HCL 00255796001 No Longer Active Josephine Cruz MD Active BACTRIM DS 800-160 MG ORAL TABLET Take one (1) by mouth twice a day SULFAMETHOXAZOLE-TRIMETHOPRIM 12103754371 No Longer Active Daniel Cruz MD Active VYVANSE 30 MG ORAL CAPSULE 1 daily LISDEXAMF ETAMINE DIMESYLATE 99556680226 No Longer Active Josephine Cruz MD Active TRAZODONE HCL 100 MG ORAL TABLET 1 tab at bedtime 2013 TRAZODONE HCL 99103282321 No Longer Active Christy Brown INSTRUCTIONAL TECHNOLOGY DIRECTOR Act vernon TRAZODONE HCL 50 MG ORAL TABLET 1 q hs TRAZODO NE HCL 19820540295 No Longer Active Estrellita Tenorio MD Active TRAZODONE HCL 50 MG ORAL TABLET 1 q hs 5 TRAZODONE HCL 50 MG ORAL TABLET 044030 TRAZODONE HCL Inactive TRAZODONE HCL 100 MG ORAL TABLET 1 tab at bedtime 2013 TRAZODONE HCL 100 MG ORAL TABLET 204494 TRAZODONE HCL Inactiv e VYVANSE 30 MG ORAL CAPSULE 1 daily VYVANSE 30 M G ORAL CAPSULE LISDEXAMFETAMINE DIMESYLATE Inactive BACTRIM DS 800-160 MG ORAL TABLET Take one (1) by mouth twice a day BACTRIM DS 800-160 MG ORAL TABLET 071648 SULFAMETHOXAZOLE-TRIMETHOPRIM Inactive DOXEPIN HCL 150 MG ORAL CAPSULE Take 1 to 2 caplets as needed at bedtime for sleep DOXEPIN HCL 150 MG ORAL CAPSULE 7049578 DOXE PIN HCL Inactive BUPROPION HCL ER (XL) 300 MG ORAL TABLET EXTENDED RELEASE 24 ZACKARY R BUPROPION HCL ER (XL) 300 MG ORAL TABLET EXTENDED RELEASE 24 HOUR BUPROPION HCL Inactive SPRINTEC 28 0.25-35 MG-MCG ORAL TABLET Take one by mouth daily 2 SPRINTEC 28 0.25-35 MG-MCG ORAL TABLET 919355 N ORGESTIMATE-ETH ESTRADIOL Inactive STRATTERA 80 MG ORAL CAPSULE 1 tablet daily STRATTERA 80 MG ORAL CAPSULE 739752 ATOMOXETINE HCL Inactive WELLBUTRIN 100 MG ORAL TABLET take 4&1/2 tabs daily 31/01/22 WELLBUTRIN 100 MG ORAL TABLET BUPROPION HCL Inactive BUSPIRONE HCL 10 MG ORAL TABLET 1/2 bid 2 BUSPIRONE HCL 10 MG ORAL TABLET 609911 BUSPIRONE HCL Inactive LAMOTRIGINE 150 MG ORAL TABLET 1 daily LAMOTRIGINE 150 MG ORAL TABLET 866181 LAMOTRIGINE Inactive SPRINTEC 28 0.25-35 MG-MCG ORAL TABLET 1 pill by mouth daily 201 07/28/21 SPRINTEC 28 0.25-35 MG-MCG ORAL TABLET 253045 N ORGESTIMATE-ETH ESTRADIOL Inactive CYCLOBENZAPRINE HCL 10 MG ORAL TABLET 1 q 8 hours prn for mu scle spasms CYCLOBENZAPRINE HCL 10 MG ORAL TABLET 559832 CYCLOBENZAPRINE HCL Inactive Advance Directives Directive Description [...] Diphtheria, and acellular Per tussis Immunization) Adacel [[id number]] tetanus toxoid, reduced diph theria toxoid, and acellular pertussis vaccine, adsorbed hepatitis A immunization #1 Historical hepa titis A vaccine, unspecified formulation Adacel (Tetanus, reduced Diphtheria, and acellular Per tussis Immunization) Adacel [CUL139] tetanus toxoid, reduced diph theria toxoid, and [...] Value Unit Range Description Lab Report: Chlamydia/GC APTIMA/03737, H EPATITIS B S AG W/, HIV-1/2 Agn/ ... - Chemistry hepatitis B surface antigen NON-REACTIVE NON-RE ACTIVE rapid plasma reagin antibody titer NON-REACTIVE NON-REACTIVE Lab Report: Chlamydia/GC APTIMA/26301, H EPATITIS B S AG W/, HIV-1/2 Agn/ ... - Lab chlamydia DNA probe NOT DETECTED NOT DETECTED Lab Report: Chlamydia/GC APTIMA/65222, H EPATITIS B S AG W/, HIV-1/2 [...] mg/dL Encounters Code Encounter Date Provider Facility CPT-20811 Level 4 Est. Patient 13:50:25 CDT Josephine montgomery MD [facility] CPT-37037 [id number] Vst-New Level II 14:23:[address] Ellen Iraheta PA-C [facility] CPT-17408 Level 3 Est. Patient 11:17:42 VP EMERGING MEDIA Christy Muñoz APRN [facility] CPT-24692 Level 3 Est. Patient 11:06:57 CDT Estrellita Caceres MD [facility] CPT-28278 Level 3 Est. Patient 14:47:06 VP EMERGING MEDIA Estrellita Caceres MD [facility] CPT-55292 Level 3 Est. Patient 12:33:15 VP EMERGING MEDIA Estrellita Caceres MD [facility] Procedures Code Procedure Name Date Entry Date Standard Desc ription CPT-59993 Nexplanon Removal 15:02:55 VP EMERGING MEDIA CPT-OV Office Visit 15:44:02 CDT CPT-42320 Nexplanon Placement 14:14:42 CDT CPT-J7307 Nexplanon (Implant) 14:14:42 CDT CPT-04877 UHCG (floor use only) 14:14:42 CDT CPT-OV Office Visit 14:06:57 CDT CPT-OV Office Visit 17:01:36 VP EMERGING MEDIA CPT-Cryo Cryotherapy 11:17:42 VP EMERGING MEDIA CPT-54729 Gardasil 11:39:29 CDT CPT-OV Office Visit 11:39:29 CDT CPT-PV Prev. Care Visit 16:07:43 VP EMERGING MEDIA CPT-57214 TB Tubersol 13:10:17 VP EMERGING MEDIA
--- OUTSIDE RECORDS SUMMARY | 2019-05-10 21:19 | XMS REPORT | Clinical Summary ---
Author Author Admin, Nicolette Oneill Organization [employer] Address Unknown Phone Unavailable Allergies, Adverse Reactions, [...] Well child examination V20.2 Active Christy garcia ENERGY EFFICIENCY FINANCE MANAGER Routine or child health check Wart, left hand 078.10 Active Christy Brown APR N Viral warts, unspecified Vaginal discharge 623.5 Resolved Marilee Cook LPN Leukorrhea, not specified as infective DYSURIA 788.1 Resolved Marilee Joey MAIL RIDER Dysuria examination or test, positive result V72.42 [...] MD Vaginal discharge ICD-623.5 Inactive Marilee charlesl MAIL RIDER DYSURIA ICD-788.1 Inactive Marilee Ferrell PN Medication List Medication Instructions Start Date Stop Date Generic Name ND Status Provider Patient Instruction DIFLUCAN 150 MG ORAL TABLET 1 tablet by mouth daily FLUCONAZOLE 42342255510 Active Marilee Cook LPN Active CYCLOBENZAPRINE HCL 10 MG ORAL TABLET 1 q 8 hours prn for mu scle spasms CYCLOBENZAPRINE HCL 55712139829 No Longer Active Carlos Kaur Active SPRINTEC 28 0.25-35 MG-MCG ORAL TABLET 1 pill by mouth daily 201 07/28/21 NORGESTIMATE-ETH ESTRADIOL 21307412533 No Longer Active Nabeel Cook LPN Active LAMOTRIGINE 150 MG ORAL TABLET 1 daily LAMOTRIG INE 08951532160 No Longer Active Josephine Cruz MD Active BUSPIRONE HCL 10 MG ORAL TABLET 1/2 bid BUSPIRO NE HCL 71439859185 No Longer Active Josephine Cruz MD Active WELLBUTRIN 100 MG ORAL TABLET take 4&1/2 tabs daily 20 31/01/22 BUPROPION HCL 95975347455 No Longer Active Josephine Cruz MD Active STRATTERA 80 MG ORAL CAPSULE 1 tablet daily ATOMOXETINE HCL 69828520851 No Longer Active Josephine Cruz MD Active SPRINTEC 28 0.25-35 MG-MCG ORAL TABLET Take one by mouth daily 2 NORGESTIMATE-ETH ESTRADIOL 43414105526 No Longer Active Josephine Cruz MD Active BUPROPION HCL ER (XL) 300 MG ORAL TABLET EXTENDED RELEASE 24 ZACKARY R BUPROPION HCL 63553179597 No Longer Active Josephine Cruz MD Active DOXEPIN HCL 150 MG ORAL CAPSULE Take 1 to 2 caplets as needed at bedtime for sleep DOXEPIN HCL 55888384153 No Longer Active Josephine Cruz MD Active BACTRIM DS 800-160 MG ORAL TABLET Take one (1) by mouth twice a day SULFAMETHOXAZOLE-TRIMETHOPRIM 80448289340 No Longer Active Daniel Cruz MD Active VYVANSE 30 MG ORAL CAPSULE 1 daily LISDEXAMF ETAMINE DIMESYLATE 53330104876 No Longer Active Josephine Cruz MD Active TRAZODONE HCL 100 MG ORAL TABLET 1 tab at bedtime 2013 TRAZODONE HCL 30717373140 No Longer Active Christy Brown ENERGY EFFICIENCY FINANCE MANAGER Act vernon TRAZODONE HCL 50 MG ORAL TABLET 1 q hs TRAZODO NE HCL 19971054401 No Longer Active Estrellita Tenorio MD Active TRAZODONE HCL 50 MG ORAL TABLET 1 q hs 5 TRAZODONE HCL 50 MG ORAL TABLET 005083 TRAZODONE HCL Inactive TRAZODONE HCL 100 MG ORAL TABLET 1 tab at bedtime 2013 TRAZODONE HCL 100 MG ORAL TABLET 740210 TRAZODONE HCL Inactiv e VYVANSE 30 MG ORAL CAPSULE 1 daily VYVANSE 30 M G ORAL CAPSULE LISDEXAMFETAMINE DIMESYLATE Inactive BACTRIM DS 800-160 MG ORAL TABLET Take one (1) by mouth twice a day BACTRIM DS 800-160 MG ORAL TABLET 410569 SULFAMETHOXAZOLE-TRIMETHOPRIM Inactive DOXEPIN HCL 150 MG ORAL CAPSULE Take 1 to 2 caplets as needed at bedtime for sleep DOXEPIN HCL 150 MG ORAL CAPSULE 3226799 DOXE PIN HCL Inactive BUPROPION HCL ER (XL) 300 MG ORAL TABLET EXTENDED RELEASE 24 ZACKARY R BUPROPION HCL ER (XL) 300 MG ORAL TABLET EXTENDED RELEASE 24 HOUR BUPROPION HCL Inactive SPRINTEC 28 0.25-35 MG-MCG ORAL TABLET Take one by mouth daily 2 SPRINTEC 28 0.25-35 MG-MCG ORAL TABLET 036590 N ORGESTIMATE-ETH ESTRADIOL Inactive STRATTERA 80 MG ORAL CAPSULE 1 tablet daily STRATTERA 80 MG ORAL CAPSULE 558901 ATOMOXETINE HCL Inactive WELLBUTRIN 100 MG ORAL TABLET take 4&1/2 tabs daily 31/01/22 WELLBUTRIN 100 MG ORAL TABLET BUPROPION HCL Inactive BUSPIRONE HCL 10 MG ORAL TABLET 1/2 bid 2 BUSPIRONE HCL 10 MG ORAL TABLET 120811 BUSPIRONE HCL Inactive LAMOTRIGINE 150 MG ORAL TABLET 1 daily LAMOTRIGINE 150 MG ORAL TABLET 911923 LAMOTRIGINE Inactive SPRINTEC 28 0.25-35 MG-MCG ORAL TABLET 1 pill by mouth daily 201 07/28/21 SPRINTEC 28 0.25-35 MG-MCG ORAL TABLET 757597 N ORGESTIMATE-ETH ESTRADIOL Inactive CYCLOBENZAPRINE HCL 10 MG ORAL TABLET 1 q 8 hours prn for mu scle spasms CYCLOBENZAPRINE HCL 10 MG ORAL TABLET 703639 CYCLOBENZAPRINE HCL Inactive Advance Directives Directive Description [...] Diphtheria, and acellular Per tussis Immunization) Adacel [DTI874] tetanus toxoid, reduced diph theria toxoid, and acellular pertussis vaccine, adsorbed hepatitis A immunization #1 Historical hepa titis A vaccine, unspecified formulation Adacel (Tetanus, reduced Diphtheria, and acellular Per tussis Immunization) Adacel [ZRF672] tetanus toxoid, reduced diph theria toxoid, and [...] b vaccine, conjugate unspecified formulation DPT immunization #2 Historical hepatitis B vaccine #3 Historical hepatitis B vaccine, unspecified formulation oral polio vaccine (OPV) #1 Historical ann marie ovirus vaccine, unspecified formulation DPT immunization #1 Historical hepatitis B vaccine #2 given Historical hep atitis B vaccine, unspecified formulation Hemophilus influenza B [...] Value Unit Range Description Lab Report: Chlamydia/GC APTIMA/50174, H EPATITIS B S AG W/, HIV-1/2 Agn/ ... - Chemistry hepatitis B surface antigen NON-REACTIVE NON-RE ACTIVE rapid plasma reagin antibody titer NON-REACTIVE NON-REACTIVE Lab Report: Chlamydia/GC APTIMA/23652, H EPATITIS B S AG W/, HIV-1/2 Agn/ ... - Lab chlamydia DNA probe NOT DETECTED NOT DETECTED Lab Report: Chlamydia/GC APTIMA/86999, H EPATITIS B S AG W/, HIV-1/2 [...] mg/dL Encounters Code Encounter Date Provider Facility CPT-30665 Level 4 Est. Patient 13:50:25 CDT Josephine montgomery MD [facility] CPT-79511 13545-Rrj Vst-New Level II 14:23:[address] Ellen Iraheta PA-C [facility] CPT-07713 Level 3 Est. Patient 11:17:42 ANIMAL CONTROL SPECIALIST Christy Muñoz APRN [facility] CPT-20910 Level 3 Est. Patient 11:06:57 CDT Estrellita Caceres MD [facility] CPT-52068 Level 3 Est. Patient 14:47:06 ANIMAL CONTROL SPECIALIST Estrellita Caceres MD [facility] CPT-38090 Level 3 Est. Patient 12:33:15 ANIMAL CONTROL SPECIALIST Estrellita Caceres MD [facility] Procedures Code Procedure Name Date Entry Date Standard Desc ription CPT-60388 Nexplanon Removal 15:02:55 ANIMAL CONTROL SPECIALIST CPT-OV Office Visit 15:44:02 CDT CPT-06031 Nexplanon Placement 14:14:42 CDT CPT-J7307 Nexplanon (Implant) 14:14:42 CDT CPT-43221 UHCG (floor use only) 14:14:42 CDT CPT-OV Office Visit 14:06:57 CDT CPT-OV Office Visit 17:01:36 ANIMAL CONTROL SPECIALIST CPT-Cryo Cryotherapy 11:17:42 ANIMAL CONTROL SPECIALIST CPT-40400 Gardasil 11:39:29 CDT CPT-OV Office Visit 11:39:29 CDT CPT-PV Prev. Care Visit 16:07:43 ANIMAL CONTROL SPECIALIST CPT-96084 TB Tubersol 13:10:17 ANIMAL CONTROL SPECIALIST
--- OUTSIDE RECORDS SUMMARY | 2019-05-10 21:19 | XMS REPORT | Clinical Summary ---
Author Author Admin, Nicolette Oneill Organization [employer] Address Unknown Phone Unavailable Allergies, Adverse [...] Well child examination V20.2 Active Christy garcia LOSS PREVENTION LEADER Routine or child health check Wart, left hand 078.10 Active Christy Brown APR N Viral warts, unspecified Vaginal discharge 623.5 Resolved Marilee Cook LPN Leukorrhea, not specified as infective DYSURIA 788.1 Resolved Marilee Joey TECHNICAL ILLUSTRATOR Dysuria examination or test, positive result V72.42 [...] MD Vaginal discharge ICD-623.5 Inactive Marilee charlesl TECHNICAL ILLUSTRATOR DYSURIA ICD-788.1 Inactive Marilee Ferrell PN Medication List Medication Instructions Start Date Stop Date Generic Name ND Status Provider Patient Instruction DIFLUCAN 150 MG ORAL TABLET 1 tablet by mouth daily FLUCONAZOLE 89423982294 Active Marilee Cook LPN Active CYCLOBENZAPRINE HCL 10 MG ORAL TABLET 1 q 8 hours prn for mu scle spasms CYCLOBENZAPRINE HCL 13992793472 No Longer Active Carlos Kaur Active SPRINTEC 28 0.25-35 MG-MCG ORAL TABLET 1 pill by mouth daily 201 07/28/21 NORGESTIMATE-ETH ESTRADIOL 75611130525 No Longer Active Nabeel Cook LPN Active LAMOTRIGINE 150 MG ORAL TABLET 1 daily LAMOTRIG INE 90042227551 No Longer Active Josephine Cruz MD Active BUSPIRONE HCL 10 MG ORAL TABLET 1/2 bid BUSPIRO NE HCL 76106765418 No Longer Active Josephine Cruz MD Active WELLBUTRIN 100 MG ORAL TABLET take 4&1/2 tabs daily 20 31/01/22 BUPROPION HCL 84660141573 No Longer Active Josephine Cruz MD Active STRATTERA 80 MG ORAL CAPSULE 1 tablet daily ATOMOXETINE HCL 43266527796 No Longer Active Josephine Cruz MD Active SPRINTEC 28 0.25-35 MG-MCG ORAL TABLET Take one by mouth daily 2 NORGESTIMATE-ETH ESTRADIOL 47227433078 No Longer Active Josephine Cruz MD Active BUPROPION HCL ER (XL) 300 MG ORAL TABLET EXTENDED RELEASE 24 ZACKARY R BUPROPION HCL 11904146863 No Longer Active Josephine Cruz MD Active DOXEPIN HCL 150 MG ORAL CAPSULE Take 1 to 2 caplets as needed at bedtime for sleep DOXEPIN HCL 09347036511 No Longer Active Josephine Cruz MD Active BACTRIM DS 800-160 MG ORAL TABLET Take one (1) by mouth twice a day SULFAMETHOXAZOLE-TRIMETHOPRIM 11741412584 No Longer Active Daniel Cruz MD Active VYVANSE 30 MG ORAL CAPSULE 1 daily LISDEXAMF ETAMINE DIMESYLATE 73522224606 No Longer Active Josephine Cruz MD Active TRAZODONE HCL 100 MG ORAL TABLET 1 tab at bedtime 2013 TRAZODONE HCL 85208452401 No Longer Active Christy Brown LOSS PREVENTION LEADER Act vernon TRAZODONE HCL 50 MG ORAL TABLET 1 q hs TRAZODO NE HCL 57825156008 No Longer Active Estrellita Tenorio MD Active TRAZODONE HCL 50 MG ORAL TABLET 1 q hs 5 TRAZODONE HCL 50 MG ORAL TABLET 451864 TRAZODONE HCL Inactive TRAZODONE HCL 100 MG ORAL TABLET 1 tab at bedtime 2013 TRAZODONE HCL 100 MG ORAL TABLET 070955 TRAZODONE HCL Inactiv e VYVANSE 30 MG ORAL CAPSULE 1 daily VYVANSE 30 M G ORAL CAPSULE LISDEXAMFETAMINE DIMESYLATE Inactive BACTRIM DS 800-160 MG ORAL TABLET Take one (1) by mouth twice a day BACTRIM DS 800-160 MG ORAL TABLET 908266 SULFAMETHOXAZOLE-TRIMETHOPRIM Inactive DOXEPIN HCL 150 MG ORAL CAPSULE Take 1 to 2 caplets as needed at bedtime for sleep DOXEPIN HCL 150 MG ORAL CAPSULE 2978138 DOXE PIN HCL Inactive BUPROPION HCL ER (XL) 300 MG ORAL TABLET EXTENDED RELEASE 24 ZACKARY R BUPROPION HCL ER (XL) 300 MG ORAL TABLET EXTENDED RELEASE 24 HOUR BUPROPION HCL Inactive SPRINTEC 28 0.25-35 MG-MCG ORAL TABLET Take one by mouth daily 2 SPRINTEC 28 0.25-35 MG-MCG ORAL TABLET 849736 N ORGESTIMATE-ETH ESTRADIOL Inactive STRATTERA 80 MG ORAL CAPSULE 1 tablet daily STRATTERA 80 MG ORAL CAPSULE 525284 ATOMOXETINE HCL Inactive WELLBUTRIN 100 MG ORAL TABLET take 4&1/2 tabs daily 31/01/22 WELLBUTRIN 100 MG ORAL TABLET BUPROPION HCL Inactive BUSPIRONE HCL 10 MG ORAL TABLET 1/2 bid 2 BUSPIRONE HCL 10 MG ORAL TABLET 443322 BUSPIRONE HCL Inactive LAMOTRIGINE 150 MG ORAL TABLET 1 daily LAMOTRIGINE 150 MG ORAL TABLET 404166 LAMOTRIGINE Inactive SPRINTEC 28 0.25-35 MG-MCG ORAL TABLET 1 pill by mouth daily 201 07/28/21 SPRINTEC 28 0.25-35 MG-MCG ORAL TABLET 415131 N ORGESTIMATE-ETH ESTRADIOL Inactive CYCLOBENZAPRINE HCL 10 MG ORAL TABLET 1 q 8 hours prn for mu scle spasms CYCLOBENZAPRINE HCL 10 MG ORAL TABLET 788248 CYCLOBENZAPRINE HCL Inactive Advance Directives Directive Description [...] Diphtheria, and acellular Per tussis Immunization) Adacel [[id number]] tetanus toxoid, reduced diph theria toxoid, and acellular pertussis vaccine, adsorbed hepatitis A immunization #1 Historical hepa titis A vaccine, unspecified formulation Adacel (Tetanus, reduced Diphtheria, and acellular Per tussis Immunization) Adacel [WCC425] tetanus toxoid, reduced diph theria toxoid, and [...] Value Unit Range Description Lab Report: Chlamydia/GC APTIMA/19206, H EPATITIS B S AG W/, HIV-1/2 Agn/ ... - Chemistry hepatitis B surface antigen NON-REACTIVE NON-RE ACTIVE rapid plasma reagin antibody titer NON-REACTIVE NON-REACTIVE Lab Report: Chlamydia/GC APTIMA/06873, H EPATITIS B S AG W/, HIV-1/2 Agn/ ... - Lab chlamydia DNA probe NOT DETECTED NOT DETECTED Lab Report: Chlamydia/GC APTIMA/15937, H EPATITIS B S AG W/, HIV-1/2 [...] mg/dL Encounters Code Encounter Date Provider Facility CPT-19456 Level 4 Est. Patient 13:50:25 CDT Josephine montgomery MD [facility] CPT-68189 [id number] Vst-New Level II 14:23:[address] Ellen Iraheta PA-C [facility] CPT-45434 Level 3 Est. Patient 11:17:42 LAMP SHADE ASSEMBLER Christy Muñoz APRN [facility] CPT-38401 Level 3 Est. Patient 11:06:57 CDT Estrellita Caceres MD [facility] CPT-58035 Level 3 Est. Patient 14:47:06 LAMP SHADE ASSEMBLER Estrellita Caceres MD [facility] CPT-31447 Level 3 Est. Patient 12:33:15 LAMP SHADE ASSEMBLER Estrellita Caceres MD [facility] Procedures Code Procedure Name Date Entry Date Standard Desc ription CPT-19515 Nexplanon Removal 15:02:55 LAMP SHADE ASSEMBLER CPT-OV Office Visit 15:44:02 CDT CPT-67232 Nexplanon Placement 14:14:42 CDT CPT-J7307 Nexplanon (Implant) 14:14:42 CDT CPT-08702 UHCG (floor use only) 14:14:42 CDT CPT-OV Office Visit 14:06:57 CDT CPT-OV Office Visit 17:01:36 LAMP SHADE ASSEMBLER CPT-Cryo Cryotherapy 11:17:42 LAMP SHADE ASSEMBLER CPT-54632 Gardasil 11:39:29 CDT CPT-OV Office Visit 11:39:29 CDT CPT-PV Prev. Care Visit 16:07:43 LAMP SHADE ASSEMBLER CPT-48157 TB Tubersol 13:10:17 LAMP SHADE ASSEMBLER
--- OUTSIDE RECORDS SUMMARY | 2019-05-10 21:19 | XMS REPORT | Clinical Summary ---
Author Author Brijesh, Nicolette Oneill Organization [facility] Address Unknown Phone Unavailable Allergies, Adverse [...] Well child examination V20.2 Active Christy garcia DRUM ATTENDANT Routine or child health check Wart, left [...] MD Vaginal discharge ICD-623.5 Inactive Marilee benjaminhall MEDIA LIBRARIAN DYSURIA ICD-788.1 Inactive Marilee Ferrell PN Medication List Medication Instructions Start Date Stop Date Generic Name NDC Status Provider Patient Instruction DIFLUCAN 150 MG ORAL TABLET 1 tablet by mouth daily FLUCONAZOLE 77791191050 Active Marileemallorie Cook LPN Active CYCLOBENZAPRINE HCL 10 MG ORAL TABLET 1 q 8 hours prn for mu scle spasms CYCLOBENZAPRINE HCL 10409702856 No Longer Active Carlos rosy Kaur Active SPRINTEC 28 0.25-35 MG-MCG ORAL TABLET 1 pill by mouth daily 201 07/28/21 NORGESTIMATE-ETH ESTRADIOL 91823611026 No Longer Active Nabeel Cook LPN Active LAMOTRIGINE 150 MG ORAL TABLET 1 daily LAMOTRIG INE 42370621468 No Longer Active Josephine Cruz MD Active BUSPIRONE HCL 10 MG ORAL TABLET 1/2 bid BUSPIRO NE HCL 95808374429 No Longer Active Josephine Cruz MD Active WELLBUTRIN 100 MG ORAL TABLET take 4&1/2 tabs daily 20 31/01/22 BUPROPION HCL 71588193239 No Longer Active Josephine Cruz MD Active STRATTERA 80 MG ORAL CAPSULE 1 tablet daily ATOMOXETINE HCL 60858127512 No Longer Active Josephine Cruz MD Active SPRINTEC 28 0.25-35 MG-MCG ORAL TABLET Take one by mouth daily 2 NORGESTIMATE-ETH ESTRADIOL 94229396746 No Longer Active Josephine Cruz MD Active BUPROPION HCL ER (XL) 300 MG ORAL TABLET EXTENDED RELEASE 24 ZACKARY R BUPROPION HCL 08439644713 No Longer Active Josephine Cruz MD Active DOXEPIN HCL 150 MG ORAL CAPSULE Take 1 to 2 caplets as needed at bedtime for sleep DOXEPIN HCL 59689927680 No Longer Active Josephine Cruz MD Active BACTRIM DS 800-160 MG ORAL TABLET Take one (1) by mouth twice a day SULFAMETHOXAZOLE-TRIMETHOPRIM 07368763289 No Longer Active Daniel Cruz MD Active VYVANSE 30 MG ORAL CAPSULE 1 daily LISDEXAMF ETAMINE DIMESYLATE 36066656726 No Longer Active Josephine Cruz MD Active TRAZODONE HCL 100 MG ORAL TABLET 1 tab at bedtime 2013 TRAZODONE HCL 04049774876 No Longer Active Christy Borwn DRUM ATTENDANT Act vernon TRAZODONE HCL 50 MG ORAL TABLET 1 q hs TRAZODO NE HCL 11190457904 No Longer Active Estrellita Tenorio MD Active TRAZODONE HCL 50 MG ORAL TABLET 1 q hs 5 TRAZODONE HCL 50 MG ORAL TABLET 677347 TRAZODONE HCL Inactive TRAZODONE HCL 100 MG ORAL TABLET 1 tab at bedtime 2013 TRAZODONE HCL 100 MG ORAL TABLET 828966 TRAZODONE HCL Inactiv e VYVANSE 30 MG ORAL CAPSULE 1 daily VYVANSE 30 M G ORAL CAPSULE LISDEXAMFETAMINE DIMESYLATE Inactive BACTRIM DS 800-160 MG ORAL TABLET Take one (1) by mouth twice a day BACTRIM DS 800-160 MG ORAL TABLET 202159 SULFAMETHOXAZOLE-TRIMETHOPRIM Inactive DOXEPIN HCL 150 MG ORAL CAPSULE Take 1 to 2 caplets as needed at bedtime for sleep DOXEPIN HCL 150 MG ORAL CAPSULE 3728156 DOXE PIN HCL Inactive BUPROPION HCL ER (XL) 300 MG ORAL TABLET EXTENDED RELEASE 24 ZACKARY R BUPROPION HCL ER (XL) 300 MG ORAL TABLET EXTENDED RELEASE 24 HOUR BUPROPION HCL Inactive SPRINTEC 28 0.25-35 MG-MCG ORAL TABLET Take one by mouth daily 2 SPRINTEC 28 0.25-35 MG-MCG ORAL TABLET 735789 N ORGESTIMATE-ETH ESTRADIOL Inactive STRATTERA 80 MG ORAL CAPSULE 1 tablet daily STRATTERA 80 MG ORAL CAPSULE 416710 ATOMOXETINE HCL Inactive WELLBUTRIN 100 MG ORAL TABLET take 4&1/2 tabs daily 31/01/22 WELLBUTRIN 100 MG ORAL TABLET BUPROPION HCL Inactive BUSPIRONE HCL 10 MG ORAL TABLET 1/2 bid 2 BUSPIRONE HCL 10 MG ORAL TABLET 186673 BUSPIRONE HCL Inactive LAMOTRIGINE 150 MG ORAL TABLET 1 daily LAMOTRIGINE 150 MG ORAL TABLET 135123 LAMOTRIGINE Inactive SPRINTEC 28 0.25-35 MG-MCG ORAL TABLET 1 pill by mouth daily 201 07/28/21 SPRINTEC 28 0.25-35 MG-MCG ORAL TABLET 578527 N ORGESTIMATE-ETH ESTRADIOL Inactive CYCLOBENZAPRINE HCL 10 MG ORAL TABLET 1 q 8 hours prn for mu scle spasms CYCLOBENZAPRINE HCL 10 MG ORAL TABLET 878113 CYCLOBENZAPRINE HCL Inactive Advance Directives Directive Description [...] Diphtheria, and acellular Per tussis Immunization) Adacel [[id number]] tetanus toxoid, reduced diph theria toxoid, and acellular pertussis vaccine, adsorbed hepatitis A immunization #1 Historical hepa titis A vaccine, unspecified formulation Adacel (Tetanus, reduced Diphtheria, and acellular Per tussis Immunization) Adacel [[id number]] tetanus toxoid, reduced diph theria toxoid, and [...] Name Value Unit Range Description Lab Report: Wet Prep, UADIP W/MICRO, AUT O - Chemistry protein, total urine random Negative mg/dL Negative RBC, urine, dipstick Negative Negative Lab Report: Wet Prep, UADIP W/MICRO, AUT O - Urinalysis urobilinogen, urine, semiquantitative (dipstick) 0.2 E .U./dL Normal leukocyte esterase, urine, by dipstick 1+ Negative nitrite, urine, semiquantitative Negative Neg ative urate crystals, amorphous, urine, semiquantitative Few None seen glucose, urine, semiquantitative Negative Neg ative ketones, urine, by test strip Negative Negati ve bilirubin, urine Negative Negative urine color Yellow Colorless;Lightyellow;St raw;Yellow appearance, urine Slightly Cloudy Clear specific gravity, urine 1.025 1.000-1.030 pH, urine, semiquantitative 7.0 5.0-8.5 Office Visit: Evaluation for possible pr egnancy - Chemistry human chorionic gonadotropin , urine, qualitative (urine test) Negative Office Visit: F/u neck pain, nerve damag e - Chemistry HDL cholesterol, serum, target level 40 mg/dL cholesterol, target level 200 mg/dL triglyceride, target level 150 mg/dL Encounters Code Encounter Date Provider Facility CPT-11193 Level 4 Est. Patient 13:50:25 CDT Josephine montgomery MD [facility] CPT-17374 [id number] Vst-New Level II 14:23:[address] Ellen Iraheta PA-C [facility] CPT-20322 Level 3 Est. Patient 11:17:[address] ernst STEVE [facility] CPT-86665 Level 3 Est. Patient 11:06:57 CDT Estrellita Caceres MD [facility] CPT-05640 Level 3 Est. Patient 14:47:06 MANAGER POST Estrellita Caceres MD [facility] CPT-87169 Level 3 Est. Patient 12:33:15 MANAGER POST Estrellita Caceres MD [facility] Procedures Code Procedure Name Date Entry Date Standard Desc ription CPT-47713 Nexplanon Removal 15:02:55 MANAGER POST CPT-OV Office Visit 15:44:02 CDT CPT-09886 Nexplanon Placement 14:14:42 CDT CPT-J7307 Nexplanon (Implant) 14:14:42 CDT CPT-99620 UHCG (floor use only) 14:14:42 CDT CPT-OV Office Visit 14:06:57 CDT CPT-OV Office Visit 17:01:36 MANAGER POST CPT-Cryo Cryotherapy 11:17:42 MANAGER POST CPT-68507 Gardasil 11:39:29 CDT CPT-OV Office Visit 11:39:29 CDT CPT-PV Prev. Care Visit 16:07:43 MANAGER POST CPT-37907 TB Tubersol 13:10:17 MANAGER POST
--- OUTSIDE RECORDS SUMMARY | 2019-05-10 21:20 | XMS REPORT | Clinical Summary ---
Author Author Admin, Nicolette Oneill Organization [facility] Address Unknown Phone Unavailable Allergies, Adverse Reactions, [...] Well child examination V20.2 Active Christy garcia CHILD AND FAMILY COUNSELOR Routine or child health check Wart, left hand 078.10 Active Christy Brown APR N Viral warts, unspecified Vaginal discharge 623.5 Resolved Marilee Cook LPN Leukorrhea, not specified as infective DYSURIA 788.1 Resolved Marilee Joey OPERATING ROOM NURSE Dysuria examination or test, positive result V72.42 [...] MD Vaginal discharge ICD-623.5 Inactive Marilee charlesl OPERATING ROOM NURSE DYSURIA ICD-788.1 Inactive Marilee Ferrell PN Medication List Medication Instructions Start Date Stop Date Generic Name ND Status Provider Patient Instruction DIFLUCAN 150 MG ORAL TABLET 1 tablet by mouth daily FLUCONAZOLE 36504655252 Active Marilee Cook LPN Active CYCLOBENZAPRINE HCL 10 MG ORAL TABLET 1 q 8 hours prn for mu scle spasms CYCLOBENZAPRINE HCL 87988844810 No Longer Active Carlos Kaur Active SPRINTEC 28 0.25-35 MG-MCG ORAL TABLET 1 pill by mouth daily 201 07/28/21 NORGESTIMATE-ETH ESTRADIOL 62144356984 No Longer Active Nabeel Cook LPN Active LAMOTRIGINE 150 MG ORAL TABLET 1 daily LAMOTRIG INE 67942437918 No Longer Active Josephine rCuz MD Active BUSPIRONE HCL 10 MG ORAL TABLET 1/2 bid BUSPIRO NE HCL 81898901921 No Longer Active Josephine Cruz MD Active WELLBUTRIN 100 MG ORAL TABLET take 4&1/2 tabs daily 20 31/01/22 BUPROPION HCL 18084246038 No Longer Active Josephine Cruz MD Active STRATTERA 80 MG ORAL CAPSULE 1 tablet daily ATOMOXETINE HCL 19530688690 No Longer Active Josephine Cruz MD Active SPRINTEC 28 0.25-35 MG-MCG ORAL TABLET Take one by mouth daily 2 NORGESTIMATE-ETH ESTRADIOL 45187905832 No Longer Active Josephine Cruz MD Active BUPROPION HCL ER (XL) 300 MG ORAL TABLET EXTENDED RELEASE 24 ZACKARY R BUPROPION HCL 80273651212 No Longer Active Josephine Cruz MD Active DOXEPIN HCL 150 MG ORAL CAPSULE Take 1 to 2 caplets as needed at bedtime for sleep DOXEPIN HCL 01088149354 No Longer Active Josephine Cruz MD Active BACTRIM DS 800-160 MG ORAL TABLET Take one (1) by mouth twice a day SULFAMETHOXAZOLE-TRIMETHOPRIM 80402012093 No Longer Active Daniel Cruz MD Active VYVANSE 30 MG ORAL CAPSULE 1 daily LISDEXAMF ETAMINE DIMESYLATE 76010094348 No Longer Active Josephine Cruz MD Active TRAZODONE HCL 100 MG ORAL TABLET 1 tab at bedtime 2013 TRAZODONE HCL 67826960023 No Longer Active Christy Brown CHILD AND FAMILY COUNSELOR Act vernon TRAZODONE HCL 50 MG ORAL TABLET 1 q hs TRAZODO NE HCL 80760115554 No Longer Active Estrellita Tenorio MD Active TRAZODONE HCL 50 MG ORAL TABLET 1 q hs 5 TRAZODONE HCL 50 MG ORAL TABLET 742897 TRAZODONE HCL Inactive TRAZODONE HCL 100 MG ORAL TABLET 1 tab at bedtime 2013 TRAZODONE HCL 100 MG ORAL TABLET 661656 TRAZODONE HCL Inactiv e VYVANSE 30 MG ORAL CAPSULE 1 daily VYVANSE 30 M G ORAL CAPSULE LISDEXAMFETAMINE DIMESYLATE Inactive BACTRIM DS 800-160 MG ORAL TABLET Take one (1) by mouth twice a day BACTRIM DS 800-160 MG ORAL TABLET 911902 SULFAMETHOXAZOLE-TRIMETHOPRIM Inactive DOXEPIN HCL 150 MG ORAL CAPSULE Take 1 to 2 caplets as needed at bedtime for sleep DOXEPIN HCL 150 MG ORAL CAPSULE 0432689 DOXE PIN HCL Inactive BUPROPION HCL ER (XL) 300 MG ORAL TABLET EXTENDED RELEASE 24 ZACKARY R BUPROPION HCL ER (XL) 300 MG ORAL TABLET EXTENDED RELEASE 24 HOUR BUPROPION HCL Inactive SPRINTEC 28 0.25-35 MG-MCG ORAL TABLET Take one by mouth daily 2 SPRINTEC 28 0.25-35 MG-MCG ORAL TABLET 345119 N ORGESTIMATE-ETH ESTRADIOL Inactive STRATTERA 80 MG ORAL CAPSULE 1 tablet daily STRATTERA 80 MG ORAL CAPSULE 528411 ATOMOXETINE HCL Inactive WELLBUTRIN 100 MG ORAL TABLET take 4&1/2 tabs daily 31/01/22 WELLBUTRIN 100 MG ORAL TABLET BUPROPION HCL Inactive BUSPIRONE HCL 10 MG ORAL TABLET 1/2 bid 2 BUSPIRONE HCL 10 MG ORAL TABLET 467675 BUSPIRONE HCL Inactive LAMOTRIGINE 150 MG ORAL TABLET 1 daily LAMOTRIGINE 150 MG ORAL TABLET 681268 LAMOTRIGINE Inactive SPRINTEC 28 0.25-35 MG-MCG ORAL TABLET 1 pill by mouth daily 201 07/28/21 SPRINTEC 28 0.25-35 MG-MCG ORAL TABLET 955313 N ORGESTIMATE-ETH ESTRADIOL Inactive CYCLOBENZAPRINE HCL 10 MG ORAL TABLET 1 q 8 hours prn for mu scle spasms CYCLOBENZAPRINE HCL 10 MG ORAL TABLET 886881 CYCLOBENZAPRINE HCL Inactive Advance Directives Directive Description [...] Diphtheria, and acellular Per tussis Immunization) Adacel [[id number]] tetanus toxoid, reduced diph theria toxoid, and acellular pertussis vaccine, adsorbed hepatitis A immunization #1 Historical hepa titis A vaccine, unspecified formulation Adacel (Tetanus, reduced Diphtheria, and acellular Per tussis Immunization) Adacel [[id number]] tetanus toxoid, reduced diph theria toxoid, and [...] mg/dL Encounters Code Encounter Date Provider Facility CPT-75337 Level 4 Est. Patient 13:50:25 CDT Josephine montgomery MD [facility] CPT-41490 [id number] Vst-New Level II 14:23:[address] Ellen Iraheta PA-C [facility] CPT-20943 Level 3 Est. Patient 11:17:[address] [facility] STEVE [facility] CPT-43064 Level 3 Est. Patient 11:06:57 CDT Estrellita Caceres MD [facility] CPT-02858 Level 3 Est. Patient 14:47:06 BLOW DOWN HELPER Estrellita Caceres MD [facility] CPT-84591 Level 3 Est. Patient 12:33:15 BLOW DOWN HELPER Estrellita Caceres MD [facility] Procedures Code Procedure Name Date Entry Date Standard Desc ription CPT-89220 Nexplanon Removal 15:02:55 BLOW DOWN HELPER CPT-OV Office Visit 15:44:02 CDT CPT-86561 Nexplanon Placement 14:14:42 CDT CPT-J7307 Nexplanon (Implant) 14:14:42 CDT CPT-43160 UHCG (floor use only) 14:14:42 CDT CPT-OV Office Visit 14:06:57 CDT CPT-OV Office Visit 17:01:36 BLOW DOWN HELPER CPT-Cryo Cryotherapy 11:17:42 BLOW DOWN HELPER CPT-51054 Gardasil 11:39:29 CDT CPT-OV Office Visit 11:39:29 CDT CPT-PV Prev. Care Visit 16:07:43 BLOW DOWN HELPER CPT-05925 TB Tubersol 13:10:17 BLOW DOWN HELPER
--- OUTSIDE RECORDS SUMMARY | 2019-05-10 21:20 | XMS REPORT | Clinical Summary ---
Author Author Brijesh, Nicolette Oneill Organization [facility] Address Unknown Phone Unavailable Allergies, Adverse Reactions, [...] Well child examination V20.2 Active Christy garcia CLOTH EXAMINER HAND Routine or child health check Wart, left [...] Tenorio MD WELL CHILD EXAM ICD-V20.2 Inactive sEtrellita barajas MD ABDOMINAL PAIN ICD-789.00 Inactive Estrellita barajas MD CONTRACEPTIVE MANAGEMENT ICD-V25.09 Inactive Josephine Cruz MD Vaginal discharge ICD-623.5 Inactive Marilee benjaminhall DISHING MACHINE OPERATOR DYSURIA ICD-788.1 Inactive Marilee Ferrell PN Medication List Medication Instructions Start Date Stop Date Generic Name NDC Status Provider Patient Instruction CYCLOBENZAPRINE HCL 10 MG ORAL TABLET 1 q 8 hours prn for mu scle spasms CYCLOBENZAPRINE HCL 75864740056 No Longer Active Carlos Kaur Active SPRINTEC 28 0.25-35 MG-MCG ORAL TABLET 1 pill by mouth daily 201 07/28/21 NORGESTIMATE-ETH ESTRADIOL 19211755523 No Longer Active Nabeel Cook LPN Active LAMOTRIGINE 150 MG ORAL TABLET 1 daily LAMOTRIG INE 78320023188 No Longer Active Josephine Cruz MD Active BUSPIRONE HCL 10 MG ORAL TABLET 1/2 bid BUSPIRO NE HCL 92400796303 No Longer Active Josephine Cruz MD Active WELLBUTRIN 100 MG ORAL TABLET take 4&1/2 tabs daily 20 31/01/22 BUPROPION HCL 77893498334 No Longer Active Josephine Cruz MD Active STRATTERA 80 MG ORAL CAPSULE 1 tablet daily ATOMOXETINE HCL 99939250436 No Longer Active Josephine Cruz MD Active SPRINTEC 28 0.25-35 MG-MCG ORAL TABLET Take one by mouth daily 2 NORGESTIMATE-ETH ESTRADIOL 40670323664 No Longer Active Josephine Cruz MD Active BUPROPION HCL ER (XL) 300 MG ORAL TABLET EXTENDED RELEASE 24 ZACKARY R BUPROPION HCL 10642894407 No Longer Active Josephine Cruz MD Active DOXEPIN HCL 150 MG ORAL CAPSULE Take 1 to 2 caplets as needed at bedtime for sleep DOXEPIN HCL 13513195663 No Longer Active Josephine Cruz MD Active BACTRIM DS 800-160 MG ORAL TABLET Take one (1) by mouth twice a day SULFAMETHOXAZOLE-TRIMETHOPRIM 82836921283 No Longer Active Daniel Cruz MD Active VYVANSE 30 MG ORAL CAPSULE 1 daily LISDEXAMF ETAMINE DIMESYLATE 23576597906 No Longer Active Josephine Cruz MD Active TRAZODONE HCL 100 MG ORAL TABLET 1 tab at bedtime 2013 TRAZODONE HCL 67498046664 No Longer Active Christy Brown APRN Act vernon TRAZODONE HCL 50 MG ORAL TABLET 1 q hs TRAZODO NE HCL 24335930512 No Longer Active Estrellita Tenorio MD Active TRAZODONE HCL 50 MG ORAL TABLET 1 q hs 5 TRAZODONE HCL 50 MG ORAL TABLET 494076 TRAZODONE HCL Inactive TRAZODONE HCL 100 MG ORAL TABLET 1 tab at bedtime 2013 TRAZODONE HCL 100 MG ORAL TABLET 466823 TRAZODONE HCL Inactiv e VYVANSE 30 MG ORAL CAPSULE 1 daily VYVANSE 30 M G ORAL CAPSULE LISDEXAMFETAMINE DIMESYLATE Inactive BACTRIM DS 800-160 MG ORAL TABLET Take one (1) by mouth twice a day BACTRIM DS 800-160 MG ORAL TABLET 772982 SULFAMETHOXAZOLE-TRIMETHOPRIM Inactive DOXEPIN HCL 150 MG ORAL CAPSULE Take 1 to 2 caplets as needed at bedtime for sleep DOXEPIN HCL 150 MG ORAL CAPSULE 1916105 DOXE PIN HCL Inactive BUPROPION HCL ER (XL) 300 MG ORAL TABLET EXTENDED RELEASE 24 ZACKARY R BUPROPION HCL ER (XL) 300 MG ORAL TABLET EXTENDED RELEASE 24 HOUR BUPROPION HCL Inactive SPRINTEC 28 0.25-35 MG-MCG ORAL TABLET Take one by mouth daily 2 SPRINTEC 28 0.25-35 MG-MCG ORAL TABLET 944218 N ORGESTIMATE-ETH ESTRADIOL Inactive STRATTERA 80 MG ORAL CAPSULE 1 tablet daily STRATTERA 80 MG ORAL CAPSULE 426145 ATOMOXETINE HCL Inactive WELLBUTRIN 100 MG ORAL TABLET take 4&1/2 tabs daily 31/01/22 WELLBUTRIN 100 MG ORAL TABLET BUPROPION HCL Inactive BUSPIRONE HCL 10 MG ORAL TABLET 1/2 bid 2 BUSPIRONE HCL 10 MG ORAL TABLET 270335 BUSPIRONE HCL Inactive LAMOTRIGINE 150 MG ORAL TABLET 1 daily LAMOTRIGINE 150 MG ORAL TABLET 531432 LAMOTRIGINE Inactive SPRINTEC 28 0.25-35 MG-MCG ORAL TABLET 1 pill by mouth daily 201 07/28/21 SPRINTEC 28 0.25-35 MG-MCG ORAL TABLET 634501 N ORGESTIMATE-ETH ESTRADIOL Inactive CYCLOBENZAPRINE HCL 10 MG ORAL TABLET 1 q 8 hours prn for mu scle spasms CYCLOBENZAPRINE HCL 10 MG ORAL TABLET 694767 CYCLOBENZAPRINE HCL Inactive Advance Directives Directive Description [...] Diphtheria, and acellular Per tussis Immunization) Adacel [[id number]] tetanus toxoid, reduced diph theria toxoid, and acellular pertussis vaccine, adsorbed hepatitis A immunization #1 Historical hepa titis A vaccine, unspecified formulation Adacel (Tetanus, reduced Diphtheria, and acellular Per tussis Immunization) Adacel [[id number]] tetanus toxoid, reduced diph theria toxoid, and [...] Results Date Name Value Unit Range Description Office Visit: Evaluation for possible pr egnancy - Chemistry human chorionic gonadotropin , urine, qualitative (urine test) Negative Office Visit: F/u neck pain, nerve damag e - Chemistry HDL cholesterol, serum, target level 40 mg/dL cholesterol, target level 200 mg/dL triglyceride, target level 150 mg/dL Encounters Code Encounter Date Provider Facility CPT-87942 Level 4 Est. Patient 13:50:25 CDT Josephine montgomery MD [facility] CPT-69781 [id number] Vst-New Level II 14:23:[address] Ellen Iraheta PA-C [facility] CPT-33826 Level 3 Est. Patient 11:17:42 CANDY STARCH MOLD PRINTER Christy Muñoz APRN [facility] CPT-69130 Level 3 Est. Patient 11:06:57 CDT Estrellita Caceres MD [facility] CPT-83713 Level 3 Est. Patient 14:47:06 CANDY STARCH MOLD PRINTER Estrellita Caceres MD [facility] CPT-82043 Level 3 Est. Patient 12:33:15 JOSE Caceres MD [facility] Procedures Code Procedure Name Date Entry Date Standard Desc ription CPT-54035 Nexplanon Removal 15:02:55 CANDY STARCH MOLD PRINTER CPT-OV Office Visit 15:44:02 CDT CPT-07745 Nexplanon Placement 14:14:42 CDT CPT-J7307 Nexplanon (Implant) 14:14:42 CDT CPT-72260 UHCG (floor use only) 14:14:42 CDT CPT-OV Office Visit 14:06:57 CDT CPT-OV Office Visit 17:01:36 CANDY STARCH MOLD PRINTER CPT-Cryo Cryotherapy 11:17:42 CANDY STARCH MOLD PRINTER CPT-16614 Gardasil 11:39:29 CDT CPT-OV Office Visit 11:39:29 CDT CPT-PV Prev. Care Visit 16:07:43 CANDY STARCH MOLD PRINTER CPT-75441 TB Tubersol 13:10:17 CANDY STARCH MOLD PRINTER
--- OUTSIDE RECORDS SUMMARY | 2019-05-10 21:20 | XMS REPORT | Clinical Summary ---
Author Author Brijesh, Nicolette Oneill Organization [facility] Address Unknown Phone Unavailable Allergies, Adverse [...] Well child examination V20.2 Active Christy garcia RESEARCH GEOLOGIST Routine or child health check Wart, left hand 078.10 Active Christy Brown APR N Viral warts, unspecified Vaginal discharge 623.5 Resolved Marilee Cook LPN Leukorrhea, not specified as infective DYSURIA 788.1 Resolved Mrailee Cook LPN Dysuria examination or test, positive [...] MD Vaginal discharge ICD-623.5 Inactive Marilee benjaminhall DECK ENGINEER DYSURIA ICD-788.1 Inactive Marilee Ferrell PN Medication List Medication Instructions Start Date Stop Date Generic Name NDC Status Provider Patient Instruction DIFLUCAN 150 MG ORAL TABLET 1 tablet by mouth daily FLUCONAZOLE [id number] Active Marileemallorie Cook LPN Active CYCLOBENZAPRINE HCL 10 MG ORAL TABLET 1 q 8 hours prn for mu scle spasms CYCLOBENZAPRINE HCL 30386641185 No Longer Active Cralos rosy Kaur Active SPRINTEC 28 0.25-35 MG-MCG ORAL TABLET 1 pill by mouth daily 201 07/28/21 NORGESTIMATE-ETH ESTRADIOL 48997934073 No Longer Active Nabeel Cook LPN Active LAMOTRIGINE 150 MG ORAL TABLET 1 daily LAMOTRIG INE 15009883797 No Longer Active Josephine Cruz MD Active BUSPIRONE HCL 10 MG ORAL TABLET 1/2 bid BUSPIRO NE HCL 24426749424 No Longer Active Josephine Cruz MD Active WELLBUTRIN 100 MG ORAL TABLET take 4&1/2 tabs daily 20 31/01/22 BUPROPION HCL 21203988315 No Longer Active Josephine Cruz MD Active STRATTERA 80 MG ORAL CAPSULE 1 tablet daily ATOMOXETINE HCL 68329452121 No Longer Active Josephine Cruz MD Active SPRINTEC 28 0.25-35 MG-MCG ORAL TABLET Take one by mouth daily 2 NORGESTIMATE-ETH ESTRADIOL 94001363846 No Longer Active Josephine Cruz MD Active BUPROPION HCL ER (XL) 300 MG ORAL TABLET EXTENDED RELEASE 24 ZACKARY R BUPROPION HCL 63680085131 No Longer Active Josephine Cruz MD Active DOXEPIN HCL 150 MG ORAL CAPSULE Take 1 to 2 caplets as needed at bedtime for sleep DOXEPIN HCL 27571055448 No Longer Active Josephine Cruz MD Active BACTRIM DS 800-160 MG ORAL TABLET Take one (1) by mouth twice a day SULFAMETHOXAZOLE-TRIMETHOPRIM 12554277897 No Longer Active Daniel Cruz MD Active VYVANSE 30 MG ORAL CAPSULE 1 daily LISDEXAMF ETAMINE DIMESYLATE 53658913222 No Longer Active Josephine Cruz MD Active TRAZODONE HCL 100 MG ORAL TABLET 1 tab at bedtime 2013 TRAZODONE HCL 08671735791 No Longer Active Christy Brown RESEARCH GEOLOGIST Act vernon TRAZODONE HCL 50 MG ORAL TABLET 1 q hs TRAZODO NE HCL 11725653368 No Longer Active Estrellita Tenorio MD Active TRAZODONE HCL 50 MG ORAL TABLET 1 q hs 5 TRAZODONE HCL 50 MG ORAL TABLET 618157 TRAZODONE HCL Inactive TRAZODONE HCL 100 MG ORAL TABLET 1 tab at bedtime 2013 TRAZODONE HCL 100 MG ORAL TABLET 592775 TRAZODONE HCL Inactiv e VYVANSE 30 MG ORAL CAPSULE 1 daily VYVANSE 30 M G ORAL CAPSULE LISDEXAMFETAMINE DIMESYLATE Inactive BACTRIM DS 800-160 MG ORAL TABLET Take one (1) by mouth twice a day BACTRIM DS 800-160 MG ORAL TABLET 721563 SULFAMETHOXAZOLE-TRIMETHOPRIM Inactive DOXEPIN HCL 150 MG ORAL CAPSULE Take 1 to 2 caplets as needed at bedtime for sleep DOXEPIN HCL 150 MG ORAL CAPSULE 5295488 DOXE PIN HCL Inactive BUPROPION HCL ER (XL) 300 MG ORAL TABLET EXTENDED RELEASE 24 ZACKARY R BUPROPION HCL ER (XL) 300 MG ORAL TABLET EXTENDED RELEASE 24 HOUR BUPROPION HCL Inactive SPRINTEC 28 0.25-35 MG-MCG ORAL TABLET Take one by mouth daily 2 SPRINTEC 28 0.25-35 MG-MCG ORAL TABLET 509648 N ORGESTIMATE-ETH ESTRADIOL Inactive STRATTERA 80 MG ORAL CAPSULE 1 tablet daily STRATTERA 80 MG ORAL CAPSULE 213511 ATOMOXETINE HCL Inactive WELLBUTRIN 100 MG ORAL TABLET take 4&1/2 tabs daily 31/01/22 WELLBUTRIN 100 MG ORAL TABLET BUPROPION HCL Inactive BUSPIRONE HCL 10 MG ORAL TABLET 1/2 bid 2 BUSPIRONE HCL 10 MG ORAL TABLET 765410 BUSPIRONE HCL Inactive LAMOTRIGINE 150 MG ORAL TABLET 1 daily LAMOTRIGINE 150 MG ORAL TABLET 255477 LAMOTRIGINE Inactive SPRINTEC 28 0.25-35 MG-MCG ORAL TABLET 1 pill by mouth daily 201 07/28/21 SPRINTEC 28 0.25-35 MG-MCG ORAL TABLET 890456 N ORGESTIMATE-ETH ESTRADIOL Inactive CYCLOBENZAPRINE HCL 10 MG ORAL TABLET 1 q 8 hours prn for mu scle spasms CYCLOBENZAPRINE HCL 10 MG ORAL TABLET 626960 CYCLOBENZAPRINE HCL Inactive Advance Directives Directive Description [...] Diphtheria, and acellular Per tussis Immunization) Adacel [[id number]] tetanus toxoid, reduced diph theria toxoid, and acellular pertussis vaccine, adsorbed hepatitis A immunization #1 Historical hepa titis A vaccine, unspecified formulation Adacel (Tetanus, reduced Diphtheria, and acellular Per tussis Immunization) Adacel [[id number]] tetanus toxoid, reduced diph theria toxoid, and [...] mg/dL Encounters Code Encounter Date Provider Facility CPT-38629 Level 4 Est. Patient 13:50:25 CDT Josephine montgomery MD [facility] CPT-06416 [id number] Vst-New Level II 14:23:[address] Ellen Iraheta PA-C [facility] CPT-02069 Level 3 Est. Patient 11:17:42 CORE LAYING MACHINE OPERATOR Christy St ernst [facility]EVE [facility] CPT-37986 Level 3 Est. Patient 11:06:57 CDT Estrellita Caceres MD [facility] CPT-89902 Level 3 Est. Patient 14:47:06 CORE LAYING MACHINE OPERATOR Estrellita Caceres MD [facility] CPT-77631 Level 3 Est. Patient 12:33:15 CORE LAYING MACHINE OPERATOR Estrellita Caceres MD [facility] Procedures Code Procedure Name Date Entry Date Standard Desc ription CPT-07861 Nexplanon Removal 15:02:55 CORE LAYING MACHINE OPERATOR CPT-OV Office Visit 15:44:02 CDT CPT-80868 Nexplanon Placement 14:14:42 CDT CPT-J7307 Nexplanon (Implant) 14:14:42 CDT CPT-06064 UHCG (floor use only) 14:14:42 CDT CPT-OV Office Visit 14:06:57 CDT CPT-OV Office Visit 17:01:36 CORE LAYING MACHINE OPERATOR CPT-Cryo Cryotherapy 11:17:42 CORE LAYING MACHINE OPERATOR CPT-10552 Gardasil 11:39:29 CDT CPT-OV Office Visit 11:39:29 CDT CPT-PV Prev. Care Visit 16:07:43 CORE LAYING MACHINE OPERATOR CPT-61068 TB Tubersol 13:10:17 CORE LAYING MACHINE OPERATOR
--- OUTSIDE RECORDS SUMMARY | 2019-05-10 21:20 | XMS REPORT | Clinical Summary ---
Author Author Admin, Nicolette Oneill Organization [email or web address] Address Unknown Phone Unavailable Allergies, Adverse Reactions, [...] Well child examination V20.2 Active Christy garcia MOLD CLOSER HELPER Routine or child health check Wart, left hand 078.10 Active Christy Brown APR N Viral warts, unspecified Vaginal discharge 623.5 Resolved Marilee Cook LPN Leukorrhea, not specified as infective DYSURIA 788.1 Resolved Marilee Joey INSPECTOR CASING Dysuria examination or test, positive result V72.42 [...] MD Vaginal discharge ICD-623.5 Inactive Marilee charlesl INSPECTOR CASING DYSURIA ICD-788.1 Inactive Marilee Ferrell PN Medication List Medication Instructions Start Date Stop Date Generic Name NDC Status Provider Patient Instruction CYCLOBENZAPRINE HCL 10 MG ORAL TABLET 1 q 8 hours prn for mu scle spasms CYCLOBENZAPRINE HCL 61065718356 No Longer Active Carlos Kaur Active SPRINTEC 28 0.25-35 MG-MCG ORAL TABLET 1 pill by mouth daily 201 07/28/21 NORGESTIMATE-ETH ESTRADIOL 97020869381 No Longer Active Nabeel Cook LPN Active LAMOTRIGINE 150 MG ORAL TABLET 1 daily LAMOTRIG INE 70702800728 No Longer Active Josephine Cruz MD Active BUSPIRONE HCL 10 MG ORAL TABLET 1/2 bid BUSPIRO NE HCL 35781935806 No Longer Active Josephine Cruz MD Active WELLBUTRIN 100 MG ORAL TABLET take 4&1/2 tabs daily 20 31/01/22 BUPROPION HCL 96156704015 No Longer Active Josephine Cruz MD Active STRATTERA 80 MG ORAL CAPSULE 1 tablet daily ATOMOXETINE HCL 38664740346 No Longer Active Josephine Cruz MD Active SPRINTEC 28 0.25-35 MG-MCG ORAL TABLET Take one by mouth daily 2 NORGESTIMATE-ETH ESTRADIOL 55919566652 No Longer Active Josephine Cruz MD Active BUPROPION HCL ER (XL) 300 MG ORAL TABLET EXTENDED RELEASE 24 ZACKARY R BUPROPION HCL 84810524809 No Longer Active Josephine Cruz MD Active DOXEPIN HCL 150 MG ORAL CAPSULE Take 1 to 2 caplets as needed at bedtime for sleep DOXEPIN HCL 15431310934 No Longer Active Josephine Cruz MD Active BACTRIM DS 800-160 MG ORAL TABLET Take one (1) by mouth twice a day SULFAMETHOXAZOLE-TRIMETHOPRIM 15135512332 No Longer Active Daniel Cruz MD Active VYVANSE 30 MG ORAL CAPSULE 1 daily LISDEXAMF ETAMINE DIMESYLATE 13268252795 No Longer Active Josephine Cruz MD Active TRAZODONE HCL 100 MG ORAL TABLET 1 tab at bedtime 2013 TRAZODONE HCL 22307471180 No Longer Active Christy Brown APRN Act vernon TRAZODONE HCL 50 MG ORAL TABLET 1 q hs TRAZODO NE HCL 96068876709 No Longer Active Estrellita Tenorio MD Active TRAZODONE HCL 50 MG ORAL TABLET 1 q hs 5 TRAZODONE HCL 50 MG ORAL TABLET 557472 TRAZODONE HCL Inactive TRAZODONE HCL 100 MG ORAL TABLET 1 tab at bedtime 2013 TRAZODONE HCL 100 MG ORAL TABLET 207953 TRAZODONE HCL Inactiv e VYVANSE 30 MG ORAL CAPSULE 1 daily VYVANSE 30 M G ORAL CAPSULE LISDEXAMFETAMINE DIMESYLATE Inactive BACTRIM DS 800-160 MG ORAL TABLET Take one (1) by mouth twice a day BACTRIM DS 800-160 MG ORAL TABLET 847126 SULFAMETHOXAZOLE-TRIMETHOPRIM Inactive DOXEPIN HCL 150 MG ORAL CAPSULE Take 1 to 2 caplets as needed at bedtime for sleep DOXEPIN HCL 150 MG ORAL CAPSULE 5247179 DOXE PIN HCL Inactive BUPROPION HCL ER (XL) 300 MG ORAL TABLET EXTENDED RELEASE 24 ZACKARY R BUPROPION HCL ER (XL) 300 MG ORAL TABLET EXTENDED RELEASE 24 HOUR BUPROPION HCL Inactive SPRINTEC 28 0.25-35 MG-MCG ORAL TABLET Take one by mouth daily 2 SPRINTEC 28 0.25-35 MG-MCG ORAL TABLET 007813 N ORGESTIMATE-ETH ESTRADIOL Inactive STRATTERA 80 MG ORAL CAPSULE 1 tablet daily STRATTERA 80 MG ORAL CAPSULE 586852 ATOMOXETINE HCL Inactive WELLBUTRIN 100 MG ORAL TABLET take 4&1/2 tabs daily 20 31/01/22 WELLBUTRIN 100 MG ORAL TABLET BUPROPION HCL Inactive BUSPIRONE HCL 10 MG ORAL TABLET 1/2 bid 2016/12/2 2 BUSPIRONE HCL 10 MG ORAL TABLET 629487 BUSPIRONE HCL Inactive LAMOTRIGINE 150 MG ORAL TABLET 1 daily LAMOTRIGINE 150 MG ORAL TABLET 649326 LAMOTRIGINE Inactive SPRINTEC 28 0.25-35 MG-MCG ORAL TABLET 1 pill by mouth daily 201 07/28/21 SPRINTEC 28 0.25-35 MG-MCG ORAL TABLET 019532 N ORGESTIMATE-ETH ESTRADIOL Inactive CYCLOBENZAPRINE HCL 10 MG ORAL TABLET 1 q 8 hours prn for mu scle spasms CYCLOBENZAPRINE HCL 10 MG ORAL TABLET 231087 CYCLOBENZAPRINE HCL Inactive Advance Directives Directive Description [...] Diphtheria, and acellular Per tussis Immunization) Adacel [[id number]] tetanus toxoid, reduced diph theria toxoid, and acellular pertussis vaccine, adsorbed hepatitis A immunization #1 Historical hepa titis A vaccine, unspecified formulation Adacel (Tetanus, reduced Diphtheria, and acellular Per tussis Immunization) Adacel [[id number]] tetanus toxoid, reduced diph theria toxoid, and [...] mg/dL Encounters Code Encounter Date Provider Facility CPT-24050 Level 4 Est. Patient 13:50:25 CDT Josephine montgomery MD [facility] CPT-23605 [id number] Vst-New Level II 14:23:[address] Ellen Iraheta PA-C [facility] CPT-60994 Level 3 Est. Patient 11:17:42 DEPARTMENT ASSISTANT Christy Farrarart [facility] CPT-12715 Level 3 Est. Patient 11:06:57 CDT Estrellita Caceres MD [facility] CPT-22741 Level 3 Est. Patient 14:47:06 DEPARTMENT ASSISTANT Estrellita Caceres MD [facility] CPT-00567 Level 3 Est. Patient 12:33:15 DEPARTMENT ASSISTANT Estrellita Caceres MD [facility] Procedures Code Procedure Name Date Entry Date Standard Desc ription CPT-50507 Nexplanon Removal 15:02:55 DEPARTMENT ASSISTANT CPT-OV Office Visit 15:44:02 CDT CPT-31973 Nexplanon Placement 14:14:42 CDT CPT-J7307 Nexplanon (Implant) 14:14:42 CDT CPT-96670 UHCG (floor use only) 14:14:42 CDT CPT-OV Office Visit 14:06:57 CDT CPT-OV Office Visit 17:01:36 DEPARTMENT ASSISTANT CPT-Cryo Cryotherapy 11:17:42 DEPARTMENT ASSISTANT CPT-30164 Gardasil 11:39:29 CDT CPT-OV Office Visit 11:39:29 CDT CPT-PV Prev. Care Visit 16:07:43 DEPARTMENT ASSISTANT CPT-88803 TB Tubersol 13:10:17 DEPARTMENT ASSISTANT
--- OUTSIDE RECORDS SUMMARY | 2019-05-10 21:20 | XMS REPORT | Clinical Summary ---
Author Author Brijesh, Nicolette Oneill Organization [facility] Address Unknown Phone Unavailable Allergies, Adverse Reactions, [...] Well child examination V20.2 Active Christy garcia PAPER PRODUCTS PRINTER Routine or child health check Wart, left [...] Obesity Class I (BMI 30-34.9) Refinement Debbie Iraehta PA-C Obesity, unspecified Overweight (BMI 25-29.9) Active [...] CONTRACEPTIVE MANAGEMENT ICD-V25.09 Inactive Josephine Cruz MD DYSURIA ICD-788.1 Inactive Marilee Cook L PN Vaginal discharge ICD-623.5 Inactive Marilee charlesl CONGRESSIONAL ASSISTANT Medication List Medication Instructions Start Date Stop Date Generic Name ND Status Provider Patient Instruction CYCLOBENZAPRINE HCL 10 MG ORAL TABLET 1 q 8 hours prn for mu scle spasms CYCLOBENZAPRINE HCL 05845715731 No Longer Active Carlos Kaur Active SPRINTEC 28 0.25-35 MG-MCG ORAL TABLET 1 pill by mouth daily 201 07/28/21 NORGESTIMATE-ETH ESTRADIOL 09586032379 No Longer Active Nabeel Cook LPN Active LAMOTRIGINE 150 MG ORAL TABLET 1 daily LAMOTRIG INE 43925190831 No Longer Active Josephine Cruz MD Active BUSPIRONE HCL 10 MG ORAL TABLET 1/2 bid BUSPIRO NE HCL 67727522229 No Longer Active Josephine Cruz MD Active WELLBUTRIN 100 MG ORAL TABLET take 4&1/2 tabs daily 20 31/01/22 BUPROPION HCL 62638691789 No Longer Active Josephine Cruz MD Active STRATTERA 80 MG ORAL CAPSULE 1 tablet daily ATOMOXETINE HCL 87497527925 No Longer Active Josephine Cruz MD Active SPRINTEC 28 0.25-35 MG-MCG ORAL TABLET Take one by mouth daily 2 NORGESTIMATE-ETH ESTRADIOL 56961100417 No Longer Active Josephine Cruz MD Active BUPROPION HCL ER (XL) 300 MG ORAL TABLET EXTENDED RELEASE 24 ZACKARY R BUPROPION HCL 96309289999 No Longer Active Josephine Cruz MD Active DOXEPIN HCL 150 MG ORAL CAPSULE Take 1 to 2 caplets as needed at bedtime for sleep DOXEPIN HCL 62951371089 No Longer Active Josephine Cruz MD Active BACTRIM DS 800-160 MG ORAL TABLET Take one (1) by mouth twice a day SULFAMETHOXAZOLE-TRIMETHOPRIM 51371512867 No Longer Active Daniel Cruz MD Active VYVANSE 30 MG ORAL CAPSULE 1 daily LISDEXAMF ETAMINE DIMESYLATE 02199694243 No Longer Active Josephine Cruz MD Active TRAZODONE HCL 100 MG ORAL TABLET 1 tab at bedtime 2013 TRAZODONE HCL 90981568328 No Longer Active Christy Brown APRN Act vernon TRAZODONE HCL 50 MG ORAL TABLET 1 q hs TRAZODO NE HCL 61373820059 No Longer Active Estrellita Tenorio MD Active TRAZODONE HCL 50 MG ORAL TABLET 1 q hs 5 TRAZODONE HCL 50 MG ORAL TABLET 514034 TRAZODONE HCL Inactive TRAZODONE HCL 100 MG ORAL TABLET 1 tab at bedtime 2013 TRAZODONE HCL 100 MG ORAL TABLET 277894 TRAZODONE HCL Inactiv e VYVANSE 30 MG ORAL CAPSULE 1 daily VYVANSE 30 M G ORAL CAPSULE LISDEXAMFETAMINE DIMESYLATE Inactive BACTRIM DS 800-160 MG ORAL TABLET Take one (1) by mouth twice a day BACTRIM DS 800-160 MG ORAL TABLET 255277 SULFAMETHOXAZOLE-TRIMETHOPRIM Inactive DOXEPIN HCL 150 MG ORAL CAPSULE Take 1 to 2 caplets as needed at bedtime for sleep DOXEPIN HCL 150 MG ORAL CAPSULE 4741546 DOXE PIN HCL Inactive BUPROPION HCL ER (XL) 300 MG ORAL TABLET EXTENDED RELEASE 24 ZACKARY R BUPROPION HCL ER (XL) 300 MG ORAL TABLET EXTENDED RELEASE 24 HOUR BUPROPION HCL Inactive SPRINTEC 28 0.25-35 MG-MCG ORAL TABLET Take one by mouth daily 2 SPRINTEC 28 0.25-35 MG-MCG ORAL TABLET 781532 N ORGESTIMATE-ETH ESTRADIOL Inactive STRATTERA 80 MG ORAL CAPSULE 1 tablet daily STRATTERA 80 MG ORAL CAPSULE 191980 ATOMOXETINE HCL Inactive WELLBUTRIN 100 MG ORAL TABLET take 4&1/2 tabs daily 31/01/22 WELLBUTRIN 100 MG ORAL TABLET BUPROPION HCL Inactive BUSPIRONE HCL 10 MG ORAL TABLET 1/2 bid 2 BUSPIRONE HCL 10 MG ORAL TABLET 195200 BUSPIRONE HCL Inactive LAMOTRIGINE 150 MG ORAL TABLET 1 daily LAMOTRIGINE 150 MG ORAL TABLET 455113 LAMOTRIGINE Inactive SPRINTEC 28 0.25-35 MG-MCG ORAL TABLET 1 pill by mouth daily 201 07/28/21 SPRINTEC 28 0.25-35 MG-MCG ORAL TABLET 208038 N ORGESTIMATE-ETH ESTRADIOL Inactive CYCLOBENZAPRINE HCL 10 MG ORAL TABLET 1 q 8 hours prn for mu scle spasms CYCLOBENZAPRINE HCL 10 MG ORAL TABLET 457853 CYCLOBENZAPRINE HCL Inactive Advance Directives Directive Description [...] Diphtheria, and acellular Per tussis Immunization) Adacel [[id number]] tetanus toxoid, reduced diph theria toxoid, and acellular pertussis vaccine, adsorbed hepatitis A immunization #1 Historical hepa titis A vaccine, unspecified formulation Adacel (Tetanus, reduced Diphtheria, and acellular Per tussis Immunization) Adacel [[id number]] tetanus toxoid, reduced diph theria toxoid, and [...] mg/dL Encounters Code Encounter Date Provider Facility CPT-84480 Level 4 Est. Patient 13:50:25 CDT Josephine montgomery MD [facility] CPT-03235 [id number] Vst-New Level II 14:23:[address] Ellen Iraheta PA-C [facility] CPT-73763 Level 3 Est. Patient 11:17:42 REFERRAL SPECIALIST Christy Muñoz APRN [facility] CPT-78733 Level 3 Est. Patient 11:06:57 CDT Estrellita Caceres MD [facility] CPT-68744 Level 3 Est. Patient 14:47:06 REFERRAL SPECIALIST Estrellita Caceres MD [facility] CPT-25640 Level 3 Est. Patient 12:33:15 JOSE Caceres MD [facility] Procedures Code Procedure Name Date Entry Date Standard Desc ription CPT-83368 Nexplanon Removal 15:02:55 REFERRAL SPECIALIST CPT-OV Office Visit 15:44:02 CDT CPT-41759 Nexplanon Placement 14:14:42 CDT CPT-J7307 Nexplanon (Implant) 14:14:42 CDT CPT-90080 UHCG (floor use only) 14:14:42 CDT CPT-OV Office Visit 14:06:57 CDT CPT-OV Office Visit 17:01:36 REFERRAL SPECIALIST CPT-Cryo Cryotherapy 11:17:42 REFERRAL SPECIALIST CPT-23696 Gardasil 11:39:29 CDT CPT-OV Office Visit 11:39:29 CDT CPT-PV Prev. Care Visit 16:07:43 REFERRAL SPECIALIST CPT-70039 TB Tubersol 13:10:17 REFERRAL SPECIALIST
--- OUTSIDE RECORDS SUMMARY | 2019-05-10 21:21 | XMS REPORT | Clinical Summary ---
Author Author Admin, Nicolette Oneill Organization [employer] Address Unknown Phone Unavailable Allergies, Adverse Reactions, [...] leg CONTRACEPTIVE MANAGEMENT V25.09 Active Edward Moody EMPLOYEE DEVELOPMENT DIRECTOR Encounter for other general counseling and advice on contraceptive management Well child examination V20.2 Active Christy garcia EMPLOYEE DEVELOPMENT DIRECTOR Routine or child health check Wart, [...] Cook LPN Tubal ligation status BMI 30-30.9 Active Ellen Iraheta PA-C Body Mass Index 30.0- 30.9, adult Obesity Class I (BMI 30-34.9) Active Ellen Iraheta PA-C Obesity, unspecified Paresthesia of arm 782.0 Active Ellen Iraheta PA-C Disturbance of skin sensation left arm WELL CHILD EXAM ICD-V20.2 Inactive Estrellita barajas MD CEPHALGIA ICD-784.0 Inactive Estrellita Tenorio MD WELL CHILD EXAM ICD-V20.2 Inactive Estrellita barajas MD ABDOMINAL PAIN ICD-789.00 Inactive Estrellita barajas MD Vaginal discharge ICD-623.5 Inactive Marilee charlesl SAT MATH TUTOR DYSURIA ICD-788.1 Inactive Marilee Ferrell PN Medication List Medication Instructions Start Date Stop Date Generic Name ND Status Provider Patient Instruction CYCLOBENZAPRINE HCL 10 MG ORAL TABLET 1 q 8 hours prn for mu scle spasms CYCLOBENZAPRINE HCL 85534349007 Active Ellen Elizondo Active SPRINTEC 28 0.25-35 MG-MCG ORAL TABLET 1 pill by mouth daily 201 07/28/21 NORGESTIMATE-ETH ESTRADIOL 38021498213 No Longer Active Nabeel Cook LPN Active LAMOTRIGINE 150 MG ORAL TABLET 1 daily LAMOTRIG INE 08442567897 No Longer Active Josephine Cruz MD Active BUSPIRONE HCL 10 MG ORAL TABLET 1/2 bid BUSPIRO NE HCL 77750798793 No Longer Active Josephine Cruz MD Active WELLBUTRIN 100 MG ORAL TABLET take 4&1/2 tabs daily 20 31/01/22 BUPROPION HCL 35143732267 No Longer Active Josephine Cruz MD Active STRATTERA 80 MG ORAL CAPSULE 1 tablet daily ATOMOXETINE HCL 95752314484 No Longer Active Josephine Cruz MD Active SPRINTEC 28 0.25-35 MG-MCG ORAL TABLET Take one by mouth daily 2 NORGESTIMATE-ETH ESTRADIOL 62680390504 No Longer Active Josephine Cruz MD Active BUPROPION HCL ER (XL) 300 MG ORAL TABLET EXTENDED RELEASE 24 ZACKARY R BUPROPION HCL 42173599746 No Longer Active Josephine Cruz MD Active DOXEPIN HCL 150 MG ORAL CAPSULE Take 1 to 2 caplets as needed at bedtime for sleep DOXEPIN HCL 18995749782 No Longer Active Josephine Cruz MD Active BACTRIM DS 800-160 MG ORAL TABLET Take one (1) by mouth twice a day SULFAMETHOXAZOLE-TRIMETHOPRIM 32118964040 No Longer Active Daniel Cruz MD Active VYVANSE 30 MG ORAL CAPSULE 1 daily LISDEXAMF ETAMINE DIMESYLATE 23685135587 No Longer Active Josephine Cruz MD Active TRAZODONE HCL 100 MG ORAL TABLET 1 tab at bedtime 2013 TRAZODONE HCL 91193395936 No Longer Active Christy Brown EMPLOYEE DEVELOPMENT DIRECTOR Act vernon TRAZODONE HCL 50 MG ORAL TABLET 1 q hs TRAZODO NE HCL 27045725990 No Longer Active Estrellita Tenorio MD Active TRAZODONE HCL 50 MG ORAL TABLET 1 q hs 5 TRAZODONE HCL 50 MG ORAL TABLET 013637 TRAZODONE HCL Inactive TRAZODONE HCL 100 MG ORAL TABLET 1 tab at bedtime 2013 TRAZODONE HCL 100 MG ORAL TABLET 024038 TRAZODONE HCL Inactiv e VYVANSE 30 MG ORAL CAPSULE 1 daily VYVANSE 30 M G ORAL CAPSULE LISDEXAMFETAMINE DIMESYLATE Inactive BACTRIM DS 800-160 MG ORAL TABLET Take one (1) by mouth twice a day BACTRIM DS 800-160 MG ORAL TABLET 409231 SULFAMETHOXAZOLE-TRIMETHOPRIM Inactive DOXEPIN HCL 150 MG ORAL CAPSULE Take 1 to 2 caplets as needed at bedtime for sleep DOXEPIN HCL 150 MG ORAL CAPSULE 0852470 DOXE PIN HCL Inactive BUPROPION HCL ER (XL) 300 MG ORAL TABLET EXTENDED RELEASE 24 ZACKARY R BUPROPION HCL ER (XL) 300 MG ORAL TABLET EXTENDED RELEASE 24 HOUR BUPROPION HCL Inactive SPRINTEC 28 0.25-35 MG-MCG ORAL TABLET Take one by mouth daily 2 SPRINTEC 28 0.25-35 MG-MCG ORAL TABLET 341114 N ORGESTIMATE-ETH ESTRADIOL Inactive STRATTERA 80 MG ORAL CAPSULE 1 tablet daily STRATTERA 80 MG ORAL CAPSULE 722376 ATOMOXETINE HCL Inactive WELLBUTRIN 100 MG ORAL TABLET take 4&1/2 tabs daily 20 31/01/22 WELLBUTRIN 100 MG ORAL TABLET BUPROPION HCL Inactive BUSPIRONE HCL 10 MG ORAL TABLET 1/2 bid 2 BUSPIRONE HCL 10 MG ORAL TABLET 216367 BUSPIRONE HCL Inactive LAMOTRIGINE 150 MG ORAL TABLET 1 daily LAMOTRIGINE 150 MG ORAL TABLET 392222 LAMOTRIGINE Inactive SPRINTEC 28 0.25-35 MG-MCG ORAL TABLET 1 pill by mouth daily 201 07/28/21 SPRINTEC 28 0.25-35 MG-MCG ORAL TABLET 344090 N ORGESTIMATE-ETH ESTRADIOL Inactive Advance Directives Directive Description Start Date [...] Diphtheria, and acellular Per tussis Immunization) Adacel [[id number]] tetanus toxoid, reduced diph theria toxoid, and acellular pertussis vaccine, adsorbed hepatitis A immunization #1 Historical hepa titis A vaccine, unspecified formulation Adacel (Tetanus, reduced Diphtheria, and acellular Per tussis Immunization) Adacel [[id number]] tetanus toxoid, reduced diph theria toxoid, and [...] Description blood pressure, diastolic, repeated by physician 71 [...] Name Value Unit Range Description Office Visit: F/u neck pain, nerve damag e - Chemistry HDL cholesterol, serum, target level 40 mg/dL cholesterol, target level 200 mg/dL triglyceride, target level 150 mg/dL Encounters Code Encounter Date Provider Facility CPT-06218 [id number] Vst-New Level II 14:23:[address] Ellen Iraheta PA-C [facility] CPT-34357 Level 3 Est. Patient 11:17:42 AUGER OPERATOR Christy Muñoz APRN [facility] CPT-62996 Level 3 Est. Patient 11:06:57 CDT Estrellita Caceres MD [facility] CPT-79207 Level 3 Est. Patient 14:47:06 AUGER OPERATOR Estrellita Caceres MD [facility] CPT-69868 Level 3 Est. Patient 12:33:15 AUGER OPERATOR Estrellita Caceres MD [facility] Procedures Code Procedure Name Date Entry Date Standard Desc ription CPT-76522 Nexplanon Removal 15:02:55 AUGER OPERATOR CPT-OV Office Visit 15:44:02 CDT CPT-48878 Nexplanon Placement 14:14:42 CDT CPT-J7307 Nexplanon (Implant) 14:14:42 CDT CPT-31345 UHCG (floor use only) 14:14:42 CDT CPT-OV Office Visit 14:06:57 CDT CPT-OV Office Visit 17:01:36 AUGER OPERATOR CPT-Cryo Cryotherapy 11:17:42 AUGER OPERATOR CPT-03600 Gardasil 11:39:29 CDT CPT-OV Office Visit 11:39:29 CDT CPT-PV Prev. Care Visit 16:07:43 AUGER OPERATOR CPT-48055 TB Tubersol 13:10:17 AUGER OPERATOR
--- OUTSIDE RECORDS SUMMARY | 2019-05-10 21:21 | XMS REPORT | Clinical Summary ---
Author Author Brijesh, Nicolette Oneill Organization [facility] Address Unknown Phone Unavailable Allergies, Adverse [...] leg CONTRACEPTIVE MANAGEMENT V25.09 Active Edward Moody CHROME PLATER Encounter for other general counseling and advice on contraceptive management Well child examination V20.2 Active Christy garcia CHROME PLATER Routine or child health check Wart, left [...] MD Vaginal discharge ICD-623.5 Inactive Marilee charlesl ELECTRICAL AND RADIO MECHANIC DYSURIA ICD-788.1 Inactive Marilee Ferrell PN Medication List Medication Instructions Start Date Stop Date Generic Name ND Status Provider Patient Instruction CYCLOBENZAPRINE HCL 10 MG ORAL TABLET 1 q 8 hours prn for mu scle spasms CYCLOBENZAPRINE HCL 93126973136 Active Ellen Elizondo Active SPRINTEC 28 0.25-35 MG-MCG ORAL TABLET 1 pill by mouth daily 201 07/28/21 NORGESTIMATE-ETH ESTRADIOL 83376763636 No Longer Active Nabeel Cook LPN Active LAMOTRIGINE 150 MG ORAL TABLET 1 daily LAMOTRIG INE 50793901467 No Longer Active Josephine Cruz MD Active BUSPIRONE HCL 10 MG ORAL TABLET 1/2 bid BUSPIRO NE HCL 25195953871 No Longer Active Josephine Cruz MD Active WELLBUTRIN 100 MG ORAL TABLET take 4&1/2 tabs daily 31/01/22 BUPROPION HCL 12712813218 No Longer Active Josephine Cruz MD Active STRATTERA 80 MG ORAL CAPSULE 1 tablet daily ATOMOXETINE HCL 36962917867 No Longer Active Josephine Cruz MD Active SPRINTEC 28 0.25-35 MG-MCG ORAL TABLET Take one by mouth daily 2 NORGESTIMATE-ETH ESTRADIOL 25512760557 No Longer Active Josephine Cruz MD Active BUPROPION HCL ER (XL) 300 MG ORAL TABLET EXTENDED RELEASE 24 ZACKARY R BUPROPION HCL 37163844283 No Longer Active Josephine Cruz MD Active DOXEPIN HCL 150 MG ORAL CAPSULE Take 1 to 2 caplets as needed at bedtime for sleep DOXEPIN HCL 34608187461 No Longer Active Josehpine Cruz MD Active BACTRIM DS 800-160 MG ORAL TABLET Take one (1) by mouth twice a day SULFAMETHOXAZOLE-TRIMETHOPRIM 03434965417 No Longer Active Daniel Cruz MD Active VYVANSE 30 MG ORAL CAPSULE 1 daily LISDEXAMF ETAMINE DIMESYLATE 66313551652 No Longer Active Josephine Cruz MD Active TRAZODONE HCL 100 MG ORAL TABLET 1 tab at bedtime 2013 TRAZODONE HCL 31881657326 No Longer Active Christy Brown CHROME PLATER Act vernon TRAZODONE HCL 50 MG ORAL TABLET 1 q hs TRAZODO NE HCL 81710837291 No Longer Active Estrellita Tenorio MD Active TRAZODONE HCL 50 MG ORAL TABLET 1 q hs 5 TRAZODONE HCL 50 MG ORAL TABLET 071861 TRAZODONE HCL Inactive TRAZODONE HCL 100 MG ORAL TABLET 1 tab at bedtime 2013 TRAZODONE HCL 100 MG ORAL TABLET 483785 TRAZODONE HCL Inactiv e VYVANSE 30 MG ORAL CAPSULE 1 daily VYVANSE 30 M G ORAL CAPSULE LISDEXAMFETAMINE DIMESYLATE Inactive BACTRIM DS 800-160 MG ORAL TABLET Take one (1) by mouth twice a day BACTRIM DS 800-160 MG ORAL TABLET 802110 SULFAMETHOXAZOLE-TRIMETHOPRIM Inactive DOXEPIN HCL 150 MG ORAL CAPSULE Take 1 to 2 caplets as needed at bedtime for sleep DOXEPIN HCL 150 MG ORAL CAPSULE 1344432 DOXE PIN HCL Inactive BUPROPION HCL ER (XL) 300 MG ORAL TABLET EXTENDED RELEASE 24 ZACKARY R BUPROPION HCL ER (XL) 300 MG ORAL TABLET EXTENDED RELEASE 24 HOUR BUPROPION HCL Inactive SPRINTEC 28 0.25-35 MG-MCG ORAL TABLET Take one by mouth daily 2 SPRINTEC 28 0.25-35 MG-MCG ORAL TABLET 925027 N ORGESTIMATE-ETH ESTRADIOL Inactive STRATTERA 80 MG ORAL CAPSULE 1 tablet daily STRATTERA 80 MG ORAL CAPSULE 860497 ATOMOXETINE HCL Inactive WELLBUTRIN 100 MG ORAL TABLET take 4&1/2 tabs daily 20 31/01/22 WELLBUTRIN 100 MG ORAL TABLET BUPROPION HCL Inactive BUSPIRONE HCL 10 MG ORAL TABLET 1/2 bid 2 BUSPIRONE HCL 10 MG ORAL TABLET 106104 BUSPIRONE HCL Inactive LAMOTRIGINE 150 MG ORAL TABLET 1 daily LAMOTRIGINE 150 MG ORAL TABLET 394533 LAMOTRIGINE Inactive SPRINTEC 28 0.25-35 MG-MCG ORAL TABLET 1 pill by mouth daily 201 07/28/21 SPRINTEC 28 0.25-35 MG-MCG ORAL TABLET 103296 N ORGESTIMATE-ETH ESTRADIOL Inactive Advance Directives Directive [...] Diphtheria, and acellular Per tussis Immunization) Adacel [[id number]] tetanus toxoid, reduced diph theria toxoid, and acellular pertussis vaccine, adsorbed hepatitis A immunization #1 Historical hepa titis A vaccine, unspecified formulation Adacel (Tetanus, reduced Diphtheria, and acellular Per tussis Immunization) Adacel [[id number]] tetanus toxoid, reduced diph theria toxoid, and [...] mg/dL Encounters Code Encounter Date Provider Facility CPT-11782 [id number] Vst-New Level II 14:23:[address] Ellen Iraheta PA-C [facility] CPT-23418 Level 3 Est. Patient 11:17:42 CONCRETE BUCKET HOOKER Christy Muñoz APRN [facility] CPT-21868 Level 3 Est. Patient 11:06:57 CDT Estrellita Caceres MD [facility] CPT-39487 Level 3 Est. Patient 14:47:06 CONCRETE BUCKET HOOKER Estrellita Caceres MD [facility] CPT-57544 Level 3 Est. Patient 12:33:15 CONCRETE BUCKET HOOKER Estrellita Caceres MD [facility] Procedures Code Procedure Name Date Entry Date Standard Desc ription CPT-44218 Nexplanon Removal 15:02:55 CONCRETE BUCKET HOOKER CPT-OV Office Visit 15:44:02 CDT CPT-95980 Nexplanon Placement 14:14:42 CDT CPT-J7307 Nexplanon (Implant) 14:14:42 CDT CPT-80548 UHCG (floor use only) 14:14:42 CDT CPT-OV Office Visit 14:06:57 CDT CPT-OV Office Visit 17:01:36 CONCRETE BUCKET HOOKER CPT-Cryo Cryotherapy 11:17:42 CONCRETE BUCKET HOOKER CPT-74190 Gardasil 11:39:29 CDT CPT-OV Office Visit 11:39:29 CDT CPT-PV Prev. Care Visit 16:07:43 CONCRETE BUCKET HOOKER CPT-08681 TB Tubersol 13:10:17 CONCRETE BUCKET HOOKER
--- OUTSIDE RECORDS SUMMARY | 2019-05-10 21:21 | XMS REPORT | Clinical Summary ---
Author Author Admin, Nicolette Oneill Organization [employer] Address Unknown Phone Unavailable Allergies, Adverse Reactions, [...] leg CONTRACEPTIVE MANAGEMENT V25.09 Active Edward Moody PILOT PLANT OPERATOR HELPER Encounter for other general counseling and advice on contraceptive management Well child examination V20.2 Active Christy garcia PILOT PLANT OPERATOR HELPER Routine or child health check Wart, [...] MD Vaginal discharge ICD-623.5 Inactive Marilee charlesl JET DYEING MACHINE TENDER DYSURIA ICD-788.1 Inactive Marilee Ferrell PN Medication List Medication Instructions Start Date Stop Date Generic Name ND Status Provider Patient Instruction CYCLOBENZAPRINE HCL 10 MG ORAL TABLET 1 q 8 hours prn for mu scle spasms CYCLOBENZAPRINE HCL 26261484830 Active Ellen Elizondo Active SPRINTEC 28 0.25-35 MG-MCG ORAL TABLET 1 pill by mouth daily 201 07/28/21 NORGESTIMATE-ETH ESTRADIOL 03924504629 No Longer Active Nabeel Cook LPN Active LAMOTRIGINE 150 MG ORAL TABLET 1 daily LAMOTRIG INE 13133356485 No Longer Active Josephine Cruz MD Active BUSPIRONE HCL 10 MG ORAL TABLET 1/2 bid BUSPIRO NE HCL 40643560239 No Longer Active Josephine Cruz MD Active WELLBUTRIN 100 MG ORAL TABLET take 4&1/2 tabs daily 20 31/01/22 BUPROPION HCL 96408995682 No Longer Active Josephine Cruz MD Active STRATTERA 80 MG ORAL CAPSULE 1 tablet daily ATOMOXETINE HCL 84507828816 No Longer Active Josephine Cruz MD Active SPRINTEC 28 0.25-35 MG-MCG ORAL TABLET Take one by mouth daily 2 NORGESTIMATE-ETH ESTRADIOL 14177207102 No Longer Active Josephine Cruz MD Active BUPROPION HCL ER (XL) 300 MG ORAL TABLET EXTENDED RELEASE 24 ZACKARY R BUPROPION HCL 05759068340 No Longer Active Josephine Cruz MD Active DOXEPIN HCL 150 MG ORAL CAPSULE Take 1 to 2 caplets as needed at bedtime for sleep DOXEPIN HCL 44219382085 No Longer Active Josephine Cruz MD Active BACTRIM DS 800-160 MG ORAL TABLET Take one (1) by mouth twice a day SULFAMETHOXAZOLE-TRIMETHOPRIM 35805617721 No Longer Active Daniel Cruz MD Active VYVANSE 30 MG ORAL CAPSULE 1 daily LISDEXAMF ETAMINE DIMESYLATE 56976828970 No Longer Active Josephine Cruz MD Active TRAZODONE HCL 100 MG ORAL TABLET 1 tab at bedtime 2013 TRAZODONE HCL 35153267226 No Longer Active Christy Brown PILOT PLANT OPERATOR HELPER Act vernon TRAZODONE HCL 50 MG ORAL TABLET 1 q hs TRAZODO NE HCL 46332463602 No Longer Active Estrellita Tenorio MD Active BACTRIM DS 800-160 MG ORAL TABLET Take one (1) by mouth twice a day BACTRIM DS 800-160 MG ORAL TABLET 935069 SULFAMETHOXAZOLE-TRIMETHOPRIM Inactive DOXEPIN HCL 150 MG ORAL CAPSULE Take 1 to 2 caplets as needed at bedtime for sleep DOXEPIN HCL 150 MG ORAL CAPSULE 6910360 DOXE PIN HCL Inactive TRAZODONE HCL 100 MG ORAL TABLET 1 tab at bedtime 2013 TRAZODONE HCL 100 MG ORAL TABLET 281128 TRAZODONE HCL Inactiv e TRAZODONE HCL 50 MG ORAL TABLET 1 q hs 5 TRAZODONE HCL 50 MG ORAL TABLET 178269 TRAZODONE HCL Inactive WELLBUTRIN 100 MG ORAL TABLET take 4&1/2 tabs daily 20 31/01/22 WELLBUTRIN 100 MG ORAL TABLET BUPROPION HCL Inactive BUSPIRONE HCL 10 MG ORAL TABLET 1/2 bid 2 BUSPIRONE HCL 10 MG ORAL TABLET 216783 BUSPIRONE HCL Inactive LAMOTRIGINE 150 MG ORAL TABLET 1 daily LAMOTRIGINE 150 MG ORAL TABLET 081432 LAMOTRIGINE Inactive SPRINTEC 28 0.25-35 MG-MCG ORAL TABLET 1 pill by mouth daily 201 07/28/21 SPRINTEC 28 0.25-35 MG-MCG ORAL TABLET 475992 N ORGESTIMATE-ETH ESTRADIOL Inactive SPRINTEC 28 0.25-35 MG-MCG ORAL TABLET Take one by mouth daily 2 SPRINTEC 28 0.25-35 MG-MCG ORAL TABLET 640152 N ORGESTIMATE-ETH ESTRADIOL Inactive BUPROPION HCL ER (XL) 300 MG ORAL TABLET EXTENDED RELEASE 24 ZACKARY R BUPROPION HCL ER (XL) 300 MG ORAL TABLET EXTENDED RELEASE 24 HOUR BUPROPION HCL Inactive STRATTERA 80 MG ORAL CAPSULE 1 tablet daily STRATTERA 80 MG ORAL CAPSULE 416918 ATOMOXETINE HCL Inactive VYVANSE 30 MG ORAL CAPSULE 1 daily VYVANSE 30 M G ORAL CAPSULE LISDEXAMFETAMINE DIMESYLATE Inactive Advance Directives Directive Description [...] Diphtheria, and acellular Per tussis Immunization) Adacel [[id number]] tetanus toxoid, reduced diph theria toxoid, and acellular pertussis vaccine, adsorbed hepatitis A immunization #1 Historical hepa titis A vaccine, unspecified formulation Adacel (Tetanus, reduced Diphtheria, and acellular Per tussis Immunization) Adacel [[id number]] tetanus toxoid, reduced diph theria toxoid, and [...] mg/dL Encounters Code Encounter Date Provider Facility CPT-46080 [id number] Vst-New Level II 14:23:[address] [facility]aheta [facility] CPT-37169 Level 3 Est. Patient 11:17:42 AIR AND HYDRONIC BALANCING TECHNICIAN Christy Muñoz APRN [facility] CPT-58156 Level 3 Est. Patient 11:06:57 CDT Estrellita Caceres MD [facility] CPT-39686 Level 3 Est. Patient 14:47:06 AIR AND HYDRONIC BALANCING TECHNICIAN Estrellita Caceres MD [facility] CPT-96302 Level 3 Est. Patient 12:33:15 AIR AND HYDRONIC BALANCING TECHNICIAN Estrellita Caceres MD [facility] Procedures Code Procedure Name Date Entry Date Standard Desc ription CPT-85032 Nexplanon Removal 15:02:55 AIR AND HYDRONIC BALANCING TECHNICIAN CPT-OV Office Visit 15:44:02 CDT CPT-74353 Nexplanon Placement 14:14:42 CDT CPT-J7307 Nexplanon (Implant) 14:14:42 CDT CPT-96891 UHCG (floor use only) 14:14:42 CDT CPT-OV Office Visit 14:06:57 CDT CPT-OV Office Visit 17:01:36 AIR AND HYDRONIC BALANCING TECHNICIAN CPT-Cryo Cryotherapy 11:17:42 AIR AND HYDRONIC BALANCING TECHNICIAN CPT-52174 Gardasil 11:39:29 CDT CPT-OV Office Visit 11:39:29 CDT CPT-PV Prev. Care Visit 16:07:43 AIR AND HYDRONIC BALANCING TECHNICIAN CPT-23236 TB Tubersol 13:10:17 AIR AND HYDRONIC BALANCING TECHNICIAN
--- OUTSIDE RECORDS SUMMARY | 2019-05-10 21:21 | XMS REPORT | Clinical Summary ---
Author Author Admin, Nicolette Oneill Organization [employer] Address Unknown Phone Unavailable Allergies, Adverse Reactions, [...] Well child examination V20.2 Active Christy garcia ARCGIS DEVELOPER Routine or child health check Wart, left hand 078.10 Active Christy Brown APR N Viral warts, unspecified Vaginal discharge 623.5 Resolved Marilee Cook LPN Leukorrhea, not specified as infective DYSURIA 788.1 Resolved Marilee Joey RING STAMPER Dysuria examination or test, positive result V72.42 [...] MD Vaginal discharge ICD-623.5 Inactive Marilee charlesl RING STAMPER DYSURIA ICD-788.1 Inactive Marilee Ferrell PN Medication List Medication Instructions Start Date Stop Date Generic Name NDC Status Provider Patient Instruction CYCLOBENZAPRINE HCL 10 MG ORAL TABLET 1 q 8 hours prn for mu scle spasms CYCLOBENZAPRINE HCL 13798951764 No Longer Active Carlos Kaur Active SPRINTEC 28 0.25-35 MG-MCG ORAL TABLET 1 pill by mouth daily 201 07/28/21 NORGESTIMATE-ETH ESTRADIOL 73822069003 No Longer Active Nabeel Cook LPN Active LAMOTRIGINE 150 MG ORAL TABLET 1 daily LAMOTRIG INE 92436670579 No Longer Active Josephine Cruz MD Active BUSPIRONE HCL 10 MG ORAL TABLET 1/2 bid BUSPIRO NE HCL 82463469057 No Longer Active Josephine Cruz MD Active WELLBUTRIN 100 MG ORAL TABLET take 4&1/2 tabs daily 20 31/01/22 BUPROPION HCL 80183130761 No Longer Active Josephine Cruz MD Active STRATTERA 80 MG ORAL CAPSULE 1 tablet daily ATOMOXETINE HCL 55965520289 No Longer Active Josephine Cruz MD Active SPRINTEC 28 0.25-35 MG-MCG ORAL TABLET Take one by mouth daily 2 NORGESTIMATE-ETH ESTRADIOL 65140240327 No Longer Active Josephine Cruz MD Active BUPROPION HCL ER (XL) 300 MG ORAL TABLET EXTENDED RELEASE 24 ZACKARY R BUPROPION HCL 84376750283 No Longer Active Josephine Cruz MD Active DOXEPIN HCL 150 MG ORAL CAPSULE Take 1 to 2 caplets as needed at bedtime for sleep DOXEPIN HCL 39064046439 No Longer Active Josephine Cruz MD Active BACTRIM DS 800-160 MG ORAL TABLET Take one (1) by mouth twice a day SULFAMETHOXAZOLE-TRIMETHOPRIM 49004996728 No Longer Active Daniel Cruz MD Active VYVANSE 30 MG ORAL CAPSULE 1 daily LISDEXAMF ETAMINE DIMESYLATE 16183422063 No Longer Active Josephine Cruz MD Active TRAZODONE HCL 100 MG ORAL TABLET 1 tab at bedtime 2013 TRAZODONE HCL 47471611111 No Longer Active Christy Brown APRN Act vernon TRAZODONE HCL 50 MG ORAL TABLET 1 q hs TRAZODO NE HCL 38449365586 No Longer Active Estrellita Tenorio MD Active TRAZODONE HCL 50 MG ORAL TABLET 1 q hs 5 TRAZODONE HCL 50 MG ORAL TABLET 495259 TRAZODONE HCL Inactive TRAZODONE HCL 100 MG ORAL TABLET 1 tab at bedtime 2013 TRAZODONE HCL 100 MG ORAL TABLET 765891 TRAZODONE HCL Inactiv e VYVANSE 30 MG ORAL CAPSULE 1 daily VYVANSE 30 M G ORAL CAPSULE LISDEXAMFETAMINE DIMESYLATE Inactive BACTRIM DS 800-160 MG ORAL TABLET Take one (1) by mouth twice a day BACTRIM DS 800-160 MG ORAL TABLET 554943 SULFAMETHOXAZOLE-TRIMETHOPRIM Inactive DOXEPIN HCL 150 MG ORAL CAPSULE Take 1 to 2 caplets as needed at bedtime for sleep DOXEPIN HCL 150 MG ORAL CAPSULE 8034818 DOXE PIN HCL Inactive BUPROPION HCL ER (XL) 300 MG ORAL TABLET EXTENDED RELEASE 24 ZACKARY R BUPROPION HCL ER (XL) 300 MG ORAL TABLET EXTENDED RELEASE 24 HOUR BUPROPION HCL Inactive SPRINTEC 28 0.25-35 MG-MCG ORAL TABLET Take one by mouth daily 2 SPRINTEC 28 0.25-35 MG-MCG ORAL TABLET 289635 N ORGESTIMATE-ETH ESTRADIOL Inactive STRATTERA 80 MG ORAL CAPSULE 1 tablet daily STRATTERA 80 MG ORAL CAPSULE 617393 ATOMOXETINE HCL Inactive WELLBUTRIN 100 MG ORAL TABLET take 4&1/2 tabs daily 20 31/01/22 WELLBUTRIN 100 MG ORAL TABLET BUPROPION HCL Inactive BUSPIRONE HCL 10 MG ORAL TABLET 1/2 bid 2016/12/2 2 BUSPIRONE HCL 10 MG ORAL TABLET 872028 BUSPIRONE HCL Inactive LAMOTRIGINE 150 MG ORAL TABLET 1 daily LAMOTRIGINE 150 MG ORAL TABLET 054808 LAMOTRIGINE Inactive SPRINTEC 28 0.25-35 MG-MCG ORAL TABLET 1 pill by mouth daily 201 07/28/21 SPRINTEC 28 0.25-35 MG-MCG ORAL TABLET 431905 N ORGESTIMATE-ETH ESTRADIOL Inactive CYCLOBENZAPRINE HCL 10 MG ORAL TABLET 1 q 8 hours prn for mu scle spasms CYCLOBENZAPRINE HCL 10 MG ORAL TABLET 696071 CYCLOBENZAPRINE HCL Inactive Advance Directives Directive Description [...] Diphtheria, and acellular Per tussis Immunization) Adacel [[id number]] tetanus toxoid, reduced diph theria toxoid, and acellular pertussis vaccine, adsorbed hepatitis A immunization #1 Historical hepa titis A vaccine, unspecified formulation Adacel (Tetanus, reduced Diphtheria, and acellular Per tussis Immunization) Adacel [[id number]] tetanus toxoid, reduced diph theria toxoid, and [...] mg/dL Encounters Code Encounter Date Provider Facility CPT-44865 Level 4 Est. Patient 13:50:25 CDT Josephine montgomery MD [facility] CPT-58364 [id number] Vst-New Level II 14:23:[address] Ellen Iraheta PA-C [facility] CPT-24515 Level 3 Est. Patient 11:17:42 MEDICAL LABORATORY TECHNICAL OFFICER Christy Muñoz APRN [facility] CPT-98510 Level 3 Est. Patient 11:06:57 CDT Estrellita Caceres MD [facility] CPT-94486 Level 3 Est. Patient 14:47:06 MEDICAL LABORATORY TECHNICAL OFFICER Estrellita Caceres MD [facility] CPT-36567 Level 3 Est. Patient 12:33:15 JOSE Caceres MD [facility] Procedures Code Procedure Name Date Entry Date Standard Desc ription CPT-81856 Nexplanon Removal 15:02:55 MEDICAL LABORATORY TECHNICAL OFFICER CPT-OV Office Visit 15:44:02 CDT CPT-17242 Nexplanon Placement 14:14:42 CDT CPT-J7307 Nexplanon (Implant) 14:14:42 CDT CPT-83431 UHCG (floor use only) 14:14:42 CDT CPT-OV Office Visit 14:06:57 CDT CPT-OV Office Visit 17:01:36 MEDICAL LABORATORY TECHNICAL OFFICER CPT-Cryo Cryotherapy 11:17:42 MEDICAL LABORATORY TECHNICAL OFFICER CPT-18390 Gardasil 11:39:29 CDT CPT-OV Office Visit 11:39:29 CDT CPT-PV Prev. Care Visit 16:07:43 MEDICAL LABORATORY TECHNICAL OFFICER CPT-66981 TB Tubersol 13:10:17 MEDICAL LABORATORY TECHNICAL OFFICER
--- OUTSIDE RECORDS SUMMARY | 2019-05-10 21:21 | XMS REPORT | Clinical Summary ---
Author Author Admin, Nicolette Oneill Organization [employer] Address Unknown Phone Unavailable Allergies, Adverse Reactions, [...] leg CONTRACEPTIVE MANAGEMENT V25.09 Active Edward Moody SMOKEHOUSE OPERATOR Encounter for other general counseling and advice on contraceptive management Well child examination V20.2 Active Christy garcia SMOKEHOUSE OPERATOR Routine or child health check Wart, [...] MD Vaginal discharge ICD-623.5 Inactive Marilee charlesl INVERFORM MACHINE OPERATOR DYSURIA ICD-788.1 Inactive Marilee Ferrell PN Medication List Medication Instructions Start Date Stop Date Generic Name ND Status Provider Patient Instruction CYCLOBENZAPRINE HCL 10 MG ORAL TABLET 1 q 8 hours prn for mu scle spasms CYCLOBENZAPRINE HCL 39778859874 Active Ellen Elizondo Active SPRINTEC 28 0.25-35 MG-MCG ORAL TABLET 1 pill by mouth daily 201 07/28/21 NORGESTIMATE-ETH ESTRADIOL 39295663934 No Longer Active Nabeel Cook LPN Active LAMOTRIGINE 150 MG ORAL TABLET 1 daily LAMOTRIG INE 41130981913 No Longer Active Josephine Cruz MD Active BUSPIRONE HCL 10 MG ORAL TABLET 1/2 bid BUSPIRO NE HCL 95294948343 No Longer Active Josephine Cruz MD Active WELLBUTRIN 100 MG ORAL TABLET take 4&1/2 tabs daily 20 31/01/22 BUPROPION HCL 07146566314 No Longer Active Josephine Cruz MD Active STRATTERA 80 MG ORAL CAPSULE 1 tablet daily ATOMOXETINE HCL 67419756115 No Longer Active Josephine Cruz MD Active SPRINTEC 28 0.25-35 MG-MCG ORAL TABLET Take one by mouth daily 2 NORGESTIMATE-ETH ESTRADIOL 75083560304 No Longer Active Josephine Cruz MD Active BUPROPION HCL ER (XL) 300 MG ORAL TABLET EXTENDED RELEASE 24 ZACKARY R BUPROPION HCL 94572639310 No Longer Active Josephine Cruz MD Active DOXEPIN HCL 150 MG ORAL CAPSULE Take 1 to 2 caplets as needed at bedtime for sleep DOXEPIN HCL 46072976423 No Longer Active Josephine Cruz MD Active BACTRIM DS 800-160 MG ORAL TABLET Take one (1) by mouth twice a day SULFAMETHOXAZOLE-TRIMETHOPRIM 34758764668 No Longer Active Daniel Cruz MD Active VYVANSE 30 MG ORAL CAPSULE 1 daily LISDEXAMF ETAMINE DIMESYLATE 97455361047 No Longer Active Josephine Cruz MD Active TRAZODONE HCL 100 MG ORAL TABLET 1 tab at bedtime 2013 TRAZODONE HCL 50033118426 No Longer Active Christy Brown SMOKEHOUSE OPERATOR Act vernon TRAZODONE HCL 50 MG ORAL TABLET 1 q hs TRAZODO NE HCL 14813875745 No Longer Active Estrellita Tenorio MD Active TRAZODONE HCL 50 MG ORAL TABLET 1 q hs 5 TRAZODONE HCL 50 MG ORAL TABLET 740509 TRAZODONE HCL Inactive TRAZODONE HCL 100 MG ORAL TABLET 1 tab at bedtime 2013 TRAZODONE HCL 100 MG ORAL TABLET 962761 TRAZODONE HCL Inactiv e VYVANSE 30 MG ORAL CAPSULE 1 daily VYVANSE 30 M G ORAL CAPSULE LISDEXAMFETAMINE DIMESYLATE Inactive BACTRIM DS 800-160 MG ORAL TABLET Take one (1) by mouth twice a day BACTRIM DS 800-160 MG ORAL TABLET 830395 SULFAMETHOXAZOLE-TRIMETHOPRIM Inactive DOXEPIN HCL 150 MG ORAL CAPSULE Take 1 to 2 caplets as needed at bedtime for sleep DOXEPIN HCL 150 MG ORAL CAPSULE 4624262 DOXE PIN HCL Inactive BUPROPION HCL ER (XL) 300 MG ORAL TABLET EXTENDED RELEASE 24 ZACKARY R BUPROPION HCL ER (XL) 300 MG ORAL TABLET EXTENDED RELEASE 24 HOUR BUPROPION HCL Inactive SPRINTEC 28 0.25-35 MG-MCG ORAL TABLET Take one by mouth daily 2 SPRINTEC 28 0.25-35 MG-MCG ORAL TABLET 948679 N ORGESTIMATE-ETH ESTRADIOL Inactive STRATTERA 80 MG ORAL CAPSULE 1 tablet daily STRATTERA 80 MG ORAL CAPSULE 965546 ATOMOXETINE HCL Inactive WELLBUTRIN 100 MG ORAL TABLET take 4&1/2 tabs daily 20 31/01/22 WELLBUTRIN 100 MG ORAL TABLET BUPROPION HCL Inactive BUSPIRONE HCL 10 MG ORAL TABLET 1/2 bid 2 BUSPIRONE HCL 10 MG ORAL TABLET 203098 BUSPIRONE HCL Inactive LAMOTRIGINE 150 MG ORAL TABLET 1 daily LAMOTRIGINE 150 MG ORAL TABLET 491094 LAMOTRIGINE Inactive SPRINTEC 28 0.25-35 MG-MCG ORAL TABLET 1 pill by mouth daily 201 07/28/21 SPRINTEC 28 0.25-35 MG-MCG ORAL TABLET 147675 N ORGESTIMATE-ETH ESTRADIOL Inactive Advance Directives Directive [...] Diphtheria, and acellular Per tussis Immunization) Adacel [[id number]] tetanus toxoid, reduced diph theria toxoid, and acellular pertussis vaccine, adsorbed hepatitis A immunization #1 Historical hepa titis A vaccine, unspecified formulation Adacel (Tetanus, reduced Diphtheria, and acellular Per tussis Immunization) Adacel [[id number]] tetanus toxoid, reduced diph theria toxoid, and [...] mg/dL Encounters Code Encounter Date Provider Facility CPT-58449 [id number] Vst-New Level II 14:23:[address] Ellen Iraheta PA-C [facility] CPT-35321 Level 3 Est. Patient 11:17:42 WOOL DYER Christy Muñoz APRN [facility] CPT-99073 Level 3 Est. Patient 11:06:57 CDT Estrellita Caceres MD [facility] CPT-34435 Level 3 Est. Patient 14:47:06 WOOL DYER Estrellita Caceres MD [facility] CPT-95717 Level 3 Est. Patient 12:33:15 WOOL DYER Estrellita Caceres MD [facility] Procedures Code Procedure Name Date Entry Date Standard Desc ription CPT-60780 Nexplanon Removal 15:02:55 WOOL DYER CPT-OV Office Visit 15:44:02 CDT CPT-63678 Nexplanon Placement 14:14:42 CDT CPT-J7307 Nexplanon (Implant) 14:14:42 CDT CPT-46951 UHCG (floor use only) 14:14:42 CDT CPT-OV Office Visit 14:06:57 CDT CPT-OV Office Visit 17:01:36 WOOL DYER CPT-Cryo Cryotherapy 11:17:42 WOOL DYER CPT-56953 Gardasil 11:39:29 CDT CPT-OV Office Visit 11:39:29 CDT CPT-PV Prev. Care Visit 16:07:43 WOOL DYER CPT-22431 TB Tubersol 13:10:17 WOOL DYER
--- OUTSIDE RECORDS SUMMARY | 2019-05-10 21:21 | XMS REPORT | Clinical Summary ---
Author Author Admin, Nicolette Oneill Organization [employer] Address Unknown Phone Unavailable Allergies, Adverse Reactions, [...] Well child examination V20.2 Active Christy garcia PRESS ASSISTANT Routine or child health check Wart, left hand 078.10 Active Christy Brown APR N Viral warts, unspecified Vaginal discharge 623.5 Resolved Marilee Cook LPN Leukorrhea, not specified as infective DYSURIA 788.1 Resolved Marilee Joey TYPING ELEMENT MACHINE OPERATOR Dysuria examination or test, positive result V72.42 [...] MD Vaginal discharge ICD-623.5 Inactive Marilee charlesl TYPING ELEMENT MACHINE OPERATOR DYSURIA ICD-788.1 Inactive Marilee Ferrell PN Medication List Medication Instructions Start Date Stop Date Generic Name NDC Status Provider Patient Instruction CYCLOBENZAPRINE HCL 10 MG ORAL TABLET 1 q 8 hours prn for mu scle spasms CYCLOBENZAPRINE HCL 39192416474 No Longer Active Carlos Kaur Active SPRINTEC 28 0.25-35 MG-MCG ORAL TABLET 1 pill by mouth daily 201 07/28/21 NORGESTIMATE-ETH ESTRADIOL 01601614473 No Longer Active Nabeel Cook LPN Active LAMOTRIGINE 150 MG ORAL TABLET 1 daily LAMOTRIG INE 67652098885 No Longer Active Josephine Cruz MD Active BUSPIRONE HCL 10 MG ORAL TABLET 1/2 bid BUSPIRO NE HCL 49263602290 No Longer Active Josephine Cruz MD Active WELLBUTRIN 100 MG ORAL TABLET take 4&1/2 tabs daily 20 31/01/22 BUPROPION HCL 49857494620 No Longer Active Josephine Cruz MD Active STRATTERA 80 MG ORAL CAPSULE 1 tablet daily ATOMOXETINE HCL 94506190489 No Longer Active Josephine Cruz MD Active SPRINTEC 28 0.25-35 MG-MCG ORAL TABLET Take one by mouth daily 2 NORGESTIMATE-ETH ESTRADIOL 07676841059 No Longer Active Josephine Cruz MD Active BUPROPION HCL ER (XL) 300 MG ORAL TABLET EXTENDED RELEASE 24 ZACKARY R BUPROPION HCL 79743709835 No Longer Active Josephine Cruz MD Active DOXEPIN HCL 150 MG ORAL CAPSULE Take 1 to 2 caplets as needed at bedtime for sleep DOXEPIN HCL 58247966255 No Longer Active Josephine Cruz MD Active BACTRIM DS 800-160 MG ORAL TABLET Take one (1) by mouth twice a day SULFAMETHOXAZOLE-TRIMETHOPRIM 01623888511 No Longer Active Daniel Cruz MD Active VYVANSE 30 MG ORAL CAPSULE 1 daily LISDEXAMF ETAMINE DIMESYLATE 97551148055 No Longer Active Josephine Cruz MD Active TRAZODONE HCL 100 MG ORAL TABLET 1 tab at bedtime 2013 TRAZODONE HCL 10353027379 No Longer Active Christy Brown APRN Act vernon TRAZODONE HCL 50 MG ORAL TABLET 1 q hs TRAZODO NE HCL 31569836513 No Longer Active Estrellita Tenorio MD Active TRAZODONE HCL 50 MG ORAL TABLET 1 q hs 5 TRAZODONE HCL 50 MG ORAL TABLET 400224 TRAZODONE HCL Inactive TRAZODONE HCL 100 MG ORAL TABLET 1 tab at bedtime 2013 TRAZODONE HCL 100 MG ORAL TABLET 152839 TRAZODONE HCL Inactiv e VYVANSE 30 MG ORAL CAPSULE 1 daily VYVANSE 30 M G ORAL CAPSULE LISDEXAMFETAMINE DIMESYLATE Inactive BACTRIM DS 800-160 MG ORAL TABLET Take one (1) by mouth twice a day BACTRIM DS 800-160 MG ORAL TABLET 572047 SULFAMETHOXAZOLE-TRIMETHOPRIM Inactive DOXEPIN HCL 150 MG ORAL CAPSULE Take 1 to 2 caplets as needed at bedtime for sleep DOXEPIN HCL 150 MG ORAL CAPSULE 4286911 DOXE PIN HCL Inactive BUPROPION HCL ER (XL) 300 MG ORAL TABLET EXTENDED RELEASE 24 ZACKARY R BUPROPION HCL ER (XL) 300 MG ORAL TABLET EXTENDED RELEASE 24 HOUR BUPROPION HCL Inactive SPRINTEC 28 0.25-35 MG-MCG ORAL TABLET Take one by mouth daily 2 SPRINTEC 28 0.25-35 MG-MCG ORAL TABLET 382098 N ORGESTIMATE-ETH ESTRADIOL Inactive STRATTERA 80 MG ORAL CAPSULE 1 tablet daily STRATTERA 80 MG ORAL CAPSULE 914103 ATOMOXETINE HCL Inactive WELLBUTRIN 100 MG ORAL TABLET take 4&1/2 tabs daily 20 31/01/22 WELLBUTRIN 100 MG ORAL TABLET BUPROPION HCL Inactive BUSPIRONE HCL 10 MG ORAL TABLET 1/2 bid 2016/12/2 2 BUSPIRONE HCL 10 MG ORAL TABLET 447510 BUSPIRONE HCL Inactive LAMOTRIGINE 150 MG ORAL TABLET 1 daily LAMOTRIGINE 150 MG ORAL TABLET 324086 LAMOTRIGINE Inactive SPRINTEC 28 0.25-35 MG-MCG ORAL TABLET 1 pill by mouth daily 201 07/28/21 SPRINTEC 28 0.25-35 MG-MCG ORAL TABLET 962289 N ORGESTIMATE-ETH ESTRADIOL Inactive CYCLOBENZAPRINE HCL 10 MG ORAL TABLET 1 q 8 hours prn for mu scle spasms CYCLOBENZAPRINE HCL 10 MG ORAL TABLET 545876 CYCLOBENZAPRINE HCL Inactive Advance Directives Directive Description [...] Diphtheria, and acellular Per tussis Immunization) Adacel [[id number]] tetanus toxoid, reduced diph theria toxoid, and acellular pertussis vaccine, adsorbed hepatitis A immunization #1 Historical hepa titis A vaccine, unspecified formulation Adacel (Tetanus, reduced Diphtheria, and acellular Per tussis Immunization) Adacel [[id number]] tetanus toxoid, reduced diph theria toxoid, and [...] mg/dL Encounters Code Encounter Date Provider Facility CPT-06490 Level 4 Est. Patient 13:50:25 CDT Josephine montgomery MD [facility] CPT-96542 [id number] Vst-New Level II 14:23:[address] Ellen Iraheta PA-C [facility] CPT-09544 Level 3 Est. Patient 11:17:42 MID TEACHER Christy Muñoz APRN [facility] CPT-44689 Level 3 Est. Patient 11:06:57 CDT Estrellita Caceres MD [facility] CPT-89188 Level 3 Est. Patient 14:47:06 MID TEACHER Estrellita Caceres MD [facility] CPT-33825 Level 3 Est. Patient 12:33:15 JOSE Caceres MD [facility] Procedures Code Procedure Name Date Entry Date Standard Desc ription CPT-62671 Nexplanon Removal 15:02:55 MID TEACHER CPT-OV Office Visit 15:44:02 CDT CPT-69041 Nexplanon Placement 14:14:42 CDT CPT-J7307 Nexplanon (Implant) 14:14:42 CDT CPT-41037 UHCG (floor use only) 14:14:42 CDT CPT-OV Office Visit 14:06:57 CDT CPT-OV Office Visit 17:01:36 MID TEACHER CPT-Cryo Cryotherapy 11:17:42 MID TEACHER CPT-39579 Gardasil 11:39:29 CDT CPT-OV Office Visit 11:39:29 CDT CPT-PV Prev. Care Visit 16:07:43 MID TEACHER CPT-70831 TB Tubersol 13:10:17 MID TEACHER
--- OUTSIDE RECORDS SUMMARY | 2019-05-10 21:22 | XMS REPORT | Clinical Summary ---
Author Author Brijesh, Nicolette Oneill Organization [facility] Address Unknown Phone Unavailable Allergies, Adverse [...] leg CONTRACEPTIVE MANAGEMENT V25.09 Active Edward Moody AQUACULTURE FARMER Encounter for other general counseling and advice on contraceptive management Well child examination V20.2 Active Christy garcia AQUACULTURE FARMER Routine or child health check Wart, left [...] MD Vaginal discharge ICD-623.5 Inactive Marilee charlesl AUTOMOTIVE FINANCE MANAGER DYSURIA ICD-788.1 Inactive Marilee Ferrell PN Medication List Medication Instructions Start Date Stop Date Generic Name ND Status Provider Patient Instruction CYCLOBENZAPRINE HCL 10 MG ORAL TABLET 1 q 8 hours prn for mu scle spasms CYCLOBENZAPRINE HCL 68245845110 Active Ellen Elizondo Active SPRINTEC 28 0.25-35 MG-MCG ORAL TABLET 1 pill by mouth daily 201 07/28/21 NORGESTIMATE-ETH ESTRADIOL 81254952701 No Longer Active Nabeel Cook LPN Active LAMOTRIGINE 150 MG ORAL TABLET 1 daily LAMOTRIG INE 96046805429 No Longer Active Josephine Cruz MD Active BUSPIRONE HCL 10 MG ORAL TABLET 1/2 bid BUSPIRO NE HCL 14992135468 No Longer Active Josephine Cruz MD Active WELLBUTRIN 100 MG ORAL TABLET take 4&1/2 tabs daily 31/01/22 BUPROPION HCL 76882652591 No Longer Active Josephine Cruz MD Active STRATTERA 80 MG ORAL CAPSULE 1 tablet daily ATOMOXETINE HCL 72636710444 No Longer Active Josephine Cruz MD Active SPRINTEC 28 0.25-35 MG-MCG ORAL TABLET Take one by mouth daily 2 NORGESTIMATE-ETH ESTRADIOL 63698985428 No Longer Active Josephine Cruz MD Active BUPROPION HCL ER (XL) 300 MG ORAL TABLET EXTENDED RELEASE 24 ZACKARY R BUPROPION HCL 55922471539 No Longer Active Josephine Cruz MD Active DOXEPIN HCL 150 MG ORAL CAPSULE Take 1 to 2 caplets as needed at bedtime for sleep DOXEPIN HCL 09355238840 No Longer Active Josephine Cruz MD Active BACTRIM DS 800-160 MG ORAL TABLET Take one (1) by mouth twice a day SULFAMETHOXAZOLE-TRIMETHOPRIM 72625821871 No Longer Active Daniel Cruz MD Active VYVANSE 30 MG ORAL CAPSULE 1 daily LISDEXAMF ETAMINE DIMESYLATE 84108446794 No Longer Active Josephine Cruz MD Active TRAZODONE HCL 100 MG ORAL TABLET 1 tab at bedtime 2013 TRAZODONE HCL 82769070594 No Longer Active Christy Brown AQUACULTURE FARMER Act vernon TRAZODONE HCL 50 MG ORAL TABLET 1 q hs TRAZODO NE HCL 07644240855 No Longer Active Estrellita Tenorio MD Active TRAZODONE HCL 50 MG ORAL TABLET 1 q hs 5 TRAZODONE HCL 50 MG ORAL TABLET 452864 TRAZODONE HCL Inactive TRAZODONE HCL 100 MG ORAL TABLET 1 tab at bedtime 2013 TRAZODONE HCL 100 MG ORAL TABLET 680550 TRAZODONE HCL Inactiv e VYVANSE 30 MG ORAL CAPSULE 1 daily VYVANSE 30 M G ORAL CAPSULE LISDEXAMFETAMINE DIMESYLATE Inactive BACTRIM DS 800-160 MG ORAL TABLET Take one (1) by mouth twice a day BACTRIM DS 800-160 MG ORAL TABLET 096282 SULFAMETHOXAZOLE-TRIMETHOPRIM Inactive DOXEPIN HCL 150 MG ORAL CAPSULE Take 1 to 2 caplets as needed at bedtime for sleep DOXEPIN HCL 150 MG ORAL CAPSULE 2034486 DOXE PIN HCL Inactive BUPROPION HCL ER (XL) 300 MG ORAL TABLET EXTENDED RELEASE 24 ZACKARY R BUPROPION HCL ER (XL) 300 MG ORAL TABLET EXTENDED RELEASE 24 HOUR BUPROPION HCL Inactive SPRINTEC 28 0.25-35 MG-MCG ORAL TABLET Take one by mouth daily 2 SPRINTEC 28 0.25-35 MG-MCG ORAL TABLET 988477 N ORGESTIMATE-ETH ESTRADIOL Inactive STRATTERA 80 MG ORAL CAPSULE 1 tablet daily STRATTERA 80 MG ORAL CAPSULE 576615 ATOMOXETINE HCL Inactive WELLBUTRIN 100 MG ORAL TABLET take 4&1/2 tabs daily 20 31/01/22 WELLBUTRIN 100 MG ORAL TABLET BUPROPION HCL Inactive BUSPIRONE HCL 10 MG ORAL TABLET 1/2 bid 2 BUSPIRONE HCL 10 MG ORAL TABLET 165712 BUSPIRONE HCL Inactive LAMOTRIGINE 150 MG ORAL TABLET 1 daily LAMOTRIGINE 150 MG ORAL TABLET 904310 LAMOTRIGINE Inactive SPRINTEC 28 0.25-35 MG-MCG ORAL TABLET 1 pill by mouth daily 201 07/28/21 SPRINTEC 28 0.25-35 MG-MCG ORAL TABLET 462040 N ORGESTIMATE-ETH ESTRADIOL Inactive Advance Directives Directive [...] Diphtheria, and acellular Per tussis Immunization) Adacel [[id number]] tetanus toxoid, reduced diph theria toxoid, and acellular pertussis vaccine, adsorbed hepatitis A immunization #1 Historical hepa titis A vaccine, unspecified formulation Adacel (Tetanus, reduced Diphtheria, and acellular Per tussis Immunization) Adacel [[id number]] tetanus toxoid, reduced diph theria toxoid, and [...] mg/dL Encounters Code Encounter Date Provider Facility CPT-50268 [id number] Vst-New Level II 14:23:[address] Ellen Iraheta PA-C [facility] CPT-73393 Level 3 Est. Patient 11:17:42 VETERAN APPEALS REVIEWER Christy Muñoz APRN [facility] CPT-29996 Level 3 Est. Patient 11:06:57 CDT Estrellita Caceres MD [facility] CPT-72420 Level 3 Est. Patient 14:47:06 VETERAN APPEALS REVIEWER Estrellita Caceres MD [facility] CPT-17470 Level 3 Est. Patient 12:33:15 VETERAN APPEALS REVIEWER Estrellita Caceres MD [facility] Procedures Code Procedure Name Date Entry Date Standard Desc ription CPT-72135 Nexplanon Removal 15:02:55 VETERAN APPEALS REVIEWER CPT-OV Office Visit 15:44:02 CDT CPT-59664 Nexplanon Placement 14:14:42 CDT CPT-J7307 Nexplanon (Implant) 14:14:42 CDT CPT-57203 UHCG (floor use only) 14:14:42 CDT CPT-OV Office Visit 14:06:57 CDT CPT-OV Office Visit 17:01:36 VETERAN APPEALS REVIEWER CPT-Cryo Cryotherapy 11:17:42 VETERAN APPEALS REVIEWER CPT-75138 Gardasil 11:39:29 CDT CPT-OV Office Visit 11:39:29 CDT CPT-PV Prev. Care Visit 16:07:43 VETERAN APPEALS REVIEWER CPT-40397 TB Tubersol 13:10:17 VETERAN APPEALS REVIEWER
--- OUTSIDE RECORDS SUMMARY | 2019-05-10 21:22 | XMS REPORT | Clinical Summary ---
Author Author Admin, Nicolette Oneill Organization [employer] Address Unknown Phone Unavailable Allergies, Adverse Reactions, [...] leg CONTRACEPTIVE MANAGEMENT V25.09 Active Edward Moody VEHICLE MODIFICATION TECHNICIAN Encounter for other general counseling and advice on contraceptive management Well child examination V20.2 Active Christy garcia VEHICLE MODIFICATION TECHNICIAN Routine or child health check Wart, left [...] MD Vaginal discharge ICD-623.5 Inactive Marilee charlesl PUBLIC SPEAKING TEACHER DYSURIA ICD-788.1 Inactive Marilee Ferrell PN Medication List Medication Instructions Start Date Stop Date Generic Name ND Status Provider Patient Instruction CYCLOBENZAPRINE HCL 10 MG ORAL TABLET 1 q 8 hours prn for mu scle spasms CYCLOBENZAPRINE HCL 01045824657 Active Ellen Elizondo Active SPRINTEC 28 0.25-35 MG-MCG ORAL TABLET 1 pill by mouth daily 201 07/28/21 NORGESTIMATE-ETH ESTRADIOL 33815715145 No Longer Active Nabeel Cook LPN Active LAMOTRIGINE 150 MG ORAL TABLET 1 daily LAMOTRIG INE 93260065110 No Longer Active Josephine Cruz MD Active BUSPIRONE HCL 10 MG ORAL TABLET 1/2 bid BUSPIRO NE HCL 41777580640 No Longer Active Josephine Cruz MD Active WELLBUTRIN 100 MG ORAL TABLET take 4&1/2 tabs daily 20 31/01/22 BUPROPION HCL 01210825911 No Longer Active Josephine Cruz MD Active STRATTERA 80 MG ORAL CAPSULE 1 tablet daily ATOMOXETINE HCL 52572250017 No Longer Active Josephine Cruz MD Active SPRINTEC 28 0.25-35 MG-MCG ORAL TABLET Take one by mouth daily 2 NORGESTIMATE-ETH ESTRADIOL 96945636387 No Longer Active Josephine Cruz MD Active BUPROPION HCL ER (XL) 300 MG ORAL TABLET EXTENDED RELEASE 24 ZACKARY R BUPROPION HCL 45658280122 No Longer Active Josephine Cruz MD Active DOXEPIN HCL 150 MG ORAL CAPSULE Take 1 to 2 caplets as needed at bedtime for sleep DOXEPIN HCL 00825344475 No Longer Active Josephine Cruz MD Active BACTRIM DS 800-160 MG ORAL TABLET Take one (1) by mouth twice a day SULFAMETHOXAZOLE-TRIMETHOPRIM 95860147105 No Longer Active Daniel Cruz MD Active VYVANSE 30 MG ORAL CAPSULE 1 daily LISDEXAMF ETAMINE DIMESYLATE 17956013338 No Longer Active Josephine Cruz MD Active TRAZODONE HCL 100 MG ORAL TABLET 1 tab at bedtime 2013 TRAZODONE HCL 69366506105 No Longer Active Christy Brown VEHICLE MODIFICATION TECHNICIAN Act vernon TRAZODONE HCL 50 MG ORAL TABLET 1 q hs TRAZODO NE HCL 96521160254 No Longer Active Estrellita Tenorio MD Active TRAZODONE HCL 50 MG ORAL TABLET 1 q hs 5 TRAZODONE HCL 50 MG ORAL TABLET 007070 TRAZODONE HCL Inactive TRAZODONE HCL 100 MG ORAL TABLET 1 tab at bedtime 2013 TRAZODONE HCL 100 MG ORAL TABLET 236537 TRAZODONE HCL Inactiv e VYVANSE 30 MG ORAL CAPSULE 1 daily VYVANSE 30 M G ORAL CAPSULE LISDEXAMFETAMINE DIMESYLATE Inactive BACTRIM DS 800-160 MG ORAL TABLET Take one (1) by mouth twice a day BACTRIM DS 800-160 MG ORAL TABLET 970904 SULFAMETHOXAZOLE-TRIMETHOPRIM Inactive DOXEPIN HCL 150 MG ORAL CAPSULE Take 1 to 2 caplets as needed at bedtime for sleep DOXEPIN HCL 150 MG ORAL CAPSULE 2246103 DOXE PIN HCL Inactive BUPROPION HCL ER (XL) 300 MG ORAL TABLET EXTENDED RELEASE 24 ZACKARY R BUPROPION HCL ER (XL) 300 MG ORAL TABLET EXTENDED RELEASE 24 HOUR BUPROPION HCL Inactive SPRINTEC 28 0.25-35 MG-MCG ORAL TABLET Take one by mouth daily 2 SPRINTEC 28 0.25-35 MG-MCG ORAL TABLET 773503 N ORGESTIMATE-ETH ESTRADIOL Inactive STRATTERA 80 MG ORAL CAPSULE 1 tablet daily STRATTERA 80 MG ORAL CAPSULE 651159 ATOMOXETINE HCL Inactive WELLBUTRIN 100 MG ORAL TABLET take 4&1/2 tabs daily 20 31/01/22 WELLBUTRIN 100 MG ORAL TABLET BUPROPION HCL Inactive BUSPIRONE HCL 10 MG ORAL TABLET 1/2 bid 2 BUSPIRONE HCL 10 MG ORAL TABLET 739949 BUSPIRONE HCL Inactive LAMOTRIGINE 150 MG ORAL TABLET 1 daily LAMOTRIGINE 150 MG ORAL TABLET 333668 LAMOTRIGINE Inactive SPRINTEC 28 0.25-35 MG-MCG ORAL TABLET 1 pill by mouth daily 201 07/28/21 SPRINTEC 28 0.25-35 MG-MCG ORAL TABLET 983763 N ORGESTIMATE-ETH ESTRADIOL Inactive Advance Directives Directive [...] Diphtheria, and acellular Per tussis Immunization) Adacel [[id number]] tetanus toxoid, reduced diph theria toxoid, and acellular pertussis vaccine, adsorbed hepatitis A immunization #1 Historical hepa titis A vaccine, unspecified formulation Adacel (Tetanus, reduced Diphtheria, and acellular Per tussis Immunization) Adacel [[id number]] tetanus toxoid, reduced diph theria toxoid, and [...] mg/dL Encounters Code Encounter Date Provider Facility CPT-07746 [id number] Vst-New Level II 14:23:[address] Ellen Iraheta PA-C [facility] CPT-47597 Level 3 Est. Patient 11:17:42 OUTSIDE SALES REPRESENTATIVE Christy Muñoz APRN [facility] CPT-01855 Level 3 Est. Patient 11:06:57 CDT Estrellita Caceres MD [facility] CPT-42532 Level 3 Est. Patient 14:47:06 OUTSIDE SALES REPRESENTATIVE Estrellita Caceres MD [facility] CPT-84380 Level 3 Est. Patient 12:33:15 OUTSIDE SALES REPRESENTATIVE Estrellita Caceres MD [facility] Procedures Code Procedure Name Date Entry Date Standard Desc ription CPT-02785 Nexplanon Removal 15:02:55 OUTSIDE SALES REPRESENTATIVE CPT-OV Office Visit 15:44:02 CDT CPT-70802 Nexplanon Placement 14:14:42 CDT CPT-J7307 Nexplanon (Implant) 14:14:42 CDT CPT-19466 UHCG (floor use only) 14:14:42 CDT CPT-OV Office Visit 14:06:57 CDT CPT-OV Office Visit 17:01:36 OUTSIDE SALES REPRESENTATIVE CPT-Cryo Cryotherapy 11:17:42 OUTSIDE SALES REPRESENTATIVE CPT-93572 Gardasil 11:39:29 CDT CPT-OV Office Visit 11:39:29 CDT CPT-PV Prev. Care Visit 16:07:43 OUTSIDE SALES REPRESENTATIVE CPT-28916 TB Tubersol 13:10:17 OUTSIDE SALES REPRESENTATIVE
--- OUTSIDE RECORDS SUMMARY | 2019-05-10 21:22 | XMS REPORT | Clinical Summary ---
Author Author Admin, Nicolette Oneill Organization [employer] Address Unknown Phone Unavailable Allergies, Adverse Reactions, [...] leg CONTRACEPTIVE MANAGEMENT V25.09 Active Edward Moody ELECTRICAL APPLIANCE PREPARER Encounter for other general counseling and advice on contraceptive management Well child examination V20.2 Active Christy garcia ELECTRICAL APPLIANCE PREPARER Routine or child health check Wart, left hand 078.10 Active Christy Brown APR N Viral warts, unspecified Vaginal discharge 623.5 Resolved Marilee Cook LPN Leukorrhea, not specified as infective DYSURIA 788.1 Resolved Marilee Cook LPN Dysuria examination or test, positive result V72.42 Active Marilee Cook LPN examination or milagro t, positive result Status, sterilization, tubal ligation V26.51 Active Marilee Coko LPN Tubal ligation status WELL CHILD EXAM ICD-V20.2 Inactive Estrellita barajas MD CEPHALGIA ICD-784.0 Inactive Estrellita Tenorio MD WELL CHILD EXAM ICD-V20.2 Inactive Estrellita barajas MD ABDOMINAL PAIN ICD-789.00 Inactive Estrellita barajas MD Vaginal discharge ICD-623.5 Inactive Marilee charlesl GEOLOGICAL MANAGER DYSURIA ICD-788.1 Inactive Marilee Ferrell PN Medication List Medication Instructions Start Date Stop Date Generic Name ND Status Provider Patient Instruction SPRINTEC 28 0.25-35 MG-MCG ORAL TABLET 1 pill by mouth daily 201 07/28/21 NORGESTIMATE-ETH ESTRADIOL 91579224709 No Longer Active Nabeel Cook LPN Active LAMOTRIGINE 150 MG ORAL TABLET 1 daily LAMOTRIG INE 42289046849 No Longer Active Josephine Cruz MD Active BUSPIRONE HCL 10 MG ORAL TABLET 1/2 bid BUSPIRO NE HCL 38879524407 No Longer Active Josephine Cruz MD Active WELLBUTRIN 100 MG ORAL TABLET take 4&1/2 tabs daily 31/01/22 BUPROPION HCL 42140226120 No Longer Active Josephine Cruz MD Active STRATTERA 80 MG ORAL CAPSULE 1 tablet daily ATOMOXETINE HCL 29867060329 No Longer Active Josephine Cruz MD Active SPRINTEC 28 0.25-35 MG-MCG ORAL TABLET Take one by mouth daily 2 NORGESTIMATE-ETH ESTRADIOL 57099826936 No Longer Active Josephine Cruz MD Active BUPROPION HCL ER (XL) 300 MG ORAL TABLET EXTENDED RELEASE 24 ZACKARY R BUPROPION HCL 39505796610 No Longer Active Josephine Cruz MD Active DOXEPIN HCL 150 MG ORAL CAPSULE Take 1 to 2 caplets as needed at bedtime for sleep DOXEPIN HCL 86446681791 No Longer Active Josephine Cruz MD Active BACTRIM DS 800-160 MG ORAL TABLET Take one (1) by mouth twice a day SULFAMETHOXAZOLE-TRIMETHOPRIM 72739019471 No Longer Active Daniel Cruz MD Active VYVANSE 30 MG ORAL CAPSULE 1 daily LISDEXAMF ETAMINE DIMESYLATE 84151521821 No Longer Active Josephine Cruz MD Active TRAZODONE HCL 100 MG ORAL TABLET 1 tab at bedtime 2013 TRAZODONE HCL 92337752055 No Longer Active Christy Brown ELECTRICAL APPLIANCE PREPARER Act vernon TRAZODONE HCL 50 MG ORAL TABLET 1 q hs TRAZODO NE HCL 31517897600 No Longer Active Estrellita Tenorio MD Active TRAZODONE HCL 50 MG ORAL TABLET 1 q hs 5 TRAZODONE HCL 50 MG ORAL TABLET 942256 TRAZODONE HCL Inactive TRAZODONE HCL 100 MG ORAL TABLET 1 tab at bedtime 2013 TRAZODONE HCL 100 MG ORAL TABLET 107047 TRAZODONE HCL Inactiv e VYVANSE 30 MG ORAL CAPSULE 1 daily VYVANSE 30 M G ORAL CAPSULE LISDEXAMFETAMINE DIMESYLATE Inactive BACTRIM DS 800-160 MG ORAL TABLET Take one (1) by mouth twice a day BACTRIM DS 800-160 MG ORAL TABLET 741245 SULFAMETHOXAZOLE-TRIMETHOPRIM Inactive DOXEPIN HCL 150 MG ORAL CAPSULE Take 1 to 2 caplets as needed at bedtime for sleep DOXEPIN HCL 150 MG ORAL CAPSULE 4042001 DOXE PIN HCL Inactive BUPROPION HCL ER (XL) 300 MG ORAL TABLET EXTENDED RELEASE 24 ZACKARY R BUPROPION HCL ER (XL) 300 MG ORAL TABLET EXTENDED RELEASE 24 HOUR BUPROPION HCL Inactive SPRINTEC 28 0.25-35 MG-MCG ORAL TABLET Take one by mouth daily 2 SPRINTEC 28 0.25-35 MG-MCG ORAL TABLET 108641 N ORGESTIMATE-ETH ESTRADIOL Inactive STRATTERA 80 MG ORAL CAPSULE 1 tablet daily STRATTERA 80 MG ORAL CAPSULE 777061 ATOMOXETINE HCL Inactive WELLBUTRIN 100 MG ORAL TABLET take 4&1/2 tabs daily 20 31/01/22 WELLBUTRIN 100 MG ORAL TABLET BUPROPION HCL Inactive BUSPIRONE HCL 10 MG ORAL TABLET 1/2 bid 2 BUSPIRONE HCL 10 MG ORAL TABLET 913953 BUSPIRONE HCL Inactive LAMOTRIGINE 150 MG ORAL TABLET 1 daily LAMOTRIGINE 150 MG ORAL TABLET 107023 LAMOTRIGINE Inactive SPRINTEC 28 0.25-35 MG-MCG ORAL TABLET 1 pill by mouth daily 201 07/28/21 SPRINTEC 28 0.25-35 MG-MCG ORAL TABLET 134521 N ORGESTIMATE-ETH ESTRADIOL Inactive Advance Directives Directive [...] Diphtheria, and acellular Per tussis Immunization) Adacel [[id number]] tetanus toxoid, reduced diph theria toxoid, and acellular pertussis vaccine, adsorbed hepatitis A immunization #1 Historical hepa titis A vaccine, unspecified formulation Adacel (Tetanus, reduced Diphtheria, and acellular Per tussis Immunization) Adacel [[id number]] tetanus toxoid, reduced diph theria toxoid, and [...] Historical hep atitis B vaccine, unspecified formulation Encounters Code Encounter Date Provider Facility CPT-76037 Level 3 Est. Patient 11:17:42 HIGH SCHOOL FRENCH TEACHER Christy Muñoz APRN [facility] CPT-01472 Level 3 Est. Patient 11:06:57 CDT Estrellita Caceres MD [facility] CPT-44262 Level 3 Est. Patient 14:47:06 HIGH SCHOOL [employer]ENCH TEACHER Estrellita Caceres MD [facility] CPT-61814 Level 3 Est. Patient 12:33:15 HIGH SCHOOL FRENCH TEACHER Estrellita Caceres MD [facility] Procedures Code Procedure Name Date Entry Date Standard Desc ription CPT-62293 Nexplanon Removal 15:02:55 HIGH SCHOOL FRENCH TEACHER CPT-OV Office Visit 15:44:02 CDT CPT-22033 Nexplanon Placement 14:14:42 CDT CPT-J7307 Nexplanon (Implant) 14:14:42 CDT CPT-68858 UHCG (floor use only) 14:14:42 CDT CPT-OV Office Visit 14:06:57 CDT CPT-OV Office Visit 17:01:36 HIGH SCHOOL FRENCH TEACHER CPT-Cryo Cryotherapy 11:17:42 HIGH SCHOOL FRENCH TEACHER CPT-03531 Gardasil 11:39:29 CDT CPT-OV Office Visit 11:39:29 CDT CPT-PV Prev. Care Visit 16:07:43 HIGH SCHOOL FRENCH TEACHER CPT-30581 TB Tubersol 13:10:17 HIGH SCHOOL FRENCH TEACHER
--- OUTSIDE RECORDS SUMMARY | 2019-05-10 21:22 | XMS REPORT | Clinical Summary ---
[...] leg CONTRACEPTIVE MANAGEMENT V25.09 Active Edward Moody SLOTTER OPERATOR Encounter for other general counseling and advice on contraceptive management Well child examination V20.2 Active Christy garcia SLOTTER OPERATOR Routine infant or child health check Wart, left hand 078.10 Active Christy Brown APR N Viral warts, unspecified Vaginal discharge 623.5 Resolved Marilee Cook CIRCULAR KNIFE CUTTER MACHINE Leukorrhea, not specified as infective DYSURIA 788.1 Resolved Marilee Cook LPN Dysuria examination or test, positive result V72.42 Active Marilee Cook LPN examination or milagro t, positive result Status, sterilization, tubal ligation V26.51 Active Marilee Cook LPN Tubal ligation status WELL CHILD EXAM ICD-V20.2 Inactive Estrellita barajas MD [place] ICD-784.0 Inactive Estrellita Tenorio MD WELL CHILD EXAM ICD-V20.2 Inactive Estrellita barajas MD ABDOMINAL PAIN ICD-789.00 Inactive Estrellita barajas MD Vaginal discharge ICD-623.5 Inactive Marilee charlesl CIRCULAR KNIFE CUTTER MACHINE DYSURIA ICD-788.1 Inactive Marilee Cook L PN Medication List Medication Instructions Start Date Stop Date Generic Name [facility] Status Provider Patient Instruction SPRINTEC 28 0.25-35 MG-MCG ORAL TABLET 1 pill by mouth daily 201 07/28/21 NORGESTIMATE-ETH ESTRADIOL 32009664726 No Longer Active Nabeel Cook LPN Active LAMOTRIGINE 150 MG ORAL TABLET 1 daily LAMOTRIG INE 83508294144 No Longer Active Josephine Cruz MD Active BUSPIRONE HCL 10 MG ORAL TABLET 1/2 bid BUSPIRO NE HCL 41409376190 No Longer Active Josephine Cruz MD Active WELLBUTRIN 100 MG ORAL TABLET take 4&1/2 tabs daily 31/01/22 BUPROPION HCL 15953624703 No Longer Active Josephine Cruz MD Active STRATTERA 80 MG ORAL CAPSULE 1 tablet daily ATOMOXETINE HCL 50615000523 No Longer Active Josephine Cruz MD Active SPRINTEC 28 0.25-35 MG-MCG ORAL TABLET Take one by mouth daily 2 NORGESTIMATE-ETH ESTRADIOL 95548435014 No Longer Active Josephine Cruz MD Active BUPROPION HCL ER (XL) 300 MG ORAL TABLET EXTENDED RELEASE 24 ZACKARY R BUPROPION HCL 56257747000 No Longer Active Josephine Cruz MD Active DOXEPIN HCL 150 MG ORAL CAPSULE Take 1 to 2 caplets as needed at bedtime for sleep DOXEPIN HCL 89041923625 No Longer Active Josephine Cruz MD Active BACTRIM DS 800-160 MG ORAL TABLET Take one (1) by mouth twice a day SULFAMETHOXAZOLE-TRIMETHOPRIM 06464720157 No Longer Active Daniel Cruz MD Active VYVANSE 30 MG ORAL CAPSULE 1 daily LISDEXAMF ETAMINE DIMESYLATE 83786742689 No Longer Active Josephine Cruz MD Active TRAZODONE HCL 100 MG ORAL TABLET 1 tab at bedtime 2013 TRAZODONE HCL 45680762636 No Longer Active Christy Brown SLOTTER OPERATOR Act vernon TRAZODONE HCL 50 MG ORAL TABLET 1 q hs TRAZODO NE HCL 85225207879 No Longer Active Estrellita Tenorio MD Active TRAZODONE HCL 50 MG ORAL TABLET 1 q hs 5 TRAZODONE HCL 50 MG ORAL TABLET 386060 TRAZODONE HCL Inactive TRAZODONE HCL 100 MG ORAL TABLET 1 tab at bedtime 2013 TRAZODONE HCL 100 MG ORAL TABLET 713244 TRAZODONE HCL Inactiv e VYVANSE 30 MG ORAL CAPSULE 1 daily VYVANSE 30 M G ORAL CAPSULE LISDEXAMFETAMINE DIMESYLATE Inactive BACTRIM DS 800-160 MG ORAL TABLET Take one (1) by mouth twice a day BACTRIM DS 800-160 MG ORAL TABLET 322081 SULFAMETHOXAZOLE-TRIMETHOPRIM Inactive DOXEPIN HCL 150 MG ORAL CAPSULE Take 1 to 2 caplets as needed at bedtime for sleep DOXEPIN HCL 150 MG ORAL CAPSULE 9298670 DOXE PIN HCL Inactive BUPROPION HCL ER (XL) 300 MG ORAL TABLET EXTENDED RELEASE 24 ZACKARY R BUPROPION HCL ER (XL) 300 MG ORAL TABLET EXTENDED RELEASE 24 HOUR BUPROPION HCL Inactive SPRINTEC 28 0.25-35 MG-MCG ORAL TABLET Take one by mouth daily 2 SPRINTEC 28 0.25-35 MG-MCG ORAL TABLET 461854 N ORGESTIMATE-ETH ESTRADIOL Inactive STRATTERA 80 MG ORAL CAPSULE 1 tablet daily STRATTERA 80 MG ORAL CAPSULE 070306 ATOMOXETINE HCL Inactive WELLBUTRIN 100 MG ORAL TABLET take 4&1/2 tabs daily 20 31/01/22 WELLBUTRIN 100 MG ORAL TABLET BUPROPION HCL Inactive BUSPIRONE HCL 10 MG ORAL TABLET 1/2 bid 2 BUSPIRONE HCL 10 MG ORAL TABLET 447774 BUSPIRONE HCL Inactive LAMOTRIGINE 150 MG ORAL TABLET 1 daily LAMOTRIGINE 150 MG ORAL TABLET 101713 LAMOTRIGINE Inactive SPRINTEC 28 0.25-35 MG-MCG ORAL TABLET 1 pill by mouth daily 201 07/28/21 SPRINTEC 28 0.25-35 MG-MCG ORAL TABLET 059565 N ORGESTIMATE-ETH ESTRADIOL Inactive Advance Directives Directive [...] Diphtheria, and acellular Per tussis Immunization) Adacel [[id number]] tetanus toxoid, reduced diph theria toxoid, and acellular pertussis vaccine, adsorbed hepatitis A immunization #1 Historical hepa titis A vaccine, unspecified formulation Adacel (Tetanus, reduced Diphtheria, and acellular Per tussis Immunization) Adacel [[id number]] tetanus toxoid, reduced diph theria toxoid, and [...] formulation Encounters Code Encounter Date Provider Facility CPT-30587 Level 3 Est. Patient 11:17:42 SENIOR DATA SCIENTIST Christy Muñoz APRN [facility] CPT-85899 Level 3 Est. Patient 11:06:57 CDT Estrellita Caceres MD [facility] CPT-44853 Level 3 Est. Patient 14:47:06 SENIOR DATA SCIENTIST Estrellita Caceres MD [facility] CPT-17077 Level 3 Est. Patient 12:33:15 SENIOR DATA SCIENTIST Estrellita Caceres MD [facility] Procedures Code Procedure Name Date Entry Date Standard Desc ription CPT-75727 Nexplanon Removal 15:02:55 SENIOR DATA SCIENTIST CPT-OV Office Visit 15:44:02 CDT CPT-47239 Nexplanon Placement 14:14:42 CDT CPT-J7307 Nexplanon (Implant) 14:14:42 CDT CPT-41777 UHCG (floor use only) 14:14:42 CDT CPT-OV Office Visit 14:06:57 CDT CPT-OV Office Visit 17:01:36 SENIOR DATA SCIENTIST CPT-Cryo Cryotherapy 11:17:42 SENIOR DATA SCIENTIST CPT-75174 Gardasil 11:39:29 CDT CPT-OV Office Visit 11:39:29 CDT CPT-PV Prev. Care Visit 16:07:43 SENIOR DATA SCIENTIST CPT-11471 TB Tubersol 13:10:17 SENIOR DATA SCIENTIST
--- OUTSIDE RECORDS SUMMARY | 2019-05-10 21:22 | XMS REPORT | Clinical Summary ---
Author Author Admin, Nicolette Oneill Organization [employer] Address Unknown Phone Unavailable Allergies, Adverse Reactions, [...] leg CONTRACEPTIVE MANAGEMENT V25.09 Active Edward Moody FIELD LABORATORY OPERATOR Encounter for other general counseling and advice on contraceptive management Well child examination V20.2 Active Christy garcia FIELD LABORATORY OPERATOR Routine or child health check Wart, [...] MD Vaginal discharge ICD-623.5 Inactive Marilee charlesl WET FINISHER WOOL DYSURIA ICD-788.1 Inactive Marilee Ferrell PN Medication List Medication Instructions Start Date Stop Date Generic Name ND Status Provider Patient Instruction CYCLOBENZAPRINE HCL 10 MG ORAL TABLET 1 q 8 hours prn for mu scle spasms CYCLOBENZAPRINE HCL 89777492719 Active Ellen Elizondo Active SPRINTEC 28 0.25-35 MG-MCG ORAL TABLET 1 pill by mouth daily 201 07/28/21 NORGESTIMATE-ETH ESTRADIOL 44278284913 No Longer Active Nabeel Cook LPN Active LAMOTRIGINE 150 MG ORAL TABLET 1 daily LAMOTRIG INE 08322169327 No Longer Active Josephine Cruz MD Active BUSPIRONE HCL 10 MG ORAL TABLET 1/2 bid BUSPIRO NE HCL 65594318761 No Longer Active Josephine Cruz MD Active WELLBUTRIN 100 MG ORAL TABLET take 4&1/2 tabs daily 20 31/01/22 BUPROPION HCL 44693369912 No Longer Active Josephine Cruz MD Active STRATTERA 80 MG ORAL CAPSULE 1 tablet daily ATOMOXETINE HCL 95613370939 No Longer Active Josephine Cruz MD Active SPRINTEC 28 0.25-35 MG-MCG ORAL TABLET Take one by mouth daily 2 NORGESTIMATE-ETH ESTRADIOL 66344211576 No Longer Active Josephine Cruz MD Active BUPROPION HCL ER (XL) 300 MG ORAL TABLET EXTENDED RELEASE 24 ZACKARY R BUPROPION HCL 15626059052 No Longer Active Josephine Cruz MD Active DOXEPIN HCL 150 MG ORAL CAPSULE Take 1 to 2 caplets as needed at bedtime for sleep DOXEPIN HCL 54323829389 No Longer Active Josephine Cruz MD Active BACTRIM DS 800-160 MG ORAL TABLET Take one (1) by mouth twice a day SULFAMETHOXAZOLE-TRIMETHOPRIM 95902736081 No Longer Active Daniel Cruz MD Active VYVANSE 30 MG ORAL CAPSULE 1 daily LISDEXAMF ETAMINE DIMESYLATE 66298816977 No Longer Active Josephine Cruz MD Active TRAZODONE HCL 100 MG ORAL TABLET 1 tab at bedtime 2013 TRAZODONE HCL 84262695208 No Longer Active Christy Brown FIELD LABORATORY OPERATOR Act vernon TRAZODONE HCL 50 MG ORAL TABLET 1 q hs TRAZODO NE HCL 99384911585 No Longer Active Estrellita Tenorio MD Active TRAZODONE HCL 50 MG ORAL TABLET 1 q hs 5 TRAZODONE HCL 50 MG ORAL TABLET 876239 TRAZODONE HCL Inactive TRAZODONE HCL 100 MG ORAL TABLET 1 tab at bedtime 2013 TRAZODONE HCL 100 MG ORAL TABLET 599181 TRAZODONE HCL Inactiv e VYVANSE 30 MG ORAL CAPSULE 1 daily VYVANSE 30 M G ORAL CAPSULE LISDEXAMFETAMINE DIMESYLATE Inactive BACTRIM DS 800-160 MG ORAL TABLET Take one (1) by mouth twice a day BACTRIM DS 800-160 MG ORAL TABLET 983485 SULFAMETHOXAZOLE-TRIMETHOPRIM Inactive DOXEPIN HCL 150 MG ORAL CAPSULE Take 1 to 2 caplets as needed at bedtime for sleep DOXEPIN HCL 150 MG ORAL CAPSULE 7732761 DOXE PIN HCL Inactive BUPROPION HCL ER (XL) 300 MG ORAL TABLET EXTENDED RELEASE 24 ZACKARY R BUPROPION HCL ER (XL) 300 MG ORAL TABLET EXTENDED RELEASE 24 HOUR BUPROPION HCL Inactive SPRINTEC 28 0.25-35 MG-MCG ORAL TABLET Take one by mouth daily 2 SPRINTEC 28 0.25-35 MG-MCG ORAL TABLET 512239 N ORGESTIMATE-ETH ESTRADIOL Inactive STRATTERA 80 MG ORAL CAPSULE 1 tablet daily STRATTERA 80 MG ORAL CAPSULE 854124 ATOMOXETINE HCL Inactive WELLBUTRIN 100 MG ORAL TABLET take 4&1/2 tabs daily 20 31/01/22 WELLBUTRIN 100 MG ORAL TABLET BUPROPION HCL Inactive BUSPIRONE HCL 10 MG ORAL TABLET 1/2 bid 2 BUSPIRONE HCL 10 MG ORAL TABLET 937369 BUSPIRONE HCL Inactive LAMOTRIGINE 150 MG ORAL TABLET 1 daily LAMOTRIGINE 150 MG ORAL TABLET 944241 LAMOTRIGINE Inactive SPRINTEC 28 0.25-35 MG-MCG ORAL TABLET 1 pill by mouth daily 201 07/28/21 SPRINTEC 28 0.25-35 MG-MCG ORAL TABLET 972558 N ORGESTIMATE-ETH ESTRADIOL Inactive Advance Directives Directive [...] Diphtheria, and acellular Per tussis Immunization) Adacel [[id number]] tetanus toxoid, reduced diph theria toxoid, and acellular pertussis vaccine, adsorbed hepatitis A immunization #1 Historical hepa titis A vaccine, unspecified formulation Adacel (Tetanus, reduced Diphtheria, and acellular Per tussis Immunization) Adacel [[id number]] tetanus toxoid, reduced diph theria toxoid, and [...] mg/dL Encounters Code Encounter Date Provider Facility CPT-28280 [id number] Vst-New Level II 14:23:[address] Ellen Iraheta PA-C [facility] CPT-31094 Level 3 Est. Patient 11:17:42 QUALITY ASSURANCE COACH Christy Muñoz APRN [facility] CPT-77596 Level 3 Est. Patient 11:06:57 CDT Estrellita Caceres MD [facility] CPT-63876 Level 3 Est. Patient 14:47:06 QUALITY ASSURANCE COACH Estrellita Caceres MD [facility] CPT-87839 Level 3 Est. Patient 12:33:15 QUALITY ASSURANCE COACH Estrellita Caceres MD [facility] Procedures Code Procedure Name Date Entry Date Standard Desc ription CPT-25251 Nexplanon Removal 15:02:55 QUALITY ASSURANCE COACH CPT-OV Office Visit 15:44:02 CDT CPT-35378 Nexplanon Placement 14:14:42 CDT CPT-J7307 Nexplanon (Implant) 14:14:42 CDT CPT-13469 UHCG (floor use only) 14:14:42 CDT CPT-OV Office Visit 14:06:57 CDT CPT-OV Office Visit 17:01:36 QUALITY ASSURANCE COACH CPT-Cryo Cryotherapy 11:17:42 QUALITY ASSURANCE COACH CPT-80048 Gardasil 11:39:29 CDT CPT-OV Office Visit 11:39:29 CDT CPT-PV Prev. Care Visit 16:07:43 QUALITY ASSURANCE COACH CPT-57241 TB Tubersol 13:10:17 QUALITY ASSURANCE COACH
--- OUTSIDE RECORDS SUMMARY | 2019-05-10 21:22 | XMS REPORT | Clinical Summary ---
Author Author Admin, Nicolette Oneill Organization [facility] Address Unknown Phone Unavailable Allergies, Adverse Reactions, Alerts Allergy Name Reaction Description Start Date Severity Status Pr ovider CODEINE hives and psych issues Critical Active Aedline Cruz MD Conditions or Problems Problem Name [...] leg CONTRACEPTIVE MANAGEMENT V25.09 Active Edward Moody CLINICAL INFORMATICS STRATEGIST Encounter for other general counseling and advice on contraceptive management Well child examination V20.2 Active Christy garcia CLINICAL INFORMATICS STRATEGIST Routine infant or child health check Wart, [...] MD Vaginal discharge ICD-623.5 Inactive Marilee charlesl RADAR TESTER DYSURIA ICD-788.1 Inactive Marilee Cook L PN Medication List Medication Instructions Start Date Stop Date Generic Name [facility] Status Provider Patient Instruction SPRINTEC 28 0.25-35 MG-MCG ORAL TABLET 1 pill by mouth daily 201 07/28/21 NORGESTIMATE-ETH ESTRADIOL 95403979224 No Longer Active Nabeel Cook LPN Active LAMOTRIGINE 150 MG ORAL TABLET 1 daily LAMOTRIG INE 15617233271 No Longer Active Josephine Cruz MD Active BUSPIRONE HCL 10 MG ORAL TABLET 1/2 bid BUSPIRO NE HCL 81189440329 No Longer Active Josephine Curz MD Active WELLBUTRIN 100 MG ORAL TABLET take 4&1/2 tabs daily 31/01/22 BUPROPION HCL 59698960174 No Longer Active Josephine Cruz MD Active STRATTERA 80 MG ORAL CAPSULE 1 tablet daily ATOMOXETINE HCL 83080858430 No Longer Active Josephine Cruz MD Active SPRINTEC 28 0.25-35 MG-MCG ORAL TABLET Take one by mouth daily 2 NORGESTIMATE-ETH ESTRADIOL 48046768985 No Longer Active Josephine Cruz MD Active BUPROPION HCL ER (XL) 300 MG ORAL TABLET EXTENDED RELEASE 24 ZACKARY R BUPROPION HCL 50632287181 No Longer Active Josephine Cruz MD Active DOXEPIN HCL 150 MG ORAL CAPSULE Take 1 to 2 caplets as needed at bedtime for sleep DOXEPIN HCL 38416554421 No Longer Active Josephine Cruz MD Active BACTRIM DS 800-160 MG ORAL TABLET Take one (1) by mouth twice a day SULFAMETHOXAZOLE-TRIMETHOPRIM 56290902474 No Longer Active Daniel Cruz MD Active VYVANSE 30 MG ORAL CAPSULE 1 daily LISDEXAMF ETAMINE DIMESYLATE 47746678222 No Longer Active Josephine Cruz MD Active TRAZODONE HCL 100 MG ORAL TABLET 1 tab at bedtime 2013 TRAZODONE HCL 68725794586 No Longer Active Christy Brown CLINICAL INFORMATICS STRATEGIST Act vernon TRAZODONE HCL 50 MG ORAL TABLET 1 q hs TRAZODO NE HCL 61528296415 No Longer Active Estrellita Tenorio MD Active TRAZODONE HCL 50 MG ORAL TABLET 1 q hs 5 TRAZODONE HCL 50 MG ORAL TABLET 850460 TRAZODONE HCL Inactive TRAZODONE HCL 100 MG ORAL TABLET 1 tab at bedtime 2013 TRAZODONE HCL 100 MG ORAL TABLET 539786 TRAZODONE HCL Inactiv e VYVANSE 30 MG ORAL CAPSULE 1 daily VYVANSE 30 M G ORAL CAPSULE LISDEXAMFETAMINE DIMESYLATE Inactive BACTRIM DS 800-160 MG ORAL TABLET Take one (1) by mouth twice a day BACTRIM DS 800-160 MG ORAL TABLET 252909 SULFAMETHOXAZOLE-TRIMETHOPRIM Inactive DOXEPIN HCL 150 MG ORAL CAPSULE Take 1 to 2 caplets as needed at bedtime for sleep DOXEPIN HCL 150 MG ORAL CAPSULE 5153127 DOXE PIN HCL Inactive BUPROPION HCL ER (XL) 300 MG ORAL TABLET EXTENDED RELEASE 24 ZACKARY R BUPROPION HCL ER (XL) 300 MG ORAL TABLET EXTENDED RELEASE 24 HOUR BUPROPION HCL Inactive SPRINTEC 28 0.25-35 MG-MCG ORAL TABLET Take one by mouth daily 2 SPRINTEC 28 0.25-35 MG-MCG ORAL TABLET 430485 N ORGESTIMATE-ETH ESTRADIOL Inactive STRATTERA 80 MG ORAL CAPSULE 1 tablet daily STRATTERA 80 MG ORAL CAPSULE 104014 ATOMOXETINE HCL Inactive WELLBUTRIN 100 MG ORAL TABLET take 4&1/2 tabs daily 20 31/01/22 WELLBUTRIN 100 MG ORAL TABLET BUPROPION HCL Inactive BUSPIRONE HCL 10 MG ORAL TABLET 1/2 bid 2 BUSPIRONE HCL 10 MG ORAL TABLET 396712 BUSPIRONE HCL Inactive LAMOTRIGINE 150 MG ORAL TABLET 1 daily LAMOTRIGINE 150 MG ORAL TABLET 441045 LAMOTRIGINE Inactive SPRINTEC 28 0.25-35 MG-MCG ORAL TABLET 1 pill by mouth daily 201 07/28/21 SPRINTEC 28 0.25-35 MG-MCG ORAL TABLET 346130 N ORGESTIMATE-ETH ESTRADIOL Inactive Advance Directives Directive [...] Diphtheria, and acellular Per tussis Immunization) Adacel [[id number]] tetanus toxoid, reduced diph theria toxoid, and acellular pertussis vaccine, adsorbed hepatitis A immunization #1 Historical hepa titis A vaccine, unspecified formulation Adacel (Tetanus, reduced Diphtheria, and acellular Per tussis Immunization) Adacel [[id number]] tetanus toxoid, reduced diph theria toxoid, and [...] formulation Encounters Code Encounter Date Provider Facility CPT-62151 Level 3 Est. Patient 11:17:42 ASSEMBLER METAL BUILDING Christy Muñoz APRN [facility] CPT-45617 Level 3 Est. Patient 11:06:57 CDT Estrellita Caceres MD [facility] CPT-38569 Level 3 Est. Patient 14:47:06 ASSEMBLER METAL BUILDING Estrellita Caceres MD [facility] CPT-71288 Level 3 Est. Patient 12:33:15 ASSEMBLER METAL BUILDING Estrellita Caceres MD [facility] Procedures Code Procedure Name Date Entry Date Standard Desc ription CPT-94334 Nexplanon Removal 15:02:55 ASSEMBLER METAL BUILDING CPT-OV Office Visit 15:44:02 CDT CPT-08805 Nexplanon Placement 14:14:42 CDT CPT-J7307 Nexplanon (Implant) 14:14:42 CDT CPT-37756 UHCG (floor use only) 14:14:42 CDT CPT-OV Office Visit 14:06:57 CDT CPT-OV Office Visit 17:01:36 ASSEMBLER METAL BUILDING CPT-Cryo Cryotherapy 11:17:42 ASSEMBLER METAL BUILDING CPT-28373 Gardasil 11:39:29 CDT CPT-OV Office Visit 11:39:29 CDT CPT-PV Prev. Care Visit 16:07:43 ASSEMBLER METAL BUILDING CPT-88623 TB Tubersol 13:10:17 ASSEMBLER METAL BUILDING
--- OUTSIDE RECORDS SUMMARY | 2019-05-10 21:22 | XMS REPORT | Clinical Summary ---
Author Author Admin, Nicolette Oneill Organization [facility] Address Unknown Phone Unavailable Allergies, [...] leg CONTRACEPTIVE MANAGEMENT V25.09 Active Edward Moody ARCHITECTURAL COATING FINISHER Encounter for other general counseling and advice on contraceptive management Well child examination V20.2 Active Christy garcia ARCHITECTURAL COATING FINISHER Routine infant or child health check Wart, [...] MD Vaginal discharge ICD-623.5 Inactive Marilee charlesl BIOINFORMATICS SCIENTIST DYSURIA ICD-788.1 Inactive Marilee Cook L PN Medication List Medication Instructions Start Date Stop Date Generic Name [facility] Status Provider Patient Instruction SPRINTEC 28 0.25-35 MG-MCG ORAL TABLET 1 pill by mouth daily 201 07/28/21 NORGESTIMATE-ETH ESTRADIOL 86620017422 No Longer Active Nabeel Cook LPN Active LAMOTRIGINE 150 MG ORAL TABLET 1 daily LAMOTRIG INE 25800760757 No Longer Active Josephine Cruz MD Active BUSPIRONE HCL 10 MG ORAL TABLET 1/2 bid BUSPIRO NE HCL 17593017776 No Longer Active Josephine Cruz MD Active WELLBUTRIN 100 MG ORAL TABLET take 4&1/2 tabs daily 31/01/22 BUPROPION HCL 88175259847 No Longer Active Josephine Cruz MD Active STRATTERA 80 MG ORAL CAPSULE 1 tablet daily ATOMOXETINE HCL 79256848739 No Longer Active Josephine Cruz MD Active SPRINTEC 28 0.25-35 MG-MCG ORAL TABLET Take one by mouth daily 2 NORGESTIMATE-ETH ESTRADIOL 71391796333 No Longer Active Josephine Cruz MD Active BUPROPION HCL ER (XL) 300 MG ORAL TABLET EXTENDED RELEASE 24 ZACKARY R BUPROPION HCL 11090721392 No Longer Active Josephine Cruz MD Active DOXEPIN HCL 150 MG ORAL CAPSULE Take 1 to 2 caplets as needed at bedtime for sleep DOXEPIN HCL 87400437539 No Longer Active Josephine Cruz MD Active BACTRIM DS 800-160 MG ORAL TABLET Take one (1) by mouth twice a day SULFAMETHOXAZOLE-TRIMETHOPRIM 68541676153 No Longer Active Daniel Cruz MD Active VYVANSE 30 MG ORAL CAPSULE 1 daily LISDEXAMF ETAMINE DIMESYLATE 61693058834 No Longer Active Josephine Cruz MD Active TRAZODONE HCL 100 MG ORAL TABLET 1 tab at bedtime 2013 TRAZODONE HCL 18242294921 No Longer Active Christy Brown ARCHITECTURAL COATING FINISHER Act vernon TRAZODONE HCL 50 MG ORAL TABLET 1 q hs TRAZODO NE HCL 93965946219 No Longer Active Estrellita Tenorio MD Active TRAZODONE HCL 50 MG ORAL TABLET 1 q hs 5 TRAZODONE HCL 50 MG ORAL TABLET 241654 TRAZODONE HCL Inactive TRAZODONE HCL 100 MG ORAL TABLET 1 tab at bedtime 2013 TRAZODONE HCL 100 MG ORAL TABLET 787088 TRAZODONE HCL Inactiv e VYVANSE 30 MG ORAL CAPSULE 1 daily VYVANSE 30 M G ORAL CAPSULE LISDEXAMFETAMINE DIMESYLATE Inactive BACTRIM DS 800-160 MG ORAL TABLET Take one (1) by mouth twice a day BACTRIM DS 800-160 MG ORAL TABLET 467221 SULFAMETHOXAZOLE-TRIMETHOPRIM Inactive DOXEPIN HCL 150 MG ORAL CAPSULE Take 1 to 2 caplets as needed at bedtime for sleep DOXEPIN HCL 150 MG ORAL CAPSULE 3613578 DOXE PIN HCL Inactive BUPROPION HCL ER (XL) 300 MG ORAL TABLET EXTENDED RELEASE 24 ZACKARY R BUPROPION HCL ER (XL) 300 MG ORAL TABLET EXTENDED RELEASE 24 HOUR BUPROPION HCL Inactive SPRINTEC 28 0.25-35 MG-MCG ORAL TABLET Take one by mouth daily 2 SPRINTEC 28 0.25-35 MG-MCG ORAL TABLET 450311 N ORGESTIMATE-ETH ESTRADIOL Inactive STRATTERA 80 MG ORAL CAPSULE 1 tablet daily STRATTERA 80 MG ORAL CAPSULE 781557 ATOMOXETINE HCL Inactive WELLBUTRIN 100 MG ORAL TABLET take 4&1/2 tabs daily 20 31/01/22 WELLBUTRIN 100 MG ORAL TABLET BUPROPION HCL Inactive BUSPIRONE HCL 10 MG ORAL TABLET 1/2 bid 2 BUSPIRONE HCL 10 MG ORAL TABLET 300581 BUSPIRONE HCL Inactive LAMOTRIGINE 150 MG ORAL TABLET 1 daily LAMOTRIGINE 150 MG ORAL TABLET 053885 LAMOTRIGINE Inactive SPRINTEC 28 0.25-35 MG-MCG ORAL TABLET 1 pill by mouth daily 201 07/28/21 SPRINTEC 28 0.25-35 MG-MCG ORAL TABLET 911793 N ORGESTIMATE-ETH ESTRADIOL Inactive Advance Directives Directive [...] Diphtheria, and acellular Per tussis Immunization) Adacel [[id number]] tetanus toxoid, reduced diph theria toxoid, and acellular pertussis vaccine, adsorbed hepatitis A immunization #1 Historical hepa titis A vaccine, unspecified formulation Adacel (Tetanus, reduced Diphtheria, and acellular Per tussis Immunization) Adacel [[id number]] tetanus toxoid, reduced diph theria toxoid, and [...] formulation Encounters Code Encounter Date Provider Facility CPT-81160 Level 3 Est. Patient 11:17:42 BEHAVIORAL HEALTH TECH Christy Muñoz APRN [facility] CPT-23912 Level 3 Est. Patient 11:06:57 CDT Estrellita Caceres MD [facility] CPT-18780 Level 3 Est. Patient 14:47:06 BEHAVIORAL HEALTH TECH Estrellita Caceres MD [facility] CPT-07292 Level 3 Est. Patient 12:33:15 BEHAVIORAL HEALTH TECH Estrellita Caceres MD [facility] Procedures Code Procedure Name Date Entry Date Standard Desc ription CPT-73588 Nexplanon Removal 15:02:55 BEHAVIORAL HEALTH TECH CPT-OV Office Visit 15:44:02 CDT CPT-73216 Nexplanon Placement 14:14:42 CDT CPT-J7307 Nexplanon (Implant) 14:14:42 CDT CPT-43881 UHCG (floor use only) 14:14:42 CDT CPT-OV Office Visit 14:06:57 CDT CPT-OV Office Visit 17:01:36 BEHAVIORAL HEALTH TECH CPT-Cryo Cryotherapy 11:17:42 BEHAVIORAL HEALTH TECH CPT-99105 Gardasil 11:39:29 CDT CPT-OV Office Visit 11:39:29 CDT CPT-PV Prev. Care Visit 16:07:43 BEHAVIORAL HEALTH TECH CPT-18125 TB Tubersol 13:10:17 BEHAVIORAL HEALTH TECH
--- OUTSIDE RECORDS SUMMARY | 2019-05-10 21:23 | XMS REPORT | Clinical Summary ---
Author Author Admin, Nicolette Oneill Organization [facility] Address Unknown Phone Unavailable Allergies, Adverse [...] MANAGEMENT V25.09 Active Edward Moody ENROLLMENT MANAGEMENT VICE PRESIDENT Encounter for other general counseling and advice on contraceptive management Well child examination V20.2 Active Christy garcia ENROLLMENT MANAGEMENT VICE PRESIDENT Routine infant or child health check Wart, left hand 078.10 Active Christy Brown APR N Viral warts, unspecified Vaginal discharge 623.5 Resolved Marilee Cook BILLET CHECKER Leukorrhea, not specified as infective DYSURIA 788.1 [...] MD Vaginal discharge ICD-623.5 Inactive Marilee charlesl BILLET CHECKER DYSURIA ICD-788.1 Inactive Marilee Cook L PN Medication List Medication Instructions Start Date Stop Date Generic Name [facility] Status Provider Patient Instruction SPRINTEC 28 0.25-35 MG-MCG ORAL TABLET 1 pill by mouth daily 201 07/28/21 NORGESTIMATE-ETH ESTRADIOL 01062504296 No Longer Active Nabeel Cook LPN Active LAMOTRIGINE 150 MG ORAL TABLET 1 daily LAMOTRIG INE 39780485797 No Longer Active Josephine Cruz MD Active BUSPIRONE HCL 10 MG ORAL TABLET 1/2 bid BUSPIRO NE HCL 68688151463 No Longer Active Josephine Cruz MD Active WELLBUTRIN 100 MG ORAL TABLET take 4&1/2 tabs daily 31/01/22 BUPROPION HCL 67605416675 No Longer Active Josephine Cruz MD Active STRATTERA 80 MG ORAL CAPSULE 1 tablet daily ATOMOXETINE HCL 31956358724 No Longer Active Josephine Cruz MD Active SPRINTEC 28 0.25-35 MG-MCG ORAL TABLET Take one by mouth daily 2 NORGESTIMATE-ETH ESTRADIOL 62349659523 No Longer Active Josephine Cruz MD Active BUPROPION HCL ER (XL) 300 MG ORAL TABLET EXTENDED RELEASE 24 ZACKARY R BUPROPION HCL 04225508977 No Longer Active Josephine Cruz MD Active DOXEPIN HCL 150 MG ORAL CAPSULE Take 1 to 2 caplets as needed at bedtime for sleep DOXEPIN HCL 65457295018 No Longer Active Josephine Cruz MD Active BACTRIM DS 800-160 MG ORAL TABLET Take one (1) by mouth twice a day SULFAMETHOXAZOLE-TRIMETHOPRIM 45976781151 No Longer Active Daniel Cruz MD Active VYVANSE 30 MG ORAL CAPSULE 1 daily LISDEXAMF ETAMINE DIMESYLATE 13338133171 No Longer Active Josephine Cruz MD Active TRAZODONE HCL 100 MG ORAL TABLET 1 tab at bedtime 2013 TRAZODONE HCL 67469056583 No Longer Active Christy Brown ENROLLMENT MANAGEMENT VICE PRESIDENT Act vernon TRAZODONE HCL 50 MG ORAL TABLET 1 q hs TRAZODO NE HCL 07601868944 No Longer Active Estrellita Tenorio MD Active TRAZODONE HCL 50 MG ORAL TABLET 1 q hs 5 TRAZODONE HCL 50 MG ORAL TABLET 595499 TRAZODONE HCL Inactive TRAZODONE HCL 100 MG ORAL TABLET 1 tab at bedtime 2013 TRAZODONE HCL 100 MG ORAL TABLET 641459 TRAZODONE HCL Inactiv e VYVANSE 30 MG ORAL CAPSULE 1 daily VYVANSE 30 M G ORAL CAPSULE LISDEXAMFETAMINE DIMESYLATE Inactive BACTRIM DS 800-160 MG ORAL TABLET Take one (1) by mouth twice a day BACTRIM DS 800-160 MG ORAL TABLET 225536 SULFAMETHOXAZOLE-TRIMETHOPRIM Inactive DOXEPIN HCL 150 MG ORAL CAPSULE Take 1 to 2 caplets as needed at bedtime for sleep DOXEPIN HCL 150 MG ORAL CAPSULE 7081361 DOXE PIN HCL Inactive BUPROPION HCL ER (XL) 300 MG ORAL TABLET EXTENDED RELEASE 24 ZACKARY R BUPROPION HCL ER (XL) 300 MG ORAL TABLET EXTENDED RELEASE 24 HOUR BUPROPION HCL Inactive SPRINTEC 28 0.25-35 MG-MCG ORAL TABLET Take one by mouth daily 2 SPRINTEC 28 0.25-35 MG-MCG ORAL TABLET 671783 N ORGESTIMATE-ETH ESTRADIOL Inactive STRATTERA 80 MG ORAL CAPSULE 1 tablet daily STRATTERA 80 MG ORAL CAPSULE 642631 ATOMOXETINE HCL Inactive WELLBUTRIN 100 MG ORAL TABLET take 4&1/2 tabs daily 20 31/01/22 WELLBUTRIN 100 MG ORAL TABLET BUPROPION HCL Inactive BUSPIRONE HCL 10 MG ORAL TABLET 1/2 bid 2 BUSPIRONE HCL 10 MG ORAL TABLET 927356 BUSPIRONE HCL Inactive LAMOTRIGINE 150 MG ORAL TABLET 1 daily LAMOTRIGINE 150 MG ORAL TABLET 754388 LAMOTRIGINE Inactive SPRINTEC 28 0.25-35 MG-MCG ORAL TABLET 1 pill by mouth daily 201 07/28/21 SPRINTEC 28 0.25-35 MG-MCG ORAL TABLET 918792 N ORGESTIMATE-ETH ESTRADIOL Inactive Advance Directives Directive [...] Diphtheria, and acellular Per tussis Immunization) Adacel [[id number]] tetanus toxoid, reduced diph theria toxoid, and acellular pertussis vaccine, adsorbed hepatitis A immunization #1 Historical hepa titis A vaccine, unspecified formulation Adacel (Tetanus, reduced Diphtheria, and acellular Per tussis Immunization) Adacel [[id number]] tetanus toxoid, reduced diph theria toxoid, and [...] formulation Encounters Code Encounter Date Provider Facility CPT-50110 Level 3 Est. Patient 11:17:42 COLLECTIONS TECHNICIAN Christy Muñoz APRN [facility] CPT-79587 Level 3 Est. Patient 11:06:57 CDT Estrellita Caceres MD [facility] CPT-80678 Level 3 Est. Patient 14:47:06 COLLECTIONS TECHNICIAN Estrellita Caceres MD [facility] CPT-81975 Level 3 Est. Patient 12:33:15 COLLECTIONS TECHNICIAN Estrellita Caceres MD [facility] Procedures Code Procedure Name Date Entry Date Standard Desc ription CPT-45365 Nexplanon Removal 15:02:55 COLLECTIONS TECHNICIAN CPT-OV Office Visit 15:44:02 CDT CPT-67935 Nexplanon Placement 14:14:42 CDT CPT-J7307 Nexplanon (Implant) 14:14:42 CDT CPT-00333 UHCG (floor use only) 14:14:42 CDT CPT-OV Office Visit 14:06:57 CDT CPT-OV Office Visit 17:01:36 COLLECTIONS TECHNICIAN CPT-Cryo Cryotherapy 11:17:42 COLLECTIONS TECHNICIAN CPT-74074 Gardasil 11:39:29 CDT CPT-OV Office Visit 11:39:29 CDT CPT-PV Prev. Care Visit 16:07:43 COLLECTIONS TECHNICIAN CPT-40624 TB Tubersol 13:10:17 COLLECTIONS TECHNICIAN
--- OUTSIDE RECORDS SUMMARY | 2019-05-10 21:24 | XMS REPORT | Continuity of Care Document ---
Demographics x Preferred Language Unknown Marital Status Unknown Buddhist Affiliation Unknown Race Unknown Ethnic Group Unknown Author Organization Unknown Address Unknown Phone Unavailable Allergies Active Description Code Type Severity Reaction Onset Reported/Identified Relationship to Patient Clinical Status Yes No known drug allergies ND N/A N/A Yes NO NAME AVAILABLE 73645 DRUG N/A N/A Yes codiene Drug N/A N/A Yes codiene Drug Severe [id number] Yes doxepin Drug N/A N/A Yes doxepin Drug Mild 773396001 Yes Latex Allergy Drug N/A N/A Yes Latex Allergy Drug S evere [id number] Yes CODEINE 38703 DRUG INGREDI N/A Hives 06/26/2016 06/26/2016 Medications Medication Packaging Start Date St op Date Route Dosage Sig ALBUTEROL SULFATE HFA 108 (9 0 BASE) MCG/ACT IN AERS 06/26/2016 Inhalation 2 EVERY 6 HOURS PRN ONDANSETRON HCL 4 MG/2ML IJ SOLN 07/06/2016 Intravenous 4 ONCE SODIUM CHLORIDE 0.9 % IV BOLUS 07/06/2016 07/06/2016 Intravenous 1000 BOLUS Problems Date Dx Coded Attending Type Code Diagnosis Diagnosed By 06/26/2016 [place] [address] 0 Chest Pain MOSLEY, ALBINO K 06/26/2016 MOSLEY, ALBINO K V 28 Cough MOSLEY, ALBINO K 06/26/2016 MOSLEY, ALBINO K V R05 Cough MOSLEY, ALBINO K 07/06/2016 DEVON CASTELANI A V 447 Vaginal Bleeding During NAZIA CASTELANNSI A 07/06/2016 ANNELISE, EKWENSI A V O20 .0 Threatened DEVON CASTELANI A 07/06/2016 DEVON CASTELANI A V R11 .2 Nausea with vomiting, unspecified NAZIA CASTELANNSI A 07/22/2016 VINCENT BARROSO R10.30 Lower abdominal pain, unspecified 07/22/2016 VINCENT BARROSO NG R10.9 Unspecified abdominal pain 07/22/2016 VINCENT BARROSO DANIELLE NG W19.XXXA Unspecified fall, initial encounter 08/18/2016 WORKING Z36 E ncounter for screening of mother 08/18/2016 WORKING Z3A.20 20 weeks gestation of 04/07/2018 Fernando Cruz MD E66.9 Obesity Class I (BMI 30-34.9) 04/07/2018 Fernando Cruz MD R20.2 Paresthesia of arm 04/07/2018 Fernando Cruz MD Z68.30 BMI 30-30.9 05/19/2018 Fernando Cruz MD Z11.3 Std screening 05/19/2018 Fernando Cruz MD Z12.4 Pap only (ca screen cervix) 05/19/2018 Fernando Cruz MD E66.3 Overweight (BMI 25-29.9) 05/19/2018 Fernando Cruz MD Z68.29 BMI 29-29.9 06/30/2018 Fernando Cruz MD R87.611 Atypical squamous cells on cervical Papanicolaou smear cannot exclude high grade squamous intraepithelial lesion 07/07/2018 Fernando Cruz MD N87.1 CIN2 07/07/2018 Fernando Cruz MD Z68.28 BMI 28-28.9 Procedures There is no data. Results Test Result Range DRUG SCREEN IN HOUSE - 04/10/13 00:00 MBAR N Negative MBENZO N Negative MCOCN N Negative MMAMP N Negative MMTD N Negative MOPIAT N Negative MPCP N Negative MTCA P Negative MTHC N Negative AMPHETAMINE N Negative UCG GROUP - 04/10/13 00:00 UCG N Negative CBC WITH DIFF - 04/10/13 00:00 HCT 37.2 % 36.9-47.0 HGB 11.5 G/DL 12.0-16.0 LYMPH 36.0 % 20-40 MCH 28.9 PG 27-31 MCHC 30.9 G/DL 33-37 MCV 93.5 FL 81-99 MONO 8.0 % 0-10 MPV 11.7 FL 7.3-10.4 PLT 274 10^3u 130-400 RBC 4.0 10^6u 4.2-5.4 RDW 12.7 % 11.5-15.5 WBC 6.2 10^3u 4.8-10.8 SEGS 56.0 % 40-70 RAPID MYCOPLASMA - 04/10/13 00:00 RAPMYCO P Negative MONOSP - 04/10/13 00:00 MONOSP N Negative CBC WITH AUTO DIFFERENTIAL - 07/06/16 00 :45 BASOPHILS RELATIVE PERCENT 0.3 % 0.0 -2.5 EOSINOPHILS RELATIVE PERCENT 0.9 % < =5.0 HEMATOCRIT 38.6 % 34.9-44.5 HEMOGLOBIN 12.9 g/dL 12.0-15.5 LYMPHOCYTES RELATIVE PERCENT 20.1 % 2 2.0-49.0 MEAN CORPUSCULAR HEMOGLOBIN 30.1 pg 26 .0-34.0 MEAN CORPUSCULAR HEMOGLOBIN CONC 33.4 g/dL 31.0-37.0 MEAN CORPUSCULAR VOLUME 90.0 fL 81.6-9 8.3 MONOCYTES RELATIVE PERCENT 6.2 % 2.0 -9.0 NEUTROPHILS RELATIVE PERCENT 72.5 % 4 0.0-75.0 NUCLEATED RED BLOOD CELLS 0 /100 <=0 PLATELET COUNT 260 10E9/L 150-450 RED BLOOD CELL COUNT 4.29 10E12/L 3.90-5 .03 RED CELL DISTRIBUTION WIDTH 12.3 % 11 .9-15.5 5150431 15.9 10E9/L 3.5-10.5 6266987 3.19 10E9/L 0.90-2.90 8081234 0.98 10E9/L 0.30-0.90 4625467 0.14 10E9/L 0.05-0.50 9824355 11.52 10E9/L 1.70-7.00 3591841 0.04 10E9/L 0.00-0.30 2643079 0 % HCG, QUANTITATIVE, - 07/06/16 00:45 B-HCG QUANTITATIVE 18348 mIU/mL <=4 CBC WITH DIFF - 07/22/16 14:55 WBC 11.62 10*3/uL 4.00-10.80 RBC 3.96 10*6/uL 4.20-5.40 HGB 12.0 g/dL 12.0-16.0 HCT 36.2 % 37.0-47.0 MCV 91 fL 81-99 MCH 30 pg 26.0-34.0 MCHC 33.1 g/dL 31.0-37.0 PLATELET COUNT 156 10*3/uL 150-400 RDWCV 12.8 % 11.5-14.5 DIFF TYPE AUTOMATED DIFF NEUTROPHIL % 81.4 % 36.0-66.0 LYMPHOCYTE % 9.2 % 24.0-44.0 MONOCYTE % 7.0 % 1.0-10.0 EOSINOPHIL % 1.5 % 0.0-6.0 BASOPHIL % 0.3 % 0.0-2.0 ABS. NEUTROPHILS 9.47 10*3/uL 1.55-7.13 ABS. LYMPHOCYTES 1.07 10*3/uL 1.00-4.80 ABS. MONOCYTES 0.81 10*3/uL 0.40-1.08 ABS. EOSINOPHILS 0.17 10*3/uL 0.00-0.65 ABS. BASOPHILS 0.03 10*3/uL 0.00-0.11 ABSOLUTE NUCLEATED RBC 0.00 10*3/uL 0.00 PERCENT NUCLEATED RBC 0.0 % 0.0 MPV 13.3 fL 9.4-12.3 RDW STANDARD DEVIATION 42.7 fL 36.4-46 .3 GRANULOCYTE, IMMATURE, ABSOLUTE 0.1 10*3/uL 0.0-0.1 GRANULOCYTES, IMMATURE, PERCENT 0.6 % 0.0-0.5 ABO-RH - 07/22/16 14:55 ABO/RH (D) O POSITIVE URINALYSIS POC - 07/22/16 14:57 POC COMMENT SEE NOTES COLOR, URINE POCT DARK YELLOW APPEARANCE, URINE POCT SL CLOUDY GLUCOSE, URINE POCT NEGATIVE mg/dL NEGAT MARQUEZ BILIRUBIN, URINE POCT NEGATIVE NEGATIVE KETONES, URINE POCT TRACE mg/dL NEGATIVE SPECIFIC GRAVITY, URINE POCT 1.020 1 .005-1.030 BLOOD, URINE POCT NEGATIVE NEGATIVE PH, URINE POCT 7.0 5.0-9.0 PROTEIN, URINE POCT TRACE mg/dL NEGATIVE UROBILINOGEN, URINE POCT 0.2 EhrlichU/dL 0.2-1.0 NITRITES, URINE POCT NEGATIVE NEGATIVE LEUKOCYTES, URINE POCT NEGATIVE NEGATIV E BASIC METABOLIC PANEL POCT - 07/22/16 15 :02 POC COMMENT SEE NOTES SODIUM POCT 134 mmol/L 138-146 POTASSIUM POCT 3.8 mmol/L 3.5-4.9 CHLORIDE POCT 107 mmol/L 98-109 MEASURED TOTAL CO2 POCT 21 meq/L 24-29 BUN POCT <3 mg/dL 8-26 CREATININE POCT 0.5 mg/dL 0.6-1.3 GLUCOSE POCT 80 mg/dL 70-105 IONIZED CALCIUM POCT 1.00 mmol/L 1.12-1. 32 Urine Culture - 05/19/18 17:51 Pre No growth at 24 hours. Final No growth at 48 hours. Encounters ACCT No. Visit Date/Time Discharge Status Pt. Type Provider Facility Loc./Unit Complaint [id number] 04/10/2013 22:19:00 04/11/2013 07:40 :00 DIS Emergency CANDICETRAVIS [facility] EMR [id number] 01/15/2013 00:00:00 Document Registration [id number] 07/05/2016 22:09:17 7 02:22:00 DIS Emergency NGUYEN CASTELAN [facility] EMD [id number] 06/26/2016 20:55:06 7 21:58:00 DIS Emergency ALBINO MOSLEY [facility] EMD [id number] 06/26/2016 21:40:02 Document Registration [id number] 05/19/2018 17:51:00 Document Registration [id number] 06/22/2018 13:59:36 06/22/2018 23:59: 59 CLS Outpatient Edward Moody [id number] 04/17/2018 12:29:21 04/17/2018 23:59: 59 CLS Outpatient Edward Moody [id number] 03/17/2018 13:24:32 03/17/2018 23:59: 59 CLS Outpatient Edward Moody [id number] 03/03/2018 11:40:57 03/03/2018 23:59: 59 CLS Outpatient Edward Moody [id number] 12/01/2017 16:55:56 12/01/2017 23:59: 59 CLS Outpatient Lester Lugo [id number] 11/17/2017 20:52:21 11/17/2017 23:59: 59 CLS Outpatient Lester Lugo [id number] 07/15/2018 15:40:00 07/15/2018 23:59:5 9 [facility] Outpatient STAR LARA APRN [facility] [id number] [id number] 07/13/2018 12:20:00 ACT Unknown Fernando Cruz MD [id number] 07/16/2018 16:58:00 9 18:55:00 DIS Emergency TRAVIS HARVEY [facility] ED ER visit [id number] 07/09/2018 06:40:42 9 10:10:00 DIS Outpatient FERNANDO CRUZ [facility] Surgery ops [id number] 05/29/2018 11:16:00 9 13:39:00 DIS Emergency Jimena [facility] ED er visit [id number] 04/24/2018 18:14:00 9 19:30:00 DIS Emergency TRAVIS HARVEY [facility] ED ed visit [id number] 04/04/2018 18:52:00 9 21:44:00 DIS Emergency Jimena [facility] ED Er visit [id number] 04/04/2018 12:15:00 9 12:48:00 DIS Emergency Jimena [facility] ED ed Visit [id number] 01/09/2018 20:35:00 8 21:35:00 DIS Emergency GABBY CROWE [facility] ED ed visit [id number] 01/07/2018 17:05:00 8 17:37:00 DIS Emergency KELSI PERALES [facility] ED ed visit [id number] 12/31/2017 18:21:00 8 19:20:00 DIS Emergency KELSI PERALES [facility] ED ED visit [id number] 12/10/2017 19:11:00 8 20:45:00 DIS Emergency TRAVIS OMALLEY [facility] ED ed visit [id number] 11/16/2017 00:34:00 8 01:32:00 DIS Emergency GERARDOPREETITESSIE [facility] ED ER [id number] 07/22/2016 13:16:00 07/22/2016 16: 50:00 DIS Emergency VINCENT BARROSO [facility] [id number] 08/26/2016 00:00:00 08/26/2016 23: 59:59 CLS Outpatient [facility] Emergency Department BGYN SFOB [id number] 08/18/2016 13:20:46 08/18/2016 23: 59:59 CLS Outpatient [facility] Emergency Department BGYN SFOB [id number] 08/12/2016 00:00:00 08/12/2016 23: 59:59 CLS Outpatient [facility] BGYN SFOB [id number] 08/11/2016 00:00:00 08/11/2016 23: 59:59 CLS Outpatient [facility] Emergency Department BGYN SFOB [id number] 07/24/2016 00:00:00 07/24/2016 23: 59:59 CLS Outpatient [facility] BGYN SFOB [id number] 07/24/2016 00:00:00 07/24/2016 23: 59:59 CLS Outpatient [facility] Emergency Department BGYN SFOB
== END 2019-05-10 20:48 | disposition home or self-care (01) ==
LOC: EDUNIT# 20:01 → ER 20:02
DX: S60.041A Contusion of right ring finger without damage to nail, initial encounter (principal); Z88.5 Allergy status to narcotic agent; Z90.89 Acquired absence of other organs; Z98.51 Tubal ligation status; W22.8XXA Striking against or struck by other objects, initial encounter
CPT/HCPCS: 73130

== ENCOUNTER 2019-05-26 21:08 | Emergency (ER) | payer MEDICAID ==
[~2019-05-26] VITALS: Ht 170 cm; Wt 99.7 kg
[2019-05-26] MEDS ORDERED: AMOXICILLIN 500 MG (POLYMOX) CAP PO STA (21:11)
[2019-05-26] MEDS ORDERED: NAPR-1071 PO (21:12)
[2019-05-26] MEDS ORDERED: AMOX500C2 PO (21:12)
--- NOTE | 2019-05-26 21:13 | ED EENT ---
History of Present Illness General Stated Complaint: MOUTH / DENTAL PAIN Source: patient Exam Limitations: no limitations History of Present Illness Date Seen by Provider: May 26, 2019 Time Seen by Provider: 21:23 Initial Comments To ER with right upper dental pain for the past 2 or 3 days, had a tooth removed at this location about a month ago, has had some trouble getting it healed. Also missed her first day of work tonight at [employer]. Timing/Duration: other Location: mouth Prearrival Treatment: no prearrival treatment Associated Symptoms: tooth pain Allergies and Home Medications Allergies Coded Allergies: codeine (Unverified Allergy, Unknown, 09/14/17) doxepin (Verified Allergy, Unknown, 05/10/19) latex (Verified Allergy, Unknown, 05/10/19) Home Medications Amoxicillin 500 Mg Capsule, 500 MG PO TID Prescribed by: SHIRLEY SCHAFFER on 05/26/192111 Naproxen 500 Mg Tablet, 1 EACH PO BID PRN Prescribed by: CLEVELAND MCLAIN MD on 02/15/09 1149 Naproxen 500 Mg Tablet, 500 MG PO BID PRN for PAIN-SEVERE (8-10) Prescribed by: SHIRLEY SCHAFFER on 05/26/192111 Patient Home Medication List Home Medication List Reviewed: Yes Review of Systems Review of Systems Constitutional: see HPI Eyes: No Symptoms Reported Ears: No Symptoms Reported Nose: no symptoms reported Mouth: see HPI Throat: no symptoms reported Respiratory: no symptoms reported Cardiovascular: no symptoms reported Musculoskeletal: no symptoms reported Skin: no symptoms reported Neurological: No Symptoms Reported Hematologic/Lymphatic: No Symptoms Reported Immunological/Allergic: no symptoms reported Past Webcwok-Gidngw-Teqkwe Hx Patient Social History Alcohol Beverage of Choice: Other Drug of Choice: HX: meth, etoh, thc Type Used: Cigarettes 2nd Hand Smoke Exposure: No Recent Foreign Travel: No Contact w/Someone Who Travel: No Recent Hopitalizations: No Immunizations Up To Date Tetanus Booster (TDap): Unknown Past Medical History Adenoidectomy, Tonsillectomy, Tubal Ligation Respiratory: No Cardiac: No Neurological: No 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 oz. 99.977920pn; 34.00 BMI Method:Stated General Appearance: WD/WN, no apparent distress Eyes: bilateral eye normal inspection, bilateral eye PERRL, bilateral eye EOMI Ears: bilateral ear auricle normal, bilateral ear canal normal, bilateral ear TM normal Mouth/Throat: pharynx normal, other (for dentition but no abscess or swelling) Neck: non-tender, full range of motion Cardiovascular: regular rate, rhythm Respiratory: no respiratory distress, no accessory muscle use Gastrointestinal: normal bowel sounds, non tender Neurologic/Psychiatric: alert, normal mood/affect, oriented x 3 Skin: normal color, warm/dry Progress/Results/Core Measures Results/Orders My Orders Orders - SHIRLEY SCHAFFER APRN Amoxicillin Capsule (Polymox Capsule) (05/26/19 21:11) Vital Signs/I&O 05/26/19 21:14 Temp 36.8 Pulse 88 Resp 18 B/P (MAP) 137/80 (99) O2 Delivery Room Air Departure Impression Primary Impression: Pain, dental Disposition: HOME, SELF-CARE Condition: Stable Departure-Patient Inst. Decision time for Depature: 21:12 Referrals: NO,LOCAL PHYSICIAN (PCP/Family) Primary Care Physician Patient Instructions: Dental Pain (DC) Add. Discharge Instructions: 1. Return to ER for any concerns 2. Call your dentist tomorrow 3. Antibiotics as directed. Scripts Naproxen (Naprosyn) 500 Mg Tablet 500 MG PO BID PRN for PAIN-SEVERE (8-10), #30 TAB 0 Refills Prov: SHIRLEY SCHAFFER APRN 05/26/19 Amoxicillin (Amoxicillin) 500 Mg Capsule 500 MG PO TID, #21 CAP 0 Refills Prov: SHIRLEY SCHAFFER APRN 05/26/19 SHIRLEY SCHAFFER APRN May 26, 2019 21:13
[2019-05-26 21:14] VITALS: BP 137/80
--- OUTSIDE RECORDS SUMMARY | 2019-05-26 21:22 | XMS REPORT | Continuity of Care Document ---
Demographics x Preferred Language Unknown Marital Status Unknown Latter Day Affiliation Unknown Race Unknown Ethnic Group Unknown Author Organization Unknown Address Unknown Phone Unavailable Allergies Active Description Code Type Severity Reaction Onset Reported/Identified Relationship to Patient Clinical Status Yes No known drug allergies ND N/A N/A Yes NO NAME AVAILABLE 30355 DRUG N/A N/A Yes codiene Drug N/A N/A Yes codiene Drug Severe [id number] Yes doxepin Drug N/A N/A Yes doxepin Drug Mild [id number] Yes Latex Allergy Drug N/A N/A Yes Latex Allergy Drug S evere [id number] Yes NKANo Known Allergies NKA Miscellaneous Allergy Mild N/A 08/08/2008 Yes CODEINE 18369 DRUG INGREDI N/A Hives 06/26/2016 06/26/2016 Yes codeine [id number] Drug Allergy Unknown N/A 09/14/2017 Yes doxepin [id number] Drug Allergy Unknown N/A 05/10/2019 Yes latex [id number] Drug Allergy Unknown N/A 05/10/2019 Medications Medication Packaging Start Date St op [...] Diagnosed By 06/26/2016 [place] [address] 0 Chest Pain MOSLEYALBINO K 06/26/2016 MOSLEY, ALBINO K V 28 Cough MOSLEY, ALBINO K 06/26/2016 MOSLEY, ALBINO K V R05 Cough MOSLEY, ALBINO K 07/06/2016 NGUYEN CASTELAN V 447 Vaginal Bleeding During NGUYEN CASTELAN 07/06/2016 NGUYEN CASTELAN V O20 .0 Threatened NGUYEN CASTELAN 07/06/2016 CASTELAN, EKWENSI A V R11 .2 Nausea with vomiting, unspecified NAZIA CASTELANNSI A 07/22/2016 VINCENT BARROSO NG R10.30 Lower abdominal pain, unspecified 07/22/2016 VINCENT BARROSO NG R10.9 Unspecified abdominal pain 07/22/2016 VINCENT BARROSO NG W19.XXXA Unspecified fall, initial encounter 08/18/2016 WORKING Z36 E ncounter for screening of mother 08/18/2016 WORKING Z3A.20 20 weeks gestation of 09/14/2017 SHIRLEY SCHAFFER PSYCHOLOGY ASSOCIATE Ot F10.10 ALCOHOL ABUSE, UNCOMPLICATED 09/14/2017 SHIRLEY SCHAFFER PSYCHOLOGY ASSOCIATE Ot F12.10 CANNABIS ABUSE, UNCOMPLICATED 09/14/2017 SHIRLEY SCHAFFER PSYCHOLOGY ASSOCIATE Ot F15.10 OTHER STIMULANT ABUSE, UNCOMPLICATED 09/14/2017 SHIRLEY SCHAFFER APRN Ot Z88 .5 ALLERGY STATUS TO NARCOTIC AGENT STATUS 09/16/2017 SHIRLEY SCHAFFER APRN Ot F10.10 ALCOHOL ABUSE, UNCOMPLICATED 09/16/2017 SHIRLEY SCHAFFER PSYCHOLOGY ASSOCIATE Ot F12.10 CANNABIS ABUSE, UNCOMPLICATED 09/16/2017 SHIRLEY SCHAFFER APRN Ot F15.10 OTHER STIMULANT ABUSE, UNCOMPLICATED 09/16/2017 SHIRLEY SCHAFFER APRN Ot Z88 .5 ALLERGY STATUS TO NARCOTIC AGENT STATUS 04/07/2018 Fernando Cruz MD E66.9 Obesity Class I (BMI 30-34.9) 04/07/2018 Anthony HOUSE, Fernando R20.2 Paresthesia of arm 04/07/2018 Fernando Cruz MD Z68.30 BMI 30-30.9 05/19/2018 Fernando Cruz MD Z11.3 Std screening 05/19/2018 Fernando rCuz MD Z12.4 Pap only (ca screen cervix) 05/19/2018 Fernando Cruz MD E66.3 Overweight (BMI 25-29.9) 05/19/2018 Fernando Cruz MD Z68.29 BMI 29-29.9 06/30/2018 Fernando Cruz MD R87.611 Atypical squamous cells on cervical Papanicolaou smear cannot exclude high grade squamous intraepithelial lesion 07/07/2018 Mor Cruz MDi N87.1 CIN2 07/07/2018 Anthony HOUSE, Fernando Z68.28 BMI 28-28.9 05/16/2019 SHIRLEY SCHAFFER APRN Ot S60.041A CONTUSION OF RIGHT RING FINGER W/O DAMAG 05/16/2019 SHIRLEY SCHAFFER APRN Ot S69.91XA UNSP INJURY OF RIGHT WRIST, HAND AND FIN 05/16/2019 SHIRLEY SCHAFFER APRN Ot W22.8XXA STRIKING AGAINST OR STRUCK BY OTHER OBJE 05/16/2019 SHIRLEY SCHAFFER APRN Ot Z88 .5 ALLERGY STATUS TO NARCOTIC AGENT STATUS 05/16/2019 SHIRLEY SCHAFFER APRN Ot Z90.89 ACQUIRED ABSENCE OF OTHER ORGANS 05/16/2019 SHIRLEY SCHAFFER APRN Ot Z98.51 TUBAL LIGATION STATUS Procedures There is no data. Results Test [...] CELL DISTRIBUTION WIDTH 12.3 % 11 .9-15.5 9983062 15.9 10E9/L 3.5-10.5 6649937 3.19 10E9/L 0.90-2.90 9522957 0.98 10E9/L 0.30-0.90 9852885 0.14 10E9/L 0.05-0.50 7793470 11.52 10E9/L 1.70-7.00 5150576 0.04 10E9/L 0.00-0.30 1868131 0 % HCG, QUANTITATIVE, - 07/06/16 00:45 B-HCG QUANTITATIVE 08035 mIU/mL <=4 CBC WITH DIFF - 07/22/16 [...] Status Pt. Type Provider Facility Loc./Unit Complaint [id number] 04/10/2013 22:19:00 04/11/2013 07:40 :00 DIS Emergency TRAVIS HARVEY [facility] EMR [id number] 01/15/2013 00:00:00 Document Registration [id number] 07/05/2016 22:09:17 7 02:22:00 DIS Emergency CASTELAN, EKIKER Demian [facility] EMD [id number] 06/26/2016 20:55:06 7 21:58:00 DIS Emergency ALBINO MOSLEY [facility] EMD [id number] 06/26/2016 21:40:02 Document Registration [id number] 05/19/2018 17:51:00 Document Registration [id number] 06/22/2018 13:59:36 06/22/2018 23:59: 59 CLS Outpatient Edward Moody [id number] 04/17/2018 12:29:21 04/17/2018 23:59: 59 CLS Outpatient Edward Moody [id number] 03/17/2018 13:24:32 03/17/2018 23:59: 59 CLS Outpatient Edward Moody [id number] 03/03/2018 11:40:57 03/03/2018 23:59: 59 CLS Outpatient Edward Moody [id number] 12/01/2017 16:55:56 12/01/2017 23:59: 59 CLS Outpatient Lester Lugo [id number] 11/17/2017 20:52:21 11/17/2017 23:59: 59 CLS Outpatient Lester Lugo [id number] 07/15/2018 15:40:00 07/15/2018 23:59:5 9 CLS Outpatient STAR LARA APRN [facility] [address] [id number] 07/13/2018 12:20:00 ACT Unknown Anthony HOUSE, Fernando [id number] 07/22/2016 13:16:00 07/22/2016 16: 50:00 DIS Emergency VINCENT BARROSO [facility] [id number] 07/16/2018 16:58:00 9 18:55:00 DIS Emergency TRAVIS HARVEY [facility] ED ER visit [id number] 07/09/2018 06:40:42 9 10:10:00 DIS Outpatient ANTHONY FERNANDO [facility] Surgery ops [id number] 05/29/2018 11:16:00 9 13:39:00 DIS Emergency Jimena Churchill [facility] ED er visit [id number] 04/24/2018 18:14:00 9 19:30:00 DIS Emergency TRAVIS HARVEY [facility] ED ed visit [id number] 04/04/2018 18:52:00 9 21:44:00 DIS Emergency Jimena Churchill [facility] ED Er visit [id number] 04/04/2018 12:15:00 9 12:48:00 DIS Emergency Jimena Churchill [facility] ED ed Visit [id number] 01/09/2018 20:35:00 8 21:35:00 DIS Emergency GABBY CROWE [facility] ED ed visit [id number] 01/07/2018 17:05:00 8 17:37:00 DIS Emergency KELSI PERALES [facility] ED ed visit [id number] 12/31/2017 18:21:00 8 19:20:00 DIS Emergency KELSI PERALES [facility] ED ED visit [id number] 12/10/2017 19:11:00 8 20:45:00 DIS Emergency TRAVIS OMALLEY [facility] ED ed visit [id number] 11/16/2017 00:34:00 8 01:32:00 DIS Emergency TESSIE HALL [facility] ED ER [id number] 05/10/2019 20:02:00 020 20:48:00 DIS Outpatient SHIRLEY SCHAFFER APRN [facility] ER R HAND INJ [id number] 09/14/2017 11:02:00 018 12:20:00 DIS Emergency SHIRLEY SCHAFFER APRN [facility] ER EVAL FOR REHAB [id number] 08/26/2016 00:00:00 08/26/2016 23: 59:59 CLS Outpatient [facility] [id number] 08/18/2016 13:20:46 08/18/2016 23: 59:59 CLS Outpatient [facility] [id number] 08/12/2016 00:00:00 08/12/2016 23: 59:59 CLS Outpatient [facility] B[facility] [id number] 08/11/2016 00:00:00 08/11/2016 23: 59:59 CLS Outpatient [facility] B[facility] [id number] 07/24/2016 00:00:00 07/24/2016 23: 59:59 CLS Outpatient [facility] O BGYN SFOB [id number] 07/24/2016 00:00:00 07/24/2016 23: 59:59 CLS Outpatient [facility] O BGYN SFOB
== END 2019-05-26 21:27 | disposition home or self-care (01) ==
LOC: EDUNIT# 21:08 → ER 21:09
DX: K08.89 Other specified disorders of teeth and supporting structures (principal); F90.9 Attention-deficit hyperactivity disorder, unspecified type; F41.9 Anxiety disorder, unspecified
CPT/HCPCS: 99283

== ENCOUNTER 2019-10-25 22:34 | Emergency (ER) | payer MEDICAID ==
[~2019-10-25] VITALS: Ht 170.2 cm; Wt 100.0 kg
[~2019-10-25 22:34] MED LIST changes: +AMOX500C2 PO; +NAPR-1071 PO
--- NOTE | 2019-10-25 23:25 | ED Lower Extremity ---
General Chief Complaint: Lower Extremity Stated Complaint: ANKLE INJURY Nursing Triage Note: Pt ambulates to [facility] with c/o R ankle injury. Pt reports on 10/24/19 she stepped into a hole et injured ankle. Pt reports to have taken tylenol, ibuprofen, applied ice, et elevated extremity with no relief. Moderate swelling noted to R lateral ankle. A&OX4. Nursing Sepsis Screen: No Definite Risk Source: patient Exam Limitations: no limitations History of Present Illness Date Seen by Provider: Oct 25, 2019 Time Seen by Provider: 22:40 Initial Comments This 24-year-old young lady presents to the emergency room with pain and swelling on the lateral aspect of the right ankle and pain at the lateral aspect of the right foot after stepping in a hole and rolling her ankle. She fell but denies any other injuries. She has been taking Tylenol, ibuprofen, and icing but this has not improved her pain. Allergies and Home Medications Allergies Coded Allergies: codeine (Unverified Allergy, Unknown, 09/14/17) doxepin (Verified Allergy, Unknown, 05/10/19) latex (Verified Allergy, Unknown, 05/10/19) Home Medications Amoxicillin 500 Mg Capsule, 500 MG PO TID Prescribed by: SHIRLEY SCHAFFER on 05/26/192111 Naproxen 500 Mg Tablet, 1 EACH PO BID PRN Prescribed by: CLEVELAND MCLAIN MD on 02/15/09 1149 Naproxen 500 Mg Tablet, 500 MG PO BID PRN for PAIN-SEVERE (8-10) Prescribed by: SHIRLEY SCHAFFER on 05/26/192111 Patient Home Medication List Home Medication List Reviewed: Yes Review of Systems Constitutional: no symptoms reported EENTM: no symptoms reported Respiratory: no symptoms reported Cardiovascular: no symptoms reported Gastrointestinal: no symptoms reported Genitourinary: no symptoms reported : No Musculoskeletal: see HPI Skin: no symptoms reported Psychiatric/Neurological: No Symptoms Reported Past Yrqqxpm-Ydkhjb-Dtyzvu Hx Past Med/Social Hx: Reviewed Nursing Past Med/Soc Hx Patient Social History Alcohol Use: Denies Use Number of Drinks Today: II Alcohol Beverage of Choice: Other Recreational Drug Use: No Drug of Choice: HX: meth, etoh, thc Smoking Status: Current Everyday Smoker Type Used: Cigarettes 2nd Hand Smoke Exposure: Yes Recent Foreign Travel: No Contact w/Someone Who Travel: No Recent Infectious Disease Expo: No Recent Hopitalizations: No Immunizations Up To Date Tetanus Booster (TDap): Unknown Past Medical History Surgeries: Yes Adenoidectomy, Tonsillectomy, Tubal Ligation Respiratory: No Cardiac: No Neurological: No 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 oz. 99.666175yl; 34.00 BMI Method:Stated General Appearance: WD/WN, no apparent distress HEENT: normal ENT inspection Cardiovascular: regular rate, rhythm, no edema, no murmur Respiratory: lungs clear, normal breath sounds, no respiratory distress Legs: right leg non-tender, right leg normal inspection, right leg normal range of motion, right leg no evidence of injury Knees: right knee non-tender, right knee normal inspection, right knee normal range of motion Ankles: right ankle bone tenderness (lateral malleolus), right ankle limited range of motion, right ankle pain, right ankle swelling (lateral malleolus), right ankle other (normal pedal pulse) Feet: right foot normal inspection, right foot bone tenderness (over the proximal fifth metatarsal), right foot other (normal pedal pulse) 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 as tested, no motor/sensory deficits, alert, normal mood/affect, oriented x 3 Skin: normal color, warm/dry Progress/Results/Core Measures Results/Orders My Orders Orders - JUDY KWOK MD Foot, Right, 3 View (10/25/19 22:46) Ankle, Right, 3 Views (10/25/19 22:46) Hydrocodone/Apap 5/325 Tablet (Lortab 5 (10/25/19 23:30) Crutches (10/25/19 23:20) Medications Given in ED Current Medications Medications Dose Ordered Sig/Milagros Route Start Time Stop Time Status Last Admin Dose Admin Acetaminophen/ Hydrocodone Bitart 1 tab ONCE ONCE PO 10/25/19 23:30 10/25/19 23:31 10/25/19 23:25 1 TAB Vital Signs/I&O 10/25/19 22:40 Temp 36.9 Pulse 80 Resp 18 B/P (MAP) 127/85 (99) Pulse Ox 99 O2 Delivery Room Air Blood Pressure Mean: 99 Progress Progress Note : Progress Note No fractures or dislocations were appreciated on x-rays. Ankle was wrapped in an Nahid bandage and crutches were dispensed. Diagnostic Imaging Diagonstic Imaging: Xray Plain Films/CT/US/NM/MRI: ankle (and foot) Comments X-rays of the right ankle and foot were reviewed by me. Report not yet available. No fractures or dislocations were appreciated. Departure Impression Primary Impression: Sprain and strain of ankle Additional Impression: Right foot pain Disposition: 01 HOME, SELF-CARE Condition: Improved Departure-Patient Inst. Decision time for Depature: 23:23 Referrals: NO,LOCAL PHYSICIAN (PCP/Family) Primary Care Physician Patient Instructions: Ankle Sprain, How to Use Crutches Add. Discharge Instructions: Elevate your foot to the level of your heart as much as possible to reduce pain and swelling. You may ice in 20 minute intervals the first couple of days. Compressive wrapping with an Nahid wrap should further reduce pain and swelling and give added support. Is recommended that you obtain a Velcro or lace up ankle brace from the store and use whenever up and active for the next 6 weeks to prevent reinjury of your ankle. Use crutches as needed and gradually increase level of activity as pain allows. Take ibuprofen up to 600 mg every 6 hours as needed and/or Tylenol (acetaminophen) up to 1000 mg every 6 hours as needed for pain. They radiologist will over read your x-rays in the morning. Feel free to call the ER or your primary care provider to get the final reading on the x-rays. Return to care as needed if you have further problems or concerns. All discharge instructions reviewed with patient and/or family. Voiced understanding. JUDY KWOK MD Oct 25, 2019 23:25
--- NOTE | 2019-10-25 23:25 | NUR ---
pt informed of anticipated wait time for dme to bring crutches. no needs at this time.
[2019-10-25] MEDS ORDERED: HYDROcodone/APAP 5 MG/325 MG (LORTAB) TAB PO ONE (23:30)
[2019-10-25 23:43] VITALS: BP 125/89
--- NOTE | 2019-10-25 23:43 | NUR ---
pt given d/c paperwork, denies needs updated we are still waiting on crutches from dme. no needs at this time.
--- NOTE | 2019-10-26 00:12 | NUR ---
pt left e.d. prior to recieving crutches.
--- NOTE | 2019-10-26 06:13 | Diagnostic Imaging Report ---
INDICATION: Right ankle pain. Stepped in hole. FINDINGS: 3 views. Right foot. No fractures or dislocations. Articulating surfaces are smooth. Joint spaces are well-maintained. IMPRESSION: Negative right foot. Dictated by: Dictated on workstation # [id number]
== END 2019-10-26 00:12 | disposition home or self-care (01) ==
LOC: EDUNIT# 22:34 → ER 22:37
DX: S93.491A Sprain of other ligament of right ankle, initial encounter (principal); M79.671 Pain in right foot; F17.210 Nicotine dependence, cigarettes, uncomplicated; Z88.5 Allergy status to narcotic agent; Z91.040 Latex allergy status; Z88.8 Allergy status to other drugs, medicaments and biological substances; W18.42XA Slipping, tripping and stumbling without falling due to stepping into hole or opening, initial encounter
CPT/HCPCS: 73610; 73630

== ENCOUNTER 2019-12-21 12:32 | Emergency (ER) | payer MEDICAID ==
[~2019-12-21] VITALS: Ht 147 cm; Wt 99.7 kg
--- NOTE | 2019-12-21 13:37 | ED General ---
General Chief Complaint: General Problems/Pain Stated Complaint: COUGH,VOMITING, CONGESTION Nursing Triage Note: PT ARRIVES TO ER WITH C/O COUGH AND DIARRHIA FOR 4 DAYS. PT IS ALSO SHORT OF BREATH AT REST Nursing Sepsis Screen: No Definite Risk Source of Information: Patient Exam Limitations: No Limitations History of Present Illness Date Seen by Provider: Dec 21, 2019 Time Seen by Provider: 13:35 Initial Comments Cough and diarrhea for 4 days. Also has nausea and chills. Boyfriend is ill with similar symptoms Timing/Duration: 3-4 Days Severity: Moderate Associated Systoms: Cough, Headaches, Malaise, Nausea/Vomiting Allergies and Home Medications Allergies Coded Allergies: codeine (Unverified Allergy, Unknown, 09/14/17) doxepin (Verified Allergy, Unknown, 05/10/19) latex (Verified Allergy, Unknown, 05/10/19) Home Medications Amoxicillin 500 Mg Capsule, 500 MG PO TID Prescribed by: SHIRLEY SCHAFFER on 05/26/192111 Naproxen 500 Mg Tablet, 1 EACH PO BID PRN Prescribed by: CLEVELAND MCLAIN MD on 02/15/09 1149 Naproxen 500 Mg Tablet, 500 MG PO BID PRN for PAIN-SEVERE (8-10) Prescribed by: SHIRLEY SCHAFFER on 05/26/192111 Patient Home Medication List Home Medication List Reviewed: Yes Review of Systems Review of Systems Constitutional: see HPI, chills, malaise EENTM: see HPI Respiratory: see HPI, cough Cardiovascular: no symptoms reported Genitourinary: no symptoms reported Musculoskeletal: no symptoms reported Skin: no symptoms reported Psychiatric/Neurological: No Symptoms Reported Hematologic/Lymphatic: No Symptoms Reported Past Bstexza-Grcqss-Ievmpz Hx Patient Social History Alcohol Use: Rarely Uses Number of Drinks Today: II Alcohol Beverage of Choice: Other Recreational Drug Use: No Drug of Choice: HX: meth, etoh, thc Smoking Status: Current Everyday Smoker Type Used: Cigarettes 2nd Hand Smoke Exposure: Yes Recent Foreign Travel: No Contact w/Someone Who Travel: No Recent Infectious Disease Expo: No Recent Hopitalizations: No Immunizations Up To Date Tetanus Booster (TDap): Less than 5yrs PED Vaccines UTD: Yes Seasonal Allergies Seasonal Allergies: Yes Past Medical History Surgeries: Yes Adenoidectomy, Tonsillectomy, Tubal Ligation Respiratory: No Cardiac: No Neurological: No Last Menstrual Period: Dec 01, 2019 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 oz. 99.516087do; 46.00 BMI Method:Stated General Appearance: No Apparent Distress, WD/WN, Other (No distress, alert and oriented. Oxygen saturation 98% room air with normal nonlabored respiratory pattern. She does have secondary wheeze in both lungs.) Neck: Full Range of Motion, Normal Inspection Respiratory: No Accessory Muscle Use, No Respiratory Distress, Wheezing Cardiovascular: Regular Rate, Rhythm, Normal Peripheral Pulses Gastrointestinal: Non Tender, Soft Extremity: Normal Capillary Refill, Normal Inspection Neurologic/Psychiatric: Alert, Oriented x3 Skin: Normal Color, Warm/Dry Progress/Results/Core Measures Suspected Sepsis Recent Fever Within 48 Hours: No Infection Criteria Present: Suspected New Infection New/Unexplained Altered Menta: No Sepsis Screen: No Definite Risk SIRS Temperature: Pulse: 74 Respiratory Rate: 19 Blood Pressure 130 /85 Mean: 100 Results/Orders Lab Results Laboratory Tests Test 12/21/19 13:31 Range/Units My Orders Orders - SHIRLEY SCHAFFER APRN Influenza A And B Antigens (12/21/19 13:19) Coronavirus Sars-Cov-2 So 2018 (12/21/19 13:19) Chest 1 View, Ap/Pa Only (12/21/19 13:19) Benzonatate Capsule (Tessalon Perles) (12/21/19 21:00) Albuterol Inhaler (Ventolin Hfa) (12/21/19 14:00) Vital Signs/I&O 12/21/19 13:08 Temp 36.8 Pulse 74 Resp 19 B/P (MAP) 130/85 (100) Pulse Ox 94 O2 Delivery Room Air Capillary Refill : Less Than 3 Seconds Blood Pressure Mean: 100 Departure Impression Primary Impression: Viral syndrome Additional Impression: Reactive airway disease Disposition: 01 HOME, SELF-CARE Condition: Stable Departure-Patient Inst. Decision time for Depature: 13:48 Referrals: NO,LOCAL PHYSICIAN (PCP/Family) Primary Care Physician Patient Instructions: Viral Syndrome (DC) Add. Discharge Instructions: 1. 2 puffs of the inhaler every 4 hours as needed for shortness of breath. Take the cough medication as directed. Return to ER for any worsening. Follow- up with your doctor this week for recheck. All discharge instructions reviewed with patient and/or family. Voiced understanding. Scripts Ondansetron (Ondansetron Odt) 4 Mg Tab.rapdis 4 MG PO Q4H PRN for NAUSEA/VOMITING, #10 TAB Prov: SHIRLEY SCHAFFER APRN 12/21/19 Benzonatate (TESSALON PERLES) 100 Mg Capsule 200 MG PO TID, #20 CAP Prov: SHIRLEY SCHAFFER APRN 12/21/19 SHIRLEY SCHAFFER APRN Dec 21, 2019 13:36
[2019-12-21] MEDS ORDERED: ONDA4TAB11 PO (13:49)
[2019-12-21] MEDS ORDERED: BENZ100C18 PO (13:49)
--- NOTE | 2019-12-21 13:57 | Diagnostic Imaging Report ---
INDICATION: Cough and diarrhea for 4 days. Time of exam 1:57 PM Comparison is made with prior chest from 01/18/2009. The heart size is normal. The pulmonary vascularity is unremarkable. The lungs are clear. No infiltrate, effusion or pneumothorax is detected. Impression: No acute cardiopulmonary process is detected. Dictated by: Dictated on workstation # [id number]
[2019-12-21] MEDS ORDERED: RT-ALBUTEROL INHALER HFA (VENTOLIN HFA) 18 GM IH SCH (14:00)
[2019-12-21 14:02] VITALS: BP 130/85
[2019-12-21] MEDS ORDERED: BENZONATATE 100 MG (TESSALON) CAPSULE PO SCH (21:00)
== END 2019-12-21 14:02 | disposition home or self-care (01) ==
LOC: EDUNIT# 12:32 → ER 12:34
DX: B34.9 Viral infection, unspecified (principal); J45.909 Unspecified asthma, uncomplicated; F17.210 Nicotine dependence, cigarettes, uncomplicated; Z20.828 Contact with and (suspected) exposure to other viral communicable diseases; Z85.41 Personal history of malignant neoplasm of cervix uteri; Z91.040 Latex allergy status; Z88.5 Allergy status to narcotic agent; Z88.8 Allergy status to other drugs, medicaments and biological substances
CPT/HCPCS: 71045; 87804; 99283; U0002; 87635

== ENCOUNTER 2020-01-04 16:14 | Emergency (ER) | payer MEDICAID ==
[~2020-01-04 16:14] MED LIST changes: +BENZ100C18 PO; +ONDA4TAB11 PO
--- NOTE | 2020-01-04 17:00 | NUR ---
CALLED PT TO COME INSIDE TO BE SEEN AND PT SHELLEYBS
== END 2020-01-04 17:15 | disposition left against medical advice (07) ==
LOC: EDUNIT# 16:14 → ER 16:17
DX: R05 Cough (principal); R06.02 Shortness of breath; Z20.828 Contact with and (suspected) exposure to other viral communicable diseases

== ENCOUNTER 2020-01-13 13:33 | Emergency (ER) | payer MEDICAID ==
[~2020-01-13] VITALS: Ht 172 cm; Wt 106.0 kg
[2020-01-13] MEDS ORDERED: ACETAMINOPHEN 500 MG TAB (TYLENOL) PO ONE (13:45)
--- NOTE | 2020-01-13 13:45 | ED Lower Extremity ---
General Stated Complaint: L ANKLE PAIN Source: patient, EMS Exam Limitations: no limitations History of Present Illness Date Seen by Provider: Jan 13, 2020 Time Seen by Provider: 13:31 Initial Comments Patient presents ER by EMS with chief complaint of just prior to arrival she was walking home from [facility] and tripped in a pothole rolling her left ankle. She had inability to bear weight at the time or now. She has no previous injury or surgery of her left ankle. She states a history of cervical cancer with 3 LEEPs. She used ice and has had no NSAIDs or Tylenol yet. Allergies and Home Medications Allergies Coded Allergies: codeine (Unverified Allergy, Unknown, 09/14/17) doxepin (Verified Allergy, Unknown, 05/10/19) latex (Verified Allergy, Unknown, 05/10/19) Home Medications Amoxicillin 500 Mg Capsule, 500 MG PO TID Prescribed by: SHIRLEY SCHAFFER on 05/26/192111 Benzonatate 100 Mg Capsule, 200 MG PO TID Prescribed by: SHIRLEY SCHAFFER on 12/21/19 134 Naproxen 500 Mg Tablet, 1 EACH PO BID PRN Prescribed by: CLEVELAND MCLAIN MD on 02/15/09 1149 Naproxen 500 Mg Tablet, 500 MG PO BID PRN for PAIN-SEVERE (8-10) Prescribed by: SHIRLEY SCHAFFER on 05/26/19 211 Ondansetron 4 Mg Tab.rapdis, 4 MG PO Q4H PRN for NAUSEA/VOMITING Prescribed by: SHIRLEY SCHAFFER on 12/21/19 1349 Patient Home Medication List Home Medication List Reviewed: Yes Review of Systems Constitutional: No chills, No diaphoresis EENTM: No ear discharge, No ear pain Respiratory: No cough, No short of breath Cardiovascular: No edema, No Hx of Intervention, No palpitations Gastrointestinal: No abdominal pain, No nausea, No vomiting Genitourinary: No discharge, No dysuria Musculoskeletal: see HPI; No back pain; joint pain Past Etvztxt-Vkekwv-Yzpfzi Hx Patient Social History Alcohol Use: Denies Use Alcohol Beverage of Choice: Other Recreational Drug Use: Yes Drug of Choice: HX: meth, etoh, thc Smoking Status: Current Everyday Smoker Type Used: Cigarettes 2nd Hand Smoke Exposure: Yes Recent Foreign Travel: No Contact w/Someone Who Travel: No Recent Hopitalizations: No Immunizations Up To Date Tetanus Booster (TDap): Less than 5yrs PED Vaccines UTD: Yes Seasonal Allergies Seasonal Allergies: Yes Past Medical History Surgeries: Yes Adenoidectomy, Tonsillectomy, Tubal Ligation Respiratory: No Cardiac: No 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 oz. 99.436948fm; 46.00 BMI Method:Stated General Appearance: WD/WN, no apparent distress HEENT: PERRL/EOMI, pharynx normal Neck: full range of motion, normal inspection Cardiovascular: normal peripheral pulses, regular rate, rhythm Respiratory: no respiratory distress, no accessory muscle use Ankles: right ankle non-tender; bilateral ankle normal inspection, bilateral ankle normal range of motion; right ankle no evidence of injury; left ankle bone tenderness (medial posterior malleolus tender to palpation.), left ankle other (negative for ecchymoses, edema, swelling, erythema, external trauma such as abrasion.) Feet: bilateral foot non-tender, bilateral foot normal inspection, bilateral foot normal range of motion, bilateral foot no evidence of injury Progress/Results/Core Measures Results/Orders My Orders Orders - RUTH SINGH Ankle, Left, 3 Views (01/13/20 13:38) Acetaminophen Tablet (Tylenol Tablet) (01/13/20 13:45) Medications Given in ED Current Medications Medications Dose Ordered Sig/Milagros Route Start Time Stop Time Status Last Admin Dose Admin Acetaminophen 1,000 mg ONCE ONCE PO 01/13/20 13:45 01/13/20 13:46 DC 01/13/20 13:53 1,000 MG Vital Signs/I&O 01/13/20 13:55 Temp 36.2 Pulse 100 Resp 20 B/P (MAP) 142/96 (111) O2 Delivery Room Air Progress Progress Note : Time: 13:47 Progress Note Auto ankle rules: X-ray left ankle 3 view. Tylenol for pain. Ice Diagnostic Imaging Diagonstic Imaging: Xray Plain Films/CT/US/NM/MRI: ankle (L) Comments No acute fracture. Reviewed: Reviewed by Me Departure Impression Primary Impression: Sprain and strain of ankle Disposition: HOME, SELF-CARE Condition: Stable Departure-Patient Inst. Decision time for Depature: 14:27 Referrals: NO,LOCAL PHYSICIAN (PCP/Family) Primary Care Physician Patient Instructions: Ankle Sprain (DC) Add. Discharge Instructions: Keep your ankle elevated above the level of your heart when not in use. Use the crutches for the first week as necessary to stay mobile. Tylenol 1000 mg every 8 hours as necessary for pain. Ibuprofen 800 mg every 8 hours as necessary for pain. Ice applied for 20 minutes every 2 hours for the first 2 days as necessary for swelling and pain. Compression dressing such as a neoprene ankle sleeve or Nahid bandage to help reduce swelling and pain. If you're still having significant pain one to 2 weeks out then you need reexamination by your primary care doctor. Work/School Note: Work Release Form Date Seen in the Emergency Department: Jan 13, 2020 Return to Work: Jan 14, 2020 Restrictions: Need Release from Doctor Other Restrictions Listed Below: You may use crutches until 01/23/20. RUTH SINGH Jan 13, 2020 13:45
--- NOTE | 2020-01-13 14:31 | Diagnostic Imaging Report ---
INDICATION: Stepped in pothole and twisted the left ankle pain along the fibular side. FINDINGS: 3 views of the right ankle demonstrates no fracture, dislocation or joint effusion. A small bone island is seen in the distal tibia. IMPRESSION: Negative left ankle. Dictated by: Dictated on workstation # [id number]
[2020-01-13 14:40] VITALS: BP 130/79
== END 2020-01-13 14:40 | disposition home or self-care (01) ==
LOC: EDUNIT# 13:33 → ER 13:36
DX: S93.402A Sprain of unspecified ligament of left ankle, initial encounter (principal); F17.210 Nicotine dependence, cigarettes, uncomplicated; Z88.5 Allergy status to narcotic agent; Z91.040 Latex allergy status; Z88.8 Allergy status to other drugs, medicaments and biological substances; Z85.41 Personal history of malignant neoplasm of cervix uteri; Z20.828 Contact with and (suspected) exposure to other viral communicable diseases; W01.0XXA Fall on same level from slipping, tripping and stumbling without subsequent striking against object, initial encounter
CPT/HCPCS: 73610

== ENCOUNTER 2020-06-16 20:01 | Emergency (ER) | payer MEDICAID ==
[~2020-06-16] VITALS: Ht 172 cm; Wt 106.5 kg
[2020-06-16] MEDS ORDERED: AMOXICILLIN 500 MG (POLYMOX) CAP PO STA (20:54)
[2020-06-16] MEDS ORDERED: AMOX500C2 PO ×2 (20:57→20:58)
--- NOTE | 2020-06-16 20:58 | ED EENT ---
History of Present Illness General Chief Complaint: Dental Problems/Pain Stated Complaint: POST TOOTH EXTRACTION/INFECTION Nursing Triage Note: Pt c/o pain to right upper dental area, had extraction done yesterday and is concerned about infection. Source: patient Exam Limitations: no limitations History of Present Illness Date Seen by Provider: June 16, 2020 Time Seen by Provider: 20:55 Initial Comments To ER with reports that she had a tooth extracted yesterday. She is worried about infection as she has had some "yellowish-green drainage" Timing/Duration: abrupt Severity: moderate Location: mouth Prearrival Treatment: no prearrival treatment Associated Symptoms: denies symptoms Allergies and Home Medications Allergies Coded Allergies: codeine (Unverified Allergy, Unknown, 09/14/17) doxepin (Verified Allergy, Unknown, 05/10/19) latex (Verified Allergy, Unknown, 05/10/19) Home Medications Amoxicillin 500 Mg Capsule, 500 MG PO TID Prescribed by: SHIRLEY SCHAFFER on 05/26/192111 Benzonatate 100 Mg Capsule, 200 MG PO TID Prescribed by: SHIRLEY SCHAFFER on 12/21/19 134 Naproxen 500 Mg Tablet, 1 EACH PO BID PRN Prescribed by: CLEVELAND MCLAIN MD on 02/15/09 1149 Naproxen 500 Mg Tablet, 500 MG PO BID PRN for PAIN-SEVERE (8-10) Prescribed by: SHIRLEY SCHAFFER on 05/26/192111 Ondansetron 4 Mg Tab.rapdis, 4 MG PO Q4H PRN for NAUSEA/VOMITING Prescribed by: SHIRLEY SCHAFFER on 12/21/19 1349 Patient Home Medication List Home Medication List Reviewed: Yes Review of Systems Review of Systems Constitutional: see HPI Eyes: No Symptoms Reported Ears: No Symptoms Reported Nose: no symptoms reported Mouth: see HPI Throat: no symptoms reported Respiratory: no symptoms reported Cardiovascular: no symptoms reported Musculoskeletal: no symptoms reported Skin: no symptoms reported Neurological: No Symptoms Reported Hematologic/Lymphatic: No Symptoms Reported Immunological/Allergic: no symptoms reported Past Kxfzzkt-Ydunqr-Bhdxug Hx Patient Social History Alcohol Use: Denies Use Number of Drinks Today: II Alcohol Beverage of Choice: Other Drug of Choice: HX: meth, etoh, thc Type Used: Cigarettes 2nd Hand Smoke Exposure: Yes Recent Infectious Disease Expo: No Recent Hopitalizations: No Immunizations Up To Date Tetanus Booster (TDap): Less than 5yrs PED Vaccines UTD: Yes Seasonal Allergies Seasonal Allergies: Yes Past Medical History Surgeries: Yes Adenoidectomy, Tonsillectomy, Tubal Ligation Respiratory: No Cardiac: No 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 oz. 99.429011rb; 35.00 BMI Method:Stated General Appearance: WD/WN, no apparent distress Eyes: bilateral eye normal inspection, bilateral eye PERRL, bilateral eye EOMI Ears: bilateral ear auricle normal, bilateral ear canal normal, bilateral ear TM normal Mouth/Throat: other (Tooth socket was filled with clot has a normal appearance) Neck: non-tender, full range of motion Respiratory: no respiratory distress, no accessory muscle use Gastrointestinal: normal bowel sounds, non tender Neurologic/Psychiatric: alert, normal mood/affect, oriented x 3 Skin: normal color, warm/dry Progress/Results/Core Measures Results/Orders My Orders Orders - SHIRLEY SCHAFFER APRN Amoxicillin Capsule (Polymox Capsule) (06/16/20 20:54) Hydrocodone/Apap 5/325 Tablet (Lortab 5 (06/16/20 21:00) Vital Signs/I&O 06/16/20 20:42 Temp 36.7 Pulse 64 Resp 16 B/P (MAP) 141/87 (105) Pulse Ox 100 O2 Delivery Room Air Blood Pressure Mean: 105 Departure Impression Primary Impression: Pain, dental Disposition: 01 HOME, SELF-CARE Condition: Stable Departure-Patient Inst. Decision time for Depature: 20:57 Referrals: NO,LOCAL PHYSICIAN (PCP/Family) Primary Care Physician Patient Instructions: Dental Pain Add. Discharge Instructions: 1. Return to ER for any concerns. Take the antibiotics as directed. Tylenol and ibuprofen for pain control. All discharge instructions reviewed with patient and/or family. Voiced understanding. Scripts Amoxicillin (Amoxicillin) 500 Mg Capsule 500 MG PO TID, #21 CAP 0 Refills . Prov: SHIRLEY SCHAFFER APRN 06/16/20 SHIRLEY SCHAFFER APRN June 16, 2020 20:58
[2020-06-16] MEDS ORDERED: HYDROcodone/APAP 5 MG/325 MG (LORTAB) TAB PO ONE (21:00)
[2020-06-16 21:04] VITALS: BP 141/87
== END 2020-06-16 21:04 | disposition home or self-care (01) ==
LOC: EDUNIT# 20:01 → ER 20:03
DX: K08.89 Other specified disorders of teeth and supporting structures (principal); Z88.5 Allergy status to narcotic agent; Z88.8 Allergy status to other drugs, medicaments and biological substances; Z91.040 Latex allergy status; Z77.22 Contact with and (suspected) exposure to environmental tobacco smoke (acute) (chronic)
CPT/HCPCS: 99283